=== PATIENT | female | born 1950 | race Caucasian/White ===

== ENCOUNTER 2018-05-06 08:18 | Outpatient (RCR) | payer MEDICARE, OTHER, SELFPAY ==
--- NOTE | 2018-05-06 10:11 | HP.SP.AD ---
History - History Date of Eval: 05/06/18 Previous speech therapy: Yes Results: Patient has history of CVA. Other Relevant Medical History/Diagnoses/Surgery: Patient diagnosed with Parkinsons in December 2017 Hx Smoking: No - Pain Is pain an issue with your current prescribed condition?: No - Personal Right Hearing Abillity: Normal Left Hearing Abillity: Normal Visual Assistive Devices: Glasses Patients Living Arrangements: With Significant Other Subjective Oral Motor - Subjective Patient Reports: Drooling - Comments Comments: Patient stateds she drools mainly at night. She stated she does not have any difficulty with chewing or swallowing food. She stated sometimes she has difficulty with swallowing pills especially the small pills. She stated she does have a dry mouth. Subjective Dysphagia - Symptoms Reported Symptoms/Problems with: Difficulty Swallowing Pills, Xerostomia - Current Diet Solids Current Diet: Regular - Current Diet Liquids Current Liquids: Thin - Comments evaluation -: Patient discussed that her main concern is that she is having difficulty with swallowing pills. She stated at this point it does not happen everyday. Therapist discussed with her strategies to try to help with the taking of medication. Therapist gave patient a handout on the product Biotene dry mouth oral rinse to try in morning previous to taking pills. Discussed with patient about putting medication in a smooth consistency such as applesauce, or some type of puree and then taking the pills. Patient agreed to try these suggestions at home. Patient demonstrated mild impairment of rom of motion of the tongue musculature. Patient was also given handouts on tongue, lip, laryngeal and adduction exercises to practice daily 1-2 times a day to help maintain ROM and strength or oral/pharyngeal musculature. Dysphagia Assessment - Recommendations Swallowing Treatment: No - Diet Texture Recommendations Solids Other: Regular Liquids: Thin - Safety Saftey Precautions/Swallowing Recommendations (Check all that Apply): Multiple Swallows, Alternate Liquids & Solids Other: Put medication in spoonful of puree consistency to take orally. Try using Biotene dry mouth oral rinse before taking medication Plan - Plan Plan: Patient's main concern was with having difficulties with taking medications. She also wanted excercises to help maintain ROM and strength of oral musculature. Therapist will keep in phone contact with patient to monitor patient's swallowing. - Recommendations Treatment Warranted: No - Prognosis Prognosis: Good Education - Patient Instruction Patient Education: Treatment Plan, Safety Precautions, Home Exercise Program Person Taught: Patient Teaching Method: Discussion, Demonstration, Handout Response to teaching: Return demonstration, Verbalize understanding
== END 2018-05-06 19:00 | disposition home or self-care (01) ==
LOC: SP 08:18
PROVIDERS: Family Provider Family Medicine; PCP Family Medicine; Referring Provider Otolaryngology; Visit Provider Otolaryngology
DX: R13.12 Dysphagia, oropharyngeal phase (principal)
CPT/HCPCS: 92610; G8996; G8997

== ENCOUNTER → 2018-11-12 | Outpatient (CLI) | payer MEDICARE, OTHER, SELFPAY ==
--- NOTE | 2018-11-12 09:30 | RAD_ITS ---
PROCEDURE: Fluoroscopic guided Hip Injection DATE: November 12, 2018. INDICATION: Female, 68 years old. Chronic left hip pain. PHYSICIAN: Alex Su M.D. MEDICATIONS: 6 mg of betamethasone and 3 cc of 1% lidocaine. 2% lidocaine administered subcutaneously for local anesthesia. ACCESS SITE: Left hip. NEEDLE: 22-gauge spinal needle. FLUOROSCOPY TIME (if supplied): (0:30) minutes/seconds FINDINGS: The risks, benefits, and alternatives to the procedure were explained to the patient. The specific risks of bleeding, infection, and neurovascular injury were detailed and accepted. Witnessed informed consent was obtained. A 22-gauge spinal needle was positioned under radiographic fluoroscopic localization. Approximately 2 cc of Isovue-300 instilled for localization purposes. Medication was then injected. The patient tolerated the procedure well without any immediate complications. RAD/Inj/Asp Edilson Jt Should/Hip/Knee IMPRESSION: 1. Successful fluoroscopic guided hip injection. Electronically Signed: Alex Su, at 10:42 EDT , Service support ,
== END | disposition home or self-care (01) ==
LOC: RAD 09:22
PROVIDERS: Family Provider Family Medicine; PCP Family Medicine; Referring Provider Specialist; Visit Provider Specialist
DX: M16.12 Unilateral primary osteoarthritis, left hip (principal)
CPT/HCPCS: 20610; 77002; Q9965; J0702

== ENCOUNTER → 2019-04-08 13:41 | Outpatient (CLI) | payer MEDICARE, OTHER, SELFPAY ==
--- NOTE | 2019-04-08 14:25 | VDLE_ITS ---
Reason For Study: PAIN RIGHT LEFT GSV is normal. GSV is normal. CFV is compressible, spontaneous, phasic, CFV is compressible, spontaneous, phasic, competent and demonstrates normal competent, and demonstrates normal augmentation. augmentation. FV is compressible, spontaneous, phasic, FV is compressible, spontaneous, phasic, competent and demonstrates normal competent and demonstrates normal augmentation. augmentation. POP V is compressible, spontaneous, phasic, POP V is compressible, spontaneous, phasic, competent and demonstrates normal competent and demonstrates normal augmentation. augmentation. T/P Trunk is compressible. T/P Trunk is compressible. PTV is compressible. PTV is compressible. RT PerV is compressible. LT PerV is compressible. Procedure Exam performed in department. A preliminary report was called and/or faxed to [facility]/Luz Maria MADSEN. Interpretation Summary Deep veins of the lower extremities are bilaterally patent and compressible segmentally. There is no evidence of deep vein thrombosis on either side. Valvular competence appears intact within the proximal deep venous systems bilaterally. The great saphenous veins appear bilaterally patent and compressible segmentally. Ordering Physician: Katey Madsen Referring Physician: Katey Madsen Performed By: Ema Baez, RUFINO, RVT
== END ==
PROVIDERS: Family Provider Family Medicine; PCP Family Medicine; Referring Provider Nurse Practitioner; Visit Provider Nurse Practitioner
DX: M79.605 Pain in left leg (principal); M79.604 Pain in right leg
CPT/HCPCS: 93970

== ENCOUNTER 2019-04-17 20:32 | Observation (INO) | payer MEDICARE, OTHER, SELFPAY ==
[2019-04-17 20:43] VITALS: BP 99/49; PULSE 83; RESP 18; TEMP 36.9; O2SAT 94; BMI 29.2
[2019-04-17 21:00] VITALS: BP 91/53; PULSE 84; RESP 15; O2SAT 95
[2019-04-17 21:10] VITALS: BP 109/60; PULSE 86; RESP 15; O2SAT 98
[2019-04-17] MEDS: oxyCODONE 5 MG Tablet PO (22:37)
[2019-04-17] MEDS: diazePAM 5 MG Tablet PO (22:38)
[2019-04-17] MEDS: Pramipexole Di-HCl 1 MG Tablet 2 MG PO (22:43)
[2019-04-17 22:51] VITALS: BP 154/76; PULSE 96; RESP 20; O2SAT 94
--- NOTE | 2019-04-17 22:52 | NURSING ---
PAGED DR. PACHECO AT [phone]
--- NOTE | 2019-04-18 00:13 | PCM.HP.STD ---
Problem List (1) Debility Status: Acute History of Present Illness Date of Admission: 04/18/19 Chief Complaint: soleal vein thrombus The patient is a 69 year old F with a significant history of Parkinson's disease; hypertension; and hemochromatosis who presented to the emergency department because of soleal vein thrombus of the right leg. On April 01 2019, patient had a back surgery because of Spinal stenosis. The surgery was with Dr. Lopez at [facility]. Patient continued to have bilateral leg pain and generalized weakness after the surgery. Subsequently she had a CT scan that showed fluid collection at her back. A follow up MRI showed epidural hematoma of her back and for which reason patient had another surgery to evacuate hematoma. Patient developed swelling of her left lower extremity and per family insistence an imaging study was done. Patient was discharged from [facility] to our Rehab Unit ([facility]). The results of the doppler study was unknown to our Rehab unit when patient was accepted. However, because the doppler of her leg showed R soleal vein patient could not be admitted at our Rehab unit. Reportedly vascular surgery at [facility] was contacted and he/she felt that the patient will not need an IVC filter. Her bowels moves about 2 days per week.. Her bowels are yet to move after her last surgery which was 3 days prior to arrival. Past Medical History Medical History: Medical History (Last Updated 04/18/19 @ 04:57 by Castillo Velasquez MD) HTN (hypertension) I10 Allergies Penicillins Allergy (Verified 04/17/19 21:03) Unknown Sulfa (Sulfonamide Antibiotics) Allergy (Verified 04/17/19 21:03) Unknown Home Medications: Ambulatory Orders Medication Instructions Recorded Aspirin [Aspirin EC] 81 mg PO DAILY 04/17/19 Diazepam [Valium] 5 mg PO Q6H PRN PRN 04/17/19 Docusate Sodium [Colace] 100 mg PO BID 04/17/19 Folic Acid 1 mg PO DAILY@0800 04/17/19 Gabapentin [Neurontin] 300 mg PO BIDCM 04/17/19 Lisinopril [Zestril] 10 mg PO DAILY 04/17/19 Oxycodone HCl 5 mg PO Q6H PRN PRN 04/17/19 Pramipexole Di-HCl [Mirapex] 1 mg PO BID 04/17/19 Pramipexole Di-HCl [Mirapex] 2 mg PO QHS 04/17/19 Surgical History: tonsillectomy, - - Decompressive back surgery; and hematoma evacuation of the back. Lives: Spouse/ Significant Other Smoking Status: Never smoker Alcohol: None - *Family History Paternal History Items: Dementia - Vascular dementia Maternal History Items: Cancer - Non-Hodgkin's lymphoma Review of Systems Constitutional: Reports: Weakness. Denies: Chills, Fever, Weight Change HEENT: Denies: Head Aches, Sinus Congestion, Sinus Drainage Cardiovascular: Denies: Chest Pain, Palpitations Respiratory: Denies: Cough, Shortness of breath at rest, Sputum production Gastrointestinal: Denies: Abdominal Pain, Nausea, Vomiting Genitourinary: Denies: Dysuria Musculoskeletal: Reports: Leg Pain. Denies: Joint Pain, Joint Tenderness Skin: Denies: Rash, Wounds Neurological: Denies: Numbness, Tingling, Focal weakness Psychiatric: Denies: Anxiety, Depression, Homicidal Ideations, Suicidal Ideations Hematologic/ Lymphatic: Denies: Easy Bruising, Easy Bleeding VTE Information - Inpt Only VTE Present on Admission: Yes - Soleal vein thrombosis VTE Mechan Device Prophylaxis: None VTE Pharm Prophylaxis ordered?: Yes Patient Problems: Active and Suspected Problems Debility (Acute) - Physical Exam General: Alert, Oriented x3, Cooperative HEENT: Atraumatic, PERRLA, EOMI, Normocephalic Neck: Supple, No JVD, Negative Carotid Bruits Lungs: Clear to auscultation, Normal air movement Cardiovascular: Regular rate, No murmurs Abdomen: Bowel Sounds Present, Soft, Non Tender Extremities: Capillary Refill Less than 3 Seconds, Edema - left leg Skin: No rashes, No breakdown, - - Dry and intact dressing at mid to lower back. Musculoskeletal: No Tenderness to Palpation of Joints or Extremities, - - Reduced range of motion of bilateral lower extremities with strength 5 out of 5 in bilateral lower extremities. Neurological: Cranial nerves II-XII grossly intact, - - Anal tone is intact Psych/Mental Status: Normal Affect, Appropriate Vital Signs Temp Pulse Resp BP Pulse Ox 98.4 F 96 20 H 154/76 H 94 04/17/19 20:43 04/17/19 22:51 04/17/19 22:51 04/17/19 22:51 04/17/19 22:51 Oxygen Delivery Method Room Air Weight: 77.111 kg Body Mass Index (BMI) 29.2 Assessment/Plan All Active Problems Debility (Acute) The patient is a 69 year old F with a significant history of Parkinson's disease; hypertension; and hemochromatosis who presented to the emergency department because of soleal vein thrombus of the right leg after a recent back surgery and a second back surgery for back epidural hematoma evacuation. Soleal vein thrombosis of the right leg Imaging at [facility] and with recommendation that if anticoagulation cannot be done longitudinal Duplex of the leg was recommended. Consider discussing case with automotive service director. Debility Consider discharging patient to our rehab unit for PT/OT as originally planned. Back Pain s/p surgery Continue oxycodone every 6 hours. Change stool softener from Docusate to Senokot-S. Zofran as needed for nausea Parkinson's disease Mirapex continued. Hypertension On presentation her blood pressure was generally within goal Lisinopril continued Trend blood pressure and adjust blood pressure medications DVT prophylaxis subcutaneous lovenox. Of note patient has distal DVT in the soleal vein as above. Code Visit OBSV E&M: 45138 Initial observation care L1
--- NOTE | 2019-04-18 01:27 | ED.DCSUM_ITS ---
History of Present Illness Chief Complaint: Other, Pain/Inj Narrative: Patient presenting for evaluation secondary to right groin pain concern for a possible DVT. Patient has a history of having a lumbar discectomy and fusion performed earlier this month at an outside facility. This was complicated by the fact that she was discharged, and then she developed a epidural hematoma that required emergent surgery. Patient has been admitted at that facility until today. She had arranged to come to [place] for rehabilitation. Prior to the patient being discharged, it was noted that she had some left leg edema and a duplex ultrasound was ordered. Patient had evidence of a soleal vein DVT below the knee. She was already in route to this facility when report was called to the physician who covers the rehab unit, and he stated that he felt that he was uncomfortable taking the patient given her status of having a below the knee DVT. Patient therefore was brought to the emergency department as she was declined admission to the rehabilitation unit. Patient currently is denying that she is having any sort of chest pain. She does have an underlying history of hemochromatosis. Past Medical History - Allergies and Home Meds Allergies/Adverse Reactions: Allergies Penicillins Allergy (Verified 04/17/19 21:03) Unknown Sulfa (Sulfonamide Antibiotics) Allergy (Verified 04/17/19 21:03) Unknown Past Medical History: - - Hemochromatosis Smoking Status: Never smoker Review of Systems All systems negative except as indicated General: Denies: Fever Musculoskeletal: Reports: Back pain, Swelling Physical Exam Vital Signs/Narrative: Vital Signs Pulse Resp BP Pulse Ox 04/17/19 22:51 96 20 H 154/76 H 94 General: Well nourished, Well developed Head: Normocephalic, Atraumatic Eyes: EOMI ENT: Moist mucous membranes Neck: Supple Cardiovascular: Regular rate, Regular rhythm Respiratory: No distress Abdomen: Soft, Nontender Back: - - Incisions are clean and intact Extremities: Edema - Left foot +1 pitting edema Skin: Normal color, No rash Neurological: Alert, Oriented x3, Cranial nerves II-XII grossly intact, Normal Strength, Normal Sensation Diagnostic/Tx/Re-eval - Medical Decision Making Patient presented due to concern for the possibility of a deep venous clot. I was able to obtain the records from the outside facility for this, and it demonstrates evidence of a soleal vein clot that is below the knee. Patient at this point does not require any sort of intervention other than repeat ultrasound, so I attempted to page the covering physician for the rehabilitation unit, Dr. Goncalves. After multiple pages, we were unable to reach this physician. I do not feel that it is appropriate to readmit the patient to the facility and [facility], as she was already cleared for discharge to rehab and she has made the 1 Hour here to be closer to family. She obviously is not appropriate for discharge home as she requires rehab, but I am unable to get a hold of the rehab physician this evening, so I believe that hospital observation until social work/admission to rehabilitation can be obtained as appropriate. I discussed this with hospitalist. ED Disposition - Plan for ED Patient: Diagnosis: Debility, Left soleal vein DVT
[2019-04-18] MEDS: oxyCODONE 5 MG Tablet PO (01:54)
[2019-04-18 03:04] VITALS: BMI 29.6; BMI 29.7
[2019-04-18 03:09] VITALS: BP 115/52; PULSE 82; RESP 18; TEMP 37.1; O2SAT 100
[2019-04-18 07:16] VITALS: O2SAT 91
[2019-04-18 07:37] LABS: Anion Gap 11 (5-15); BUN 13 mg/dL (7-18); BUN/Creat Ratio 20.3 RATIO (10-20); Calcium,Total 9.1 mg/dL (8.5-10.1); Chloride 107 mmol/L (98-107); Creatinine, Serum 0.64 mg/dL (0.55-1.02); EST Glomerular Filtration Rate 98 mL/min (>60); Est Glom Filt Rate - Afr Amer 118 mL/min (>60); Glucose 84 mg/dL (74-106); Potassium 3.9 mmol/L (3.5-5.1); Sodium Level 143 mmol/L (136-145)
[2019-04-18 08:38] VITALS: PULSE 87
[2019-04-18 09:00] LABS: Thyroid Stim Hormone (TSH) 6.31 uIU/mL (0.358-3.74)
[2019-04-18 09:08] VITALS: BP 139/75; PULSE 65; RESP 20; TEMP 36.7; O2SAT 96
--- NOTE | 2019-04-18 09:19 | CM.UR ---
Addendum entered by Rin Sellers 04/18/19 09:31: Spoke with and patient to confirm still agreeable to go to our rehab. Verbalized that they were. states, If they'll take us. Apologized for their inconvenience. Explained that yes rehab is accepting them. Explained there were some concerns they wanted to get clarified first. Verb understanding. Dr. Donald aware of rehab acceptance. Malachi Sellers RN, CCM. Original Note: Was notified by Shawn, human resources department supervisor, that Dr. Goncalves accepted patient to rehab. He asked that I touch base with [facility]. Called [facility] at this time. States yes that they accepted the patient and she can come today. Malachi Sellers RN, CCM.
--- NOTE | 2019-04-18 09:26 | PCM.PN.HOSP ---
Patient Problems: Active and Suspected Problems (Last Updated 04/18/19 @ 04:57 by Castillo Velasquez MD) Debility (Acute) DVT (deep venous thrombosis) (Acute) Subjective: Upset that she couldn't get into rehab. Vitals/I&O's: Vital Signs Temp Pulse Resp BP Pulse Ox 36.7 C 87 16 131/72 H 96 04/18/19 08:51 04/18/19 08:51 04/18/19 08:51 04/18/19 08:51 04/18/19 08:51 Oxygen Delivery Method Room Air Weight: 78.4 kg Body Mass Index (BMI) 29.6 Intake and Output for Last 24 Hours 04/16/19 04/17/19 04/18/19 23:59 23:59 23:59 Output Total 75 / 75 Balance -75 / -75 General: Alert, No apparent distress HEENT: Atraumatic, Normocephalic Oral: Moist Mucosa, No Gingival or Mucosal Lesions/ Ulcerations Neck: No Nodes, Thyroid Normal Size and Texture Lungs: Clear to auscultation, Normal air movement, No rhonchi, No wheeze, No rales Cardiovascular: Regular rate, Regular Rhythm, Normal S1, Normal S2, No murmurs Abdomen: Bowel Sounds Present, Soft, Non Tender, Non-Distended, No Hepato-splenomegaly Extremities: - - right leg edema Skin: - - back incision with tejinder, no active drainage, well-approximated. Psych/Mental Status: Normal Affect, Appropriate Laboratory Results 04/18/19 07:00: Sodium 143, Potassium 3.9, Chloride 107, Carbon Dioxide 25.0, Anion Gap 11, BUN 13, Creatinine 0.64, Estim Creat Clear Calc 46.50, Est GFR (MDRD) Af Amer 118, Est GFR (MDRD) Non-Af 98, BUN/Creatinine Ratio 20.3 H, Glucose 84, Calcium 9.1 04/18/19 07:00: TSH 6.[address] [facility] showed acute DVT in the left soleal vein. No evidence of acute deep or superficial venous thrombosis in the right lower extremity. There is no evidence of acute superficial venous thrombosis noted in the left lower extremity. MRI of the lumbar spine performed on the showed spinal block at L4-L5 due to combination of spondylolisthesis, disc bulge and postoperative fluid collection. Multilevel degenerative disc disease with disc bulges of varying degrees. Grade 3 spondylolisthesis at L4. Postoperative interspinous fluid collection at L4-L5. This communicates with an irregular concentric subcutaneous fluid collection more superficially. Current Medications Acetaminophen (Tylenol) 650 mg PO Q6H PRN PRN PRN Reason: Mild Pain (1-3)/Temp > 100.7 F Aspirin (Ecotrin) 81 mg PO DAILY@0800 [facility] Dextrose (D50w Syringe) 0 gm IV X1 PRN; Protocol PRN Reason: Hypoglycemia Diazepam (Valium) 5 mg PO Q6H PRN PRN PRN Reason: ANXIETY / MUSCLE SPASMS Enoxaparin Sodium (Lovenox) 40 mg SC DAILY@1000 [facility] Folic Acid (Folic Acid) 1 mg PO DAILY@0800 [facility] Glucagon () 1 mg IM .X1 PRN PRN Reason: Hypoglycemia Lisinopril (Zestril) 10 mg PO DAILY [facility] Ondansetron HCl (Zofran) 4 mg IV Q8H PRN PRN PRN Reason: NAUSEA/VOMITING Oxycodone HCl (Oxyir) 5 mg PO Q6H PRN PRN PRN Reason: PAIN Pramipexole Dihydrochloride (Mirapex) 2 mg PO X1 ONE Stop: 04/18/19 22:26 Last Admin: 04/17/19 22:43 Dose: 2 mg Documented by: Pramipexole [facility]hydrochloride ([facility]) [facility] Pramipexole Dihydrochloride (Mirapex) 2 mg PO QHS [facility] Senna/Docusate Sodium (Senokot-S, Reba-Colace) 1 tablet PO BID [facility] Medical Necessity - Tobacco Use Smoking Status: Never smoker Tobacco Use: Non-smoker Assessment/Plan All Active Problems (Last Updated 04/18/19 @ 04:57 by Castillo Velasquez MD) Debility (Acute) DVT (deep venous thrombosis) (Acute) 1. Left soleal DVT likely provoked given recent hospitalizations and surgery repeat US on , and May 17 If not propagation, then no further work up If propagates beyond the knee, then anticoagulation for 3 months Of note, was seen by vascular surgery at [facility] prior to discharge for the DVT (consult note time stamp 1254) who did not recommend anticoagulation, no vascular intervention (i.e., IVC filter). 2. Lumbar post-op hematoma patient underwent I+D w posterior lumbar decompression L3-L5 by Dr. Lopez on 04/[address] Lopez as outpt. 3. Parkinson's disease Mirapex minimize medications that may oversedate 4. VTE prophy: LMWH No medical necessity for this hospital stay. Patient can engage in rehab level of care with her DVT. Code Visit OBSV E&M: 29948 Subsequent observation care L2
--- NOTE | 2019-04-18 09:53 | DCINST_ITS ---
- Discharge Diagnoses Current Active Problems: Current Active and Chronic Problems (Last Updated 04/18/19 @ 04:57 by Castillo Velasquez MD) Debility (Acute) DVT (deep venous thrombosis) (Acute) You will use the following diet at home:: Regular Discharge Activity: Return to Normal Activity Call your doctor if you observe: Fever of 101 or Higher, Shortness of breath, Chest pain Allergies/Adverse Reactions: Allergies Penicillins Allergy (Verified 04/17/19 21:03) Unknown Sulfa (Sulfonamide Antibiotics) Allergy (Verified 04/17/19 21:03) Unknown Medications to take at Discharge Aspirin [Aspirin EC] 81 mg PO DAILY 04/17/19 Diazepam [Valium] 5 mg PO Q6H PRN PRN 04/17/19 Docusate Sodium [Colace] 100 mg PO BID 04/17/19 Folic Acid 1 mg PO DAILY@0800 04/17/19 Gabapentin [Neurontin] 300 mg PO BIDCM 04/17/19 Lisinopril [Zestril] 10 mg PO DAILY 04/17/19 Oxycodone HCl 5 mg PO Q6H PRN PRN 04/17/19 Pramipexole Di-HCl [Mirapex] 1 mg PO BID 04/17/19 Pramipexole Di-HCl [Mirapex] 2 mg PO QHS 04/17/19 Enoxaparin [Lovenox] 40 mg SUBCUT DAILY@1000 syringe 04/18/19 Primary Care Physician: Román Rosado MD [Primary Care Provider] - Within 2 Weeks Test Results: Test results from this visit will be discussed in further detail at your follow- up appointment, if applicable. Proposed Discharge Date: 04/18/19
--- NOTE | 2019-04-18 09:54 | PCM.DC.SUM ---
Discharge Date and Diagnosis - Problem List Patient Problems: Active and Suspected Problems (Last Updated 04/18/19 @ 04:57 by Castillo Velasquez MD) DVT (deep venous thrombosis) (Acute) Debility (Acute) Date of Admission: 04/18/19 Date of Discharge: 04/18/19 - Primary Discharge Diagnosis Active and Suspected Problems (Last Updated 04/18/19 @ 04:57 by Castillo Velasquez MD) DVT (deep venous thrombosis) (Acute) Debility (Acute) Hospital Course and Treatment Operations: None Procedures: None Summary of Care Provided: The patient is a 69 year old F underwent evacuation of a lumbar hematoma at [facility]. Patient was found to have a left soleal DVT. The rehab was made aware of this supposedly during transit and the rehab physician declined it and deferred the patient to the emergency room. Emergency room physician reviewed the records and saw the patient had a soleal DVT and patient was seen by vascular surgery over at [facility] who advised just repeat serial ultrasounds and no anticoagulation nor IVC filter. The emergency physician attempted to get a hold of the rehab physician and was unable to do so. Given the fact that the rehab physician was not able to be contacted and patient was unsafe to go home, patient was brought into [facility] for observation overnight. Patient's night was unremarkable. Case management heard from rehab that they would now be able to take the patient. There is no medical necessity for this hospitalization to have occurred. It appears to have occurred as patient was already denied for rehab by the rehab physician and they were unable to get a hold of the rehab physician when they contacted through the emergency room. Patient was evaluated at the outside hospital with an ultrasound as well as vascular surgery who delineated the appropriate work-up with serial ultrasounds at day 3, day 10 and day 30. [] Patient Problems: Active and Suspected Problems (Last Updated 04/18/19 @ 04:57 by Castillo Velasquez MD) DVT (deep venous thrombosis) (Acute) Debility (Acute) - Physical Exam Vital Signs Temp Pulse Resp BP Pulse Ox 36.7 C 87 16 131/72 H 96 04/18/19 08:51 04/18/19 08:51 04/18/19 08:51 04/18/19 08:51 04/18/19 08:51 Oxygen Delivery Method Room Air Weight: 78.4 kg Body Mass Index (BMI) 29.6 Intake and Output for Last 24 Hours 04/16/19 04/17/19 04/18/19 23:59 23:59 23:59 Output Total 75 / 75 Balance -75 / -75 Laboratory Tests Past 24 Hrs 04/18/19 04/18/19 07:00 07:00 Sodium 143 Potassium 3.9 Chloride 107 Carbon Dioxide 25.0 Anion Gap 11 BUN 13 Creatinine 0.64 Estim Creat Clear Calc 46.50 Est GFR (MDRD) Af Amer 118 Est GFR (MDRD) Non-Af 98 BUN/Creatinine Ratio 20.3 H Glucose 84 Calcium 9.1 TSH 6.31 H Discharge Diet: No Restrictions Discharge Activity: Return to Normal Activity Call your doctor if you observe: Fever of 101 or Higher, Shortness of breath, Chest pain Home Medications: Medications to take at Discharge Aspirin [Aspirin EC] 81 mg PO DAILY 04/17/19 Diazepam [Valium] 5 mg PO Q6H PRN PRN 04/17/19 Docusate Sodium [Colace] 100 mg PO BID 04/17/19 Folic Acid 1 mg PO DAILY@0800 04/17/19 Gabapentin [Neurontin] 300 mg PO BIDCM 04/17/19 Lisinopril [Zestril] 10 mg PO DAILY 04/17/19 Oxycodone HCl 5 mg PO Q6H PRN PRN 04/17/19 Pramipexole Di-HCl [Mirapex] 1 mg PO BID 04/17/19 Pramipexole Di-HCl [Mirapex] 2 mg PO QHS 04/17/19 Enoxaparin [Lovenox] 40 mg SUBCUT DAILY@1000 syringe 04/18/19 Primary Care Physician: Román Rosado MD [Primary Care Provider] - Within 2 Weeks Disposition: Inpt Rehab Unit/Facility Minutes spent on discharge:: 32 Patient Condition:: Stable Medical Necessity - Tobacco Use Smoking Status: Never smoker Tobacco Use: Non-smoker Meaningful Use Info Meaningful Use Diagnoses (Choose all that apply): None applicable Code Visit OBSV E&M: 63565 Observation care discharge
[2019-04-18] MEDS: Aspirin E.C. 81 MG Tablet PO (10:25)
[2019-04-18] MEDS: Folic Acid 1 MG Tablet PO (10:25)
[2019-04-18] MEDS: Pramipexole Di-HCl 1 MG Tablet PO (10:25)
[2019-04-18] MEDS: Enoxaparin 40 MG/0.4 ML Syringe SC (10:26)
[2019-04-18] MEDS: Lisinopril 10 MG Tablet PO (10:27)
[2019-04-18] MEDS: Senna/Docusate Sodium 1 Tablet PO (10:27)
[2019-04-18] MEDS: Acetaminophen 325 MG Tablet 650 MG PO (10:34)
== END 2019-04-18 13:43 ==
LOC: ED 21:55 → MS3 04-18 01:35
PROVIDERS: Admitting Provider Hospitalist; Emergency Provider Emergency Medicine; Family Provider Family Medicine; PCP Family Medicine
DX: I82.492 Acute embolism and thrombosis of other specified deep vein of left lower extremity (principal); G20 Parkinson's disease; I10 Essential (primary) hypertension; E83.119 Hemochromatosis, unspecified; Z79.899 Other long term (current) drug therapy; M96.840 Postprocedural hematoma of a musculoskeletal structure following a musculoskeletal system procedure; Y83.8 Other surgical procedures as the cause of abnormal reaction of the patient, or of later complication, without mention of misadventure at the time of the procedure; Z79.82 Long term (current) use of aspirin
CPT/HCPCS: 36415; 80048; 84443; 96372; 97162; 97165; 99218; 99283; G0378

== ENCOUNTER 2019-04-18 14:00 | Inpatient (IN) | payer MEDICARE, OTHER, SELFPAY ==
[2019-04-18 03:04] VITALS: BMI 29.6
[2019-04-18 14:32] VITALS: BP 140/71; PULSE 94; RESP 18; TEMP 36.9; O2SAT 98
[2019-04-18] MEDS: oxyCODONE 5 MG Tablet PO ×2 (15:52→22:10)
[2019-04-18 16:04] VITALS: BMI 30.1
[2019-04-18 19:34] VITALS: BP 103/50; PULSE 86; RESP 18; TEMP 37; O2SAT 96
[2019-04-18] MEDS: Pramipexole Di-HCl 1 MG Tablet 2 MG PO (19:40)
[2019-04-18] MEDS: Senna/Docusate Sodium 1 Tablet 2 TABLET PO (19:40)
[2019-04-18] MEDS: Gabapentin 300 MG Capsule PO (19:43)
[2019-04-19] MEDS: oxyCODONE 5 MG Tablet PO ×2 (04:17→11:22)
[2019-04-19 06:33] LABS: Absolute Neutrophil Count 6.2 X10^3/uL (2.0-7.7); Basophil# 0.07 X10^3/uL; Basophil% 0.9 % (0-1); Eosinophils% 2.4 % (0-5); Hematocrit 25.3 % (37-47); Hemoglobin 7.5 g/dL (12.0-15.0); Mean Corp Hgb Conc 29.6 g/dL (32-36); Mean Corpuscular Hgb 23.2 pg (27.0-32.0); Mean Corpuscular Volume 78.3 fL (81-99); Mean Platelet Vol. 10.2 fl (6.2-12.0); Monocyte# 0.79 X10^3/uL; Monocyte% 9.6 % (0-10); NRBC Flagged by Analyzer 0 % (0-5); Neutrophil # 6.21 X10^3/uL (2.7-7.7); Neutrophil % 75.6 % (47-70); Platelet Count 366 K/mm3 (150-450); RBC Distribution Width CV 18.4 % (11.6-14.6); RBC Distribution Width SD 52.4 fl (35.1-43.9); Red Blood Count 3.23 M/mm3 (4.2-5.4); White Blood Count 8.2 K/mm3 (4.4-11.0)
[2019-04-19 06:52] LABS: Anion Gap 7 (5-15); BUN 17 mg/dL (7-18); BUN/Creat Ratio 27.6 RATIO (10-20); Calcium,Total 8.9 mg/dL (8.5-10.1); Chloride 107 mmol/L (98-107); Creatinine, Serum 0.62 mg/dL (0.55-1.02); EST Glomerular Filtration Rate 103 mL/min (>60); Est Glom Filt Rate - Afr Amer 124 mL/min (>60); Glucose 92 mg/dL (74-106); Potassium 3.9 mmol/L (3.5-5.1); Sodium Level 140 mmol/L (136-145)
[2019-04-19 07:28] VITALS: BP 155/71; PULSE 79; RESP 18; TEMP 36.7; O2SAT 93
[2019-04-19] MEDS: Pramipexole Di-HCl 1 MG Tablet PO ×2 (07:39→13:33)
[2019-04-19] MEDS: Senna/Docusate Sodium 1 Tablet 2 TABLET PO ×2 (07:39→20:07)
[2019-04-19] MEDS: Gabapentin 300 MG Capsule PO ×2 (07:39→16:38)
[2019-04-19] MEDS: Folic Acid 1 MG Tablet PO (07:39)
[2019-04-19] MEDS: Aspirin E.C. 81 MG Tablet PO (07:39)
[2019-04-19] MEDS: Lisinopril 10 MG Tablet PO (07:40)
--- NOTE | 2019-04-19 10:10 | PCM.PN.HOSP ---
Patient Problems: Active and Suspected Problems (Last Updated 04/18/19 @ 16:14 by Melissa Slater) DVT (deep venous thrombosis) (Acute) Subjective: It is of some numbness in her. This is been ongoing since her surgery. It is not gotten worse nor better at this time. Vitals/I&O's: Vital Signs Temp Pulse Resp BP Pulse Ox 36.7 C 79 18 155/71 H 93 04/19/19 07:28 04/19/19 07:28 04/19/19 07:28 04/19/19 07:28 04/19/19 07:28 Oxygen Delivery Method Room Air Weight: 79.5 kg Body Mass Index (BMI) 30.0 Intake and Output for Last 24 Hours 04/17/19 04/18/19 04/19/19 23:59 23:59 23:59 Intake Total 160 / 160 Output Total 450 / 450 Balance -290 / -290 General: Alert, No apparent distress HEENT: Atraumatic, Normocephalic Oral: Moist Mucosa, No Gingival or Mucosal Lesions/ Ulcerations Neck: No Nodes, Thyroid Normal Size and Texture Lungs: Clear to auscultation, Normal air movement, No rhonchi, No wheeze Cardiovascular: Regular rate, Regular Rhythm, Normal S1, Normal S2 Abdomen: Bowel Sounds Present, Soft, Non Tender, Non-Distended, No Hepato-splenomegaly Extremities: No edema, No Calf Tenderness Skin: No rashes, No breakdown Psych/Mental Status: Normal Affect, Appropriate Laboratory Results 04/19/19 05:16: WBC 8.2, RBC 3.23 L, Hgb 7.5 L, Hct 25.3 L, MCV 78.3 L, MCH 23.2 L, MCHC 29.6 L, RDW Std Deviation 52.4 H, RDW Coeff of Pedro 18.4 H, Plt Count 366, MPV 10.2, Immature Gran % (Auto) 0.500, Neut % (Auto) 75.6 H, Lymph % (Auto) 11.0 L, Addison % (Auto) 9.6, Eos % (Auto) 2.4, Baso % (Auto) 0.9, Absolute Neuts (auto) 6.2, Absolute Lymphs (auto) 0.90, Nucleated RBC % 0 04/19/19 05:16: Sodium 140, Potassium 3.9, Chloride 107, Carbon Dioxide 26.0, Anion Gap 7, BUN 17, Creatinine 0.62, Estim Creat Clear Calc 46.50, Est GFR (MDRD) Af Amer 124, Est GFR (MDRD) Non-Af 103, BUN/Creatinine Ratio 27.6 H, Glucose 92, Calcium 8.9 Current Medications [facility] Last Admin: 04/19/19 07:39 Dose: 81 mg Documented by: Bisacodyl (Dulcolax) 10 mg RECTAL .PRN X 1 PRN PRN Reason: Constipation Diazepam (Valium) 5 mg PO Q6H PRN PRN PRN Reason: ANXIETY / MUSCLE SPASMS Folic Acid (Folic Acid) 1 mg PO [facility] Last Admin: 04/19/19 07:39 Dose: 1 mg Documented by: Gabapentin (Neurontin) 300 mg [facility]UN[facility] Last Admin: 04/19/19 07:39 Dose: 300 mg Documented by: Lisinopril (Zestril) 10 mg PO DAILY [facility] Last Admin: 04/19/19 07:40 Dose: 10 mg Documented by: Magnesium Hydroxide (Milk Of Magnesia) 30 ml PO .PRN X 1 PRN PRN Reason: Constipation Oxycodone HCl (Oxyir) 5 mg PO Q6H PRN PRN PRN Reason: PAIN Last Admin: 04/19/19 04:17 Dose: 5 mg Documented by: Pramipexole Dihydrochloride (Mirapex) 1 mg PO 0700,1400 [facility] Last Admin: 04/19/19 07:39 Dose: 1 mg Documented by: Pramipexole Dihydrochloride (Mirapex) 2 mg PO QHS [facility] Last Admin: 04/18/19 19:40 Dose: 2 mg Documented by: Senna/Docusate Sodium (Senokot-S, Reba-Colace) 2 tablet PO BID [facility] Last Admin: 04/19/19 07:39 Dose: 2 tablet Documented by: Medical Necessity - Tobacco Use Smoking Status: Never smoker Tobacco Use: Non-smoker Assessment/Plan All Active Problems (Last Updated 04/18/19 @ 16:14 by Melissa Slater) Debility (Acute) DVT (deep venous thrombosis) (Acute) 1. Left soleal DVT likely provoked given recent hospitalizations and surgery repeat US on 23 and May 17 If not propagation, then no further work up If propagates beyond the knee, then anticoagulation for 3 months, or temporary IVC filter if cannot be anticoagulated. Of note, was seen by vascular surgery at [facility] prior to discharge for the DVT (consult note time stamp [id number]) who did not recommend anticoagulation, no vascular intervention (i.e., IVC filter). 2. Lumbar post-op hematoma patient underwent I+D w posterior lumbar decompression L3-L5 by Dr. Lopez on 04/[address] Lopez as outpt. 3. Parkinson's disease Mirapex minimize medications that may oversedate 4. Anemia monitor lower than previous no transfusions at this time. Code Visit Inpatient E&M: 36926 Subs Hosp L2
--- NOTE | 2019-04-19 14:13 | NURSING ---
Pt is refusing to wear SCD to RLE while in bed, education provided with ill effect. Resting in bed at this time with no s/s distress noted, daughter at bedside.
[2019-04-19] MEDS: diazePAM 5 MG Tablet PO (14:36)
[2019-04-19 17:48] VITALS: O2SAT 93
[2019-04-19] MEDS: Magnesium Hydroxide 30 ML UDC PO (20:07)
[2019-04-19] MEDS: Pramipexole Di-HCl 1 MG Tablet 2 MG PO (20:07)
--- NOTE | 2019-04-19 20:12 | NURSING ---
No BM at least last three days per pt. Unable to find in records received from [facility]. Abdomen soft. Passing flatus. Active BS. MOM given
[2019-04-19 20:29] VITALS: BP 90/62; PULSE 90; RESP 16; TEMP 36.7; O2SAT 96
[2019-04-19 20:32] VITALS: O2SAT 97
[2019-04-19 23:04] VITALS: BP 134/64; PULSE 84; RESP 16
--- NOTE | 2019-04-19 23:05 | NURSING ---
Very drowsy. Previous BP 90/ systolic, now 134/64. Resp reg and easy, skin warm and dry. Responds appropriately after name is called once or twice. Denies pain at this time.
[2019-04-20] MEDS: Pramipexole Di-HCl 1 MG Tablet PO ×2 (06:12→15:17)
[2019-04-20 06:20] LABS: Absolute Lymphocyte Count 1.22 X10^3/uL (0.83-4.51); Absolute Neutrophil Count 3.8 X10^3/uL (2.0-7.7); Basophil# 0.04 X10^3/uL; Basophil% 0.7 % (0-1); Eosinophil# 0.15 X10^3/uL; Eosinophils% 2.6 % (0-5); Hemoglobin 6.6 g/dL (12.0-15.0); Lymphocyte # 1.22 X10^3/ul (4.0); Lymphocyte % 20.8 % (19-41); Mean Corpuscular Hgb 23.4 pg (27.0-32.0); Mean Platelet Vol. 9.8 fl (6.2-12.0); Monocyte# 0.66 X10^3/uL; Monocyte% 11.3 % (0-10); NRBC Flagged by Analyzer 0 % (0-5); Neutrophil # 3.77 X10^3/uL (2.7-7.7); Neutrophil % 64.3 % (47-70); Platelet Count 327 K/mm3 (150-450); RBC Distribution Width CV 18.4 % (11.6-14.6); RBC Distribution Width SD 51.6 fl (35.1-43.9); Red Blood Count 2.82 M/mm3 (4.2-5.4); White Blood Count 5.9 K/mm3 (4.4-11.0)
[2019-04-20 06:36] LABS: T4 Free Direct 1.14 ng/dL (0.76-1.46)
[2019-04-20 06:40] VITALS: O2SAT 96
[2019-04-20 07:30] VITALS: BP 104/64; PULSE 80; RESP 16; TEMP 36.9; O2SAT 95
--- NOTE | 2019-04-20 08:00 | VDLE_ITS ---
Reason For Study: Swelling, F/U DVT RIGHT LEFT CFV is compressible, spontaneous, phasic, GSV is normal. competent and demonstrates normal CFV is compressible, spontaneous, phasic, augmentation. competent, and demonstrates normal Procedure augmentation. Exam performed portable in patient room. FV is compressible, spontaneous, phasic, A preliminary report was called and/or faxed competent and demonstrates normal to Patients RN. augmentation. POP V is compressible, spontaneous, phasic, competent and demonstrates normal augmentation. T/P Trunk is compressible. PTV is compressible. LT PerV is compressible. Lt SoleusV is dilated and non compressible consistent with acute DVT. Interpretation Summary Acute deep vein thrombosis is noted in the left soleus vein. The remainder of the left lower extremity deep venous system is patent and compressible. Valvular competence appears intact within the proximal deep venous system on the left . The left great saphenous vein appears patent and compressible segmentally. Ordering Physician: Mayur Goncalves Referring Physician: Romná Rosado Performed By: Saskia Hendrix, RUFINO, RVT
[2019-04-20] MEDS: Aspirin E.C. 81 MG Tablet PO (08:12)
[2019-04-20] MEDS: Gabapentin 300 MG Capsule PO ×2 (08:12→16:39)
[2019-04-20] MEDS: Senna/Docusate Sodium 1 Tablet 2 TABLET PO (08:12)
[2019-04-20] MEDS: Folic Acid 1 MG Tablet PO (08:12)
[2019-04-20] MEDS: Lisinopril 10 MG Tablet PO (08:12)
--- NOTE | 2019-04-20 08:40 | NURSING ---
message left with Dr Lopez's office at [facility] regarding dressing change orders, shower privileges, and staple removal date. awaiting return phone call.
--- NOTE | 2019-04-20 09:04 | PCM.HP.COS ---
History of Present Illness Date of Admission: 04/18/19 Chief Complaint: Debility secondary to L4-5 decompression adn fusion The patient is a 69 year old F with PMH of Parkinson disease, HTN, Hypothyroidism, Hemochromatosis, DVT left soleal vein on 04/17/19, Hx of stroke in 2009, admitted to [facility] on 04/18/2019 for debility secondary to L4-5 decompression and fusion greater of 3 hours of therapy per day with a goal of returning home at or near her prior level of independence. On April 01, 2019 Dr. Dominik Lopez at [facility] performed an L4-L5 decompression fusion due to spinal stenosis. Patient developed bilateral lower extremity weakness and pain in the left greater than right. On April 14, 2019, MRI of lumbar area showed an interspinous fluid collection measuring 4.7 x 3.5 cm at the L4-L5 with mass-effect of the thecal sac and communicating with the crescentic contains fluid collection. An evacuation of hematoma was performed. On 04/17/2019, DVT of left soleal vein was noted on duplex, vascular surgeon Dr. Maya was consulted and recommended no DVT prophylaxis and given the location of the DVT (below knee) in setting of recent spine hematoma to monitor on the 3rd, 10th, and 30th day. Also, H/H 22.6/7.0 which decreased 26.6/8.5 from March. Patient has diagnosis of hemochromatosis, which Supervisor Metal Placing Dr. 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 Patient was discharged to [facility] on 04/17/2019, without new acute findings communicated to [facility] before discharge. Vascular surgeon was contacted at [facility], which felt no intervention was necessary. Patient was admitted to [facility] medical surgical floor and discharged to [facility] on 04/18/2019. Patient lives with spouse in a one level home with one step to enter. Prior to surgery, patient was independent with ADLs, mobility and driving. Past Medical History Medical History: Medical History (Last Updated 04/20/19 @ 09:07 by Vandana Noyola NP-C) Hemochromatosis E83.119 Intraparenchymal hematoma of brain S06.360A Parkinson disease G20 Rectocele N81.6 Restless leg syndrome G25.81 Spinal stenosis M48.00 Stroke I63.9 HTN (hypertension) I10 Allergies Penicillins Allergy (Verified 04/17/19 21:03) Unknown Sulfa (Sulfonamide Antibiotics) Allergy (Verified 04/17/19 21:03) Unknown levothyroxine Adverse Reaction (Verified 04/18/19 11:36) Diarrhea Home Medications: Ambulatory Orders Medication Instructions Recorded Aspirin [Aspirin EC] 81 mg PO DAILY 04/17/19 Diazepam [Valium] 5 mg PO Q6H PRN PRN 04/17/19 Folic Acid 1 mg PO DAILY 04/17/19 Gabapentin [Neurontin] 300 mg PO BIDCM 04/17/19 Lisinopril [Zestril] 10 mg PO DAILY 04/17/19 Oxycodone HCl 5 mg PO Q6H PRN PRN 04/17/19 Pramipexole Di-HCl [Mirapex] 1 mg PO BID 04/17/19 Pramipexole Di-HCl [Mirapex] 2 mg PO QHS 04/17/19 Surgical History: Surgical History (Last Updated 04/20/19 @ 09:17 by Vandana Noyola, CHRONIC CONDITION NURSE-C) H/O blepharoplasty Z98.890 H/O tubal ligation Z98.51 Hx of tonsillectomy Z90.89 S/P lumbar spinal fusion Z98.1 and decompression of L4-5 Surgical History: tonsillectomy, - - Decompressive back surgery; and hematoma evacuation of the back. Psychiatric History: No pertinent psych hx Lives: With Family Smoking Status: Never smoker Tobacco Use: Non-smoker Alcohol: None Drugs: None - *Family History Paternal History Items: Diabetes, Dementia - Vascular dementia Maternal History Items: Cancer - Non-Hodgkin's lymphoma Review of Systems Constitutional: Denies: Chills, Fever, Weight Change Eyes: Reports: - - decreased vision to left lower visual field, chronic after stroke. Denies: Blurred vision, Double vision HEENT: Denies: Difficulty Hearing, Difficulty Swallowing, Head Aches, Sinus Congestion, Sinus Drainage Cardiovascular: Denies: Chest Pain, Edema, Palpitations Respiratory: Denies: Cough, Shortness of breath at rest, Sputum production Gastrointestinal: Denies: Abdominal Pain, Nausea, Vomiting Genitourinary: Denies: Dysuria, Frequency, Incontinence Musculoskeletal: Reports: Joint Pain - lumbar area, Joint Tenderness. Denies: Joint stiffness, Joint swelling Skin: Reports: - - incision to lumbar area Neurological: Denies: Balance problems, Double vision, Change in Speech, Slurred speech, Focal weakness, Numbness, Tingling Psychiatric: Denies: Anxiety, Depression, Homicidal Ideations, Suicidal Ideations VTE Information - Inpt Only VTE Present on Admission: Yes VTE Mechan Device Prophylaxis: SCD's - RLE, Knee High EDWIN Hose VTE Pharm Prophylaxis ordered?: No Reason prophylaxis not ordered:: Treatment Not Indicated - DVT left soleus no tx at this time Patient Problems: Active and Suspected Problems (Last Updated 04/20/19 @ 09:07 by Vandana Noyola, CHRONIC CONDITION NURSE-C) DVT (deep venous thrombosis) (Acute) Objective: per nursing, no issues overnight. Dr. gilliland was consulted for hemochromatosis and Hospitalist aware of hgb 6.6. No acute distress noted. Patient up in chair working with therapy. - Physical Exam General: Alert, Oriented x3, Cooperative HEENT: Atraumatic, PERRLA, - - left visual field hemianopia Oral: Moist Mucosa Neck: Supple, No JVD Lungs: Clear to auscultation, Normal air movement Cardiovascular: Regular rate, Regular Rhythm Abdomen: Bowel Sounds Present, Soft, Non Tender Extremities: No clubbing, No cyanosis, No edema Skin: Incision - tejinder intact to lumbar area, without redness or drng., - - open blister area proximal to incision, no drng noted, area pink Neurological: Cranial nerves II-XII grossly intact, Deep Tendon Reflexes 2+/4 and Symmetrical, Motor Exam 5/5 strength throughout Psych/Mental Status: Normal Affect, Appropriate, Alert and oriented to time, place, person, mood and affect Vital Signs Temp Pulse Resp BP Pulse Ox 98.5 F 80 16 104/64 95 04/20/19 07:30 04/20/19 07:30 04/20/19 07:30 04/20/19 07:30 04/20/19 07:30 Oxygen Delivery Method Room Air Weight: 79.5 kg Body Mass Index (BMI) 30.0 Intake and Output for Last 24 Hours 04/18/19 04/19/19 04/20/19 23:59 23:59 23:59 Intake Total 160 / 160 Output Total 450 / 450 150 / 150 Balance -290 / -290 -150 / -150 Laboratory Tests Past 24 Hrs 04/20/19 04/20/19 05:54 05:54 WBC 5.9 RBC 2.82 L Hgb 6.6 L Hct 22.0 L MCV 78.0 L MCH 23.4 L MCHC 30.0 L RDW Std Deviation 51.6 H RDW Coeff of Pedro 18.4 H Plt Count 327 MPV 9.8 Immature Gran % (Auto) 0.300 Neut % (Auto) 64.3 Lymph % (Auto) 20.8 Pitkin % (Auto) 11.3 H Eos % (Auto) 2.6 Baso % (Auto) 0.7 Absolute Neuts (auto) 3.8 Absolute Lymphs (auto) 1.22 Nucleated RBC % 0 Free T4 1.14 Free T3 pg/dL 2.0 L Assessment/Plan All Active Problems (Last Updated 04/20/19 @ 09:07 by Vandana Noyola, CHRONIC CONDITION NURSE-C) Debility (Acute) DVT (deep venous thrombosis) (Acute) The patient is a 69 year old F with PMH of Parkinson disease, HTN, Hypothyroidism, Hemochromatosis, DVT left soleal vein on 04/17/19, Hx of stroke in 2009, admitted to [facility] on 04/18/2019 for debility secondary to L4-5 decompression and fusion greater of 3 hours of therapy per day with a goal of returning home at or near her prior level of independence. On April 01, 2019 Dr. Dominik Lopez at [facility] performed an L4-L5 decompression fusion due to spinal stenosis. Patient developed bilateral lower extremity weakness and pain in the left greater than right. On April 14, 2019, MRI of lumbar area showed an interspinous fluid collection measuring 4.7 x 3.5 cm at the L4-L5 with mass-effect of the thecal sac and communicating with the crescentic contains fluid collection. An evacuation of hematoma was performed. On 04/17/2019, DVT of left soleal vein was noted on duplex, vascular surgeon Dr. Maya was consulted and recommended no DVT prophylaxis given the location of the DVT (below knee) in setting of recent spine hematoma and to monitor on the 3rd, 10th, and 30th day. Also, H/H 22.6/7.0 which decreased 26.6/8.5 from March. Patient has diagnosis of hemochromatosis, which Dr. 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 Patient was discharged to [facility] on 04/17/2019, without new acute findings communicated to [facility] before discharge. Vascular surgeon was contacted at [facility], which felt no intervention was necessary. Patient was admitted to [facility] medical surgical floor and discharged to [facility] on 04/18/2019. Patient lives with spouse in a one level home with one step to enter. Prior to surgery, patient was independent with ADLs, mobility and driving. - PT for mobility - OT for ADLs - ST for cognition - L4-5 decompression and fusion. Ice prn, binder when OOB, message left for Dr. Dominik Lopez for staple d/c date - PD on mirapex - HTN on zestril - Hypothyroidism TSH 6.31 Free T4 1.14,(N) Free T3 2.0 (L)- start Synthroid 25 mcg daily - Hemochromatosis - Dr. Trejo manages, consult hematology - Anemia H/H 22.0/6.6 Further management per hospitalist/hematology recommendations - Left Soleal DVT- no intervention recommended by vascular surgeon (anticoagulation or IVC filter) repeat Duplex on 04/20, 04/27, and 05/18 - Hx of Stroke in 2009- on asa and bijal - GI/DVT prophylaxis on pepcid, knee high edwin hose, LLE SCD- awaiting returning call from Dr. Dominik Lopez for further management - Medical management per hospitalist- consult - Analgesics as needed - Bowel protocol - Fall precautions - F/U with Dr. Dominik Lopez, Vascular surgeon, Neurology and PCP
--- NOTE | 2019-04-20 09:20 | NURSING ---
called Dr Leal's office at [facility] Vascular Surgery in regards to DVT prophylaxis. treatment not recommended at this time due to location of clot to left leg. no intervention is needed. relayed information to ROBERT Ross.
[2019-04-20] MEDS: oxyCODONE 5 MG Tablet PO (09:34)
--- NOTE | 2019-04-20 10:42 | NURSING ---
Dr Lopez's office called again regarding when pt could start DVT prophylaxis (lovenox). message left on voice recording for self contained behavior unit teacher in office.
--- NOTE | 2019-04-20 10:53 | NURSING ---
Addendum entered by Shama Melendez 04/20/19 11:20: Mariano from Dr Lopez's office called again after clarifying with Dr Lopez. Per Dr Lopez, who says he spoke to doctor over the weekend, ok to place on DVT prophylaxis treatment according to hospitalist recommendations. Dr Lopez says because the hematoma removal has been >4 days ago, ok for DVT prophylaxis. will update Teodoro Noyola NP Addendum entered by Shama Melendez 04/20/19 11:08: Mariano from Dr Lopez's office called again to clarify lovenox recommendation. After speaking to Dr Lopez's nurse practitioner, recommending to hold off on starting lovenox at this time until can speak to Dr Lopez directly d/t hematoma hx post-operatively. Teodoro Noyola NP updated at this time. awaiting return call from Dr Lopez's office. Original Note: Vandana from [facility] Dr Lopez's office returned phone call. pt has a follow-up appt 04/30 @ 1300 and will have tejinder removed at that time. DVT prophylaxis can be determined by medical MD recommendations. information relayed to Teodoro Noyola NP
[2019-04-20] MEDS: Levothyroxine 25 MCG TABLET PO (13:48)
[2019-04-20] MEDS: Bisacodyl 10 MG Suppository RECTAL (15:17)
--- NOTE | 2019-04-20 15:32 | PCM.PROGNOTE ---
Patient Problems: Active and Suspected Problems (Last Updated 04/20/19 @ 09:07 by Vandana Noyola, ROBERT-C) DVT (deep venous thrombosis) (Acute) Subjective: The patient is a 69-year-old female with a past medical history of Parkinson's disease, hypertension, hypothyroidism, hemochromatosis, DVT of the left soleal vein on 04/17/2019 and history of stroke in 2010 who was admitted to the rehab unit to regain her strength and independence following surgery. On 04/01/2019 she had an L4-L5 decompression fusion due to spinal canal stenosis. Postoperatively she developed bilateral lower extremity weakness and pain in the left greater than right lower extremity. On 04/14/2019 an MRI of the lumbar spine showed an interspinous fluid collection consistent with a hematoma measuring 4.7 x 3.5 cm at L4-L5 which caused a masslike effect on the thecal sac. Evacuation of the hematoma was performed. On 04/17/2019 she was diagnosed with a DVT of the left soleus vein seen by a vascular surgeon who recommended no treatment of the DVT since it was below the knee. She was discharged on 04/18/19 and admitted to [facility] at [facility] later in the day. Hemoglobin at discharge from [facility] was 7.0. All events the past 24 hours of been reviewed. She is afebrile with stable vital signs. Pulse ox is 95% on room air. Review of the lab today shows a white blood cell count of 5.9 and hemoglobin of 6.6, down from 7.5 on 04/19/2019. MCV is 78 and the RDW standard deviation is increased at 51.6. Platelets are within normal limits. T4 is within normal limits and the free T3 is decreased to 2.0. No iron studies in the computer. she has TEDS and SCD's for DVT prophylaxis. She denies chest pain, lightheadedness, shortness of breath, palpitations, nausea, vomiting, abdominal pain. She slept most of the day and she states that she feels very fatigued. She does c/o Left ankle pain and does have some swelling from the DVT. - Physical Exam General: Alert, No apparent distress, Well developed, Well nourished, - - masked facies, little expression in the face HEENT: Atraumatic, PERRLA, EOMI, Normocephalic, - - Palpebral conjunctiva is pale Oral: Moist Mucosa, No Gingival or Mucosal Lesions/ Ulcerations Neck: Supple, Negative Carotid Bruits Lungs: No rales, Wheezes - inspiratory, scattered mild...did not resolve after a cough Cardiovascular: Regular rate, Regular Rhythm, Normal S1, Normal S2, No murmurs, No rub noted, No Gallop Abdomen: Bowel Sounds Present, Soft, Non Tender, Non-Distended Extremities: No clubbing, Edema - of the ankles BL...EDWIN hose are in place, - - poor cap refill and the nailbeds are pale Skin: No rashes, No breakdown Neurological: Cranial nerves II-XII grossly intact, - - moves all extremities, has masked facies and a resting tremor, L> R hand Psych/Mental Status: Flat Affect Vital Signs Temp Pulse Resp BP Pulse Ox 98.5 F 80 16 104/64 95 04/20/19 07:30 04/20/19 07:30 04/20/19 07:30 04/20/19 07:30 04/20/19 07:30 Oxygen Delivery Method Room Air Weight: 175 lb 4.28 oz Body Mass Index (BMI) 30.0 Intake and Output for Last 24 Hours 04/18/19 04/19/19 04/20/19 23:59 23:59 23:59 Intake Total 160 / 160 240 / 240 Output Total 450 / 450 150 / 150 Balance -290 / -290 -150 / -150 240 / 240 Laboratory Tests Past 24 Hrs 04/20/19 04/20/19 05:54 05:54 WBC 5.9 RBC 2.82 L Hgb 6.6 L Hct 22.0 L MCV 78.0 L MCH 23.4 L MCHC 30.0 L RDW Std Deviation 51.6 H RDW Coeff of Pedro 18.4 H Plt Count 327 MPV 9.8 Immature Gran % (Auto) 0.300 Neut % (Auto) 64.3 Lymph % (Auto) 20.8 Bergen % (Auto) 11.3 H Eos % (Auto) 2.6 Baso % (Auto) 0.7 Absolute Neuts (auto) 3.8 Absolute Lymphs (auto) 1.22 Nucleated RBC % 0 Free T4 1.14 Free T3 pg/dL 2.0 L Medical Necessity - Tobacco Use Smoking Status: Never smoker Tobacco Use: Non-smoker Assessment/Plan All Active Problems (Last Updated 04/20/19 @ 09:07 by Vandana Noyola, ROBERT-C) Debility (Acute) DVT (deep venous thrombosis) (Acute) Impressions 1. Soleal DVT LLE - venous US today shows no proximal propagation 2. Parkinson's DZ -management per neurology 3. recent L4-L5 decompression and fusion secondary to spinal canal stenosis. Postoperatively she developed a hematoma at L4-L5 and had evacuation. 4. Hemochromatosis -has not had phlebotomy since September 2018. 5. Hypothyroidism 6. Hypertension 7. Microcytic anemia - has not had a phlebotomy in the past 6 months, no ferritin has been checked since 2017 and I suspect she is significantly iron deficient D/W Dr. Springer. Since she is asymptomatic will defer transfusion at this time but continue to monitor the HH. Will check a ferritin and an HH in the AM. check a hemoccult stool. No pharmacologic DVT prophylaxis at this time since the DVT remains distal to the knee and she had recent LS surgery and subsequently an evacuation of hematoma. Continue TEDS and SCD's. Code Visit Inpatient E&M: 43691 Subs Hosp L2
[2019-04-20] MEDS: HYDROcodone Bitartrate/Apap 5/325 Tablet PO (16:49)
[2019-04-20 19:15] VITALS: BP 103/60; PULSE 90; RESP 16; TEMP 36.7; O2SAT 97
[2019-04-20] MEDS: Pramipexole Di-HCl 1 MG Tablet 2 MG PO (20:47)
[2019-04-20] MEDS: Famotidine 20 MG Tablet PO (20:48)
[2019-04-20 21:04] VITALS: PULSE 90; RESP 16; O2SAT 97
[2019-04-21] MEDS: Levothyroxine 25 MCG TABLET PO (05:06)
[2019-04-21] MEDS: HYDROcodone Bitartrate/Apap 5/325 Tablet PO ×2 (06:14→19:35)
[2019-04-21 06:26] LABS: Hematocrit 23.5 % (37-47)
[2019-04-21] MEDS: Pramipexole Di-HCl 1 MG Tablet PO ×2 (06:26→14:10)
[2019-04-21 06:56] LABS: Ferritin 26 ng/mL (8-252)
[2019-04-21 07:01] VITALS: BP 125/77; PULSE 92; RESP 16; TEMP 36.7; O2SAT 99
[2019-04-21] MEDS: Folic Acid 1 MG Tablet PO (07:34)
[2019-04-21] MEDS: Gabapentin 300 MG Capsule PO ×2 (07:34→16:25)
[2019-04-21] MEDS: Aspirin E.C. 81 MG Tablet PO (07:34)
[2019-04-21] MEDS: Famotidine 20 MG Tablet PO ×2 (07:35→21:01)
[2019-04-21] MEDS: Lisinopril 10 MG Tablet PO (07:35)
--- NOTE | 2019-04-21 09:24 | PN.NEURO_ITS ---
Subjective: Per nursing, no issues overnight. Patient stated she slept well last night. C/o intermittent shooting pain starting at hip and radiating down left > right leg with movement. Has hx of prior and after surgery. Currently on GBN and receiving therapies. Patient denies muscle spasms. Describes pain to back as a mild dull constant ache. H/H increased this am 23.5/7.0. Stool was obtained, negative for occult blood. Hospitalist spoke with Dr. Springer and will continue to monitor H&H, due to patient asymptomatic. Ferritin level was obtained 26. Nursing reported will have fine intermittent hand tremors. No tremors noted while sitting up in chair or with transfers at this time. Will continue Mack hose and SCD for DVT prophylaxis. NO acute distress noted. Patient has a f/u appt with Dr. Dominik Lopez on 04/30/19 @ 1300. - Physical Exam General: Alert, Oriented x3, Cooperative HEENT: Atraumatic, PERRLA, - - left hemianopia Oral: Moist Mucosa Neck: Supple, No JVD Lungs: Clear to auscultation, Normal air movement Cardiovascular: Regular rate, Regular Rhythm Abdomen: Bowel Sounds Present, Soft, Non Tender Extremities: No clubbing, No cyanosis, No edema Skin: Incision - tejinder intact to lumbar area, without redness or drng., - - open blister proximal to post incision site to lumbar area, without redness or drng Neurological: Cranial nerves II-XII grossly intact, Deep Tendon Reflexes 2+/4 and Symmetrical, Motor Exam 5/5 strength throughout Psych/Mental Status: Normal Affect, Appropriate, Alert and oriented to time, place, person, mood and affect Vital Signs Temp Pulse Resp BP Pulse Ox 98.1 F 92 16 125/77 H 99 04/21/19 07:01 04/21/19 07:01 04/21/19 07:01 04/21/19 07:01 04/21/19 07:01 Oxygen Delivery Method Room Air Weight: 79.5 kg Body Mass Index (BMI) 30.0 Intake and Output for Last 24 Hours 04/19/19 04/20/19 04/21/19 23:59 23:59 23:59 Intake Total 560 / 560 220 / 220 Output Total 150 / 150 Balance -150 / -150 560 / 560 220 / 220 Microbiology Past 72 Hours 04/20/19 16:20 Stool Occult Blood (NIDHI) - Final Stool Laboratory Tests Past 24 Hrs 04/21/19 04/21/19 06:14 06:14 Hgb 7.0 L Hct 23.5 L Ferritin 26 Medical Necessity - Tobacco Use Smoking Status: Never smoker Tobacco Use: Non-smoker Assessment/Plan All Active Problems (Last Updated 04/20/19 @ 09:07 by Vandana Noyola, SUPPLY CHAIN TECH-C) Debility (Acute) DVT (deep venous thrombosis) (Acute) The patient is a 69 year old F with PMH of Parkinson disease, HTN, Hypothyroidism, Hemochromatosis, DVT left soleal vein on 04/17/19, Hx of stroke in 2009, admitted to [facility] on 04/18/2019 for debility secondary to L4-5 decompre ssion and fusion greater of 3 hours of therapy per day with a goal of returning home at or near her prior level of independence. On April 01, 2019 Dr. Dominik Lopez at [facility] performed an L4-L5 decompression fusion due to spinal stenosis. Patient developed bilateral lower extremity weakness and pain in the left greater than right. On April 14, 2019, MRI of lumbar area showed an interspinous fluid collection measuring 4.7 x 3.5 cm at the L4-L5 with mass- effect of the thecal sac and communicating with the crescentic contains fluid collection. An evacuation of hematoma was performed. On 04/17/2019, DVT of left soleal vein was noted on duplex, vascular surgeon Dr. Maya was consulted and recommended no DVT prophylaxis given the location of the DVT (below knee) in setting of recent spine hematoma and to monitor on the 3rd, 10th, and 30th day. Also, H/H 22.6/7.0 which decreased 26.6/8.5 from March. Patient has diagnosis of hemochromatosis, which Dr. 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 Patient was discharged to [facility] on 04/17/2019, without new acute findings communicated to [facility] before discharge. Vascular surgeon was contacted at [facility], which felt no intervention was necessary. Patient was admitted to [facility] medical surgical floor and discharged to [facility] on 04/18/2019. Patient lives with spouse in a one level home with one step to enter. Prior to surgery, patient was independent with ADLs, mobility and driving. - PT for mobility - OT for ADLs - ST for cognition - L4-5 decompression and fusion. Ice prn, binder when OOB, F/U appt with Dr. Dominik Lopez on 04/30 @ 1300 and tejinder to be d/c at appt. - PD on mirapex - HTN on zestril - Hypothyroidism TSH 6.31 Free T4 1.14,(N) Free T3 2.0 (L)- Synthroid 25 mcg daily - Hemochromatosis - Dr. Trejo manages, consult hematology - Microcytic Anemia 04/20/ H/H 22.0/6.6, increased to 23.5/7.0 Further management per hospitalist/hematology recommendations - Left Soleal DVT- no intervention recommended by vascular surgeon (anticoagul ation or IVC filter) repeat Duplex on 04/20, 04/27, and 05/18 - Hx of Stroke in 2009- on asa and bijal - GI/DVT prophylaxis on pepcid, knee high mack hose, RLE SCD - Medical management per hospitalist- consult - Analgesics as needed - Bowel protocol - Fall precautions - F/U with Dr. Dominik Lopez, Vascular surgeon, Neurology (Dr. Walls), Dr. Trejo, and PCP
--- NOTE | 2019-04-21 09:40 | NURSING ---
Spoke with Dr. Lopez's office at [facility]. Verified that no diagnostic testing needs performed prior to appt on Apr 30 at 1pm
[2019-04-21 18:19] VITALS: BP 124/73; PULSE 90; RESP 16; TEMP 36.7; O2SAT 100
[2019-04-21 20:17] VITALS: PULSE 90; RESP 16; O2SAT 100
[2019-04-21] MEDS: Senna/Docusate Sodium 1 Tablet 2 TABLET PO (21:01)
[2019-04-21] MEDS: Pramipexole Di-HCl 1 MG Tablet 2 MG PO (21:01)
[2019-04-22] MEDS: Levothyroxine 25 MCG TABLET PO (05:58)
[2019-04-22] MEDS: HYDROcodone Bitartrate/Apap 5/325 Tablet PO (05:58)
[2019-04-22] MEDS: Pramipexole Di-HCl 1 MG Tablet PO ×2 (06:05→16:00)
[2019-04-22 06:53] VITALS: BP 123/72; PULSE 93; RESP 16; TEMP 36.9; O2SAT 99
[2019-04-22] MEDS: Folic Acid 1 MG Tablet PO (07:45)
[2019-04-22] MEDS: Senna/Docusate Sodium 1 Tablet 2 TABLET PO ×2 (07:45→21:01)
[2019-04-22] MEDS: Gabapentin 300 MG Capsule PO ×2 (07:45→17:06)
[2019-04-22] MEDS: Lisinopril 10 MG Tablet PO (07:45)
[2019-04-22] MEDS: Famotidine 20 MG Tablet PO ×2 (07:45→21:01)
[2019-04-22] MEDS: Aspirin E.C. 81 MG Tablet PO (07:46)
--- NOTE | 2019-04-22 09:37 | PN.NEURO_ITS ---
Subjective: Per nursing, slept well last night. Increase tiredness this am. Patient sitting up in chair resting with eyes closed. Responds appropriately and will open eyes with responses and during conversation, oriented x3. Denies AMBROSIO, chest pain or tightness, SOB, dizziness or lightheadedness. Patient pain is well controlled. Patient denies further questions or concerns. - Physical Exam General: Oriented x3, Cooperative, No apparent distress, Lethargic HEENT: Atraumatic, PERRLA, - - left hemianopia Oral: Moist Mucosa Neck: Supple, No JVD Lungs: Clear to auscultation, Normal air movement Cardiovascular: Regular rate, Regular Rhythm Abdomen: Bowel Sounds Present, Soft, Non Tender Extremities: No clubbing, No cyanosis, No edema Skin: Incision - tejinder intact to lumbar area, without redness or drng., - - open blister area, proximal to lumbar incision, without redness or drng-healing Neurological: Cranial nerves II-XII grossly intact - left hemianopia, Deep Tendon Reflexes 2+/4 and Symmetrical, Motor Exam 5/5 strength throughout Psych/Mental Status: Flat Affect, - - oriented x3, lethargy, responds appropriately, awakens easily Vital Signs Temp Pulse Resp BP Pulse Ox 98.4 F 93 16 123/72 H 99 04/22/19 06:53 04/22/19 06:53 04/22/19 06:53 04/22/19 06:53 04/22/19 06:53 Oxygen Delivery Method Room Air Weight: 79.5 kg Body Mass Index (BMI) 30.0 Intake and Output for Last 24 Hours 04/20/19 04/21/19 04/22/19 23:59 23:59 23:59 Intake Total 560 / 560 660 / 660 220 / 220 Balance 560 / 560 660 / 660 220 / 220 Microbiology Past 72 Hours 04/20/19 16:20 Stool Occult Blood (NIDHI) - Final Stool Medical Necessity - Tobacco Use Smoking Status: Never smoker Tobacco Use: Non-smoker Assessment/Plan All Active Problems (Last Updated 04/20/19 @ 09:07 by Vandana Noyola NP-C) Debility (Acute) DVT (deep venous thrombosis) (Acute) The patient is a 69 year old F with PMH of Parkinson disease, HTN, Hypothyroidism, Hemochromatosis, DVT left soleal vein on 04/17/19, Hx of stroke in 2009, admitted to [facility] on 04/18/2019 for debility secondary to L4-5 decompression and fusion greater of 3 hours of therapy per day with a goal of returning home at or near her prior level of independence. On April 01, 2019 Dr. Dominik Lopez at [facility] performed an L4-L5 decompression fusion due to spinal stenosis. Patient developed bilateral lower extremity weakness and pain in the left greater than right. On April 14, 2019, MRI of lumbar area showed an interspinous fluid collection measuring 4.7 x 3.5 cm at the L4-L5 with mass- effect of the thecal sac and communicating with the crescentic contains fluid collection. An evacuation of hematoma was performed. On 04/17/2019, DVT of left soleal vein was noted on duplex, vascular surgeon Dr. Maya was consulted and recommended no DVT prophylaxis given the location of the DVT (below knee) in setting of recent spine hematoma and to monitor on the 3rd, 10th, and 30th day. Also, H/H 22.6/7.0 which decreased 26.6/8.5 from March. Patient has diagnosis of hemochromatosis, which Dr. 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 Patient was discharged to [facility] on 04/17/2019, without new acute findings communicated to [facility] before discharge. Vascular surgeon was contacted at [facility], which felt no intervention was necessary. Patient was admitted to [facility] medical surgical floor and discharged to [facility] on 04/18/2019. Patient lives with spouse in a one level home with one step to enter. Prior to surgery, patient was independent with ADLs, mobility and driving. - PT for mobility - OT for ADLs - ST for cognition - L4-5 decompression and fusion. Ice prn, binder when OOB, F/U appt with Dr. Dominik Lopez on 04/30 @ 1300 and tejinder to be d/c at appt. - PD on mirapex - HTN on zestril - Hypothyroidism TSH 6.31 Free T4 1.14,(N) Free T3 2.0 (L)- Synthroid 25 mcg daily - Hemochromatosis - Dr. Trejo manages, consult hematology - Microcytic Anemia 04/20/19 H/H 22.0/6.6, increased to 23.5/7.0 Recheck H/H on 04/24/19. Further management per hospitalist/hematology recommendations - Left Soleal DVT- no intervention recommended by vascular surgeon (anticoagulation or IVC filter) repeat Duplex on 04/20, 04/27, and 05/18. 04/20/19 duplex showed acute DVT in the left soleus vein without any progression. - Hx of Stroke in 2009- on asa and bijal - GI/DVT prophylaxis on pepcid, knee high mack ward, JÚNIOR SCD - Medical management per hospitalist- consult - Analgesics as needed - Bowel protocol - Fall precautions - F/U with Dr. Dominik Lopez, Vascular surgeon, Neurology (Dr. Walls), Dr. Trejo, and PCP
[2019-04-22 18:50] VITALS: BP 99/55; PULSE 84; RESP 14; TEMP 36.3; O2SAT 95
[2019-04-22] MEDS: Pramipexole Di-HCl 1 MG Tablet 2 MG PO (21:01)
[2019-04-22 22:00] VITALS: PULSE 84; RESP 16; O2SAT 95
[2019-04-23] MEDS: Pramipexole Di-HCl 1 MG Tablet PO ×2 (06:39→13:39)
[2019-04-23] MEDS: Levothyroxine 25 MCG TABLET PO (06:39)
[2019-04-23 07:01] VITALS: BP 105/55; PULSE 80; RESP 16; TEMP 36.5; O2SAT 99
[2019-04-23] MEDS: Famotidine 20 MG Tablet PO ×2 (07:30→22:12)
[2019-04-23] MEDS: Lisinopril 10 MG Tablet PO (07:30)
[2019-04-23] MEDS: Senna/Docusate Sodium 1 Tablet 2 TABLET PO (07:30)
[2019-04-23] MEDS: Gabapentin 300 MG Capsule PO ×2 (07:30→15:37)
[2019-04-23] MEDS: Aspirin E.C. 81 MG Tablet PO (07:30)
[2019-04-23] MEDS: Folic Acid 1 MG Tablet PO (07:31)
--- NOTE | 2019-04-23 09:16 | PCM.PN.NEU ---
Subjective: Team meeting today. Further details from PT/OT/ST per their notes. All questions answered. Pain is controlled. Lethargy continues, awakens easily and responds and converses during conversation and follows commands with therapy. Will obtain UA C&S. - Physical Exam General: Oriented x3, Cooperative, No apparent distress, Lethargic HEENT: Atraumatic, PERRLA, - - left hemianopia Oral: Moist Mucosa Neck: Supple, No JVD Lungs: Clear to auscultation, Normal air movement Cardiovascular: Regular rate, Regular Rhythm Abdomen: Bowel Sounds Present, Soft, Non Tender Extremities: No clubbing, No cyanosis, No edema Skin: Incision - tejinder intact to lumbar area, without redness or drng., - - open blister proximal to lumbar incision; without redness or drng-healing Neurological: Cranial nerves II-XII grossly intact - except chronic left hemianopia, Deep Tendon Reflexes 2+/4 and Symmetrical, Motor Exam 5/5 strength throughout Psych/Mental Status: Flat Affect - oreinted x 3, lethargy, awakens easily with appropriate conversation Vital Signs Temp Pulse Resp BP Pulse Ox 97.7 F L 80 16 105/55 L 99 04/23/19 07:01 04/23/19 07:01 04/23/19 07:01 04/23/19 07:01 04/23/19 07:01 Oxygen Delivery Method Room Air Weight: 79.3 kg Body Mass Index (BMI) 30.0 Intake and Output for Last 24 Hours 04/21/19 04/22/19 04/23/19 23:59 23:59 23:59 Intake Total 660 / 660 680 / 680 240 / 240 Balance 660 / 660 680 / 680 240 / 240 Microbiology Past 72 Hours 04/20/19 16:20 Stool Occult Blood (NIDHI) - Final Stool Medical Necessity - Tobacco Use Smoking Status: Never smoker Tobacco Use: Non-smoker Assessment/Plan All Active Problems (Last Updated 04/20/19 @ 09:07 by NORA ThomasC) Debility (Acute) DVT (deep venous thrombosis) (Acute) The patient is a 69 year old F with PMH of Parkinson disease, HTN, Hypothyroidism, Hemochromatosis, DVT left soleal vein on 04/17/19, Hx of stroke in 2009, admitted to [facility] on 04/18/2019 for debility secondary to L4-5 decompression and fusion greater of 3 hours of therapy per day with a goal of returning home at or near her prior level of independence. On April 01, 2019 Dr. Dominik Lopez at [facility] performed an L4-L5 decompression fusion due to spinal stenosis. Patient developed bilateral lower extremity weakness and pain in the left greater than right. On April 14, 2019, MRI of lumbar area showed an interspinous fluid collection measuring 4.7 x 3.5 cm at the L4-L5 with mass-effect of the thecal sac and communicating with the crescentic contains fluid collection. An evacuation of hematoma was performed. On 04/17/2019, DVT of left soleal vein was noted on duplex, vascular surgeon Dr. Maya was consulted and recommended no DVT prophylaxis given the location of the DVT (below knee) in setting of recent spine hematoma and to monitor on the 3rd, 10th, and 30th day. Also, H/H 22.6/7.0 which decreased 26.6/8.5 from March. Patient has diagnosis of hemochromatosis, which Dr. 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 Patient was discharged to [facility] on 04/17/2019, without new acute findings communicated to [facility] before discharge. Vascular surgeon was contacted at [facility], which felt no intervention was necessary. Patient was admitted to [facility] medical surgical floor and discharged to [facility] on 04/18/2019. Patient lives with spouse in a one level home with one step to enter. Prior to surgery, patient was independent with ADLs, mobility and driving. - PT for mobility - OT for ADLs - ST for cognition - L4-5 decompression and fusion. Ice prn, binder when OOB, F/U appt with Dr. Dominik Lopez on 04/30 @ 1300 and tejinder to be d/c at appt. - PD on mirapex - HTN on zestril - Hypothyroidism TSH 6.31 Free T4 1.14,(N) Free T3 2.0 (L)- Synthroid 25 mcg daily - Hemochromatosis - Dr. Trejo manages, consult hematology - Microcytic Anemia 04/20/19 H/H 22.0/6.6, increased to 23.5/7.0 Recheck H/H on 04/24/19. Further management per hospitalist/hematology recommendations - Left Soleal DVT- no intervention recommended by vascular surgeon (anticoagulation or IVC filter) repeat Duplex on 04/20, 04/27, and 05/18. 04/20/19 duplex showed acute DVT in the left soleus vein without any progression. - Hx of Stroke in 2009- on asa and bijal - GI/DVT prophylaxis on pepcid, knee high mack hose, RLE SCD - Obtain UA C&S for increase lethargy - Medical management per hospitalist- consult - Analgesics as needed - Bowel protocol - Fall precautions - F/U with Dr. Dominik Lopez, Vascular surgeon, Neurology (Dr. Walls), Dr. Trejo, and PCP
--- NOTE | 2019-04-23 10:08 | CASEMGMT ---
Social Work IDT met with patient, and daughter for Team Meeting. Discussed patient's progress in therapy. Pt is max x1 and min x1 =x2 people for transfers - using the SerraLift for transfers as well. Pt is mod x2 for walking 15 ft with FWW, and total assist for all ADLs. Pt is having fatigue, pain, and issues staying alert. Nursing addressing. Pt has f/u appt with physician Apr 30 for staple removal. Pt/family goal is for pt to return home with ; however, family understands pt must improve to at least a 1 person assist to return home. Explained Medicare insurance coverage in [place] - approved 20 days - DC date 05/08. Explained insurance coverage in SNF - provided list of SNFs, skilled and nonskilled HHC agencies. Will Reteam next week. Will continue to follow. NATY Neumann
[2019-04-23 10:16] LABS: Squamous Epithelial Cells - UA 0 SEEN /hpf (5-10)
[2019-04-23 10:18] LABS: Color, Urine Yellow (Yellow); Glucose, Dipstick Normal (Normal); Ketone-Dipstick 5 mg/dl (Negative); Leukocyte Esterase-Dipstick 500 /ul (Negative); Nitrite-Dipstick Positive (Negative); Occult Blood-Urine 25 /ul (Negative); Protein-Dipstick 30 mg/dl (Negative); Urine Bilirubin Dipstick Negative (Negative); Urine Clarity Sl. Cloudy (Clear); Urine Urobilinogen Normal (Normal)
[2019-04-23 10:25] LABS: Bacteria 2+ /hpf (None Seen); Mucous, Urine 1+ /hpf (<or=2+); Red Blood Cells-Urine 0-5 SEEN /hpf (0-5); White Blood Cells 25-50 SEEN /hpf (0-5)
[2019-04-23] MEDS: Cefadroxil 500 MG CAPSULE 1000 MG PO ×2 (12:34→22:12)
[2019-04-23] MEDS: HYDROcodone Bitartrate/Apap 5/325 Tablet PO (15:37)
--- NOTE | 2019-04-23 16:53 | NURSING ---
reviewed and agree with [employer]'s FIMS and charting
[2019-04-23 19:32] VITALS: BP 105/63; PULSE 78; RESP 16; TEMP 36.5; O2SAT 96
[2019-04-23] MEDS: Pramipexole Di-HCl 1 MG Tablet 2 MG PO (22:12)
[2019-04-24] MEDS: HYDROcodone Bitartrate/Apap 5/325 Tablet PO (05:02)
[2019-04-24 05:55] LABS: Hematocrit 25.2 % (37-47); Hemoglobin 7.3 g/dL (12.0-15.0)
[2019-04-24] MEDS: Pramipexole Di-HCl 1 MG Tablet PO ×2 (06:51→13:23)
[2019-04-24] MEDS: Levothyroxine 25 MCG TABLET PO (06:51)
[2019-04-24] MEDS: Gabapentin 300 MG Capsule PO ×2 (07:50→16:59)
[2019-04-24] MEDS: Cefadroxil 500 MG CAPSULE 1000 MG PO ×2 (07:50→21:39)
[2019-04-24] MEDS: Famotidine 20 MG Tablet PO ×2 (07:50→21:38)
[2019-04-24] MEDS: Folic Acid 1 MG Tablet PO (07:50)
[2019-04-24] MEDS: Aspirin E.C. 81 MG Tablet PO (07:50)
[2019-04-24] MEDS: Lisinopril 10 MG Tablet PO (07:53)
[2019-04-24 08:34] VITALS: BP 143/78; PULSE 96; RESP 16; TEMP 36.6; O2SAT 97
--- NOTE | 2019-04-24 10:14 | PCM.PN.NEU ---
Subjective: Per nursing, no issues overnight, slept well. UA showed Ketone 5, Occult Blood 25, Nitrate positive, leukocyte Estrace 500, Bacteria 2+, pending CX. Durcef was started. Patient voiced increase tiredness after therapy today. No acute distress noted. H/H 25.2/7.3. Denies AMBROSIO, dizziness/lightheadedness, SOB, chest pain or tightness. No acute distress noted. - Physical Exam General: Oriented x3, Cooperative, No apparent distress, Lethargic HEENT: Atraumatic, PERRLA Oral: Moist Mucosa Neck: Supple, No JVD Lungs: Clear to auscultation, Normal air movement Cardiovascular: Regular rate, Regular Rhythm Abdomen: Bowel Sounds Present, Soft, Non Tender Extremities: No clubbing, No cyanosis, No edema Skin: Incision - tejinder intact to lumbar area, without redness or drng. open blister area proximal to lumbar incision-healing without redness or drng Neurological: Cranial nerves II-XII grossly intact, Deep Tendon Reflexes 2+/4 and Symmetrical, Motor Exam 5/5 strength throughout Psych/Mental Status: Flat Affect, - - oreinted x3, lethargic, easily responds and answers questions appropriatly Vital Signs Temp Pulse Resp BP Pulse Ox 97.9 F 96 16 143/78 H 97 04/24/19 08:34 04/24/19 08:34 04/24/19 08:34 04/24/19 08:34 04/24/19 08:34 Oxygen Delivery Method Room Air Weight: 79.3 kg Body Mass Index (BMI) 30.0 Intake and Output for Last 24 Hours 04/22/19 04/23/19 04/24/19 23:59 23:59 23:59 Intake Total 680 / 680 480 / 480 440 / 440 Balance 680 / 680 480 / 480 440 / 440 Microbiology Past 72 Hours 04/23/19 10:00 Urine Culture - Preliminary Urine Catheter - Catheter GNR lactose 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 Cloudy Urine pH 6.0 Ur Specific [place] 1.020 Urine Protein 30 H Urine Glucose (UA) Normal Urine Ketones 5 H Urine Occult Blood 25 H Urine Nitrite Positive H Urine Bilirubin Negative Urine Urobilinogen Normal Ur Leukocyte Esterase 500 H Urine RBC 0-5 SEEN Urine WBC 25-50 SEEN Ur Squamous Epith Cells 0 SEEN Urine Bacteria 2+ Urine Mucus 1+ Medical Necessity - Tobacco Use Smoking Status: Never smoker Tobacco Use: Non-smoker Assessment/Plan All Active Problems (Last Updated 04/20/19 @ 09:07 by Vandana Noyola, RFID ENGINEER-C) Debility (Acute) DVT (deep venous thrombosis) (Acute) The patient is a 69 year old F with PMH of Parkinson disease, HTN, Hypothyroidism, Hemochromatosis, DVT left soleal vein on 04/17/19, Hx of stroke in 2009, admitted to [facility] on 04/18/2019 for debility secondary to L4-5 decompression and fusion greater of 3 hours of therapy per day with a goal of returning home at or near her prior level of independence. On April 01, 2019 Dr. Dominik Lopez at [facility] performed an L4-L5 decompression fusion due to spinal stenosis. Patient developed bilateral lower extremity weakness and pain in the left greater than right. On April 14, 2019, MRI of lumbar area showed an interspinous fluid collection measuring 4.7 x 3.5 cm at the L4-L5 with mass-effect of the thecal sac and communicating with the crescentic contains fluid collection. An evacuation of hematoma was performed. On 04/17/2019, DVT of left soleal vein was noted on duplex, vascular surgeon Dr. Maya was consulted and recommended no DVT prophylaxis given the location of the DVT (below knee) in setting of recent spine hematoma and to monitor on the 3rd, 10th, and 30th day. Also, H/H 22.6/7.0 which decreased 26.6/8.5 from March. Patient has diagnosis of hemochromatosis, which Dr. 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 Patient was discharged to [facility] on 04/17/2019, without new acute findings communicated to [facility] before discharge. Vascular surgeon was contacted at [facility], which felt no intervention was necessary. Patient was admitted to [facility] medical surgical floor and discharged to [facility] on 04/18/2019. Patient lives with spouse in a one level home with one step to enter. Prior to surgery, patient was independent with ADLs, mobility and driving. - PT for mobility - OT for ADLs - ST for cognition - L4-5 decompression and fusion. Ice prn, binder when OOB, F/U appt with Dr. Dominik Lopez on 04/30 @ 1300 and tejinder to be d/c at appt. - PD on mirapex - HTN on zestril - Hypothyroidism TSH 6.31 Free T4 1.14,(N) Free T3 2.0 (L)- Synthroid 25 mcg daily - Hemochromatosis - Dr. Trejo manages, consult hematology - Microcytic Anemia 04/24/19 H/H 25.2/7.3 Further management per hospitalist/hematology recommendations - Left Soleal DVT- no intervention recommended by vascular surgeon (anticoagulation or IVC filter) repeat Duplex on 04/20, 04/27, and 05/18. 04/20/19 duplex showed acute DVT in the left soleus vein without any progression. - Hx of Stroke in 2009- on asa and bijal - GI/DVT prophylaxis on pepcid, knee high mack hose, RLE SCD - Positive UA , CX pending on duracef - Medical management per hospitalist- consult - Analgesics as needed - Bowel protocol - Fall precautions - F/U with Dr. Dominik Lopez, Vascular surgeon, Neurology (Dr. Walls), Dr. Trejo, and PCP
[2019-04-24 18:38] VITALS: BP 101/60; PULSE 83; RESP 16; TEMP 36.8; O2SAT 100
[2019-04-24] MEDS: Senna/Docusate Sodium 1 Tablet 2 TABLET PO (21:38)
[2019-04-24] MEDS: Pramipexole Di-HCl 1 MG Tablet 2 MG PO (21:38)
[2019-04-25] MEDS: Pramipexole Di-HCl 1 MG Tablet PO ×2 (06:52→12:35)
[2019-04-25] MEDS: Levothyroxine 25 MCG TABLET PO (06:52)
[2019-04-25] MEDS: Folic Acid 1 MG Tablet PO (07:35)
[2019-04-25] MEDS: Gabapentin 300 MG Capsule PO ×2 (07:35→17:11)
[2019-04-25] MEDS: Senna/Docusate Sodium 1 Tablet 2 TABLET PO (07:36)
[2019-04-25] MEDS: Famotidine 20 MG Tablet PO ×2 (07:36→21:56)
[2019-04-25] MEDS: Aspirin E.C. 81 MG Tablet PO (07:41)
[2019-04-25 08:00] VITALS: PULSE 76; RESP 18; TEMP 36.6; O2SAT 97
[2019-04-25] MEDS: Cefadroxil 500 MG CAPSULE 1000 MG PO ×2 (09:18→21:56)
[2019-04-25] MEDS: Lisinopril 10 MG Tablet PO (10:45)
[2019-04-25] MEDS: Ensure Clear 120 ML Liquid PO ×4 (10:45→21:56)
[2019-04-25 10:49] VITALS: BP 126/80
[2019-04-25 20:01] VITALS: BP 119/62; PULSE 91; RESP 17; TEMP 36.6; O2SAT 98
[2019-04-25] MEDS: Ciprofloxacin 250 MG Tablet PO (21:56)
[2019-04-25] MEDS: Pramipexole Di-HCl 1 MG Tablet 2 MG PO (21:56)
[2019-04-26] MEDS: Pramipexole Di-HCl 1 MG Tablet PO ×2 (06:19→13:10)
[2019-04-26] MEDS: Levothyroxine 25 MCG TABLET PO (06:19)
[2019-04-26 07:30] VITALS: BP 109/60; PULSE 78; RESP 18; TEMP 36.7; O2SAT 97
[2019-04-26] MEDS: Lisinopril 10 MG Tablet PO (07:35)
[2019-04-26] MEDS: Famotidine 20 MG Tablet PO ×2 (07:35→21:22)
[2019-04-26] MEDS: Gabapentin 300 MG Capsule PO ×2 (07:35→17:02)
[2019-04-26] MEDS: Folic Acid 1 MG Tablet PO (07:35)
[2019-04-26] MEDS: Aspirin E.C. 81 MG Tablet PO (07:35)
[2019-04-26] MEDS: Ensure Clear 120 ML Liquid PO ×4 (09:09→21:22)
[2019-04-26] MEDS: Ciprofloxacin 250 MG Tablet PO ×2 (09:09→21:22)
[2019-04-26 19:59] VITALS: BP 105/63; PULSE 85; RESP 16; TEMP 36.6; O2SAT 97
[2019-04-26] MEDS: Pramipexole Di-HCl 1 MG Tablet 2 MG PO (21:22)
[2019-04-26] MEDS: Senna/Docusate Sodium 1 Tablet 2 TABLET PO (21:22)
[2019-04-27] MEDS: Pramipexole Di-HCl 1 MG Tablet PO ×2 (05:38→14:03)
[2019-04-27] MEDS: Levothyroxine 25 MCG TABLET PO (05:38)
[2019-04-27 07:30] VITALS: BP 126/73; PULSE 86; RESP 16; TEMP 36.9; O2SAT 95
[2019-04-27] MEDS: Ensure Clear 120 ML Liquid PO ×4 (07:46→22:09)
[2019-04-27] MEDS: Famotidine 20 MG Tablet PO ×2 (07:47→22:10)
[2019-04-27] MEDS: Lisinopril 10 MG Tablet PO (07:47)
[2019-04-27] MEDS: Gabapentin 300 MG Capsule PO ×2 (07:47→16:54)
[2019-04-27] MEDS: Ciprofloxacin 250 MG Tablet PO ×2 (07:47→22:11)
[2019-04-27] MEDS: Senna/Docusate Sodium 1 Tablet 2 TABLET PO ×2 (07:47→22:10)
[2019-04-27] MEDS: Aspirin E.C. 81 MG Tablet PO (07:48)
[2019-04-27] MEDS: Folic Acid 1 MG Tablet PO (07:48)
--- NOTE | 2019-04-27 08:00 | VDLE_ITS ---
Reason For Study: Swelling RIGHT LEFT CFV is compressible, spontaneous, phasic, GSV is normal. competent and demonstrates normal CFV is compressible, spontaneous, phasic, augmentation. competent, and demonstrates normal Procedure augmentation. Exam performed portable in patient room. FV is compressible, spontaneous, phasic, A preliminary report was called and/or faxed competent and demonstrates normal to RU. augmentation. POP V is compressible, spontaneous, phasic, competent and demonstrates normal augmentation. T/P Trunk is compressible. PTV is compressible. LT PerV is compressible. Acute deep vein thrombosis is noted in the left soleus vein. Interpretation Summary Acute deep vein thrombosis is noted in the left soleus vein. The remainder of the left lower extremity deep venous system is patent and compressible. Valvular competence appears intact within the proximal deep venous system on the left . The left great saphenous vein appears patent and compressible segmentally. There has been no significant change since a prior study on 04/20/2019. Ordering Physician: Mayur Goncalves Referring Physician: Román Rosado Performed By: Marycruz Garcia RVT
--- NOTE | 2019-04-27 11:20 | PCM.PN.NEU ---
Subjective: Per nursing, no issues overnight. DTR voiced to nursing patient has visual hallucinations, when addressed with patient rarely happens that she would see people, objects in hands in evening, not bothersome and knows it is not real. No medication adjustment at this time. Per patient, started at least couple months prior to surgery. Patient will address with her neurologist Dr. Walls with f/u appintment upon discharge. Lethargy continues, but continues to participate with therapies without difficult. No acute distress noted. Denies dizziness/lightheadedness, chest pain or tightness, or SOB. - Physical Exam General: Oriented x3, Cooperative, No apparent distress, Lethargic HEENT: Atraumatic, PERRLA, - - left hemianopia Oral: Moist Mucosa Neck: Supple, No JVD Lungs: Clear to auscultation, Normal air movement Cardiovascular: Regular rate, Regular Rhythm Abdomen: Bowel Sounds Present, Soft, Non Tender Extremities: No clubbing, No cyanosis, No edema Neurological: Cranial nerves II-XII grossly intact, Deep Tendon Reflexes 2+/4 and Symmetrical, Motor Exam 5/5 strength throughout Psych/Mental Status: Flat Affect - oriented x3, lethargy, responds and asnwers questions appropriately. Vital Signs Temp Pulse Resp BP Pulse Ox 98.5 F 86 16 126/73 H 95 04/27/19 07:30 04/27/19 07:30 04/27/19 07:30 04/27/19 07:30 04/27/19 07:30 Oxygen Delivery Method Room Air Weight: 79.3 kg Body Mass Index (BMI) 30.0 Intake and Output for Last 24 Hours 04/25/19 04/26/19 04/27/19 23:59 23:59 23:59 Intake Total 220 / 220 Balance 220 / 220 Microbiology Past 72 Hours 04/23/19 10:00 Urine Culture - Final Urine Catheter - Catheter Escherichia coli Klebsiella oxytoca Medical Necessity - Tobacco Use Smoking Status: Never smoker Tobacco Use: Non-smoker Assessment/Plan All Active Problems (Last Updated 04/20/19 @ 09:07 by Vandana Noyola NP-C) Debility (Acute) DVT (deep venous thrombosis) (Acute) The patient is a 69 year old F with PMH of Parkinson disease, HTN, Hypothyroidism, Hemochromatosis, DVT left soleal vein on 04/17/19, Hx of stroke in 2009, admitted to [facility] on 04/18/2019 for debility secondary to L4-5 decompression and fusion greater of 3 hours of therapy per day with a goal of returning home at or near her prior level of independence. On April 01, 2019 Dr. Dominik Lopez at [facility] performed an L4-L5 decompression fusion due to spinal stenosis. Patient developed bilateral lower extremity weakness and pain in the left greater than right. On April 14, 2019, MRI of lumbar area showed an interspinous fluid collection measuring 4.7 x 3.5 cm at the L4-L5 with mass-effect of the thecal sac and communicating with the crescentic contains fluid collection. An evacuation of hematoma was performed. On 04/17/2019, DVT of left soleal vein was noted on duplex, vascular surgeon Dr. Maya was consulted and recommended no DVT prophylaxis given the location of the DVT (below knee) in setting of recent spine hematoma and to monitor on the 3rd, 10th, and 30th day. Also, H/H 22.6/7.0 which decreased 26.6/8.5 from March. Patient has diagnosis of hemochromatosis, which Dr. 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 Patient was discharged to [facility] on 04/17/2019, without new acute findings communicated to [facility] before discharge. Vascular surgeon was contacted at [facility], which felt no intervention was necessary. Patient was admitted to [facility] medical surgical floor and discharged to [facility] on 04/18/2019. Patient lives with spouse in a one level home with one step to enter. Prior to surgery, patient was independent with ADLs, mobility and driving. - PT for mobility - OT for ADLs - ST for cognition - L4-5 decompression and fusion. Ice prn, binder when OOB, F/U appt with Dr. Dominik Lopez on 04/30 @ 1300 and tejinder to be d/c at appt. - PD on mirapex - HTN on zestril - Hypothyroidism TSH 6.31 Free T4 1.14,(N) Free T3 2.0 (L)- Synthroid 25 mcg daily - Hemochromatosis - Dr. Trejo manages, consult hematology - Microcytic Anemia 04/24/19 H/H 25.2/7.3 Further management per hospitalist/hematology recommendations - Left Soleal DVT- no intervention recommended by vascular surgeon (anticoagulation or IVC filter) repeat Duplex on 04/20, 04/27, and 05/18. 04/20/19 duplex showed acute DVT in the left soleus vein without any progression. - Hx of Stroke in 2009- on asa and bijal - GI/DVT prophylaxis on pepcid, knee high mack hose, RLE SCD - Positive UA , CX showed escherichia coli 50,000-80,000 and klebsiella oxytoca 50,000-80,000, duracef d/c and was started on cipro 250 mg bid with last dose on in am. - Medical management per hospitalist- consult - Analgesics as needed - Bowel protocol - Fall precautions - F/U with Dr. Dominik Lopez, Vascular surgeon, Neurology (Dr. Walls), Dr. Trejo, and PCP
[2019-04-27 19:22] VITALS: PULSE 80; RESP 18; TEMP 36.8; O2SAT 97
[2019-04-27 20:40] VITALS: BP 108/62
[2019-04-27 22:00] VITALS: RESP 17
[2019-04-27] MEDS: Pramipexole Di-HCl 1 MG Tablet 2 MG PO (22:10)
[2019-04-28] MEDS: Levothyroxine 25 MCG TABLET PO (06:44)
[2019-04-28] MEDS: Pramipexole Di-HCl 1 MG Tablet PO ×2 (06:44→14:13)
[2019-04-28 07:06] VITALS: BP 104/59; PULSE 81; RESP 16; TEMP 36.5; O2SAT 98
[2019-04-28] MEDS: Famotidine 20 MG Tablet PO ×2 (07:42→19:53)
[2019-04-28] MEDS: Senna/Docusate Sodium 1 Tablet 2 TABLET PO (07:42)
[2019-04-28] MEDS: Gabapentin 300 MG Capsule PO ×2 (07:42→16:37)
[2019-04-28] MEDS: Aspirin E.C. 81 MG Tablet PO (07:42)
[2019-04-28] MEDS: Folic Acid 1 MG Tablet PO (07:42)
[2019-04-28] MEDS: Ensure Clear 120 ML Liquid PO ×4 (07:43→19:54)
--- NOTE | 2019-04-28 07:43 | PN_ITS ---
Vitals/I&O's: Vital Signs Temp Pulse Resp BP Pulse Ox 97.7 F L 81 16 104/59 L 98 04/28/19 07:06 04/28/19 07:06 04/28/19 07:06 04/28/19 07:06 04/28/19 07:06 Oxygen Delivery Method Room Air Weight: 174 lb 13.225 oz Body Mass Index (BMI) 30.0 Intake and Output for Last 24 Hours 04/26/19 04/27/19 04/28/19 23:59 23:59 23:59 Intake Total 540 / 540 240 / 240 Balance 540 / 540 240 / 240 General: Alert, Oriented x3, Cooperative, No apparent distress HEENT: Atraumatic, PERRLA, EOMI, Normocephalic Oral: Moist Mucosa Neck: Supple, No JVD Lungs: Clear to auscultation, Normal air movement, No rhonchi, No wheeze, No rales Cardiovascular: Regular rate, Regular Rhythm, Normal S1, Normal S2, No murmurs Abdomen: Soft, Non Tender, Non-Distended, No Hepato-splenomegaly Extremities: Capillary Refill Less than 3 Seconds, Edema - ankle b/l 1+ Skin: No rashes, No breakdown Neurological: Neuro grossly intact, Sensory exam intact to light touch and pain Psych/Mental Status: Appropriate, Flat Affect Microbiology Past 72 Hours 04/23/19 10:00 Urine Catheter - Catheter Urine Culture - Final Escherichia coli Klebsiella oxytoca Current Medications Hydrocodone Bitart/Acetaminophen ([place] 5mg-325mg) 1 - 2 tablet PO Q4H PRN PRN PRN Reason: SEVERE PAIN (6-10/10) Last Admin: 04/24/19 05:02 Dose: 2 tablet Documented by: [facility] Last Admin: 04/27/19 07:48 Dose: 81 mg Documented by: Bisacodyl (Dulcolax) 10 mg RECTAL .PRN X 1 PRN PRN Reason: Constipation Last Admin: 04/20/19 15:17 Dose: 10 mg Documented by: Ciprofloxacin HCl (Cipro) 250 mg PO BID [facility] Stop: 04/30/19 10:01 Last Admin: 04/27/19 22:11 Dose: 250 mg Documented by: Famotidine (Pepcid) 20 mg PO BID [facility] Last Admin: 04/27/19 22:10 Dose: 20 mg Documented by: Folic Acid (Folic Acid) 1 mg PO DAILYCM [facility] Last Admin: 04/27/19 07:48 Dose: 1 mg Documented by: Gabapentin (Neurontin) 300 mg PO BIDCM [facility] Last Admin: 04/27/19 16:54 Dose: 300 mg Documented by: Levothyroxine Sodium (Synthroid) 25 mcg PO DAILY@0600 [facility] Last Admin: 04/28/19 06:44 Dose: 25 mcg Documented by: Lisinopril (Zestril) 10 mg PO DAILY [facility] Last Admin: 04/27/19 07:47 Dose: 10 mg Documented by: Magnesium Hydroxide (Milk Of Magnesia) 30 ml PO .PRN X 1 PRN PRN Reason: Constipation Last Admin: 04/19/19 20:07 Dose: 30 ml Documented by: Nutritional Formula (Lactose Free) (Ensure Clear) 120 ml PO 4X/DAY [facility] Last Admin: 04/27/19 22:09 Dose: 120 ml Documented by: Pramipexole Dihydrochloride (Mirapex) 1 mg PO 0700,1400 [facility] Last Admin: 04/28/19 06:44 Dose: 1 mg Documented by: Pramipexole Dihydrochloride (Mirapex) 2 mg PO QHS [facility] Last Admin: 04/27/19 22:10 Dose: 2 mg Documented by: Senna/Docusate Sodium (Senokot-S, Reba-Colace) 2 tablet PO BID [facility] Last Admin: 04/27/19 22:10 Dose: 2 tablet Documented by: Medical Necessity - Tobacco Use Smoking Status: Never smoker Tobacco Use: Non-smoker Assessment/Plan All Active Problems (Last Updated 04/20/19 @ 09:07 by Vandana Noyola, SHACKLER-C) Debility (Acute) DVT (deep venous thrombosis) (Acute) 1. Laminectomy I&D with posterior lumbar decompression of L3-L5 -04/14/2019 -Follow up as an outpatient with Dr. Lopez 2. Provoked left soleal DVT -On her most recent ultrasound there is been no propagation of the clot -Was seen by vascular surgery at [facility] for this DVT prior to discharge and did not feel that she warranted anticoagulation or vascular intervention 3. Parkinson's disease -Continue with Mirapex and start Sinemet -Stable 4. Anemia with hemochromatosis -No transfusions for now, will continue to monitor -Transfuse if she becomes symptomatic -Fecal occult stool was negative -Her last phlebotomy for hemochromatosis was September 2018 5. UTI -Currently on Cipro for a Klebsiella and E. coli UTI -Currently on day 3 of 5 6. Hypothyroidism -Her TSH was 6 and a T4 and T3 were obtained, the T4 was 1.14 however the T3 was 2.0 -Continue with Synthroid DVT: SCDs CODE STATUS: DNR CCA Code Visit Inpatient E&M: 27405 Subs Hosp L2
[2019-04-28] MEDS: Lisinopril 10 MG Tablet PO (07:46)
[2019-04-28] MEDS: Ciprofloxacin 250 MG Tablet PO ×2 (10:23→19:54)
[2019-04-28] MEDS: Carbidopa/Levodopa 25/100 Tablet PO ×2 (11:36→16:37)
[2019-04-28] MEDS: Saliva Substitute 237 ML BOTTLE 15 ML MM ×2 (11:57→19:44)
--- NOTE | 2019-04-28 12:01 | PN.NEURO_ITS ---
Subjective: Per nursing, noting increase shuffling gait and stiffness and increase in RLS. Sinement 25/100 mg tid added. Lethargy continues, no acute distress. Patient tolerating therapies well and pain is controlled. Nursing to call Dr. Lopez to change appointment to post d/c from rehab per family request. - Physical Exam General: Oriented x3, Cooperative, No apparent distress, Lethargic HEENT: Atraumatic, PERRLA Oral: Moist Mucosa Neck: Supple, No JVD Lungs: Clear to auscultation, Normal air movement Cardiovascular: Regular rate, Regular Rhythm Abdomen: Bowel Sounds Present, Soft, Non Tender Extremities: No clubbing, No cyanosis, No edema Neurological: Cranial nerves II-XII grossly intact, Deep Tendon Reflexes 2+/4 and Symmetrical, Motor Exam 5/5 strength throughout Psych/Mental Status: Flat Affect, - - orented x3, responds and asnwers questions appropriately. Vital Signs Temp Pulse Resp BP Pulse Ox 97.7 F L 81 16 104/59 L 98 04/28/19 07:06 04/28/19 07:06 04/28/19 07:06 04/28/19 07:06 04/28/19 07:06 Oxygen Delivery Method Room Air Weight: 79.3 kg Body Mass Index (BMI) 30.0 Intake and Output for Last 24 Hours 04/26/19 04/27/19 04/28/19 23:59 23:59 23:59 Intake Total 540 / 540 240 / 240 Balance 540 / 540 240 / 240 Microbiology Past 72 Hours 04/23/19 10:00 Urine Culture - Final Urine Catheter - Catheter Escherichia coli Klebsiella oxytoca Medical Necessity - Tobacco Use Smoking Status: Never smoker Tobacco Use: Non-smoker Assessment/Plan All Active Problems (Last Updated 04/20/19 @ 09:07 by Vandana Noyola, BOX ATTACHER-C) Debility (Acute) DVT (deep venous thrombosis) (Acute) The patient is a 69 year old F with PMH of Parkinson disease, HTN, Hy pothyroidism, Hemochromatosis, DVT left soleal vein on 04/17/19, Hx of stroke in 2009, admitted to [facility] on 04/18/2019 for debility secondary to L4-5 decompression and fusion greater of 3 hours of therapy per day with a goal of returning home at or near her prior level of independence. On April 01, 2019 Dr. Dominik Lopez at [facility] performed an L4-L5 decompression fusion due to spinal stenosis. Patient developed bilateral lower extremity weakness and pain in the left greater than right. On April 14, 2019, MRI of lumbar area showed an interspinous fluid collection measuring 4.7 x 3.5 cm at the L4-L5 with mass- effect of the thecal sac and communicating with the crescentic contains fluid collection. An evacuation of hematoma was performed. On 04/17/2019, DVT of left soleal vein was noted on duplex, vascular surgeon Dr. Maya was consulted and recommended no DVT prophylaxis given the location of the DVT (below knee) in setting of recent spine hematoma and to monitor on the 3rd, 10th, and 30th day. Also, H/H 22.6/7.0 which decreased 26.6/8.5 from March. Patient has diagnosis of hemochromatosis, which Dr. 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 Patient was discharged to [facility] on 04/17/2019, without new acute findings communicated to [facility] before discharge. Vascular surgeon was contacted at [facility], which felt no intervention was necessary. Patient was admitted to [facility] medical surgical floor and discharged to [facility] on 04/18/2019. Patient lives with spouse in a one level home with one step to enter. Prior to surgery, patient was independent with ADLs, mobility and driving. - PT for mobility - OT for ADLs - ST for cognition - L4-5 decompression and fusion. Ice prn, binder when OOB, F/U appt with Dr. Doimnik Lopez on 04/30 @ 1300 and tejinder to be d/c at appt. - awaiting return call for possible change post d/c rehab - PD on mirapex, start Sinemet 25/100 mg tid - HTN on zestril - Hypothyroidism TSH 6.31 Free T4 1.14,(N) Free T3 2.0 (L)- Synthroid 25 mcg daily - Hemochromatosis - Dr. Trejo manages, consult hematology - Microcytic Anemia 04/24/19 H/H 25.2/7.3 Further management per hospitalist/hematology recommendations - Left Soleal DVT- no intervention recommended by vascular surgeon (anticoagulation or IVC filter) repeat Duplex on 04/20, 04/27, and 05/18. 04/20/19 duplex showed acute DVT in the left soleus vein without any progression. - Hx of Stroke in 2009- on asa and bijal - GI/DVT prophylaxis on pepcid, knee high mack hose, RLE SCD - Positive UA , CX showed escherichia coli 50,000-80,000 and klebsiella oxytoca 50,000-80,000, duracef d/c and was started on cipro 250 mg bid with last dose on in am. - Medical management per hospitalist- consult - Analgesics as needed - Bowel protocol - Fall precautions - F/U with Dr. Dominik Lopez, Vascular surgeon, Neurology (Dr. Walls), Dr. Trejo, and PCP
--- NOTE | 2019-04-28 16:05 | CHAPLAIN ---
Type of Pastoral Visit _x__ Initial Visit ___ Follow-up Visit ___ On-call Visit ___ General Patient Visit ___ Spiritual Assessment ___ Family Conference ___ Bereavement ___ Rapid Response ___ Code Blue ___ Other (describe below) Pastoral Care Referral From _x__ Patient ___ Family _x__ Nurse ___ Physician ___ Senior Office Support Assistant Sosa ___ 911 Operator ___ Other (describe below) Sacrament/Intervention _x__ Active listening ___ Anointing ___ Shinto ___ Bereavement ___ Communion ___ Gabriela exploration ___ _x__ Life review _x__ Prayer ___ Reconciliation ___ Sacrament of Sick _x__ Supportive presence ___ Wedding ___ Other (describe below) Pastoral Comments patient welcomes this truck driver instructor for return visits and support
[2019-04-28] MEDS: HYDROcodone Bitartrate/Apap 5/325 Tablet PO (19:52)
[2019-04-28] MEDS: Pramipexole Di-HCl 1 MG Tablet 2 MG PO (19:52)
[2019-04-28 20:01] VITALS: BP 106/61; PULSE 87; RESP 16; TEMP 36.6; O2SAT 100
[2019-04-28 22:00] VITALS: PULSE 81; RESP 16; O2SAT 100
[2019-04-29] MEDS: Pramipexole Di-HCl 1 MG Tablet PO ×2 (06:23→13:27)
[2019-04-29] MEDS: Levothyroxine 25 MCG TABLET PO (06:23)
[2019-04-29] MEDS: Carbidopa/Levodopa 25/100 Tablet PO ×3 (06:24→16:58)
[2019-04-29] MEDS: Folic Acid 1 MG Tablet PO (07:24)
[2019-04-29] MEDS: Aspirin E.C. 81 MG Tablet PO (07:24)
[2019-04-29] MEDS: Gabapentin 300 MG Capsule PO ×2 (07:24→16:58)
[2019-04-29] MEDS: Famotidine 20 MG Tablet PO ×2 (07:25→21:49)
[2019-04-29 08:00] VITALS: PULSE 78; RESP 16; TEMP 36.9; O2SAT 96
[2019-04-29 10:15] VITALS: BP 104/60
[2019-04-29] MEDS: Ensure Clear 120 ML Liquid PO ×4 (10:25→21:50)
[2019-04-29] MEDS: Ciprofloxacin 250 MG Tablet PO ×2 (10:26→21:50)
[2019-04-29] MEDS: Senna/Docusate Sodium 1 Tablet 2 TABLET PO ×2 (10:29→21:49)
--- NOTE | 2019-04-29 10:32 | PN.NEURO_ITS ---
Subjective: Per nursing, no issues overnight. Per Dr. Lopez to continue to keep f/u appt with him on 04/30/19, family aware. Per therapy, less stiffness noted while working with patient during therapy today since starting Sinemet. No acute distress noted, no lethargy noted at this time. Patient sitting up in chair and continues to tolerate therapy. - Physical Exam General: Alert, Oriented x3, Cooperative HEENT: Atraumatic, PERRLA Oral: Moist Mucosa Neck: Supple, No JVD Lungs: Clear to auscultation, Normal air movement Cardiovascular: Regular rate, Regular Rhythm Abdomen: Bowel Sounds Present, Soft, Non Tender Extremities: No clubbing, No cyanosis, No edema Neurological: Cranial nerves II-XII grossly intact, Deep Tendon Reflexes 2+/4 and Symmetrical, Motor Exam 5/5 strength throughout Psych/Mental Status: Appropriate, Flat Affect, - - A/O x3, cooperative and pleasant Vital Signs Temp Pulse Resp BP Pulse Ox 98.4 F 78 16 106/61 96 04/29/19 08:00 04/29/19 08:00 04/29/19 08:00 04/28/19 20:01 04/29/19 08:00 Oxygen Delivery Method Room Air Weight: 78 kg Body Mass Index (BMI) 30.0 Intake and Output for Last 24 Hours 04/27/19 04/28/19 04/29/19 23:59 23:59 23:59 Intake Total 540 / 540 240 / 240 Balance 540 / 540 240 / 240 Medical Necessity - Tobacco Use Smoking Status: Never smoker Tobacco Use: Non-smoker Assessment/Plan All Active Problems (Last Updated 04/20/19 @ 09:07 by Vandana Noyola, ROBERT-C) Debility (Acute) DVT (deep venous thrombosis) (Acute) The patient is a 69 year old F with PMH of Parkinson disease, HTN, Hypothyroidism, Hemochromatosis, DVT left soleal vein on 04/17/19, Hx of stroke in 2009, admitted to [facility] on 04/18/2019 for debility secondary to L4-5 decompression and fusion greater of 3 hours of therapy per day with a goal of returning home at or near her prior level of independence. On April 01, 2019 Dr. Doimnik Lopez at [facility] performed an L4-L5 decompression fusion due to spinal stenosis. Patient developed bilateral lower extremity weakness and pain in the left greater than right. On April 14, 2019, MRI of lumbar area showed an interspinous fluid collection measuring 4.7 x 3.5 cm at the L4-L5 with mass- effect of the thecal sac and communicating with the crescentic contains fluid collection. An evacuation of hematoma was performed. On 04/17/2019, DVT of left soleal vein was noted on duplex, vascular surgeon Dr. Maya was consulted and recommended no DVT prophylaxis given the location of the DVT (below knee) in setting of recent spine hematoma and to monitor on the 3rd, 10th, and 30th day. Also, H/H 22.6/7.0 which decreased 26.6/8.5 from March. Patient has diagnosis of hemochromatosis, which Dr. 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 Patient was discharged to [facility] on 04/17/2019, without new acute findings communicated to [facility] before discharge. Vascular surgeon was contacted at [facility], which felt no intervention was necessary. Patient was admitted to [facility] medical surgical floor and discharged to [facility] on 04/18/2019. Patient lives with spouse in a one level home with one step to enter. Prior to surgery, patient was independent with ADLs, mobility and driving. - PT for mobility - OT for ADLs - ST for cognition - L4-5 decompression and fusion. Ice prn, binder when OOB, F/U appt with Dr. Dominik Lopez on 04/30 @ 1300 and tejinder to be d/c at appt. - PD on mirapex, start Sinemet 25/100 mg tid - HTN on zestril - Hypothyroidism TSH 6.31 Free T4 1.14,(N) Free T3 2.0 (L)- Synthroid 25 mcg daily - Hemochromatosis - Dr. Trejo manages, consult hematology - Microcytic Anemia 04/24/19 H/H 25.2/7.3 Further management per hospitalist/hematology recommendations - Left Soleal DVT- no intervention recommended by vascular surgeon (anticoagulation or IVC filter) repeat Duplex on 04/20, 04/27, and 05/18. 04/20/19 duplex showed acute DVT in the left soleus vein without any progression. repeat on 04/27/19, showed not change from last study on 04/20/19. - Hx of Stroke in 2009- on asa and bijal - GI/DVT prophylaxis on pepcid, knee high mack hose, RLE SCD - UTI: Positive UA , CX showed escherichia coli 50,000-80,000 and klebsiella oxytoca 50,000-80,000, duracef d/c and was started on cipro 250 mg bid with last dose on in am. - Medical management per hospitalist- consult - Analgesics as needed - Bowel protocol - Fall precautions - F/U with Dr. Dominik Lopez, Vascular surgeon, Neurology (Dr. Walls), Dr. Trejo, and PCP
[2019-04-29] MEDS: Lisinopril 10 MG Tablet PO (10:33)
[2019-04-29] MEDS: HYDROcodone Bitartrate/Apap 5/325 Tablet PO (19:44)
[2019-04-29 19:48] VITALS: BP 83/44; PULSE 80; RESP 16; TEMP 36.7; O2SAT 93
--- NOTE | 2019-04-29 19:49 | NURSING ---
PT GIVEN CUP OF WATER TO DRINK. WILL RECHECK BP SHORTLY. PT IS A/O X 3. SKINK WARM AND DRY.
[2019-04-29 20:20] VITALS: BP 82/48; PULSE 71
[2019-04-29 21:02] VITALS: BP 84/48; PULSE 76
[2019-04-29 21:42] VITALS: BP 105/68; PULSE 87
[2019-04-29] MEDS: Pramipexole Di-HCl 1 MG Tablet 2 MG PO (21:49)
[2019-04-30 05:49] LABS: Hematocrit 24.2 % (37-47)
[2019-04-30] MEDS: Pramipexole Di-HCl 1 MG Tablet PO ×2 (07:05→17:05)
[2019-04-30] MEDS: Levothyroxine 25 MCG TABLET PO (07:05)
[2019-04-30] MEDS: Carbidopa/Levodopa 25/100 Tablet PO ×3 (07:05→17:05)
[2019-04-30 07:23] VITALS: BP 104/50; PULSE 77; RESP 17; TEMP 36.9; O2SAT 94
[2019-04-30] MEDS: Lisinopril 10 MG Tablet PO (08:01)
[2019-04-30] MEDS: Folic Acid 1 MG Tablet PO (08:02)
[2019-04-30] MEDS: Ciprofloxacin 250 MG Tablet PO (08:02)
[2019-04-30] MEDS: Gabapentin 300 MG Capsule PO ×2 (08:02→17:53)
[2019-04-30] MEDS: Aspirin E.C. 81 MG Tablet PO (08:02)
[2019-04-30] MEDS: Senna/Docusate Sodium 1 Tablet 2 TABLET PO ×2 (08:02→21:00)
[2019-04-30] MEDS: Ensure Clear 120 ML Liquid PO ×3 (08:02→21:04)
[2019-04-30] MEDS: Famotidine 20 MG Tablet PO ×2 (08:02→21:01)
--- NOTE | 2019-04-30 09:13 | PN.NEURO_ITS ---
Subjective: Per nursing, no issues overnight. Patient tolerating therapies and has a f/u appt with Dr. lopez today @ 1300, tejinder will be discontinued at appt. Pain is controlled. H/H 24.1/7.0, nursing notified hospitalist. no acute distress noted. Denies chest pain or tightness, dizziness, lightheadedness, or SOB. Zestril d/c d/t blood pressures on lower end. Team meeting today. Further details of OT/ST/PT per their notes. All questions answered. - Physical Exam General: Oriented x3, Cooperative, No apparent distress HEENT: Atraumatic, PERRLA Oral: Moist Mucosa Neck: Supple, No JVD Lungs: Clear to auscultation, Normal air movement Cardiovascular: Regular rate, Regular Rhythm Abdomen: Bowel Sounds Present, Soft, Non Tender Extremities: No clubbing, No cyanosis, No edema Skin: Incision - tejinder intact to lumbar area, without redness or drng., - - open blister proximal to post incision site to lumbar area, without redness or drng - healed Neurological: Cranial nerves II-XII grossly intact, Deep Tendon Reflexes 2+/4 and Symmetrical, Motor Exam 5/5 strength throughout Psych/Mental Status: Flat Affect, - - oriented x3, pleasant and cooperative Vital Signs Temp Pulse Resp BP Pulse Ox 98.4 F 77 17 104/50 L 94 04/30/19 07:23 04/30/19 07:23 04/30/19 07:23 04/30/19 07:23 04/30/19 07:23 Oxygen Delivery Method Room Air Weight: 78 kg Body Mass Index (BMI) 30.0 Intake and Output for Last 24 Hours 04/28/19 04/29/19 04/30/19 23:59 23:59 23:59 Intake Total 240 / 240 280 / 280 Balance 240 / 240 280 / 280 Laboratory Tests Past 24 Hrs 04/30/19 05:35 Hgb 7.0 L Hct 24.2 L Medical Necessity - Tobacco Use Smoking Status: Never smoker Tobacco Use: Non-smoker Assessment/Plan All Active Problems (Last Updated 04/20/19 @ 09:07 by Vandana Noyola, HAND CLERICAL VERIFIER-C) Debility (Acute) DVT (deep venous thrombosis) (Acute) The patient is a 69 year old F with PMH of Parkinson disease, HTN, Hypothyroidism, Hemochromatosis, DVT left soleal vein on 04/17/19, Hx of stroke in 2010, admitted to [facility] on 04/18/2019 for debility secondary to L4-5 deco mpression and fusion greater of 3 hours of therapy per day with a goal of returning home at or near her prior level of independence. On April 01, 2019 Dr. Dominik Lopez at [facility] performed an L4-L5 decompression fusion due to spinal stenosis. Patient developed bilateral lower extremity weakness and pain in the left greater than right. On April 14, 2019, MRI of lumbar area showed an interspinous fluid collection measuring 4.7 x 3.5 cm at the L4-L5 with mass- effect of the thecal sac and communicating with the crescentic contains fluid collection. An evacuation of hematoma was performed. On 04/17/2019, DVT of left soleal vein was noted on duplex, vascular surgeon Dr. Maya was consulted and recommended no DVT prophylaxis given the location of the DVT (below knee) in setting of recent spine hematoma and to monitor on the 3rd, 10th, and 30th day. Also, H/H 22.6/7.0 which decreased 26.6/8.5 from March. Patient has diagnosis of hemochromatosis, which Dr. 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 Patient was discharged to [facility] on 04/17/2019, without new acute findings communicated to [facility] before discharge. Vascular surgeon was contacted at [facility], which felt no intervention was necessary. Patient was admitted to [facility] medical surgical floor and discharged to [facility] on 04/18/2019. Patient lives with spouse in a one level home with one step to enter. Prior to surgery, patient was independent with ADLs, mobility and driving. - PT for mobility - OT for ADLs - ST for cognition - L4-5 decompression and fusion. Ice prn, binder when OOB, F/U appt with Dr. Dominik Lopez on 04/30 @ 1300 and tejinder to be d/c at appt. - PD on mirapex, start Sinemet 25/100 mg tid - HTN on zestril - Hypothyroidism TSH 6.31 Free T4 1.14,(N) Free T3 2.0 (L)- Synthroid 25 mcg daily - Hemochromatosis - Dr. Trejo manages, consult hematology - Microcytic Anemia 04/24/19 H/H 25.2/7.3 04/30/19 H/H 24.2/7.0 Further management per hospitalist/hematology recommendations - Left Soleal DVT- no intervention recommended by vascular surgeon (anticoagulation or IVC filter) repeat Duplex on 04/20, 04/27, and 05/18. 04/20/19 duplex showed acute DVT in the left soleus vein without any progression. repeat on 04/27/19, showed not change from last study on 04/20/19. - Hx of Stroke in 2009- on asa and bijal - GI/DVT prophylaxis on pepcid, knee high mack hose, RLE SCD - UTI: Positive UA , CX showed escherichia coli 50,000-80,000 and klebsiella oxytoca 50,000-80,000, duracef d/c and was started on cipro 250 mg bid with last dose on 04/30/19 in am. - Medical management per hospitalist- consult - Analgesics as needed - Bowel protocol - Fall precautions - F/U with Dr. Dominik Lopez, Vascular surgeon, Neurology (Dr. Walls), Dr. Trejo, and PCP
--- NOTE | 2019-04-30 10:46 | CASEMGMT ---
Social Work IDT met with patient, and daughter for Team Meeting. Discussed patient progressing well in therapy. Pt is more alert and able to participate well in therapy. Family in to watch therapy today and will be walking pt in the evenings. Pt is CGA to min assist for transfers, walking 60 ft with FWW and completed 5 steps at min assist. Pt is mod assist for toilet transfer for balance and getting up from lower surfaces. Min assist for bathing and assistance with bending d/t precautions. Pt gets tejinder removed today. ST continuing to work on voice strategies, memory - but still needing supervision with fiancees and medications. Physician started pt on new Parkinson's med and is helping pt. Medicare ELOS 20 days with anticipated DC date of 05/08. Family and pt requesting transfer to TCU at this time. Will determine final DC plans at Team meeting next week. Will continue to follow. NATY NeumannW
--- NOTE | 2019-04-30 11:00 | NURSING ---
pt left the unit to go to follow up appt at [facility]
--- NOTE | 2019-04-30 11:29 | NURSING ---
Dr Morgan made aware for pt's HGB results. will continue to monitor.
--- NOTE | 2019-04-30 16:52 | NURSING ---
returned to unit form appt
[2019-04-30 20:43] VITALS: BP 100/48; PULSE 83; RESP 16; TEMP 36.9; O2SAT 95
[2019-04-30] MEDS: Pramipexole Di-HCl 1 MG Tablet 2 MG PO (21:01)
[2019-04-30] MEDS: Saliva Substitute 237 ML BOTTLE 15 ML MM (21:04)
[2019-04-30 21:28] VITALS: PULSE 83; RESP 16; O2SAT 95
[2019-05-01] MEDS: Pramipexole Di-HCl 1 MG Tablet PO ×2 (05:49→14:20)
[2019-05-01] MEDS: Carbidopa/Levodopa 25/100 Tablet PO ×3 (05:49→17:01)
[2019-05-01] MEDS: Levothyroxine 25 MCG TABLET PO (05:49)
[2019-05-01] MEDS: Aspirin E.C. 81 MG Tablet PO (07:49)
[2019-05-01] MEDS: Famotidine 20 MG Tablet PO ×2 (07:49→20:12)
[2019-05-01] MEDS: Ensure Clear 120 ML Liquid PO ×4 (07:49→20:12)
[2019-05-01] MEDS: Gabapentin 300 MG Capsule PO ×2 (07:49→17:37)
[2019-05-01] MEDS: Folic Acid 1 MG Tablet PO (07:49)
[2019-05-01 09:19] VITALS: BP 116/56; PULSE 80; RESP 18; TEMP 36.6; O2SAT 98
--- NOTE | 2019-05-01 12:51 | PN.NEURO_ITS ---
Subjective: Spoke with Ana FERRIS from [facility] during patient's f/u spine appointment and informed that patient needed a stat MRI at [facility] when she returns back to facility d/t lumbar x-ray showing the cage in the canal and would require surgery on 05/06/19. Also, informed pt had worsening left foot drop. Requested pt be admitted and evaluated if required STAT work-up, however DIRECTOR MUSIC stated that patient did not require admission. Notified JEWELRY CASTING MODEL MAKER APPRENTICE that pt case must be discussed with Dr. Goncalves prior to pt being sent back the [facility] unit. Dr. Goncalves requested that the spine surgeon further evaluate the pt before transfer back to rehab. DIRECTOR MUSIC notified however, pt already en route back; DIRECTOR MUSIC stated the surgeon looked at the x-ray and that the MRI could be done before surgery on 05/06/19. DIRECTOR MUSIC also amended her previous assessment of pt's foot drop to no change or worsening. DIRECTOR MUSIC stated patient can continue 3 hours of therapy daily. Documentation of clearance requested. Dr. Goncalves updated. Reviewed DIRECTOR MUSIC office note, which states subluxation of TLIF cage with L4-5 nerve root compression and surgery on 05/06/19 for revision fusion-extension of L3-S1. Patient alert and oriented x 3 this am, no lethargy noted. Denies AMBROSIO, vision changes, new onset of focal weakness, chest pain or tightness, dizziness or lightheadedness or SOB. Patient tolerating therapies well. Denies further questions or concerns. - Physical Exam General: Alert, Oriented x3, Cooperative HEENT: Atraumatic, PERRLA Oral: Moist Mucosa Neck: Supple, No JVD Lungs: Clear to auscultation, Normal air movement Cardiovascular: Regular rate, Regular Rhythm Abdomen: Bowel Sounds Present, Soft, Non Tender Extremities: No clubbing, No cyanosis, No edema Skin: Incision - lumbar incision without redness or drng. open blister area healed to proximal area of lumbar incision. Neurological: Cranial nerves II-XII grossly intact, Deep Tendon Reflexes 2+/4 and Symmetrical, Motor Exam 5/5 strength throughout Psych/Mental Status: Flat Affect, - - A/O x3, cooperative, pleasant. Vital Signs Temp Pulse Resp BP Pulse Ox 97.8 F 80 18 116/56 L 98 05/01/19 09:19 05/01/19 09:19 05/01/19 09:19 05/01/19 09:19 05/01/19 09:19 Oxygen Delivery Method Room Air Weight: 78 kg Body Mass Index (BMI) 30.0 Intake and Output for Last 24 Hours 04/29/19 04/30/19 05/01/19 23:59 23:59 23:59 Intake Total 400 / 400 440 / 440 Balance 400 / 400 440 / 440 Medical Necessity - Tobacco Use Smoking Status: Never smoker Tobacco Use: Non-smoker Assessment/Plan All Active Problems (Last Updated 04/20/19 @ 09:07 by Vandana Noyola, JEWELRY CASTING MODEL MAKER APPRENTICE-C) Debility (Acute) DVT (deep venous thrombosis) (Acute) The patient is a 69 year old F with PMH of Parkinson disease, HTN, Hypothyroidism, Hemochromatosis, DVT left soleal vein on 04/17/19, Hx of stroke in 2009, admitted to [facility] on 04/18/2019 for debility secondary to L4-5 decompression and fusion greater of 3 hours of therapy per day with a goal of returning home at or near her prior level of independence. On April 01, 2019 Dr. Dominik Lopez at [facility] performed an L4-L5 decompression fusion due to spinal stenosis. Patient developed bilateral lower extremity weakness and pain in the left greater than right. On April 14, 2019, MRI of lumbar area showed an interspinous fluid collection measuring 4.7 x 3.5 cm at the L4-L5 with mass- effect of the thecal sac and communicating with the crescentic contains fluid collection. An evacuation of hematoma was performed. On 04/17/2019, DVT of left soleal vein was noted on duplex, vascular surgeon Dr. Maya was consulted and recommended no DVT prophylaxis given the location of the DVT (below knee) in setting of recent spine hematoma and to monitor on the 3rd, 10th, and 30th day. Also, H/H 22.6/7.0 which decreased 26.6/8.5 from March. Patient has diagnosis of hemochromatosis, which Dr. 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 Patient was discharged to [facility] on 04/17/2019, without new acute findings communicated to [facility] before discharge. Vascular surgeon was contacted at [facility], which felt no intervention was necessary. Patient was admitted to [facility] medical surgical floor and discharged to [facility] on 04/18/2019. Patient lives with spouse in a one level home with one step to enter. Prior to surgery, patient was independent with ADLs, mobility and driving. - PT for mobility - OT for ADLs - ST for cognition - L4-5 decompression and fusion. Ice prn, binder when OOB, 04/30/19 x-ray at F/u appt, scheduled for revision fusion-extension L3-S1 and MRI prior to surgery at [facility] with Dr. Lopez d/t subluxation of TLIF cage with L4-5 nerve root compression. - PD on mirapex, start Sinemet 25/100 mg tid - HTN on zestril - Hypothyroidism TSH 6.31 Free T4 1.14,(N) Free T3 2.0 (L)- Synthroid 25 mcg daily - Hemochromatosis - Dr. Trejo manages, consult hematology - Microcytic Anemia 04/24/19 H/H 25.2/7.3 04/30/19 H/H 24.2/7.0 Further management per hospitalist/hematology recommendations - Left Soleal DVT- no intervention recommended by vascular surgeon (anticoagulation or IVC filter) repeat Duplex on 04/20, 04/27, and 05/18. 04/20/19 duplex showed acute DVT in the left soleus vein without any progression. repeat on 04/27/19, showed not change from last study on 04/20/19. - Hx of Stroke in 2009- on asa and bijal - GI/DVT prophylaxis on pepcid, knee high mack hose, RLE SCD - UTI: Positive UA , CX showed Escherichia coli 50,000-80,000 and klebsiella oxytoca 50,000-80,000, duracef d/c and was started on cipro 250 mg bid with last dose on 04/30/19 in am. - Medical management per hospitalist- consult - Analgesics as needed - Bowel protocol - Fall precautions - F/U with Dr. Dominik Lopez, Vascular surgeon, Neurology (Dr. Walls), Dr. Trejo, and PCP
[2019-05-01 19:35] VITALS: BP 98/55; PULSE 84; RESP 18; TEMP 36.6; O2SAT 96
[2019-05-01] MEDS: Pramipexole Di-HCl 1 MG Tablet 2 MG PO (20:12)
[2019-05-01 20:19] VITALS: BP 124/64; PULSE 85
[2019-05-02] MEDS: Pramipexole Di-HCl 1 MG Tablet PO ×2 (05:05→13:41)
[2019-05-02] MEDS: Levothyroxine 25 MCG TABLET PO (05:05)
[2019-05-02] MEDS: Carbidopa/Levodopa 25/100 Tablet PO ×3 (05:05→17:06)
[2019-05-02] MEDS: Folic Acid 1 MG Tablet PO (09:10)
[2019-05-02] MEDS: Famotidine 20 MG Tablet PO ×2 (09:10→21:05)
[2019-05-02] MEDS: Gabapentin 300 MG Capsule PO ×2 (09:10→17:06)
[2019-05-02] MEDS: Ensure Clear 120 ML Liquid PO ×4 (09:10→21:05)
[2019-05-02 10:00] VITALS: BP 133/73; PULSE 84; RESP 16; TEMP 36.8; O2SAT 99
--- NOTE | 2019-05-02 13:00 | NURSING ---
called [facility] and spoke with Dr Powers who is bus info consultant for the weekend in regards to upcoming surgery. asked about holding aspirin and he recommended holding aspirin for 5-7 days prior to surgery. this was passed along to Dr Morgan who verbalized order to DC aspirin order. pt and family updated
[2019-05-02 19:35] VITALS: BP 109/61; PULSE 90; RESP 18; TEMP 36.7; O2SAT 95
[2019-05-02] MEDS: Pramipexole Di-HCl 1 MG Tablet 2 MG PO (21:05)
[2019-05-02] MEDS: Saliva Substitute 237 ML BOTTLE 15 ML MM (21:06)
[2019-05-02] MEDS: Senna/Docusate Sodium 1 Tablet 2 TABLET PO (21:06)
[2019-05-02 22:00] VITALS: PULSE 90; RESP 18; O2SAT 96
[2019-05-03] MEDS: Carbidopa/Levodopa 25/100 Tablet PO ×3 (06:08→16:50)
[2019-05-03] MEDS: Pramipexole Di-HCl 1 MG Tablet PO ×2 (06:08→14:07)
[2019-05-03] MEDS: Levothyroxine 25 MCG TABLET PO (06:08)
[2019-05-03] MEDS: Folic Acid 1 MG Tablet PO (07:38)
[2019-05-03] MEDS: Famotidine 20 MG Tablet PO ×2 (07:39→21:03)
[2019-05-03] MEDS: Ensure Clear 120 ML Liquid PO ×3 (07:39→21:03)
[2019-05-03] MEDS: Gabapentin 300 MG Capsule PO ×2 (07:39→16:50)
[2019-05-03] MEDS: Senna/Docusate Sodium 1 Tablet 2 TABLET PO ×2 (07:40→21:03)
--- NOTE | 2019-05-03 09:35 | PN_ITS ---
Subjective: No issues overnight, she is been doing okay. She does have to go back to [facility] on Saturday for surgery on Saturday for shifted hardware. Her aspirin has been held since yesterday in anticipation of this procedure. Vitals/I&O's: Vital Signs Temp Pulse Resp BP Pulse Ox 98.1 F 90 18 109/61 95 05/02/19 19:35 05/02/19 22:00 05/02/19 22:00 05/02/19 19:35 05/02/19 19:35 Oxygen Delivery Method Room Air Weight: 171 lb 15.369 oz Body Mass Index (BMI) 30.0 Intake and Output for Last 24 Hours 05/01/19 05/02/19 05/03/19 23:59 23:59 23:59 Intake Total 680 / 680 900 / 900 400 / 400 Balance 680 / 680 900 / 900 400 / 400 General: Alert, Oriented x3, Cooperative, No apparent distress HEENT: Atraumatic, PERRLA, EOMI, Normocephalic Oral: Moist Mucosa Neck: Supple, No JVD Lungs: Clear to auscultation, Normal air movement, No rhonchi, No wheeze, No rales Cardiovascular: Regular rate, Regular Rhythm, Normal S1, Normal S2, No murmurs Abdomen: Soft, Non Tender, Non-Distended, No Hepato-splenomegaly Extremities: Capillary Refill Less than 3 Seconds, Edema - ankle b/l 1+ Skin: No rashes, No breakdown Neurological: Bilateral upper extremity strength 5 out of 5, no dorsiflexion of the left foot she is consistent with the L4-5 nerve root compression due to subluxation of the TLIF cage and sensory exam intact to light touch and pain Psych/Mental Status: Appropriate, Flat Affect Current Medications Hydrocodone Bitart/Acetaminophen ([place] 5mg-325mg) 1 - 2 tablet PO Q4H PRN PRN PRN Reason: Pain Score 6-10/10 Last Admin: 04/29/19 19:44 Dose: 1 tablet Documented by: Bisacodyl (Dulcolax) 10 mg RECTAL .PRN X 1 PRN PRN Reason: Constipation Last Admin: 04/20/19 15:17 Dose: 10 mg Documented by: Carbidopa/Levodopa (Sinemet) 1 tablet PO TIDAC BROCK Last Admin: 05/03/19 06:08 Dose: 1 tablet Documented by: Famotidine (Pepcid) 20 mg PO BID [facility] Last Admin: 05/03/19 07:39 Dose: 20 mg Documented by: Folic Acid (Folic Acid) [facility] Last Admin: 05/03/19 07:38 Dose: 1 mg Documented by: Gabapentin (Neurontin) 300 mg PO BIDCM [facility] Last Admin: 05/03/19 07:39 Dose: 300 mg Documented by: Levothyroxine Sodium (Synthroid) 25 mcg PO DAILY@0600 [facility] Last Admin: 05/03/19 06:08 Dose: 25 mcg Documented by: Magnesium Hydroxide (Milk Of Magnesia) 30 ml PO .PRN X 1 PRN PRN Reason: Constipation Last Admin: 04/19/19 20:07 Dose: 30 ml Documented by: Nutritional Formula (Lactose Free) (Ensure Clear) 120 ml PO 4X/DAY [facility] Last Admin: 05/03/19 07:39 Dose: 120 ml Documented by: Pramipexole Dihydrochloride (Mirapex) 1 mg PO 0700,1400 [facility] Last Admin: 05/03/19 06:08 Dose: 1 mg Documented by: Pramipexole Dihydrochloride (Mirapex) 2 mg PO QHS [facility] Last Admin: 05/02/19 21:05 Dose: 2 mg Documented by: Saliva Substitute (Biotene) 15 ml MM 5X/DAY PRN PRN Reason: DRY MOUTH Last Admin: 05/02/19 21:06 Dose: 15 ml Documented by: Senna/Docusate Sodium (Senokot-S, Reba-Colace) 2 tablet PO BID [facility] Last Admin: 05/03/19 07:40 Dose: 2 tablet Documented by: Medical Necessity - Tobacco Use Smoking Status: Never smoker Tobacco Use: Non-smoker Assessment/Plan All Active Problems (Last Updated 04/20/19 @ 09:07 by Vandana Noyola NP-C) Debility (Acute) DVT (deep venous thrombosis) (Acute) 1. Laminectomy I&D with posterior lumbar decompression of L3- S1/L4-5 nerve root compression secondary to subluxation of TLIF cage -04/14/2019 -She now has limited dorsiflexion of her left foot, she is scheduled for revision at the [facility] -Discharged on Saturday with surgery on Saturday and then will likely be readmitted to the hospital for further therapy -Aspirin has been held for surgery 2. Provoked left soleal DVT -On her most recent ultrasound there is been no propagation of the clot -Was seen by vascular surgery at [facility] for this DVT prior to discharge and did not feel that she warranted anticoagulation or vascular intervention 3. Parkinson's disease -Continue with Mirapex and continue Sinemet -Stable 4. Anemia with hemochromatosis -No transfusions for now, will continue to monitor -Transfuse if she becomes symptomatic -Fecal occult stool was negative -Her last phlebotomy for hemochromatosis was September 2018 -Held aspirin for surgery on Saturday 5. Hypothyroidism -Her TSH was 6 and a T4 and T3 were obtained, the T4 was 1.14 however the T3 was 2.0 -Continue with Synthroid DVT: SCDs CODE STATUS: DNR CCA Code Visit Inpatient E&M: 82267 Subs Hosp L2
[2019-05-03 09:51] VITALS: BP 150/73; PULSE 93; RESP 16; TEMP 36.8; O2SAT 94
[2019-05-03 19:57] VITALS: BP 128/70; PULSE 86; RESP 16; TEMP 36.6; O2SAT 97
[2019-05-03] MEDS: Pramipexole Di-HCl 1 MG Tablet 2 MG PO (21:03)
[2019-05-03 22:00] VITALS: PULSE 86; RESP 16; O2SAT 97
[2019-05-04] MEDS: Carbidopa/Levodopa 25/100 Tablet PO ×3 (06:03→16:57)
[2019-05-04] MEDS: Pramipexole Di-HCl 1 MG Tablet PO ×2 (06:03→13:44)
[2019-05-04] MEDS: Levothyroxine 25 MCG TABLET PO (06:03)
[2019-05-04 07:14] VITALS: BP 140/74; PULSE 83; RESP 16; TEMP 36.7; O2SAT 94
[2019-05-04] MEDS: Gabapentin 300 MG Capsule PO ×2 (08:13→16:57)
[2019-05-04] MEDS: Senna/Docusate Sodium 1 Tablet 2 TABLET PO ×2 (08:13→21:33)
[2019-05-04] MEDS: Folic Acid 1 MG Tablet PO (08:13)
[2019-05-04] MEDS: Famotidine 20 MG Tablet PO ×2 (08:13→21:33)
[2019-05-04] MEDS: Ensure Clear 120 ML Liquid PO ×4 (08:14→21:33)
--- NOTE | 2019-05-04 12:24 | PN.NEURO_ITS ---
Subjective: Issues overnight. Care discussed with the nursing staff. She is scheduled to be discharged to [facility] tomorrow and is scheduled for revision surgery at [facility] on 05/06/2019 for L4-L5 nerve root compression revision fusion-extension of L3-S1. Continues to have left foot drop - Physical Exam General: Alert HEENT: Normocephalic Neck: Supple Lungs: Normal air movement Cardiovascular: Normal S1, Normal S2 Abdomen: Bowel Sounds Present Extremities: No cyanosis Neurological: - - Consious, awake, AOA x3, CN II through XII grossly intact, power 5 out of 5 both upper extremities, left foot drop, no sensory loss, no cerebellar signs, gait deferred, reflexes + B/L B/S/T/K/A Psych/Mental Status: Normal Affect Vital Signs Temp Pulse Resp BP Pulse Ox 98.0 F 83 16 140/74 H 94 05/04/19 07:14 05/04/19 07:14 05/04/19 07:14 05/04/19 07:14 05/04/19 07:14 Oxygen Delivery Method Room Air Weight: 78 kg Body Mass Index (BMI) 30.0 Intake and Output for Last 24 Hours 05/02/19 05/03/19 05/04/19 23:59 23:59 23:59 Intake Total 900 / 900 900 / 900 160 / 160 Balance 900 / 900 900 / 900 160 / 160 Medical Necessity - Tobacco Use Smoking Status: Never smoker Tobacco Use: Non-smoker Assessment/Plan All Active Problems (Last Updated 04/20/19 @ 09:07 by Vandana Noyola, HANDS AND DIAL INSPECTOR-C) Debility (Acute) DVT (deep venous thrombosis) (Acute) The patient is a 69 year old F with PMH HTN, history of stroke in 2009, PD, hypothyroidism admitted to [facility] on 04/18/2019 with debility secondary to L4- 5 decompression and fusion, for greater than 3 hours of therapy daily with a goal of returning home at or near her prior level of functional independence.On April 01, 2019 Dr. Dominik Lopez at [facility] performed an L4-L5 decompression fusion due to spinal stenosis, the hospital course was later complicated by spinal hematoma, evacucation done on 04/14/19, On 04/17/2019, DVT of left soleal vein was noted on duplex, vascular surgeon Dr. Maya was consulted and recommended no anticoagulation treatment for left soleal vein DVT given the location of the DVT (below knee) in setting of recent spine hematoma and he recommended to monitor with his Doppler on April 20, and May 18. Will defer further management of left soleal vein DVT to vascular surgery/hematology and hospitalist. Patient's hemoglobin on admission was 7.5 and further decreased to 6.6 this morning, patient has a history of hemochromatosis for which she follows up with Dr. Trejo. Hematology and hospitalist consulted for further recommendations and management for low hemoglobin. Patient is on Mirapex for Parkinson's. PT/OT/ST. GI/DVT prophylaxis. Fall precautions. Hospitalist consult. Further medical management per hospitalist recommendations. Follow with PCP, hematology, vascular surgery, Orthopedics Dr. Gordon Lopez and PCP. Plan - PT for gait stability - OT for ADLs - ST - L4-5 decompression and fusion. Ice prn, binder when OOB, 04/30/19 x-ray at F/u appt, scheduled on 05/06/19 for revision fusion-extension L3-S1 and MRI prior to surgery at [facility] with Dr. Lopez d/t subluxation of TLIF cage with L4-5 nerve root compression. - PD on mirapex, start Sinemet 25/100 mg tid - HTN goal BP < 130/80 mmHg, BP controlled at present - Hypothyroidism TSH 6.31 Free T4 1.14,(N) Free T3 2.0 (L)- Synthroid 25 mcg daily - Hemochromatosis - Dr. Trejo manages, consult hematology - Microcytic Anemia 04/24/19 H/H 25.2/7.3 04/30/19 H/H 24.2/7.0 Further management per hospitalist/hematology recommendations - Left Soleal DVT- no intervention recommended by vascular surgeon (anticoagulation or IVC filter) repeat Duplex on 04/20, 04/27, and 05/18. 04/20/19 duplex showed acute DVT in the left soleus vein without any progression. repeat on 04/27/19, showed not change from last study on 04/20/19. - Hx of Stroke in 2009- ASA on hold for surgery per orthopedics recommendations - GI/DVT prophylaxis on pepcid, knee high mack hose, RLE SCD - UTI: Positive UA , CX showed Escherichia coli 50,000-80,000 and klebsiella oxytoca 50,000-80,000, duracef d/c and was started on cipro 250 mg bid with last dose on 04/30/19 in am. - Further medical management per hospitalist- consult - Analgesics as needed - Bowel protocol - Fall precautions - F/U with Dr. Dominik Lopez, Vascular surgeon, Neurology (Dr. Walls), Dr. Trejo, and PCP
--- NOTE | 2019-05-04 14:10 | PN_ITS ---
Subjective: Patient is a 69-year-old lady admitted to the inpatient rehab unit laminectomy and lumbar decompression involving L3-S1/L4-L5 Objective: GENERAL: cooperative HEENT: Atraumatic; EYES; Anicteric, NECK; supple, normal thyroid, RESPIRATORY: Diminished to auscultation CARDIOVASCULAR: Regular S1 S2, GI: soft, normoactive bowel sounds, : No Renal angle tenderness; MUSCULOSKELETAL: no muscle waisting NEURO: Awake; no lateralizing signs. SKIN: No Rash PSYCH; Flat affect Vitals/I&O's: Vital Signs Temp Pulse Resp BP Pulse Ox 98.0 F 83 16 140/74 H 94 05/04/19 07:14 05/04/19 07:14 05/04/19 07:14 05/04/19 07:14 05/04/19 07:14 Oxygen Delivery Method Room Air Weight: 78 kg Body Mass Index (BMI) 30.0 Intake and Output for Last 24 Hours 05/02/19 05/03/19 05/04/19 23:59 23:59 23:59 Intake Total 900 / 900 900 / 900 320 / 320 Balance 900 / 900 900 / 900 320 / 320 Current Medications Hydrocodone Bitart/Acetaminophen ([place] 5mg-325mg) 1 - 2 tablet PO Q4H PRN PRN PRN Reason: Pain Score 6-10/10 Last Admin: 04/29/19 19:44 Dose: 1 tablet Documented by: Bisacodyl (Dulcolax) 10 mg RECTAL .PRN X 1 PRN PRN Reason: Constipation Last Admin: 04/20/19 15:17 Dose: 10 mg Documented by: Carbidopa/Levodopa (Sinemet) 1 tablet PO TIDAC [facility] Last Admin: 05/04/19 11:12 Dose: 1 tablet Documented by: Famotidine (Pepcid) 20 mg PO BID [facility] Last Admin: 05/04/19 08:13 Dose: 20 mg Documented by: Folic Acid (Folic Acid) [facility] Last Admin: 05/04/19 08:13 Dose: 1 mg Documented by: Gabapentin (Neurontin) 300 [facility] Last Admin: 05/04/19 08:13 Dose: 300 mg Documented by: Levothyroxine Sodium (Synthroid) 25 mcg PO DAILY@0600 [facility] Last Admin: 05/04/19 06:03 Dose: 25 mcg Documented by: Magnesium Hydroxide (Milk Of Magnesia) 30 ml PO .PRN X 1 PRN PRN Reason: Constipation Last Admin: 04/19/19 20:07 Dose: 30 ml Documented by: Nutritional Formula (Lactose Free) (Ensure Clear) 120 ml PO 4X/DAY [facility] Last Admin: 05/04/19 13:43 Dose: 120 ml Documented by: Pramipexole Dihydrochloride (Mirapex) 1 mg PO 0700,1400 [facility] Last Admin: 05/04/19 13:44 Dose: 1 mg Documented by: Pramipexole Dihydrochloride (Mirapex) 2 mg PO QHS [facility] Last Admin: 05/03/19 21:03 Dose: 2 mg Documented by: Saliva Substitute (Biotene) 15 ml MM 5X/DAY PRN PRN Reason: DRY MOUTH Last Admin: 05/02/19 21:06 Dose: 15 ml Documented by: Senna/Docusate Sodium (Senokot-S, Reba-Colace) 2 tablet PO BID [facility] Last Admin: 05/04/19 08:13 Dose: 2 tablet Documented by: Medical Necessity - Tobacco Use Smoking Status: Never smoker Tobacco Use: Non-smoker Assessment/Plan All Active Problems (Last Updated 04/20/19 @ 09:07 by Vandana Noyola, [employer] HISTORY TEACHER-C) Debility (Acute) DVT (deep venous thrombosis) (Acute) Patient is a 69-year-old lady admitted to the inpatient rehab unit laminectomy and lumbar decompression involving L3-S1/L4-L5 1. Status post laminectomy and posterior lumbar decompression; ~ admitted to the inpatient rehab unit where patient is currently undergoing therapy 2. Parkinson's disease; ~ patient is on Sinemet did continue 3. Provoked left soleal DVT; ~ no treatment warranted 4. Hypothyroidism ~patient is on levothyroxine home dose continued 5. Hemochromatosis ~Undergoes periodic phlebotomy as outpatient Active Medications Hydrocodone Bitart/Acetaminophen ([place] 5mg-325mg) 1 - 2 tablet PO Q4H PRN PRN PRN Reason: Pain Score 6-10/10 Last Admin: 04/29/19 19:44 Dose: 1 tablet Documented by: Bisacodyl (Dulcolax) 10 mg RECTAL .PRN X 1 PRN PRN Reason: Constipation Last Admin: 04/20/19 15:17 Dose: 10 mg Documented by: Carbidopa/Levodopa (Sinemet) 1 tablet PO TIDAC [facility] Last Admin: 05/04/19 11:12 Dose: 1 tablet Documented by: Famotidine (Pepcid) 20 mg PO BID [facility] Last Admin: 05/04/19 08:13 Dose: 20 mg Documented by: Folic Acid (Folic Acid) 1 mg PO [facility]ILY[facility] Last Admin: 05/04/19 08:13 Dose: 1 mg Documented by: Gabapentin (Neurontin) 300 mg PO [facility]IDUN[facility] Last Admin: 05/04/19 08:13 Dose: 300 mg Documented by: Levothyroxine Sodium (Synthroid) 25 mcg PO DAILY@0600 [facility] Last Admin: 05/04/19 06:03 Dose: 25 mcg Documented by: Magnesium Hydroxide (Milk Of Magnesia) 30 ml PO .PRN X 1 PRN PRN Reason: Constipation Last Admin: 04/19/19 20:07 Dose: 30 ml Documented by: Nutritional Formula (Lactose Free) (Ensure Clear) 120 ml PO 4X/DAY [facility] Last Admin: 05/04/19 13:43 Dose: 120 ml Documented by: Pramipexole Dihydrochloride (Mirapex) 1 mg PO 0700,1400 [facility] Last Admin: 05/04/19 13:44 Dose: 1 mg Documented by: Pramipexole Dihydrochloride (Mirapex) 2 mg PO QHS [facility] Last Admin: 05/03/19 21:03 Dose: 2 mg Documented by: Saliva Substitute (Biotene) 15 ml MM 5X/DAY PRN PRN Reason: DRY MOUTH Last Admin: 05/02/19 21:06 Dose: 15 ml Documented by: Senna/Docusate Sodium (Senokot-S, Reba-Colace) 2 tablet PO BID [facility] Last Admin: 05/04/19 08:13 Dose: 2 tablet Documented by: Code Visit Inpatient E&M: [id number] Subs Hosp L2
--- NOTE | 2019-05-04 14:12 | CASEMGMT ---
Social Work Patient has surgery scheduled at [facility] 05/06 - pt will be discharging tomorrow 05/05. A new referral will be placed to after surgery for possible readmission. No needs for DC. Plan: DC 05/05 for surgery.
[2019-05-04 21:30] VITALS: BP 121/69; PULSE 86; RESP 16; TEMP 37.1; O2SAT 96
[2019-05-04] MEDS: Pramipexole Di-HCl 1 MG Tablet 2 MG PO (21:33)
[2019-05-04] MEDS: Saliva Substitute 237 ML BOTTLE 15 ML MM (21:35)
[2019-05-05] MEDS: Levothyroxine 25 MCG TABLET PO (06:31)
[2019-05-05] MEDS: Pramipexole Di-HCl 1 MG Tablet PO (06:31)
[2019-05-05] MEDS: Carbidopa/Levodopa 25/100 Tablet PO ×2 (06:31→10:40)
[2019-05-05 07:07] VITALS: BP 132/67; PULSE 86; RESP 18; TEMP 36.8; O2SAT 97
[2019-05-05] MEDS: Ensure Clear 120 ML Liquid PO (07:59)
[2019-05-05] MEDS: Folic Acid 1 MG Tablet PO (07:59)
[2019-05-05] MEDS: Gabapentin 300 MG Capsule PO (07:59)
[2019-05-05] MEDS: Senna/Docusate Sodium 1 Tablet 2 TABLET PO (07:59)
[2019-05-05] MEDS: Famotidine 20 MG Tablet PO (07:59)
--- NOTE | 2019-05-05 09:15 | PCM.DC ---
- Discharge Diagnoses Reason(s) for Visit for Discharge Instructions: Debility post surgery You will use the following diet at home:: Regular Your food should be the consistency of: Regular Discharge Activity: - - patient being discharged to be admitted to [facility] for revision surgery Call your doctor if your incision/area has: Continuous Slow Oozing, Sudden Increased Bleeding, Increased Pain/ Swelling, Increased Redness, Foul Smelling Discharge, Swelling at the incision site Call your doctor if you observe: Fever of 101 or Higher, Coldness, Increased Pain, Numbness or Tingling, Change in Color, Inability to urinate, Inability to have a bowel movement, Using more than one pad per hour, Shortness of breath, Dizziness, Fainting spells, Swelling in the ankles, Chest pain, Prolonged hiccoughing, Increased palpitations (irregular heartbeat), Calf discomfort, Uncontrolled pain Allergies/Adverse Reactions: Allergies Penicillins Allergy (Verified 04/17/19 21:03) Unknown Sulfa (Sulfonamide Antibiotics) Allergy (Verified 04/17/19 21:03) Unknown levothyroxine Adverse Reaction (Verified 04/18/19 11:36) Diarrhea Medications to take at Discharge Aspirin [Aspirin EC] 81 mg PO DAILY 04/17/19 Folic Acid 1 mg PO DAILY 04/17/19 Gabapentin [Neurontin] 300 mg PO BIDCM 04/17/19 Lisinopril [Zestril] 10 mg PO DAILY 04/17/19 Pramipexole Di-HCl [Mirapex] 1 mg PO BID 04/17/19 Pramipexole Di-HCl [Mirapex] 2 mg PO QHS 04/17/19 Carbidopa/Levodopa 25/100 [Sinemet 25/100] 1 tab PO TIDAC tab 05/05/19 Ensure Clear 120 ml PO 4X/DAY liquid 05/05/19 Famotidine [Pepcid] 20 mg PO BID tab 05/05/19 Levothyroxine [Synthroid] 25 mcg PO DAILY@0600 tab 05/05/19 Primary Care Physician: Román Rosado MD [Primary Care Provider] - Please follow up with your Primary Care Physician in: Follow up with PCP in 1-2 weeks Test Results: Test results from this visit will be discussed in further detail at your follow-up appointment, if applicable. When: Follow up with Vascular surgery 1-2 weeks When: follow up with Neurology Dr. Walls in 2 weeks When: Follow up with hematology Dr. Trejo in 2 weeks When: Follow up with Dr. Gordon Lopez Orthopedics after discharge from surgery
--- NOTE | 2019-05-05 09:19 | PCM.RU.DC ---
Rehab Discharge Summary DATE OF ADMISSION: 04/18/19 DATE OF DISCHARGE: 05/05/19 - Rehab Diagnosis debility secondary to L4-5 decompression and fusion Subjective: No issues overnight. Care discussed with the nursing staff. - Physical Exam General: Alert HEENT: Normocephalic Neck: Supple Lungs: Normal air movement Cardiovascular: Normal S1, Normal S2 Abdomen: Bowel Sounds Present Extremities: No cyanosis Neurological: - - Consious, awake, AOA x3, CN II through XII grossly intact, power 5 out of 5 both upper extremities, left foot drop, no sensory loss, no cerebellar signs, gait deferred, reflexes + B/L B/S/T/K/A Psych/Mental Status: Normal Affect Vital Signs Temp Pulse Resp BP Pulse Ox 98.2 F 86 18 132/67 H 97 05/05/19 07:07 05/05/19 07:07 05/05/19 07:07 05/05/19 07:07 05/05/19 07:07 Oxygen Delivery Method Room Air Weight: 78 kg Body Mass Index (BMI) 30.0 Intake and Output for Last 24 Hours 05/03/19 05/04/19 05/05/19 23:59 23:59 23:59 Intake Total 900 / 900 480 / 480 Balance 900 / 900 480 / 480 Discharge Diet: - - Regular Discharge Activity: May Not Drive, - - patient being discharged to be admitted to [facility] for revision surgery Call your doctor if your incision/area has: Continuous Slow Oozing, Sudden Increased Bleeding, Increased Pain/ Swelling, Increased Redness, Foul Smelling Discharge, Swelling at the incision site Call your doctor if you observe: Fever of 101 or Higher, Coldness, Increased Pain, Numbness or Tingling, Change in Color, Inability to urinate, Inability to have a bowel movement, Using more than one pad per hour, Shortness of breath, Dizziness, Fainting spells, Swelling in the ankles, Chest pain, Prolonged hiccoughing, Increased palpitations (irregular heartbeat), Calf discomfort, Uncontrolled pain Home Medications: Medications to take at Discharge Aspirin [Aspirin EC] 81 mg PO DAILY 04/17/19 Folic Acid 1 mg PO DAILY 04/17/19 Gabapentin [Neurontin] 300 mg PO BIDCM 04/17/19 Lisinopril [Zestril] 10 mg PO DAILY 04/17/19 Pramipexole Di-HCl [Mirapex] 1 mg PO BID 04/17/19 Pramipexole Di-HCl [Mirapex] 2 mg PO QHS 04/17/19 Carbidopa/Levodopa 25/100 [Sinemet 25/100] 1 tab PO TIDAC tab 05/05/19 Ensure Clear 120 ml PO 4X/DAY liquid 05/05/19 Famotidine [Pepcid] 20 mg PO BID tab 05/05/19 Levothyroxine [Synthroid] 25 mcg PO DAILY@0600 tab 05/05/19 Primary Care Physician: Román Rosado MD [Primary Care Provider] - Please follow up with your Primary Care Physician in: Follow up with PCP in 1-2 weeks When: Follow up with Vascular surgery 1-2 weeks When: follow up with Neurology Dr. Walls in 2 weeks When: Follow up with hematology Dr. Trejo in 2 weeks When: Follow up with Dr. Gordon Lopez Orthopedics after discharge from surgery Rehab Course 69 year old F with PMH HTN, history of stroke in 2009, PD, hypothyroidism admitted to [facility] on 04/18/2019 with debility secondary to L4-5 decompression and fusion, for greater than 3 hours of therapy daily with a goal of returning home at or near her prior level of functional independence.On April 01, 2019 Dr. Dominik Lopez at [facility] performed an L4-L5 decompression fusion due to spinal stenosis, the hospital course was later complicated by spinal hematoma, evacuation done on 04/14/19, On 04/17/2019, DVT of left soleal vein was noted on duplex, vascular surgeon Dr. Maya was consulted and recommended no anticoagulation treatment for left soleal vein DVT given the location of the DVT (below knee) in setting of recent spine hematoma and he recommended to monitor with LE Doppler on April 20 which was done and did not show any progression of DVT and another Doppler to be done on May 18. Deferred further management of left soleal vein DVT to vascular surgery/hematology and hospitalist. Patient's hemoglobin on admission was 7.5, patient has a history of hemochromatosis for which she follows up with Dr. Trejo. Hematology and hospitalist consulted for further recommendations and management for low hemoglobin and recommendations followed. Per hospitalist recommendation no DVT prophylaxis was given due to low HB and recent history of spine hematoma, patient managed with SCDs. Patient is on Mirapex for Parkinson's. Following her follow up with spine surgery while in rehab, patient seen by JOSY and Dr. Gordon Lopez who advised revision surgery and is scheduled on 05/06/19 for revision fusion-extension L3-S1 and MRI prior to surgery at [facility] with Dr. Lopez d/t subluxation of TLIF cage with L4-5 nerve root compression and left foot drop. Patient had an uncomplicated rehab course except for left foot drop d/t subluxation of TLIF cage with L4-5 nerve root compression for which she is scheduled for revision surgery, tolerated therapies well and is being discharged to [facility] for her revision surgery in stable condition. ASA was held on spine surgery recommendations in anticipation of revision lumbar surgery on 05/06/19. Meaningful Use Info Meaningful Use Diagnoses (Choose all that apply): None applicable
--- NOTE | 2019-05-05 10:45 | NURSING ---
discharged home with family. discharge instructions and medication reviewed with pt and spouse. denies questions or concerns
[2019-05-05 11:12] VITALS: BP 132/67; PULSE 86; RESP 18; TEMP 36.8; O2SAT 97
== END 2019-05-05 10:45 | disposition short-term general hospital (02) | DRG 560 ==
PROVIDERS: Family Medicine; Internal Medicine; Nurse Practitioner Family; Admitting Provider Psychiatry & Neurology Neurology; Family Provider Family Medicine; PCP Family Medicine; Referring Provider Psychiatry & Neurology Neurology; Visit Provider Internal Medicine
DX: Z47.89 Encounter for other orthopedic aftercare (principal); N39.0 Urinary tract infection, site not specified; Z98.1 Arthrodesis status; G20 Parkinson's disease; E03.9 Hypothyroidism, unspecified; G25.81 Restless legs syndrome; I82.462 Acute embolism and thrombosis of left calf muscular vein; D50.9 Iron deficiency anemia, unspecified; B96.1 Klebsiella pneumoniae [K. pneumoniae] as the cause of diseases classified elsewhere; B96.20 Unspecified Escherichia coli [E. coli] as the cause of diseases classified elsewhere; M21.372 Foot drop, left foot; I10 Essential (primary) hypertension; Z86.73 Personal history of transient ischemic attack (TIA), and cerebral infarction without residual deficits
CPT/HCPCS: 36415; 80048; 81001; 82274; 82728; 84439; 84481; 85014; 85018; 85025; 87077; 87086; 87088; 87186; 92507; 92523; 92610; 93971; 97110; 97116; 97162; 97166; 97530; 97535; 97542; 97802; 97803

== ENCOUNTER 2019-05-11 14:57 | Inpatient (IN) | payer MEDICARE, OTHER, SELFPAY ==
[2019-05-11 15:20] VITALS: BP 111/60; PULSE 78; RESP 18; TEMP 36.8; O2SAT 92
[2019-05-11 16:55] VITALS: BMI 28.5
--- NOTE | 2019-05-11 17:19 | VDLE_ITS ---
Reason For Study: DVT RIGHT LEFT GSV is normal. GSV is normal. CFV is compressible, spontaneous, phasic, CFV is compressible, spontaneous, phasic, competent and demonstrates normal competent, and demonstrates normal augmentation. augmentation. FV is compressible, spontaneous, phasic, FV is compressible, spontaneous, phasic, competent and demonstrates normal competent and demonstrates normal augmentation. augmentation. POP V is compressible, spontaneous, phasic, POP V is compressible, spontaneous, phasic, competent and demonstrates normal competent and demonstrates normal augmentation. augmentation. T/P Trunk is compressible. T/P Trunk is compressible. PTV is compressible. PTV is compressible. RT PerV is compressible. LT PerV is compressible. Soleus Vein is dilated and noncompressible. Soleus Vein and Gastroc Vein are dilated and Procedure noncompressible. Exam performed portable in patient room. The exam was diagnostic. A preliminary report was called and/or faxed to the pt's nurse. Interpretation Summary Acute deep vein thrombosis is noted in the right soleus vein. The remainder of the right lower extremity deep venous system is patent and compressible. Acute deep vein thrombosis is noted in the left soleus vein. Acute deep vein thrombosis is noted in the left gastrocnemius vein. The remainder of the left lower extremity deep venous system is patent and compressible. Valvular competence appears intact within the proximal deep venous systems bilaterally. The great saphenous veins appear bilaterally patent and compressible segmentally. Ordering Physician: Vandana Noyola Referring Physician: Mayur Goncalves Performed By: Robert Ward RVT
--- NOTE | 2019-05-11 17:50 | HP.PCM.COS_ITS ---
History of Present Illness Date of Admission: 05/11/19 Chief Complaint: Debility secondary to revision, decompression, and fusion of L3-S1 The patient is a 69 year old Female with PMH HTN, history of stroke in 2010, PD, hypothyroidism admitted to [facility] on 05/11/2019 with debility secondary for revision, decompression and fusion of L3-S1, for greater than 3 hours of therapy daily with a goal of returning home at or near her prior level of functional independence. On 04/01/19 Dr. Dominik Lopez at [facility] performed an L4-L5 decompression fusion due to spinal stenosis, the hospital course was later complicated by spinal hematoma, evacuation done on 04/14/19, On 04/17/2019, DVT of left soleal vein was noted on duplex, vascular surgeon Dr. Maya was consulted and recommended no anticoagulation treatment for left soleal vein DVT given the location of the DVT (below knee) in setting of recent spine hematoma and he recommended to monitor with LE Doppler. Patient was previously admitted to [facility] on 04/18/19 and was d/c on 05/05/19 to [facility] orthopedics for surgery d/t spondylosis grade II, interbody cage L4-5, recurrent stenosis, subluxation of TLIF cage with L4-5 nerve root compression. On 05/06/19, Dr Lopez performed exploratory L4-5, removal on instrument/cage excision, revision, decompression, fusion of L3-S1 and instrument. On 05/06/19 H/H 25.1/7.6, received 2 units of PRBC, recheck on 05/11/19 Hgb 8.8. Patient has hemochromatosis and monotype mechanic/oncologist Dr. 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 2 drains removed from lumbar incision on 05/11/19. BLE duplex on 05/06/19 showed left soleal DVT, repeat on 05/08/19 showed DVT to right and left soleal vein and left gastroc vein, repeat on 05/11/19 showed no changed from previous study with no propagation. Spoke with Dr. Lopez's office, Dr. Lopez is aware of DVT's and no DVT prophylaxis due to risk of bleeding, continue asa. Repeat duplex to BLE on 05/15 and 06/05/19. Patient was fitted for afo for left foot drop and to wear LSO brace when OOB. Patient lives with spouse in a one level home with one step to enter. Prior to surgery, patient was independent with ADLs, mobility and driving. Past Medical History Medical History: Medical History (Last Updated 04/20/19 @ 09:07 by Vandana Noyola NP-C) Hemochromatosis E83.119 Intraparenchymal hematoma of brain S06.360A Parkinson disease G20 Rectocele N81.6 Restless leg syndrome G25.81 Spinal stenosis M48.00 Stroke I63.9 HTN (hypertension) I10 Allergies Penicillins Allergy (Verified 04/17/19 21:03) Unknown Sulfa (Sulfonamide Antibiotics) Allergy (Verified 04/17/19 21:03) Unknown levothyroxine Adverse Reaction (Verified 04/18/19 11:36) Diarrhea Home Medications: Ambulatory Orders Medication Instructions Recorded Aspirin [Aspirin EC] 81 mg PO DAILY 04/17/19 Folic Acid 1 mg PO DAILY 04/17/19 Gabapentin [Neurontin] 300 mg PO BIDCM 04/17/19 Lisinopril [Zestril] 10 mg PO DAILY 04/17/19 Pramipexole Di-HCl [Mirapex] 1 mg PO BID 04/17/19 Pramipexole Di-HCl [Mirapex] 2 mg PO QHS 04/17/19 Ensure Clear 120 ml PO 4X/DAY liquid 05/05/19 Carbidopa/Levodopa 25/100 [Sinemet 1 tab PO BID 05/11/19 25/100] Famotidine [Pepcid] 20 mg PO BID 05/11/19 Levothyroxine [Synthroid] 25 mcg PO DAILY@0600 05/11/19 traMADol 50 mg PO Q4H PRN PRN 05/11/19 Surgical History: Surgical History (Last Updated 04/20/19 @ 09:17 by DAVID Thomas) H/O blepharoplasty Z98.890 H/O tubal ligation Z98.51 Hx of tonsillectomy Z90.89 S/P lumbar spinal fusion Z98.1 and decompression of L4-5 Surgical History: tonsillectomy, - - Decompressive back surgery; and hematoma evacuation of the back. fusion, decompression and revisoin of L3-S1 Psychiatric History: No pertinent psych hx Lives: Spouse/ Significant Other Smoking Status: Never smoker Alcohol: None Drugs: None - *Family History Paternal History Items: Diabetes, Dementia - Vascular dementia Maternal History Items: Cancer - Non-Hodgkin's lymphoma Review of Systems Constitutional: Denies: Chills, Fever, Weight Change Eyes: Denies: Blurred vision, Double vision, Vision Change HEENT: Denies: Difficulty Swallowing, Head Aches, Sinus Congestion, Sinus Drainage Cardiovascular: Denies: Chest Pain, Chest Pressure, Chest Tightness, Palpitations Respiratory: Denies: Cough, Shortness of Breath, Shortness of breath at rest, Sputum production Gastrointestinal: Denies: Abdominal Pain, Nausea, Vomiting Genitourinary: Denies: Dysuria Musculoskeletal: Denies: Joint Pain, Joint Tenderness Skin: Reports: - - incision to back Neurological: Denies: Change in Speech, Slurred speech, Focal weakness, Numbness, Tingling Psychiatric: Denies: Anxiety, Depression, Homicidal Ideations, Suicidal Ideations Hematologic/ Lymphatic: Denies: Easy Bruising, Easy Bleeding VTE Information - Inpt Only VTE Present on Admission: Yes VTE Mechan Device Prophylaxis: Knee High EDWIN Hose VTE Pharm Prophylaxis ordered?: No Reason prophylaxis not ordered:: Medical Contraindication - back surgery contraindicated per surgeon and hx of hematoma evacuation - Physical Exam General: Alert, Oriented x3, Cooperative HEENT: Atraumatic, PERRLA Oral: Moist Mucosa Neck: Supple, No JVD Lungs: Clear to auscultation, Normal air movement Cardiovascular: Regular rate, Regular Rhythm Abdomen: Bowel Sounds Present, Soft, Non Tender Extremities: No clubbing, No cyanosis, No edema Skin: Incision - lumbar area, drsg intact without surrounding redness or drng Neurological: Cranial nerves II-XII grossly intact, Deep Tendon Reflexes 2+/4 and Symmetrical, Motor Exam 5/5 strength throughout - minimal left foot drop Psych/Mental Status: Normal Affect, Appropriate, Alert and oriented to time, place, person, mood and affect Vital Signs Temp Pulse Resp BP Pulse Ox 98.2 F 78 18 111/60 92 05/11/19 15:20 05/11/19 15:20 05/11/19 15:20 05/11/19 15:20 05/11/19 15:20 Oxygen Delivery Method Room Air Weight: 75.6 kg Body Mass Index (BMI) 28.5 Assessment/Plan All Active Problems (Last Updated 04/20/19 @ 09:07 by Vandana Noyola, PEST LOCATOR-C) Debility (Acute) DVT (deep venous thrombosis) (Acute) The patient is a 69 year old Female with PMH HTN, history of stroke in 2010, PD, hypothyroidism admitted to [facility] on 05/11/2019 with debility secondary for revision, decompression and fusion of L3-S1, for greater than 3 hours of therapy daily with a goal of returning home at or near her prior level of functional independence. On 04/01/19 Dr. Dominik Lopez at [facility] performed an L4-L5 decompression fusion due to spinal stenosis, the hospital course was later complicated by spinal hematoma, evacuation done on 04/14/19, On 04/17/2019, DVT of left soleal vein was noted on duplex, vascular surgeon Dr. Maya was consulted and recommended no anticoagulation treatment for left soleal vein DVT given the location of the DVT (below knee) in setting of recent spine hematoma and he recommended to monitor with LE Doppler. Patient was previously admitted to [facility] on 04/18/19 and was d/c on 05/05/19 to [facility] orthopedics for surgery d/t spondylosis grade II, interbody cage L4-5, recurrent stenosis, subluxation of TLIF cage with L4-5 nerve root compression. On 05/06/19, Dr Lopez performed exploratory L4-5, removal on instrument/cage excision, revision, decompression, fusion of L3-S1 and instrument. On 05/06/19 H/H 25.1/7.6, received 2 units of PRBC, recheck on 05/11/19 Hgb 8.8. Patient has hemochromatosis and monotype mechanic/oncologist Dr. 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 2 drains removed from lumbar incision on 05/11/19. BLE duplex on 05/06/19 showed left soleal DVT, repeat on 05/08/19 showed DVT to right and left soleal vein and left gastroc vein, repeat on 05/11/19 showed no changed from previous study with no propagation. Spoke with Dr. Lopez's office, Dr. Lopez is aware of DVT's and no DVT prophylaxis due to risk of bleeding, continue asa. Repeat duplex to BLE on 05/15 and 06/05/19. Patient was fitted for afo for left foot drop and to wear LSO brace when OOB. Patient lives with spouse in a one level home with one step to enter. Prior to surgery, patient was independent with ADLs, mobility and driving. Plan -PT for mobility - OT for ADLs - ST for evaluation - Revision, decompression and fusion of L3-S1 with instrument- wear LSO brace OOB, [facility] prn, may shower, has f/u appt on 05/21/19 - PD on mirapex, sinemet - Left foot drop- afo - HTN on zestril - Hypothyroidism on synthroid - Hemochromatosis - Dr. Trejo manages - Microcytic Anemia Further management per hospitalist/hematology recommendatio ns - Left and right Soleal, and left gastroc DVT- no anticoagulation- continue asa, knee high edwin hose, repeat duplex to BLE 05/15/19 and 06/05/19. - Hx of Stroke in 2009- on asa - GI/DVT prophylaxis on pepcid/asa, knee high edwin hose - Further medical management per hospitalist- consult - Analgesics as needed - Bowel protocol - Fall precautions - F/U with Dr. Dominik Lopez, Vascular surgeon, Neurology (Dr. Walls), Dr. Trejo, and PCP
[2019-05-11 17:55] VITALS: BMI 28.6
--- NOTE | 2019-05-11 18:00 | NURSING ---
Dr Goncalves and Vandana aware pt has DVT RT Soleal Vain, Lt Soleal Vein and Lt Gastroc vain. No treatment at this time p/ Dr schuster surgeon. Venous ultrasound ordered for today, 05/15 and 06/05.
[2019-05-11 19:03] VITALS: O2SAT 98
[2019-05-11 19:24] VITALS: BP 145/76; PULSE 84; RESP 16; TEMP 36.9; O2SAT 96
--- NOTE | 2019-05-11 20:57 | PN_ITS ---
Subjective: 69-year-old female past medical history of hypertension, Parkinson's disease, hypothyroidism who presents to the acute inpatient rehab after surgery for L2- S1. She was admitted to [facility] and underwent L4-L5 decompression fusion for spinal stenosis. Her hospital stay was complicated by spinal hematoma with evacuation done on 04/14/19 as well as DVT of the left soleal vein for which anticoagulation was not recommended. Patient complains of pain to right groin. She denied any chest pain or dizziness or palpitations. Vitals/I&O's: Vital Signs Temp Pulse Resp BP Pulse Ox 98.4 F 84 16 145/76 H 96 05/11/19 19:24 05/11/19 19:24 05/11/19 19:24 05/11/19 19:24 05/11/19 19:24 Oxygen Delivery Method Room Air Weight: 75.6 kg Body Mass Index (BMI) 28.5 Intake and Output for Last 24 Hours 05/09/19 05/10/19 05/11/19 23:59 23:59 23:59 Intake Total 240 / 240 Balance 240 / 240 General: Alert, Oriented x3, Cooperative, No apparent distress HEENT: Atraumatic, PERRLA, EOMI, Normocephalic Oral: Moist Mucosa Neck: Supple Lungs: Clear to auscultation, Normal air movement Cardiovascular: Regular rate, Regular Rhythm, Normal S1, Normal S2, No murmurs Abdomen: Bowel Sounds Present, Soft, Non Tender, Non-Distended, No Hepato- splenomegaly, - - Tenderness over the right groin Extremities: No edema, Capillary Refill Less than 3 Seconds Skin: No rashes Musculoskeletal: No Tenderness to Palpation of Joints or Extremities Lymphatic: No Cervical, Supraclavicular, or Inguinal Adenopathy Neurological: Cranial nerves II-XII grossly intact, Neuro grossly intact Psych/Mental Status: Normal Affect, Appropriate Current Medications Acetaminophen (Tylenol) 1,000 mg PO Q8 [facility] Aspirin (Ecotrin) 81 mg PO DAILY@0800 [facility] Bisacodyl (Dulcolax) 10 mg RECTAL .PRN X 1 PRN PRN Reason: Constipation Carbidopa/Levodopa (Sinemet) 1 tablet PO BIDAC [facility]OCK Famotidine (Pepcid) 20 mg PO BID [facility] Folic Acid (Folic Acid) 1 mg PO DAILY [facility] Gabapentin (Neurontin) 300 mg PO BIDCM [facility] Levothyroxine Sodium (Synthroid) 25 mcg PO DAILY@0600 [facility] Lisinopril (Zestril) 10 mg PO DAILY [facility] Magnesium Hydroxide (Milk Of Magnesia) 30 ml PO .PRN X 1 PRN PRN Reason: Constipation Nutritional Formula (Lactose Free) (Ensure Clear) 120 ml PO 4X/DAY BROCK Last Admin: 05/11/19 18:11 Dose: Not Given Documented by: Pramipexole Dihydrochloride (Mirapex) 1 mg PO BID@0600,1400 [facility] Pramipexole Dihydrochloride (Mirapex) 2 mg PO QHS [facility] Senna/Docusate Sodium (Senokot-S, Reba-Colace) 2 tablet PO BID [facility] STROKE Vital Signs/Narrative: Vital Signs Temp Pulse Resp BP Pulse Ox 05/11/19 19:24 98.4 F 84 16 145/76 H 96 05/11/19 19:03 98 Medical Necessity - Tobacco Use Smoking Status: Never smoker Assessment/Plan All Active Problems (Last Updated 04/20/19 @ 09:07 by Vandana Noyola, ROADSIDE MECHANIC-C) Debility (Acute) DVT (deep venous thrombosis) (Acute) 1. Debility following revision, decompression fusion of L3 to S1, Patient's back pain is controlled, PT and OT to evaluate and treat 2. Hypertension, on lisinopril 3. Hypothyroidism, on Synthroid 4. Parkinson's disease, on Sinemet, Mirapex 5. Anemia, noted during hospital stay, repeat blood work pending for am 6. Recent left and right Solia and left gastrocnemius DVT, no anticoagulation recommended, on EDWIN hoses, aspirin 7. History of CVA, on aspirin 8. DVT PPx- on SCDs, aspirin per neurosurgery Code Visit Inpatient E&M: 83644 Subs Hosp L2
[2019-05-11 22:00] VITALS: PULSE 84; RESP 16; BMI 28.5
[2019-05-11] MEDS: Famotidine 20 MG Tablet PO (23:05)
[2019-05-11] MEDS: Acetaminophen 500 MG Tablet 1000 MG PO (23:06)
[2019-05-11] MEDS: Senna/Docusate Sodium 1 Tablet 2 TABLET PO (23:06)
[2019-05-11] MEDS: Pramipexole Di-HCl 1 MG Tablet 2 MG PO (23:06)
[2019-05-11] MEDS: Ensure Clear 120 ML Liquid PO (23:14)
[2019-05-12] MEDS: Pramipexole Di-HCl 1 MG Tablet PO ×2 (06:28→13:20)
[2019-05-12] MEDS: Acetaminophen 500 MG Tablet 1000 MG PO ×3 (06:28→22:23)
[2019-05-12] MEDS: Levothyroxine 25 MCG TABLET PO (06:28)
[2019-05-12 06:57] LABS: Absolute Lymphocyte Count 1.28 X10^3/uL (0.83-4.51); Absolute Neutrophil Count 4.7 X10^3/uL (2.0-7.7); Basophil# 0.09 X10^3/uL; Basophil% 1.3 % (0-1); Eosinophil# 0.26 X10^3/uL; Eosinophils% 3.7 % (0-5); Hematocrit 31.2 % (37-47); Lymphocyte # 1.28 X10^3/ul (4.0); Lymphocyte % 18.3 % (19-41); Mean Corp Hgb Conc 28.8 g/dL (32-36); Mean Corpuscular Hgb 23.3 pg (27.0-32.0); Mean Corpuscular Volume 80.6 fL (81-99); Mean Platelet Vol. 10.1 fl (6.2-12.0); Monocyte# 0.64 X10^3/uL; Monocyte% 9.2 % (0-10); NRBC Flagged by Analyzer 0 % (0-5); Neutrophil # 4.69 X10^3/uL (2.7-7.7); Neutrophil % 67.2 % (47-70); Platelet Count 364 K/mm3 (150-450); RBC Distribution Width SD 55.4 fl (35.1-43.9); Red Blood Count 3.87 M/mm3 (4.2-5.4)
[2019-05-12 07:14] LABS: Anion Gap 5 (5-15); BUN 10 mg/dL (7-18); Calcium,Total 9.6 mg/dL (8.5-10.1); Chloride 106 mmol/L (98-107); Creatinine, Serum 0.72 mg/dL (0.55-1.02); EST Glomerular Filtration Rate 86 mL/min (>60); Est Glom Filt Rate - Afr Amer 104 mL/min (>60); Glucose 95 mg/dL (74-106); Potassium 3.8 mmol/L (3.5-5.1); Sodium Level 139 mmol/L (136-145)
[2019-05-12 07:31] VITALS: BP 117/51; PULSE 90; RESP 18; TEMP 36.9; O2SAT 98
[2019-05-12] MEDS: Famotidine 20 MG Tablet PO ×2 (07:57→22:23)
[2019-05-12] MEDS: Gabapentin 300 MG Capsule PO ×2 (07:57→16:41)
[2019-05-12] MEDS: Carbidopa/Levodopa 25/100 Tablet PO ×2 (07:57→16:41)
[2019-05-12] MEDS: Folic Acid 1 MG Tablet PO (07:57)
[2019-05-12] MEDS: Senna/Docusate Sodium 1 Tablet 2 TABLET PO (07:58)
[2019-05-12] MEDS: Lisinopril 10 MG Tablet PO (07:58)
[2019-05-12] MEDS: Aspirin E.C. 81 MG Tablet PO (07:58)
[2019-05-12] MEDS: Ensure Clear 120 ML Liquid PO ×4 (09:18→22:23)
--- NOTE | 2019-05-12 12:56 | PCM.PN.NEU ---
Subjective: Per nursing, no issues overnight. Per patient pain is controlled and is tolerating therapies well. mild excoriation under bilateral breasts and nystatin powdered ordered. Repeat duplex done today. - Physical Exam General: Alert, Oriented x3, Cooperative HEENT: Atraumatic, PERRLA Oral: Moist Mucosa Neck: Supple, No JVD Lungs: Clear to auscultation, Normal air movement Cardiovascular: Regular rate, Regular Rhythm Abdomen: Bowel Sounds Present, Soft, Non Tender Extremities: No clubbing, No cyanosis, Edema - mild to lumbar area Skin: Incision - tejinder intact to lumbar area, without surrounding redness or drng Neurological: Cranial nerves II-XII grossly intact, Deep Tendon Reflexes 2+/4 and Symmetrical, Motor Exam 5/5 strength throughout - minimal left foot drop Psych/Mental Status: Normal Affect, Appropriate, Alert and oriented to time, place, person, mood and affect Vital Signs Temp Pulse Resp BP Pulse Ox 98.5 F 90 18 117/51 L 98 05/12/19 07:31 05/12/19 07:31 05/12/19 07:31 05/12/19 07:31 05/12/19 07:31 Oxygen Delivery Method Room Air Weight: 75.6 kg Body Mass Index (BMI) 28.5 Intake and Output for Last 24 Hours 05/10/19 05/11/19 05/12/19 23:59 23:59 23:59 Intake Total 240 / 240 280 / 280 Balance 240 / 240 280 / 280 Laboratory Tests Past 24 Hrs 05/12/19 05/12/19 06:36 06:36 WBC 7.0 RBC 3.87 L Hgb 9.0 L Hct 31.2 L MCV 80.6 L MCH 23.3 L MCHC 28.8 L RDW Std Deviation 55.4 H RDW Coeff of Pedro 19.0 H Plt Count 364 MPV 10.1 Immature Gran % (Auto) 0.300 Neut % (Auto) 67.2 Lymph % (Auto) 18.3 L Maury % (Auto) 9.2 Eos % (Auto) 3.7 Baso % (Auto) 1.3 H Absolute Neuts (auto) 4.7 Absolute Lymphs (auto) 1.28 Nucleated RBC % 0 Sodium 139 Potassium 3.8 Chloride 106 Carbon Dioxide 28.0 Anion Gap 5 BUN 10 Creatinine 0.72 Estim Creat Clear Calc 46.50 Est GFR (MDRD) Af Amer 104 Est GFR (MDRD) Non-Af 86 BUN/Creatinine Ratio 14.0 Glucose 95 Calcium 9.6 Medical Necessity - Tobacco Use Smoking Status: Never smoker Tobacco Use: Non-smoker Assessment/Plan All Active Problems (Last Updated 04/20/19 @ 09:07 by Vandana Noyola, SLAB WORKER-C) Debility (Acute) DVT (deep venous thrombosis) (Acute) The patient is a 69 year old Female with PMH HTN, history of stroke in 2009, PD, hypothyroidism admitted to [facility] on 05/11/2019 with debility secondary for revision, decompression and fusion of L3-S1, for greater than 3 hours of therapy daily with a goal of returning home at or near her prior level of functional independence. On 04/01/19 Dr. Dominik Lopez at [facility] performed an L4-L5 decompression fusion due to spinal stenosis, the hospital course was later complicated by spinal hematoma, evacuation done on 04/14/19, On 04/17/2019, DVT of left soleal vein was noted on duplex, vascular surgeon Dr. Maya was consulted and recommended no anticoagulation treatment for left soleal vein DVT given the location of the DVT (below knee) in setting of recent spine hematoma and he recommended to monitor with LE Doppler. Patient was previously admitted to [facility] on 04/18/19 and was d/c on 05/05/19 to [facility] orthopedics for surgery d/t spondylosis grade II, interbody cage L4-5, recurrent stenosis, subluxation of TLIF cage with L4-5 nerve root compression. On 05/06/19, Dr Lopez performed exploratory L4-5, removal on instrument/cage excision, revision, decompression, fusion of L3-S1 and instrument. On 05/06/19 H/H 25.1/7.6, received 2 units of PRBC, recheck on 05/11/19 Hgb 8.8. 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 2 drains removed from lumbar incision on 05/11/19. BLE duplex on 05/06/19 showed left soleal DVT, repeat on 05/08/19 showed DVT to right and left soleal vein and left gastroc vein, repeat on 05/11/19 showed no changed from previous study with no propagation. Spoke with Dr. Lopez's office, Dr. Lopez is aware of DVT's and no DVT prophylaxis due to risk of bleeding, continue asa. Repeat duplex to BLE on 05/15 and 06/05/19. Patient was fitted for afo for left foot drop and to wear LSO brace when OOB. Patient lives with spouse in a one level home with one step to enter. Prior to surgery, patient was independent with ADLs, mobility and driving. Plan -PT for mobility - OT for ADLs - ST for evaluation - Revision, decompression and fusion of L3-S1 with instrument- wear LSO brace OOB, [facility] prn, may shower, has f/u appt on 05/21/19 - PD on mirapex, sinemet - Left foot drop- afo - HTN on zestril - Hypothyroidism on synthroid - Hemochromatosis - Dr. Trejo manages - Microcytic Anemia Further management per hospitalist/hematology recommendations - Left and right Soleal, and left gastroc DVT- no anticoagulation- continue asa, knee high mack hose, repeat today-pending results. repeat duplex to BLE 05/15/19 and 06/05/19. - Hx of Stroke in 2009- on asa - Excoriation under bilateral breasts- nystatin powder - GI/DVT prophylaxis on pepcid/asa, knee high mack hose - Further medical management per hospitalist- consult - Analgesics as needed - Bowel protocol - Fall precautions - F/U with Dr. Dominik Lopez, Vascular surgeon, Neurology (Dr. Walls), Dr. Trejo, and PCP
[2019-05-12 16:04] VITALS: BMI 28.5
[2019-05-12 19:27] VITALS: BP 95/54; PULSE 83; RESP 16; TEMP 36.6; O2SAT 98
[2019-05-12 21:06] VITALS: BP 112/62; PULSE 74
[2019-05-12 22:00] VITALS: PULSE 83; RESP 16; O2SAT 98
[2019-05-12] MEDS: Nystatin Powder 15gm Bottle 1 APPLIC TOPICAL (22:23)
[2019-05-12] MEDS: Pramipexole Di-HCl 1 MG Tablet 2 MG PO (22:23)
--- NOTE | 2019-05-13 00:30 | NURSING ---
Pt found in bed with Attends shredded & incontinent. Pt cleaned up, Attends changed, and repositioned in bed. Within 15 minutes pt called out for help instead of using call light. Pt found naked in bed. Pt states she peed the bed. Once again staff cleaned up pt, changed Attends, and repositioned pt. Pt shouted Help a 3rd time. Staff found pt with legs strewn over side of bed attempting to get up. Staff took pt to [facility] for ONE TO ONE observation. Pt was chatty and making remarks such as, This place is a good target for a robbery cause it has good drugs. Pt finally dosed off at [facility] till a CODE BLUE was announced. Pt now in MULTI PURPOSE ROOM because she was talking loudly and refused to lower her voice in consideration of people trying to sleep. SENIOR CARE PROVIDER is presently providing ONE TO ONE assistance.
[2019-05-13 00:43] VITALS: BMI 28.5
[2019-05-13] MEDS: Pramipexole Di-HCl 1 MG Tablet PO ×2 (05:08→13:16)
[2019-05-13] MEDS: Nystatin Powder 15gm Bottle 1 APPLIC TOPICAL ×2 (05:08→19:50)
[2019-05-13] MEDS: Levothyroxine 25 MCG TABLET PO (05:09)
[2019-05-13] MEDS: Acetaminophen 500 MG Tablet 1000 MG PO ×3 (05:09→19:48)
[2019-05-13] MEDS: Carbidopa/Levodopa 25/100 Tablet PO ×3 (06:41→16:05)
--- NOTE | 2019-05-13 06:47 | NURSING ---
PT SPIT SINEMET OUT AND REFUSED TO SWALLOW PILL. PT WAS ENCOURAGED BY STAFF AND REMINDED OF IT'S IMPORTANCE. pT STATED, nOT TODAY.
[2019-05-13 07:10] VITALS: O2SAT 98
[2019-05-13 07:36] VITALS: BP 125/69; PULSE 92; RESP 18; TEMP 36.9; O2SAT 92
[2019-05-13] MEDS: Aspirin E.C. 81 MG Tablet PO (07:37)
[2019-05-13] MEDS: Ensure Clear 120 ML Liquid PO ×4 (07:37→19:51)
[2019-05-13] MEDS: Famotidine 20 MG Tablet PO ×2 (07:37→19:49)
[2019-05-13] MEDS: Gabapentin 300 MG Capsule PO ×2 (07:37→16:04)
[2019-05-13] MEDS: Lisinopril 10 MG Tablet PO (07:37)
[2019-05-13] MEDS: Folic Acid 1 MG Tablet PO (07:37)
--- NOTE | 2019-05-13 09:10 | NURSING ---
Urine analysis collected via catheter specimen and Culture. Patient has urgency, frequency, dribbling, and incontinence not per her normal. EMBEDDED SYSTEMS SOFTWARE ENGINEER Vandana aware of confusion from this past night with agitation. has also been notified of events. Afebrile.
[2019-05-13 09:46] LABS: Bacteria 0 SEEN /hpf (None Seen); Mucous, Urine 0 SEEN /hpf (<or=2+); Red Blood Cells-Urine 0 SEEN /hpf (0-5); Squamous Epithelial Cells - UA 0 SEEN /hpf (5-10)
[2019-05-13 09:48] LABS: Color, Urine Yellow (Yellow); Glucose, Dipstick Normal (Normal); Ketone-Dipstick 5 mg/dl (Negative); Leukocyte Esterase-Dipstick 500 /ul (Negative); Nitrite-Dipstick Negative (Negative); Occult Blood-Urine 25 /ul (Negative); Protein-Dipstick 30 mg/dl (Negative); Specific Gravity, Urine 1.025 (1.002-1.030); Urine Bilirubin Dipstick Negative (Negative); Urine Clarity Cloudy (Clear); Urine Urobilinogen Normal (Normal)
[2019-05-13 09:55] LABS: White Blood Cells >100 SEEN /hpf (0-5)
--- NOTE | 2019-05-13 09:56 | PN.NEURO_ITS ---
Subjective: per nursing, patient was restless last night, yelling out, confused with urinary frequency and incontinence. Patient denies urinary burning, hematuria, without CVA tenderness. Will obtain UA C&S. Patient continues to tolerate therapies well and pain is controlled. Duplex to BLE completed which no change from previous Duplex on 05/11/19 from [facility] Left and right Soleal, and left gastroc DVT present. - Physical Exam General: Alert, Oriented x3, Cooperative HEENT: Atraumatic, PERRLA, EOMI Oral: Moist Mucosa Neck: Supple, No JVD Lungs: Clear to auscultation, Normal air movement Cardiovascular: Regular rate, Regular Rhythm Abdomen: Bowel Sounds Present, Soft, Non Tender Extremities: No clubbing, No cyanosis, Edema - mild to lumbar area Skin: Incision - tejinder intact to lumbar area, without surrounding redness or drng Neurological: Cranial nerves II-XII grossly intact, Deep Tendon Reflexes 2+/4 and Symmetrical, Motor Exam 5/5 strength throughout - minimal left foot drop Psych/Mental Status: Normal Affect, Appropriate, Alert and oriented to time, place, person, mood and affect Vital Signs Temp Pulse Resp BP Pulse Ox 98.4 F 92 18 125/69 H 92 05/13/19 07:36 05/13/19 07:36 05/13/19 07:36 05/13/19 07:36 05/13/19 07:36 Oxygen Delivery Method Room Air Weight: 75.6 kg Body Mass Index (BMI) 28.5 Intake and Output for Last 24 Hours 05/11/19 05/12/19 05/13/19 23:59 23:59 23:59 Intake Total 240 / 240 720 / 720 Balance 240 / 240 720 / 720 Laboratory Tests Past 24 Hrs 05/13/19 09:21 Urine Color Yellow Urine Clarity Cloudy Urine pH 5.0 Ur Specific [place] 1.025 Urine Protein 30 H Urine Glucose (UA) Normal Urine Ketones 5 H Urine Occult Blood 25 H Urine Nitrite Negative Urine Bilirubin Negative Urine Urobilinogen Normal Ur Leukocyte Esterase 500 H Urine RBC 0 SEEN Urine WBC >100 SEEN Ur Squamous Epith Cells 0 SEEN Urine Bacteria 0 SEEN Urine Mucus 0 SEEN STROKE Vital Signs/Narrative: Vital Signs Temp Pulse Resp BP Pulse Ox 05/13/19 07:36 98.4 F 92 18 125/69 H 92 05/13/19 07:10 98 Medical Necessity - Tobacco Use Smoking Status: Never smoker Tobacco Use: Non-smoker Assessment/Plan All Active Problems (Last Updated 04/20/19 @ 09:07 by Vandana Noyola, BRICK SETTER-C) Debility (Acute) DVT (deep venous thrombosis) (Acute) The patient is a 69 year old Female with PMH HTN, history of stroke in 2010, PD, hypothyroidism admitted to [facility] on 05/11/2019 with debility secondary for revision, decompression and fusion of L3-S1, for greater than 3 hours of therapy daily with a goal of returning home at or near her prior level of functional independence. On 04/01/19 Dr. Dominik Lopez at [facility] performed an L4-L5 decompression fusion due to spinal stenosis, the hospital course was later comp licated by spinal hematoma, evacuation done on 04/14/19, On 04/17/2019, DVT of left soleal vein was noted on duplex, vascular surgeon Dr. Maya was consulted and recommended no anticoagulation treatment for left soleal vein DVT given the location of the DVT (below knee) in setting of recent spine hematoma and he recommended to monitor with LE Doppler. 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 On 05/06/19, Dr Lopez performed exploratory L4-5, removal on instrument/cage excision, revision, decompression, fusion of L3-S1 and instrument. On 05/06/19 H/H 25.1/7.6, received 2 units of PRBC, recheck on 05/11/19 Hgb 8.8. 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 2 drains removed from lumbar incision on 05/11/19. BLE duplex on 05/06/19 showed left soleal DVT, repeat on 05/08/19 showed DVT to right and left soleal vein and left gastroc vein, repeat on 05/11/19 showed no changed from previous study with no propagation. Spoke with Dr. Lopez's office, Dr. Lopez is aware of DVT's and no DVT prophylaxis due to risk of bleeding, continue asa. Repeat duplex to BLE on 05/15 and 06/05/19. Patient was fitted for afo for left foot drop and to wear LSO brace when OOB. Patient lives with spouse in a one level home with one step to enter. Prior to surgery, patient was independent with ADLs, mobility and driving. Plan -PT for mobility - OT for ADLs - ST for evaluation - Revision, decompression and fusion of L3-S1 with instrument- wear LSO brace OOB, [facility] care prn, november shower, has f/u appt on 05/21/19 - PD on mirapex, sinemet - Left foot drop- afo - HTN on zestril - Hypothyroidism on synthroid - Hemochromatosis - Dr. Trejo manages - Microcytic Anemia Further management per hospitalist/hematology recommendations - Left and right Soleal, and left gastroc DVT- no anticoagulation- continue asa, knee high mack hose, repeat today-pending results. repeat duplex to BLE 05/15/19 and 06/05/19. - Hx of Stroke in 2009- on asa - Excoriation under bilateral breasts- nystatin powder - Confusion, urinary incontinence and frequency- obtain UA C&S - GI/DVT prophylaxis on pepcid/asa, knee high mack hose - Further medical management per hospitalist- consult - Analgesics as needed - Bowel protocol - Fall precautions - F/U with Dr. Dominik Lopez, Vascular surgeon, Neurology (Dr. Walls), Dr. Trejo, and PCP
--- NOTE | 2019-05-13 10:30 | NURSING ---
Vandana JONES aware of UA results.
[2019-05-13 13:50] VITALS: BMI 28.5
[2019-05-13 19:19] VITALS: BP 107/64; PULSE 87; RESP 16; TEMP 36.5; O2SAT 98
[2019-05-13] MEDS: Pramipexole Di-HCl 1 MG Tablet 2 MG PO (19:50)
[2019-05-13] MEDS: QUEtiapine 25 MG Tablet 12.5 MG PO (19:52)
[2019-05-13 20:00] VITALS: BMI 28.5
[2019-05-13 22:00] VITALS: PULSE 87; RESP 16; O2SAT 98
[2019-05-14] MEDS: Carbidopa/Levodopa 25/100 Tablet PO ×3 (06:25→16:33)
[2019-05-14] MEDS: Acetaminophen 500 MG Tablet 1000 MG PO ×3 (06:25→20:47)
[2019-05-14] MEDS: Levothyroxine 25 MCG TABLET PO (06:26)
[2019-05-14] MEDS: Pramipexole Di-HCl 1 MG Tablet PO ×2 (06:26→14:30)
[2019-05-14] MEDS: Nystatin Powder 15gm Bottle 1 APPLIC TOPICAL ×2 (06:26→20:53)
[2019-05-14 06:47] VITALS: O2SAT 98
[2019-05-14] MEDS: Lisinopril 10 MG Tablet PO (08:13)
[2019-05-14] MEDS: Gabapentin 300 MG Capsule PO ×2 (08:13→16:33)
[2019-05-14] MEDS: Aspirin E.C. 81 MG Tablet PO (08:13)
[2019-05-14] MEDS: Folic Acid 1 MG Tablet PO (08:14)
[2019-05-14] MEDS: Famotidine 20 MG Tablet PO ×2 (08:14→20:47)
[2019-05-14] MEDS: Ensure Clear 120 ML Liquid PO ×4 (08:14→20:51)
[2019-05-14 08:49] VITALS: BP 114/72; PULSE 95; RESP 18; TEMP 36.6; O2SAT 96
--- NOTE | 2019-05-14 09:01 | PN.NEURO_ITS ---
Subjective: Per patient and nursing, patient slept well last night without restlessness or confusion. UA showed protein 30, Ketone 5, Occult Blood 250, Leukocyte esterase 500 - Urine CX pending. Denies frequency, burning, hematuria, without CVA tenderness and no further incontinence. Team meeting today. Further details per OT/PT notes. All questions answered. - Physical Exam General: Alert, Oriented x3, Cooperative HEENT: Atraumatic, PERRLA, EOMI Oral: Moist Mucosa Neck: Supple, No JVD Lungs: Clear to auscultation, Normal air movement Cardiovascular: Regular rate, Regular Rhythm Abdomen: Bowel Sounds Present, Soft, Non Tender Extremities: No clubbing, No cyanosis, Edema - mild lumbar area Skin: Incision - tejinder intact to lumbar area without redness or drng Neurological: Cranial nerves II-XII grossly intact, Deep Tendon Reflexes 2+/4 and Symmetrical, Motor Exam 5/5 strength throughout - minimal left foot drop Psych/Mental Status: Normal Affect, Appropriate, Alert and oriented to time, place, person, mood and affect Vital Signs Temp Pulse Resp BP Pulse Ox 97.8 F 95 18 114/72 96 05/14/19 08:49 05/14/19 08:49 05/14/19 08:49 05/14/19 08:49 05/14/19 08:49 Oxygen Delivery Method Room Air Weight: 77.9 kg Body Mass Index (BMI) 28.5 Intake and Output for Last 24 Hours 05/12/19 05/13/19 05/14/19 23:59 23:59 23:59 Intake Total 720 / 720 320 / 320 240 / 240 Balance 720 / 720 320 / 320 240 / 240 Laboratory Tests Past 24 Hrs 05/13/19 09:21 Urine Color Yellow Urine Clarity Cloudy Urine pH 5.0 Ur Specific [place] 1.025 Urine Protein 30 H Urine Glucose (UA) Normal Urine Ketones 5 H Urine Occult Blood 25 H Urine Nitrite Negative Urine Bilirubin Negative Urine Urobilinogen Normal Ur Leukocyte Esterase 500 H Urine RBC 0 SEEN Urine WBC >100 SEEN Ur Squamous Epith Cells 0 SEEN Urine Bacteria 0 SEEN Urine Mucus 0 SEEN STROKE Vital Signs/Narrative: Vital Signs Temp Pulse Resp BP Pulse Ox 05/14/19 08:49 97.8 F 95 18 114/72 96 05/14/19 06:47 98 Medical Necessity - Tobacco Use Smoking Status: Never smoker Tobacco Use: Non-smoker Assessment/Plan All Active Problems (Last Updated 04/20/19 @ 09:07 by Vandana Noyola, ROBERT-C) Debility (Acute) DVT (deep venous thrombosis) (Acute) The patient is a 69 year old Female with PMH HTN, history of stroke in 2010, PD, hypothyroidism admitted to [facility] on 05/11/2019 with debility secondary for revision, decompression and fusion of L3-S1, for greater than 3 hours of therapy daily with a goal of returning home at or near her prior level of functional independence. On 04/01/19 Dr. Dominik Lopez at [facility] performed an L4-L5 decompression fusion due to spinal stenosis, the hospital course was later complicated by spinal hematoma, evacuation done on 04/14/19, On 04/17/2019, DVT of left soleal vein was noted on duplex, vascular surgeon Dr. Maya was consulted and recommended no anticoagulation treatment for left soleal vein DVT given the location of the DVT (below knee) in setting of recent spine hematoma and he recommended to monitor with LE Doppler. 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 On 05/06/19, Dr Lopez performed exploratory L4-5, removal on instrument/cage excision, revision, decompression, fusion of L3-S1 and instrument. On 05/06/19 H/H 25.1/7.6, received 2 units of PRBC, recheck on 05/11/19 Hgb 8.8. 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 2 drains removed from lumbar incision on 05/11/19. BLE duplex on 05/06/19 showed left soleal DVT, repeat on 05/08/19 showed DVT to right and left soleal vein and left gastroc vein, repeat on 05/11/19 showed no changed from previous study with no propagation. Spoke with Dr. Lopez's office, Dr. Lopez is aware of DVT's and no DVT prophylaxis due to risk of bleeding, continue asa. Repeat duplex to BLE on 05/15 and 06/05/19. Patient was fitted for afo for left foot drop and to wear LSO brace when OOB. Patient lives with spouse in a one level home with one step to enter. Prior to surgery, patient was independent with ADLs, mobility and driving. Plan -PT for mobility - OT for ADLs - ST for evaluation - Revision, decompression and fusion of L3-S1 with instrument- wear LSO brace OOB, [facility] prn, may shower, has f/u appt on 05/21/19 - PD on mirapex, sinemet - Left foot drop- afo - HTN on zestril - Hypothyroidism on synthroid - Hemochromatosis - Dr. Trejo manages - Microcytic Anemia Further management per hospitalist/hematology recommendations - Left and right Soleal, and left gastroc DVT- no anticoagulation- continue asa, knee high mack hose, repeat today-pending results. repeat duplex to BLE 05/15/19 and 06/05/19. - Hx of Stroke in 2009- on asa - Excoriation under bilateral breasts- nystatin powder - Confusion, urinary incontinence and frequency- improving UA completed - CX pending - GI/DVT prophylaxis on pepcid/asa, knee high mack hose - Further medical management per hospitalist- consult - Analgesics as needed - Bowel protocol - Fall precautions - F/U with Dr. Dominik Lopez, Vascular surgeon, Neurology (Dr. Walls), Dr. Trejo, and PCP
--- NOTE | 2019-05-14 09:47 | PCM.RU.PYE ---
Admission Information Status Changes from Prescreening?: No changes Identified Actual Problem List:: DVT, Pain, ALteration in Cmfrt, Cognitve Impr/Memory Loss, Alteration in Sleep, Mobility Impaired, Self Care Deficit, Ineffect.D/C Plan r/t Psy Potential Problem List:: DVT, Bleeding, Infection, UTI, Aspiration, Falls, Skin Integrity, Depression Risk of Complications DVT: LMWH, EDWIN Hose, Sequential Compression Device Bleeding: Monitor Lab Values, Nursing to Teach Precautions for anti-coagulation therapy., Wound, if applicable, to be assessed every shift., Stroke patients assessed for lethargy or change in status. Infection: Clinical Staff to Monitor for S/S of infection:, S/S of infection include fever, redness, warmth, etc. Urinary Tract Infection: Monitor for frequency, burning, discomfort, or incontinence., Nursing will obtain urine sample for urinalysis and C&S when ordered. Aspiration: Clinical staff will monitor for coughing, drooling, congestion., Speech will evaluate swallowing and dsyphasia., Nursing will monitor patient swallowing during meals. Falls: Patient will be evaluated for Fall Precautions, Patient will be placed on Fall Precautions as indicated per protocol. Skin Breakdown: Nursing will assess skin daily using assessment tool., Nursing will place on Skin Breakdown Precautions as indicated. Pain: Clinical staff will assess patient's pain level per protocol., Medications will be given, if needed, and the pain level reassessed., Other methods: Massage, distraction, decrease stimulus, etc. used PRN. Plan of Care Patient requires physician specializing in physical medicine and rehab oversight to provide close medical supervision of rehab issues including: Pain Management, Sleep Problems, Bowel and Bladder, Medical and co-morbidity Management, DVT prophylaxis, Rehabilitation Leadership, Coordination of treatment team Patient needs Physical Therapy: For a minimum of 1 hour, At least 5 out of 7 days Patient needs Physical Therapy to improve:: Mobility, Mobility, Mobility, Strengthening, Transfers, Stretching, ROM, Endurance, Stairs, Gait, Balance Patient needs Occupational Therapy: For a minimum of 1 hour, At least 5 out of 7 days Patient needs Occupational Therapy to improve ADL's incl.: Eating, Grooming, Bathing, Dressing, Toileting, Toilet transfers, Community Reintegration, Higher functioning activities, Household tasks, Adaptive Equipment, Splinting, Other activities as determined Patient requires 24/ Rehabilitation Nursing for: Pain Issues, Identifying and preventing risk factors, Monitoring and reporting current medical conditions, Assisting with ambulation, transfer, and all ADL's, Teaching patients about disease process and medications, Family teaching, Providing safe environment, Bowel and Bladder Issues, Skin integrity, Medication Management Patient needs Air Conditioning Specialist/ Case Management for: Discharge Planning, Arranging Home Equipment or Services, Family Interventions Patient needs Dietary and Nutrition Services for: Adequate Nutrition, Nutritional Supplements, Nutritional Education Goals Patient will remain: free from falls, or injury at time of discharge. Patient will perform bed mobility at: MOD I level of assist. Patient will complete transfers from bed to chair at: MOD I level of assist. Patient will ambulate: 100 feet, with MOD I assist, with LRD Patient will complete upper body dressing at: MOD I level of assist. Patient will complete lower body dressing at: MOD I level of assist. Patient will complete toileting at: MOD I level of assist. Patient will perform bathing at: MOD I level of assist. Patient will complete grooming at: MOD I level of assist. Patient will complete home management skills at: MOD I level of assist. Patient will achieve: 12 stairs, at MOD I assist Patient will have pain level of: of 3 or less Patient's skin will: remain intact, free from infection. Patient will receive: adequate nutrition. Discharge Planning Pt Prognosis for Sig. Practical Improv. w/in Reasonable Time: Good Anticipated D/C Destination: Home with Outpt Therapy Was Preadmission Assessment Accurate?: Yes
--- NOTE | 2019-05-14 11:51 | NURSING ---
Dr Sharma text to reviews pt's urine culture results
[2019-05-14 12:17] VITALS: BMI 28.5
--- NOTE | 2019-05-14 13:26 | PN_ITS ---
Subjective: Chief complaint: Follow-up after consultation for medical management following admission to inpatient rehabitation unit. Patient seen and examined. No acute events overnight. She complains of occasional frequency, no dysuria or hematuria. Denies fever or chills. Her back pain is almost 0 at rest but goes up to 6-7 out of 10 with therapy, man ageable. Her vital signs are stable. - Physical Exam General: Alert, Oriented x3, Cooperative, No apparent distress HEENT: Atraumatic, PERRLA, EOMI, Normocephalic Oral: Moist Mucosa, No Gingival or Mucosal Lesions/ Ulcerations Neck: Supple, No JVD, Negative Carotid Bruits, Trachea Midline, Thyroid Normal Size and Texture Lungs: Clear to auscultation, Normal air movement, No rhonchi, No wheeze, No rales, Diminished Cardiovascular: Regular rate, Regular Rhythm, Normal S1, Normal S2, PMI Normal Abdomen: Bowel Sounds Present, Soft, Non Tender, Non-Distended, No Hepato- splenomegaly Extremities: No clubbing, No cyanosis, No edema Skin: No rashes, No breakdown Lymphatic: No Cervical, Supraclavicular, or Inguinal Adenopathy Neurological: Cranial nerves II-XII grossly intact, Motor Exam 5/5 strength throughout Psych/Mental Status: Appropriate, Flat Affect Vital Signs Temp Pulse Resp BP Pulse Ox 97.8 F 95 18 114/72 96 05/14/19 08:49 05/14/19 08:49 05/14/19 08:49 05/14/19 08:49 05/14/19 08:49 Oxygen Delivery Method Room Air Weight: 171 lb 11.841 oz Body Mass Index (BMI) 28.5 Intake and Output for Last 24 Hours 05/12/19 05/13/19 05/14/19 23:59 23:59 23:59 Intake Total 720 / 720 320 / 320 480 / 480 Balance 720 / 720 320 / 320 480 / 480 Microbiology Past 72 Hours 05/13/19 09:21 Urine Culture - Preliminary Urine Catheter - Catheter Presumptive E. coli Medical Necessity - Tobacco Use Smoking Status: Never smoker Tobacco Use: Non-smoker Assessment/Plan All Active Problems (Last Updated 04/20/19 @ 09:07 by Vandana Noyola, ROBERT-C) Debility (Acute) DVT (deep venous thrombosis) (Acute) This is a 69 years old female patient admitted to the inpatient rehabilitation unit for debility and functional decline following back surgery with decompression and fusion of L3-S1 for spinal canal stenosis. #1 status post revision/decompression fusion of L3-S1 for spinal canal stenosis: She is on Tylenol, Neurontin for pain. His pain is controlled. She has been doing okay with physical therapy. Her vital signs are stable. Recent blood work revealed anemia, otherwise unremarkable. #2 E. coli acute cystitis: Patient complained of frequency, no fever chills. No leukocytosis. Urine culture revealed presumptive E. coli, final is pending. Plan to start oral ciprofloxacin twice daily for 5 days. #3 hypertension: Blood pressure stable, continue lisinopril. #4 hypothyroidism: Continue levothyroxine. #4 Parkinson's disease: Stable, continue Sinemet and Mirapex. #6 anemia: Probably postoperative anemia. Most recent hemoglobin is 9 g/dL. Unknown baseline hemoglobin. No indication for transfusion and no active bleeding. #7 recent left and right soleus/left gassiness DVT: No anticoagulation recommended as per neurosurgery., and EDWIN hose and aspirin. #8 history of CVA: Stable, continue aspirin and statins. #9 restless leg syndrome: Continue Mirapex. #9 DVT prophylaxis: EDWIN hose. This note was generated with [employer] dictation software. It may contain incorrect words, spelling, and punctuation that were not noted in checking the note before signing. Code Visit Inpatient E&M: 43578 Subs Hosp L2
--- NOTE | 2019-05-14 14:15 | CASEMGMT ---
Social Work IDT met with patient and for Team meeting. Discussed patient's progress in therapy. Patient is min to mod assist for transfers, walking 105 ft with FWW min to mod assist and left leg dragging but wearing an AFO. Pt is total assist for toileting tasks and LE dressing, mod assist for bathing. Cognition and memory improving. The goal is for patient to discharge home with with HHC, but will determine DC plans closer to end of Medicare ELOS. Will ReTeam next week. Will continue to follow. NATY Neumann HOG BUYER
[2019-05-14] MEDS: Ciprofloxacin 500 MG Tablet PO ×2 (14:30→20:50)
--- NOTE | 2019-05-14 16:52 | CHAPLAIN ---
Type of Pastoral Visit _x__ Initial Visit ___ Follow-up Visit ___ On-call Visit ___ General Patient Visit ___ Spiritual Assessment ___ Family Conference ___ Bereavement ___ Rapid Response ___ Code Blue ___ Other (describe below) Pastoral Care Referral From _x__ Patient ___ Family ___ Nurse ___ Physician ___ Superintendent Division ___ Safety Leader ___ Other (describe below) Sacrament/Intervention ___ Active listening ___ Anointing ___ Oriental Orthodox ___ Bereavement ___ Communion ___ Gabriela exploration ___ ___ Life review ___ Prayer ___ Reconciliation ___ Sacrament of Sick _x__ Supportive presence ___ Wedding ___ Other (describe below) Pastoral Comments visit was short as patient was in need for bathroom assistance from RUG SETTER AXMINSTER
[2019-05-14 20:20] VITALS: BP 92/60; PULSE 76; RESP 16; TEMP 36.8; O2SAT 97
[2019-05-14] MEDS: QUEtiapine 25 MG Tablet 12.5 MG PO (20:49)
[2019-05-14] MEDS: Pramipexole Di-HCl 1 MG Tablet 2 MG PO (20:51)
[2019-05-14 23:07] VITALS: BMI 28.5
[2019-05-15] MEDS: Acetaminophen 500 MG Tablet 1000 MG PO ×3 (06:15→21:17)
[2019-05-15] MEDS: Levothyroxine 25 MCG TABLET PO (06:15)
[2019-05-15] MEDS: Carbidopa/Levodopa 25/100 Tablet PO ×3 (06:15→15:51)
[2019-05-15] MEDS: Pramipexole Di-HCl 1 MG Tablet PO ×2 (06:15→13:42)
[2019-05-15] MEDS: Nystatin Powder 15gm Bottle 1 APPLIC TOPICAL ×2 (06:20→22:28)
[2019-05-15 07:00] VITALS: BP 130/66; PULSE 84; RESP 18; TEMP 36.7; O2SAT 98
[2019-05-15] MEDS: Folic Acid 1 MG Tablet PO (07:54)
[2019-05-15] MEDS: Gabapentin 300 MG Capsule PO ×2 (07:54→16:13)
[2019-05-15] MEDS: Aspirin E.C. 81 MG Tablet PO (07:54)
[2019-05-15] MEDS: Famotidine 20 MG Tablet PO ×2 (07:54→21:18)
[2019-05-15] MEDS: Lisinopril 10 MG Tablet PO (07:54)
[2019-05-15] MEDS: Ciprofloxacin 500 MG Tablet PO ×2 (07:55→21:18)
[2019-05-15] MEDS: Ensure Clear 120 ML Liquid PO ×4 (07:55→21:18)
[2019-05-15 08:01] VITALS: BP 130/66; PULSE 89; RESP 18; TEMP 36.7; O2SAT 98
--- NOTE | 2019-05-15 10:00 | VDLE_ITS ---
Reason For Study: F/U DVT RIGHT LEFT GSV is normal. GSV is normal. CFV is compressible, spontaneous, phasic, CFV is compressible, spontaneous, phasic, competent and demonstrates normal competent, and demonstrates normal augmentation. augmentation. FV is compressible, spontaneous, phasic, FV is compressible, spontaneous, phasic, competent and demonstrates normal competent and demonstrates normal augmentation. augmentation. POP V is compressible, spontaneous, phasic, POP V is compressible, spontaneous, phasic, competent and demonstrates normal competent and demonstrates normal augmentation. augmentation. T/P Trunk is compressible. T/P Trunk is compressible. PTV is compressible. PTV is compressible. RT PerV is compressible. LT PerV is compressible. Acute deep vein thrombosis is noted in the Acute deep vein thrombosis is noted in the right soleus vein. left soleus vein. Procedure Acute deep vein thrombosis is noted in the Exam performed portable in patient room. right gastroc vein. Compared to study done on 05/12/19. A preliminary report was called and/or faxed to [facility]. Interpretation Summary Acute deep vein thrombosis is noted in the right soleus vein. The remainder of the right lower extremity deep venous system is patent and compressible. Acute deep vein thrombosis is noted in the left soleus vein. Acute deep vein thrombosis is noted in the left gastrocnemius vein. The remainder of the left lower extremity deep venous system is patent and compressible. Valvular competence appears intact within the proximal deep venous systems bilaterally. The great saphenous veins appear bilaterally patent and compressible segmentally. There has been no significant change since a prior study on 05/12/2019. Ordering Physician: Mayur Goncalves Referring Physician: Román Rosado Performed By: Marycruz Garcia RVT
[2019-05-15 11:09] VITALS: BMI 28.5
--- NOTE | 2019-05-15 12:53 | PNCOSIGN_ITS ---
Subjective: Per nursing, no issues overnight. Urine CX presumptive e-coli >100,000, started on cipro 500 mg bid x 5 days. Denies hematuria, dysuria, frequency, CVA tenderness. Patient slept well last night. Patient continues to tolerate therapies well. - Physical Exam General: Alert, Oriented x3, Cooperative HEENT: Atraumatic, PERRLA, EOMI Oral: Moist Mucosa Neck: Supple, No JVD Lungs: Clear to auscultation, Normal air movement Cardiovascular: Regular rate, Regular Rhythm Abdomen: Bowel Sounds Present, Soft, Non Tender Extremities: No clubbing, No cyanosis, Edema - mild Skin: Incision - tejinder intact, without redness or drng Neurological: Cranial nerves II-XII grossly intact, Deep Tendon Reflexes 2+/4 and Symmetrical, Motor Exam 5/5 strength throughout - mild left foot drop Psych/Mental Status: Normal Affect, Appropriate, Alert and oriented to time, brett ce, person, mood and affect Vital Signs Temp Pulse Resp BP Pulse Ox 98.0 F 89 18 130/66 H 98 05/15/19 08:01 05/15/19 08:01 05/15/19 08:01 05/15/19 08:01 05/15/19 08:01 Oxygen Delivery Method Room Air Weight: 77.9 kg Body Mass Index (BMI) 28.5 Intake and Output for Last 24 Hours 05/13/19 05/14/19 05/15/19 23:59 23:59 23:59 Intake Total 320 / 320 480 / 480 460 / 460 Balance 320 / 320 480 / 480 460 / 460 Microbiology Past 72 Hours 05/13/19 09:21 Urine Culture - Final Urine Catheter - Catheter Presumptive E. coli Assessment/Plan All Active Problems (Last Updated 04/20/19 @ 09:07 by Vandana Noyola, ROBERT-C) Debility (Acute) DVT (deep venous thrombosis) (Acute) The patient is a 69 year old Female with PMH HTN, history of stroke in 2009, PD, hypothyroidism admitted to [facility] on 05/11/2019 with debility secondary for revision, decompression and fusion of L3-S1, for greater than 3 hours of therapy daily with a goal of returning home at or near her prior level of functional independence. On 04/01/19 Dr. Dominik Lopez at [facility] performed an L4-L5 decompression fusion due to spinal stenosis, the hospital course was later complicated by spinal hematoma, evacuation done on 04/14/19, On 04/17/2019, DVT of left soleal vein was noted on duplex, vascular surgeon Dr. Maya was consulted and recommended no anticoagulation treatment for left soleal vein DVT given the location of the DVT (below knee) in setting of recent spine hematoma and he recommended to monitor with LE Doppler. 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 On 05/06/19, Dr Lopez performed exploratory L4-5, removal on instrument/cage excision, revision, decompression, fusion of L3-S1 and instrument. On 05/06/19 H/H 25.1/7.6, received 2 units of PRBC, recheck on 05/11/19 Hgb 8.8. Patient has hemochromatosis and residential living assistant/oncologist Dr. 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 2 drains removed from lumbar incision on 05/11/19. BLE duplex on 05/06/19 showed left soleal DVT, repeat on 05/08/19 showed DVT to right and left soleal vein and left gastroc vein, repeat on 05/11/19 showed no changed from previous study with no propagation. Spoke with Dr. Lopez's office, Dr. Lopez is aware of DVT's and no DVT prophylaxis due to risk of bleeding, continue asa. Repeat duplex to BLE on 05/15 and 06/05/19. Patient was fitted for afo for left foot drop and to wear LSO brace when OOB. Patient lives with spouse in a one level home with one step to enter. Prior to surgery, patient was independent with ADLs, mobility and driving. Plan -PT for mobility - OT for ADLs - ST for evaluation - Revision, decompression and fusion of L3-S1 with instrument- wear LSO brace OOB, [facility] care prn, may shower, has f/u appt on 05/21/19 - PD on mirapex, sinemet - Left foot drop- afo - HTN on zestril - Hypothyroidism on synthroid - Hemochromatosis - Dr. Trejo manages - Microcytic Anemia Further management per hospitalist/hematology recommendations - Left and right Soleal, and left gastroc DVT- no anticoagulation- continue asa, knee high mack hose, repeat today-pending results. repeat duplex to BLE 05/15/19 and 06/05/19. - Hx of Stroke in 2009- on asa - Excoriation under bilateral breasts- nystatin powder - Insomnia, restlessness, agitation- resolved on seroquel - Confusion, urinary incontinence and frequency- resolved UA completed - urine CX presumptive ecoli >100,000 cipro 500 mg bid x 5 days. - GI/DVT prophylaxis on pepcid/asa, knee high mack hose - Further medical management per hospitalist- consult - Analgesics as needed - Bowel protocol - Fall precautions - F/U with Dr. Dominik Lopez, Vascular surgeon, Neurology (Dr. Walls), Dr. Trejo, and PCP
[2019-05-15 19:30] VITALS: BP 80/41; PULSE 74; RESP 16; TEMP 36.6; O2SAT 95
[2019-05-15] MEDS: QUEtiapine 25 MG Tablet 12.5 MG PO (19:34)
--- NOTE | 2019-05-15 20:00 | NURSING ---
PT DRINKING WATER AFTER BEING ENCOURAGED. BP RECHECKED. VISITOR AT BEDSIDE.
[2019-05-15 20:01] VITALS: BP 86/56; PULSE 74
[2019-05-15 21:14] VITALS: BP 90/47; PULSE 78
[2019-05-15] MEDS: Senna/Docusate Sodium 1 Tablet 2 TABLET PO (21:17)
[2019-05-15] MEDS: Pramipexole Di-HCl 1 MG Tablet 2 MG PO (21:18)
[2019-05-16] MEDS: Pramipexole Di-HCl 1 MG Tablet PO ×2 (06:48→13:43)
[2019-05-16] MEDS: Levothyroxine 25 MCG TABLET PO (06:48)
[2019-05-16] MEDS: Nystatin Powder 15gm Bottle 1 APPLIC TOPICAL ×2 (06:48→22:02)
[2019-05-16] MEDS: Acetaminophen 500 MG Tablet 1000 MG PO ×3 (06:48→22:01)
[2019-05-16] MEDS: Carbidopa/Levodopa 25/100 Tablet PO ×3 (06:48→16:42)
[2019-05-16 07:15] VITALS: BP 107/60; PULSE 81; RESP 12; TEMP 36.7; O2SAT 98
[2019-05-16] MEDS: Ciprofloxacin 500 MG Tablet PO ×2 (08:13→22:03)
[2019-05-16] MEDS: Folic Acid 1 MG Tablet PO (08:13)
[2019-05-16] MEDS: Famotidine 20 MG Tablet PO ×2 (08:14→22:02)
[2019-05-16] MEDS: Gabapentin 300 MG Capsule PO ×2 (08:14→16:42)
[2019-05-16] MEDS: Aspirin E.C. 81 MG Tablet PO (08:14)
[2019-05-16] MEDS: Lisinopril 10 MG Tablet PO (08:14)
[2019-05-16] MEDS: Ensure Clear 120 ML Liquid PO ×3 (08:16→22:02)
--- NOTE | 2019-05-16 11:23 | PN_ITS ---
Subjective: Chief complaint: Follow-up after consultation for medical management following admission to inpatient rehabitation unit. Patient seen and examined. No acute events overnight. She is asymptomatic, no complaints. No dysuria, frequency or hematuria. She has been afebrile, other vital signs are stable. - Physical Exam General: Alert, Oriented x3, Cooperative, No apparent distress HEENT: Atraumatic, PERRLA, EOMI, Normocephalic Oral: Moist Mucosa, No Gingival or Mucosal Lesions/ Ulcerations Neck: Supple, No JVD, Negative Carotid Bruits, Trachea Midline, Thyroid Normal Size and Texture Lungs: Clear to auscultation, Normal air movement, No rhonchi, No wheeze, No rales, Diminished Cardiovascular: Regular rate, Regular Rhythm, Normal S1, Normal S2, PMI Normal Abdomen: Bowel Sounds Present, Soft, Non Tender, Non-Distended, No Hepato- splenomegaly, Obese Extremities: No clubbing, No cyanosis, No edema Skin: No rashes, No breakdown Lymphatic: No Cervical, Supraclavicular, or Inguinal Adenopathy Neurological: Cranial nerves II-XII grossly intact, Neuro grossly intact Psych/Mental Status: Normal Affect, Appropriate Vital Signs Temp Pulse Resp BP Pulse Ox 98.1 F 81 12 107/60 98 05/16/19 07:15 05/16/19 07:15 05/16/19 07:15 05/16/19 07:15 05/16/19 07:15 Oxygen Delivery Method Room Air Weight: 171 lb 11.841 oz Body Mass Index (BMI) 28.5 Intake and Output for Last 24 Hours 05/14/19 05/15/19 05/16/19 23:59 23:59 23:59 Intake Total 480 / 480 620 / 620 240 / 240 Output Total 150 / 150 Balance 480 / 480 470 / 470 240 / 240 Microbiology Past 72 Hours 05/13/19 09:21 Urine Culture - Final Urine Catheter - Catheter Presumptive E. coli Medical Necessity - Tobacco Use Smoking Status: Never smoker Tobacco Use: Non-smoker Assessment/Plan All Active Problems (Last Updated 04/20/19 @ 09:07 by Vandana Noyola, PERFORMANCE IMPROVEMENT SPECIALIST-C) Debility (Acute) DVT (deep venous thrombosis) (Acute) This is a 69 years old female patient admitted to the inpatient rehabilitation unit for debility and functional decline following back surgery with decompression and fusion of L3-S1 for spinal canal stenosis. #1 status post revision/decompression fusion of L3-S1 for spinal canal stenosis: She is on Tylenol, Neurontin for pain. His pain is controlled. She has been doing okay with physical therapy. Her vital signs are stable. Recent blood work revealed anemia, otherwise unremarkable. Plan to continue PT OT according to rehab team. #2 E. coli acute cystitis: On day 3 of oral ciprofloxacin. She has normal symptoms. She has been afebrile. Urine culture revealed E. coli that was pansensitive. #3 hypertension: Blood pressure stable, continue lisinopril. #4 hypothyroidism: Continue levothyroxine. #4 Parkinson's disease: Stable, continue Sinemet and Mirapex. #6 anemia: Probably postoperative anemia. Most recent hemoglobin is 9 g/dL. Unknown baseline hemoglobin. No indication for transfusion and no active bleeding. #7 recent left and right soleus/left gassiness DVT: No anticoagulation recommended as per neurosurgery., and EDWIN hose and aspirin. #8 history of CVA: Stable, continue aspirin and statins. #9 restless leg syndrome: Continue Mirapex. #9 DVT prophylaxis: EDWIN hose. This note was generated with [employer] dictation software. It may contain incorrect words, spelling, and punctuation that were not noted in checking the note before signing. Code Visit Inpatient E&M: 04993 Subs Hosp L2
[2019-05-16 15:35] VITALS: BMI 28.5
[2019-05-16 19:19] VITALS: BP 89/58; PULSE 81; RESP 20; TEMP 36.6; O2SAT 95
[2019-05-16] MEDS: QUEtiapine 25 MG Tablet 12.5 MG PO (19:24)
[2019-05-16] MEDS: Pramipexole Di-HCl 1 MG Tablet 2 MG PO (22:02)
[2019-05-17] MEDS: Carbidopa/Levodopa 25/100 Tablet PO ×3 (05:43→16:34)
[2019-05-17] MEDS: Acetaminophen 500 MG Tablet 1000 MG PO ×3 (05:43→22:03)
[2019-05-17] MEDS: Levothyroxine 25 MCG TABLET PO (05:44)
[2019-05-17] MEDS: Nystatin Powder 15gm Bottle 1 APPLIC TOPICAL ×2 (05:44→22:04)
[2019-05-17] MEDS: Pramipexole Di-HCl 1 MG Tablet PO ×2 (05:44→12:53)
[2019-05-17] MEDS: Gabapentin 300 MG Capsule PO ×2 (08:33→16:34)
[2019-05-17] MEDS: Aspirin E.C. 81 MG Tablet PO (08:33)
[2019-05-17] MEDS: Famotidine 20 MG Tablet PO ×2 (08:34→22:04)
[2019-05-17] MEDS: Folic Acid 1 MG Tablet PO (08:34)
[2019-05-17] MEDS: Ciprofloxacin 500 MG Tablet PO ×2 (08:34→22:05)
[2019-05-17] MEDS: Ensure Clear 120 ML Liquid PO ×4 (08:37→22:04)
[2019-05-17] MEDS: Lisinopril 10 MG Tablet PO (08:37)
[2019-05-17 09:18] VITALS: BP 118/60; PULSE 78; RESP 16; TEMP 36.6; O2SAT 96
[2019-05-17 11:14] VITALS: BMI 28.5
[2019-05-17 19:19] VITALS: BP 94/56; PULSE 67; RESP 16; TEMP 36.7; O2SAT 100
[2019-05-17] MEDS: QUEtiapine 25 MG Tablet 12.5 MG PO (20:02)
[2019-05-17] MEDS: Pramipexole Di-HCl 1 MG Tablet 2 MG PO (22:04)
[2019-05-18] MEDS: Carbidopa/Levodopa 25/100 Tablet PO ×3 (06:54→16:11)
[2019-05-18] MEDS: Acetaminophen 500 MG Tablet 1000 MG PO ×3 (06:54→20:29)
[2019-05-18] MEDS: Nystatin Powder 15gm Bottle 1 APPLIC TOPICAL ×2 (06:55→20:25)
[2019-05-18] MEDS: Levothyroxine 25 MCG TABLET PO (06:55)
[2019-05-18] MEDS: Pramipexole Di-HCl 1 MG Tablet PO ×2 (06:55→13:32)
[2019-05-18 07:50] VITALS: BP 130/68; PULSE 84; RESP 16; TEMP 36.6; O2SAT 97
[2019-05-18] MEDS: Lisinopril 10 MG Tablet PO (07:53)
[2019-05-18] MEDS: Folic Acid 1 MG Tablet PO (07:53)
[2019-05-18] MEDS: Gabapentin 300 MG Capsule PO ×2 (07:53→17:02)
[2019-05-18] MEDS: Famotidine 20 MG Tablet PO ×2 (07:53→20:24)
[2019-05-18] MEDS: Ciprofloxacin 500 MG Tablet PO ×2 (07:53→20:27)
[2019-05-18] MEDS: Aspirin E.C. 81 MG Tablet PO (07:53)
[2019-05-18] MEDS: Ensure Clear 120 ML Liquid PO ×4 (07:55→20:27)
--- NOTE | 2019-05-18 10:32 | CASEMGMT ---
Social Work Notified patient and of approved Medicare days - ELOS 21 days with anticipated DC date 06/01, if pt does not choose to DC sooner. Will Team 05/21. NATY NeumannW
--- NOTE | 2019-05-18 12:45 | PNCOSIGN_ITS ---
Subjective: Per breezyng, blood pressures systolically on lower end. reviewed and to decrease zestril to 5 mg and to hold if SBP <110. Increase fluid intake. P atient continues to tolerate therapies well. Nursing called Dr. Lopez' office and per Dr. John aguila to start DVT prophylaxis. - Physical Exam Vitals/I&O's: Vital Signs Temp Pulse Resp BP Pulse Ox 97.8 F 84 16 130/68 H 97 05/18/19 07:50 05/18/19 07:50 05/18/19 07:50 05/18/19 07:50 05/18/19 07:50 Oxygen Delivery Method Room Air Weight: 77.9 kg Body Mass Index (BMI) 28.5 Intake and Output for Last 24 Hours 05/16/19 05/17/19 05/18/19 23:59 23:59 23:59 Intake Total 480 / 480 220 / 220 280 / 280 Balance 480 / 480 220 / 220 280 / 280 General: Alert, Oriented x3, Cooperative HEENT: Atraumatic, PERRLA, EOMI Oral: Moist Mucosa Neck: Supple, No JVD Lungs: Clear to auscultation, Normal air movement Cardiovascular: Regular rate, Regular Rhythm Abdomen: Bowel Sounds Present, Soft, Non Tender Extremities: No clubbing, No cyanosis, No edema Skin: Incision - tejinder intact, without redness or drng to lumbar area Neurological: Cranial nerves II-XII grossly intact, Deep Tendon Reflexes 2+/4 and Symmetrical, Motor Exam 5/5 strength throughout - minimal left foot drop Psych/Mental Status: Normal Affect, Appropriate, Alert and oriented to time, place, person, mood and affect Microbiology Past 72 Hours 05/13/19 09:21 Urine Catheter - Catheter Urine Culture - Final Presumptive E. coli Current Medications Acetaminophen (Tylenol) 1,000 mg PO Q8 [facility] Last Admin: 05/18/19 06:54 Dose: 1,000 mg Documented by: Aspirin (Ecotrin) 81 mg PO DAILY@0800 [facility] Last Admin: 05/18/19 07:53 Dose: 81 mg Documented by: Bisacodyl (Dulcolax) 10 mg RECTAL .PRN X 1 PRN PRN Reason: Constipation Carbidopa/Levodopa (Sinemet) 1 tablet PO TIDAC [facility] Last Admin: 05/18/19 11:01 Dose: 1 tablet Documented by: Ciprofloxacin HCl (Cipro) 500 mg PO BID [facility] Stop: 05/18/19 22:01 Last Admin: 05/18/19 07:53 Dose: 500 mg Documented by: Enoxaparin Sodium (Lovenox) 40 mg SC DAILY@0600 [facility] Famotidine (Pepcid) 20 mg PO BID [facility] Last Admin: 05/18/19 07:53 Dose: 20 mg Documented by: Folic Acid (Folic Acid) 1 mg PO DAILY [facility] Last Admin: 05/18/19 07:53 Dose: 1 mg Documented by: [facility] Last Admin: 05/18/19 07:53 Dose: 300 mg Documented by: Levothyroxine Sodium (Synthroid) 25 mcg PO DAILY@0600 [facility] Last Admin: 05/18/19 06:55 Dose: 25 mcg Documented by: Lisinopril (Zestril) 5 mg PO DAILY [facility] Magnesium Hydroxide (Milk Of Magnesia) 30 ml PO .PRN X 1 PRN PRN Reason: Constipation Nutritional Formula (Lactose Free) (Ensure Clear) 120 ml PO 4X/DAY [facility] Last Admin: 05/18/19 07:55 Dose: 120 ml Documented by: Nystatin (Mycostatin Powder) 1 applic TOPICAL BID@0600,2200 [facility]; Protocol Last Admin: 05/18/19 06:55 Dose: 1 applicatio Documented by: Pramipexole Dihydrochloride (Mirapex) 1 mg PO BID@0600,1400 [facility] Last Admin: 05/18/19 06:55 Dose: 1 mg Documented by: Pramipexole Dihydrochloride (Mirapex) 2 mg PO QHS [facility] Last Admin: 05/17/19 22:04 Dose: 2 mg Documented by: Quetiapine Fumarate (Seroquel) 12.5 mg PO DAILY@2000 [facility] Last Admin: 05/17/19 20:02 Dose: 12.5 mg Documented by: Saliva Substitute (Biotene) 15 ml MM 5X/DAY PRN PRN Reason: DRY MOUTH Senna/Docusate Sodium (Senokot-S, Reba-Colace) 2 tablet PO BID [facility] Last Admin: 05/18/19 07:57 Dose: Not Given Documented by: Assessment/Plan All Active Problems (Last Updated 04/20/19 @ 09:07 by Vandana S Weygandt, ORCHARD PRUNER-C) Debility (Acute) DVT (deep venous thrombosis) (Acute) The patient is a 69 year old Female with PMH HTN, history of stroke in 2010, PD, hypothyroidism admitted to [facility] on 05/11/2019 with debility secondary for revision, decompression and fusion of L3-S1, for greater than 3 hours of therapy daily with a goal of returning home at or near her prior level of functional independence. On 04/01/19 Dr. Dominik Lopez at [facility] performed an L4-L5 decompression fusion due to spinal stenosis, the hospital course was later complicated by spinal hematoma, evacuation done on 04/14/19, On 04/17/2019, DVT of left soleal vein was noted on duplex, vascular surgeon Dr. Maya was consulted and recommended no anticoagulation treatment for left soleal vein DVT given the location of the DVT (below knee) in setting of recent spine hematoma and he recommended to monitor with LE Doppler. Patient was previously admitted to [facility] on 04/18/19 and was d/c on 05/05/19 to [facility] orthopedics for surgery d/t spondylosis grade II, interbody cage L4-5, recurrent stenosis, subluxation of TLIF cage with L4-5 nerve root compression. On 05/06/19, Dr Lopez performed exploratory L4-5, removal on instrument/cage excision, revision, decompression, fusion of L3-S1 and instrument. On 05/06/19 H/H 25.1/7.6, received 2 units of PRBC, recheck on 05/11/19 Hgb 8.8. Patient has hemochromatosis and fitness management director/oncologist Dr. 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 2 drains removed from lumbar incision on 05/11/19. BLE duplex on 05/06/19 showed left soleal DVT, repeat on 05/08/19 showed DVT to right and left soleal vein and left gastroc vein, repeat on 05/11/19 showed no changed from previous study with no propagation. Spoke with Dr. Lopez's office, Dr. Lopez is aware of DVT's and no DVT prophylaxis due to risk of bleeding, continue asa. Repeat duplex to BLE on 05/15 and 06/05/19. Patient was fitted for afo for left foot drop and to wear LSO brace when OOB. Patient lives with spouse in a one level home with one step to enter. Prior to surgery, patient was independent with ADLs, mobility and driving. Plan -PT for mobility - OT for ADLs - ST for evaluation - Revision, decompression and fusion of L3-S1 with instrument- wear LSO brace OOB, [facility] prn, may shower, has f/u appt on 05/21/19 - PD on mirapex, sinemet - Left foot drop- afo - HTN on zestril decrease dose hold if SBP <110 - Hypothyroidism on synthroid - Hemochromatosis - Dr. Trejo manages - Microcytic Anemia Further management per hospitalist/hematology recommendations - Left and right Soleal, and left gastroc DVT- no anticoagulation- continue asa, knee high mack hose, repeat duplex on 05/12 and 05/15 showed no change. and to repeat on 06/05/19. - Hx of Stroke in 2009- on asa - Excoriation under bilateral breasts- nystatin powder - Insomnia, restlessness, agitation- resolved on seroquel - Confusion, urinary incontinence and frequency- resolved UA completed - urine CX presumptive ecoli >100,000 cipro 500 mg bid x 5 days (last dose 05/18/19). - GI/DVT prophylaxis on pepcid/ loevnox, asa, knee high mack hose - Further medical management per hospitalist- consult - Analgesics as needed - Bowel protocol - Fall precautions - F/U with Dr. Dominik Lopez, Vascular surgeon, Neurology (Dr. Walls), Dr. Trejo, and PCP
[2019-05-18 13:15] VITALS: BMI 28.5
[2019-05-18] MEDS: Enoxaparin 40 MG/0.4 ML Syringe SC (13:33)
[2019-05-18 19:15] VITALS: BP 102/88; PULSE 73; RESP 16; TEMP 36.4; O2SAT 95
[2019-05-18] MEDS: Senna/Docusate Sodium 1 Tablet 2 TABLET PO (20:24)
[2019-05-18] MEDS: Pramipexole Di-HCl 1 MG Tablet 2 MG PO (20:25)
[2019-05-18] MEDS: QUEtiapine 25 MG Tablet 12.5 MG PO (20:25)
[2019-05-18 21:00] VITALS: BMI 28.5
[2019-05-18 22:00] VITALS: PULSE 73; RESP 16
[2019-05-19] MEDS: Enoxaparin 40 MG/0.4 ML Syringe SC (06:11)
[2019-05-19] MEDS: Nystatin Powder 15gm Bottle 1 APPLIC TOPICAL ×2 (06:11→20:24)
[2019-05-19] MEDS: Pramipexole Di-HCl 1 MG Tablet PO ×2 (06:11→13:44)
[2019-05-19] MEDS: Acetaminophen 500 MG Tablet 1000 MG PO ×3 (06:12→20:22)
[2019-05-19] MEDS: Levothyroxine 25 MCG TABLET PO (06:12)
[2019-05-19] MEDS: Carbidopa/Levodopa 25/100 Tablet PO ×3 (06:13→17:23)
[2019-05-19 07:04] VITALS: BP 93/61; PULSE 78; RESP 16; TEMP 36.8; O2SAT 97
[2019-05-19] MEDS: Famotidine 20 MG Tablet PO ×2 (08:10→20:23)
[2019-05-19] MEDS: Senna/Docusate Sodium 1 Tablet 2 TABLET PO ×2 (08:11→20:22)
[2019-05-19] MEDS: Folic Acid 1 MG Tablet PO (08:11)
[2019-05-19] MEDS: Ensure Clear 120 ML Liquid PO ×4 (08:12→20:25)
[2019-05-19] MEDS: Aspirin E.C. 81 MG Tablet PO (08:12)
[2019-05-19] MEDS: Gabapentin 300 MG Capsule PO ×2 (08:12→17:23)
--- NOTE | 2019-05-19 08:17 | PCM.PN.COSIG ---
Subjective: Per nursing, no issues overnight. Patient continues to tolerate therapies well and pain is controlled. - Physical Exam Vitals/I&O's: Vital Signs Temp Pulse Resp BP Pulse Ox 98.2 F 78 16 93/61 97 05/19/19 07:04 05/19/19 07:04 05/19/19 07:04 05/19/19 07:04 05/19/19 07:04 Oxygen Delivery Method Room Air Weight: 77.9 kg Body Mass Index (BMI) 28.5 Intake and Output for Last 24 Hours 05/17/19 05/18/19 05/19/19 23:59 23:59 23:59 Intake Total 220 / 220 280 / 280 Balance 220 / 220 280 / 280 General: Alert, Oriented x3, Cooperative HEENT: Atraumatic, PERRLA, EOMI Oral: Moist Mucosa Neck: Supple, No JVD Lungs: Clear to auscultation, Normal air movement Cardiovascular: Regular rate, Regular Rhythm Abdomen: Bowel Sounds Present, Soft, Non Tender Extremities: No clubbing, No cyanosis, No edema Skin: Incision - tejinder intact to lumbar area, without redness or drng Neurological: Cranial nerves II-XII grossly intact, Deep Tendon Reflexes 2+/4 and Symmetrical, Motor Exam 5/5 strength throughout - minimal left foot drop Psych/Mental Status: Normal Affect, Appropriate, Alert and oriented to time, place, person, mood and affect Current Medications Acetaminophen (Tylenol) 1,000 mg PO Q8 ON [facility] Last Admin: 05/19/19 06:12 Dose: 1,000 mg Documented by: Aspirin (Ecotrin) 81 mg PO DAILY@0800 [facility] Last Admin: 05/19/19 08:12 Dose: 81 mg Documented by: Bisacodyl (Dulcolax) 10 mg RECTAL .PRN X 1 PRN PRN Reason: Constipation Carbidopa/Levodopa (Sinemet) 1 tablet PO TIDAC ON [facility] Last Admin: 05/19/19 06:13 Dose: 1 tablet Documented by: Enoxaparin Sodium (Lovenox) 40 mg SC DAILY@0600 [facility] Last Admin: 05/19/19 06:11 Dose: 40 mg Documented by: Famotidine (Pepcid) 20 mg PO BID [facility] Last Admin: 05/19/19 08:10 Dose: 20 mg Documented by: Folic Acid (Folic Acid) 1 mg PO DAILY [facility] Last Admin: 05/19/19 08:11 Dose: 1 mg Documented by: Gabapentin (Neurontin) 300 mg PO BIDCM [facility] Last Admin: 05/19/19 08:12 Dose: 300 mg Documented by: Levothyroxine Sodium (Synthroid) 25 mcg PO DAILY@0600 [facility] Last Admin: 05/19/19 06:12 Dose: 25 mcg Documented by: Lisinopril (Zestril) 5 mg PO DAILY [facility] Last Admin: 05/19/19 08:14 Dose: Not Given Documented by: Magnesium Hydroxide (Milk Of Magnesia) 30 ml PO .PRN X 1 PRN PRN Reason: Constipation Nutritional Formula (Lactose Free) (Ensure Clear) 120 ml PO 4X/DAY [facility] Last Admin: 05/19/19 08:12 Dose: 120 ml Documented by: Nystatin (Mycostatin Powder) 1 applic TOPICAL BID@0600,2200 [facility]; Protocol Last Admin: 05/19/19 06:11 Dose: 1 applicatio Documented by: Pramipexole Dihydrochloride (Mirapex) 1 mg PO BID@0600,1400 [facility] Last Admin: 05/19/19 06:11 Dose: 1 mg Documented by: Pramipexole Dihydrochloride (Mirapex) 2 mg PO QHS [facility] Last Admin: 05/18/19 20:25 Dose: 2 mg Documented by: Quetiapine Fumarate (Seroquel) 12.5 mg PO DAILY@2000 [facility] Last Admin: 05/18/19 20:25 Dose: 12.5 mg Documented by: Saliva Substitute (Biotene) 15 ml MM 5X/DAY PRN PRN Reason: DRY MOUTH Senna/Docusate Sodium (Senokot-S, Reba-Colace) 2 tablet PO BID ON [facility] Last Admin: 05/19/19 08:11 Dose: 2 tablet Documented by: Assessment/Plan All Active Problems (Last Updated 04/20/19 @ 09:07 by Vandana Noyola NP-C) Debility (Acute) DVT (deep venous thrombosis) (Acute) The patient is a 69 year old Female with PMH HTN, history of stroke in 2009, PD, hypothyroidism admitted to [facility] on 05/11/2019 with debility secondary for revision, decompression and fusion of L3-S1, for greater than 3 hours of therapy daily with a goal of returning home at or near her prior level of functional independence. On 04/01/19 Dr. Dominik Lopez at [facility] performed an L4-L5 decompression fusion due to spinal stenosis, the hospital course was later complicated by spinal hematoma, evacuation done on 04/14/19, On 04/17/2019, DVT of left soleal vein was noted on duplex, vascular surgeon Dr. Maya was consulted and recommended no anticoagulation treatment for left soleal vein DVT given the location of the DVT (below knee) in setting of recent spine hematoma and he recommended to monitor with LE Doppler. Patient was previously admitted to [facility] on 04/18/19 and was d/c on 05/05/19 to [facility] orthopedics for surgery d/t spondylosis grade II, interbody cage L4-5, recurrent stenosis, subluxation of TLIF cage with L4-5 nerve root compression. On 05/06/19, Dr Lopez performed exploratory L4-5, removal on instrument/cage excision, revision, decompression, fusion of L3-S1 and instrument. On 05/06/19 H/H 25.1/7.6, received 2 units of PRBC, recheck on 05/11/19 Hgb 8.8. Patient has hemochromatosis and brass cleaner/oncologist Dr. 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 2 drains removed from lumbar incision on 05/11/19. BLE duplex on 05/06/19 showed left soleal DVT, repeat on 05/08/19 showed DVT to right and left soleal vein and left gastroc vein, repeat on 05/11/19 showed no changed from previous study with no propagation. Spoke with Dr. Lopez's office, Dr. Lopez is aware of DVT's and no DVT prophylaxis due to risk of bleeding, continue asa. Repeat duplex to BLE on 05/15 and 06/05/19. Patient was fitted for afo for left foot drop and to wear LSO brace when OOB. Patient lives with spouse in a one level home with one step to enter. Prior to surgery, patient was independent with ADLs, mobility and driving. Plan -PT for mobility - OT for ADLs - ST for evaluation - Revision, decompression and fusion of L3-S1 with instrument- wear LSO brace OOB, [facility] care prn, may shower, has f/u appt on 05/21/19 - PD on mirapex, sinemet - Left foot drop- afo - HTN on zestril decrease dose hold if SBP <110 - Hypothyroidism on synthroid - Hemochromatosis - Dr. Trejo manages - Microcytic Anemia Further management per hospitalist/hematology recommendations - Left and right Soleal, and left gastroc DVT- no anticoagulation- continue asa, knee high mack hose, repeat duplex on 05/12 and 05/15 showed no change. and to repeat on 06/05/19. - Hx of Stroke in 2009- on asa - Excoriation under bilateral breasts- nystatin powder - Insomnia, restlessness, agitation- resolved on seroquel - Confusion, urinary incontinence and frequency- resolved UA completed - urine CX presumptive ecoli >100,000: Acute cystitis cipro 500 mg bid x 5 days (last dose 05/18/19). - GI/DVT prophylaxis on pepcid/ loevnox, asa, knee high mack hose - Further medical management per hospitalist- consult - Analgesics as needed - Bowel protocol - Fall precautions - F/U with Dr. Dominik Lopez, Vascular surgeon, Neurology (Dr. Walls), Dr. Trejo, and PCP
[2019-05-19 12:19] VITALS: BMI 28.5
[2019-05-19 19:15] VITALS: BP 132/77; PULSE 83; RESP 18; TEMP 36.8; O2SAT 99
[2019-05-19] MEDS: Saliva Substitute 237 ML BOTTLE 15 ML MM (20:19)
[2019-05-19] MEDS: Pramipexole Di-HCl 1 MG Tablet 2 MG PO (20:23)
[2019-05-19] MEDS: QUEtiapine 25 MG Tablet 12.5 MG PO (20:26)
[2019-05-19 20:38] VITALS: PULSE 83; RESP 18; BMI 28.5
[2019-05-20] MEDS: Acetaminophen 500 MG Tablet 1000 MG PO ×3 (05:44→20:43)
[2019-05-20] MEDS: Nystatin Powder 15gm Bottle 1 APPLIC TOPICAL ×2 (05:45→20:44)
[2019-05-20] MEDS: Levothyroxine 25 MCG TABLET PO (05:45)
[2019-05-20] MEDS: Enoxaparin 40 MG/0.4 ML Syringe SC (05:45)
[2019-05-20] MEDS: Pramipexole Di-HCl 1 MG Tablet PO ×2 (05:46→13:06)
[2019-05-20] MEDS: Carbidopa/Levodopa 25/100 Tablet PO ×3 (05:51→16:48)
[2019-05-20 06:59] VITALS: BP 115/60; PULSE 81; RESP 16; TEMP 36.6; O2SAT 95
[2019-05-20] MEDS: Lisinopril 5 MG Tablet PO (07:50)
[2019-05-20] MEDS: Gabapentin 300 MG Capsule PO ×2 (07:51→16:48)
[2019-05-20] MEDS: Ensure Clear 120 ML Liquid PO ×4 (07:51→20:43)
[2019-05-20] MEDS: Folic Acid 1 MG Tablet PO (07:51)
[2019-05-20] MEDS: Aspirin E.C. 81 MG Tablet PO (07:51)
[2019-05-20] MEDS: Senna/Docusate Sodium 1 Tablet 2 TABLET PO ×2 (07:51→20:43)
[2019-05-20] MEDS: Famotidine 20 MG Tablet PO (07:51)
--- NOTE | 2019-05-20 12:42 | PN.NEURO_ITS ---
Subjective: Patient c/o lower back muscle tightness/spasms at night intermittently. Zanaflex prn ordered. Patient continues to tolerate therapies well. - Physical Exam Vitals/I&O's: Vital Signs Temp Pulse Resp BP Pulse Ox 97.8 F 81 16 115/60 95 05/20/19 06:59 05/20/19 06:59 05/20/19 06:59 05/20/19 06:59 05/20/19 06:59 Oxygen Delivery Method Room Air Weight: 77.5 kg Body Mass Index (BMI) 28.5 Intake and Output for Last 24 Hours 05/18/19 05/19/19 05/20/19 23:59 23:59 23:59 Intake Total 280 / 280 760 / 760 160 / 160 Balance 280 / 280 760 / 760 160 / 160 General: Alert, Oriented x3 HEENT: Atraumatic, PERRLA, EOMI Oral: Moist Mucosa Lungs: Clear to auscultation, Normal air movement Cardiovascular: Regular rate, Regular Rhythm Abdomen: Bowel Sounds Present, Soft, Non Tender Extremities: No clubbing, No cyanosis, No edema Skin: Incision - sutures intact to lumbar area, without redness or drng Neurological: Cranial nerves II-XII grossly intact, Deep Tendon Reflexes 2+/4 and Symmetrical, Motor Exam 5/5 strength throughout - mild left foot drop Psych/Mental Status: Normal Affect, Appropriate, Alert and oriented to time, place, person, mood and affect Current Medications Acetaminophen (Tylenol) 1,000 mg PO Q8 [facility] Last Admin: 05/20/19 05:44 Dose: 1,000 mg Documented by: Aspirin (Ecotrin) 81 mg PO DAILY@0800 [facility] Last Admin: 05/20/19 07:51 Dose: 81 mg Documented by: Bisacodyl (Dulcolax) 10 mg RECTAL .PRN X 1 PRN PRN Reason: Constipation Carbidopa/Levodopa (Sinemet) 1 tablet PO TIDAC [facility] Last Admin: 05/20/19 11:52 Dose: 1 tablet Documented by: Enoxaparin Sodium (Lovenox) 40 mg SC DAILY@0600 [facility] Last Admin: 05/20/19 05:45 Dose: 40 mg Documented by: Famotidine (Pepcid) 20 mg PO DAILY [facility] Folic Acid (Folic Acid) 1 mg PO DAILY [facility] Last Admin: 05/20/19 07:51 Dose: 1 mg Documented by: Gabapentin (Neurontin) 300 mg PO BIDCM [facility] Last Admin: 05/20/19 07:51 Dose: 300 mg Documented by: Levothyroxine Sodium (Synthroid) 25 mcg PO DAILY@0600 [facility] Last Admin: 05/20/19 05:45 Dose: 25 mcg Documented by: Lisinopril (Zestril) 5 mg PO DAILY [facility] Last Admin: 05/20/19 07:50 Dose: 5 mg Documented by: Magnesium Hydroxide (Milk Of Magnesia) 30 ml PO .PRN X 1 PRN PRN Reason: Constipation Nutritional Formula (Lactose Free) (Ensure Clear) 120 ml PO 4X/DAY [facility] Last Admin: 05/20/19 07:51 Dose: 120 ml Documented by: Nystatin (Mycostatin Powder) 1 applic TOPICAL BID@0600,2200 [facility]; Protocol Last Admin: 05/20/19 05:45 Dose: 1 applicatio Documented by: Pramipexole Dihydrochloride (Mirapex) 1 mg PO BID@0600,1400 [facility] Last Admin: 05/20/19 05:46 Dose: 1 mg Documented by: Pramipexole Dihydrochloride (Mirapex) 2 mg PO QHS [facility] Last Admin: 05/19/19 20:23 Dose: 2 mg Documented by: Quetiapine Fumarate (Seroquel) 12.5 mg PO DAILY@2000 [facility] Last Admin: 05/19/19 20:26 Dose: 12.5 mg Documented by: Saliva Substitute (Biotene) 15 ml MM 5X/DAY PRN PRN Reason: DRY MOUTH Last Admin: 05/19/19 20:19 Dose: 15 ml Documented by: Senna/Docusate Sodium (Senokot-S, Reba-Colace) 2 tablet PO BID [facility] Last Admin: 05/20/19 07:51 Dose: 2 tablet Documented by: Tizanidine HCl (Zanaflex) 2 mg PO Q8H PRN PRN PRN Reason: SPASMS Medical Necessity - Tobacco Use Smoking Status: Never smoker Tobacco Use: Non-smoker Assessment/Plan All Active Problems (Last Updated 04/20/19 @ 09:07 by NORA ThomasC) Debility (Acute) DVT (deep venous thrombosis) (Acute) The patient is a 69 year old Female with PMH HTN, history of stroke in 2010, PD, hypothyroidism admitted to [facility] on 05/11/2019 with debility secondary for revision, decompression and fusion of L3-S1, for greater than 3 hours of therapy daily with a goal of returning home at or near her prior level of functional independence. On 04/01/19 Dr. Dominik Lopez at [facility] performed an L4-L5 decompression fusion due to spinal stenosis, the hospital course was later complicated by spinal hematoma, evacuation done on 04/14/19, On 04/17/2019, DVT of left soleal vein was noted on duplex, vascular surgeon Dr. Maya was consulted and recommended no anticoagulation treatment for left soleal vein DVT given the location of the DVT (below knee) in setting of recent spine hematoma and he recommended to monitor with LE Doppler. 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 On 05/06/19, Dr Lopez performed exploratory L4-5, removal on instrument/cage excision, revision, decompression, fusion of L3-S1 and instrument. On 05/06/19 H/H 25.1/7.6, received 2 units of PRBC, recheck on 05/11/19 Hgb 8.8. 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 2 drains removed from lumbar incision on 05/11/19. BLE duplex on 05/06/19 showed left soleal DVT, repeat on 05/08/19 showed DVT to right and left soleal vein and left gastroc vein, repeat on 05/11/19 showed no changed from previous study with no propagation. Spoke with Dr. Lopez's office, Dr. Lopez is aware of DVT's and no DVT prophylaxis due to risk of bleeding, continue asa. Repeat duplex to BLE on 05/15 and 06/05/19. Patient was fitted for afo for left foot drop and to wear LSO brace when OOB. Patient lives with spouse in a one level home with one step to enter. Prior to surgery, patient was independent with ADLs, mobility and driving. Plan -PT for mobility - OT for ADLs - ST for evaluation - Revision, decompression and fusion of L3-S1 with instrument- wear LSO brace OOB, polar care prn, may shower, has f/u appt on 05/21/19 - PD on mirapex, sinemet - Left foot drop- afo - HTN on zestril decrease dose hold if SBP <110 - Hypothyroidism on synthroid - Hemochromatosis - Dr. Trejo manages - Microcytic Anemia Further management per hospitalist/hematology recommendations - Left and right Soleal, and left gastroc DVT- no anticoagulation- continue asa, knee high mack hose, repeat duplex on 05/12 and 05/15 showed no change. and to repeat on 06/05/19. - Hx of Stroke in 2009- on asa - Excoriation under bilateral breasts- nystatin powder - Insomnia, restlessness, agitation- resolved on seroquel - Confusion, urinary incontinence and frequency- resolved UA completed - urine CX presumptive ecoli >100,000: Acute cystitis cipro 500 mg bid x 5 days (last dose 05/18/19). - GI/DVT prophylaxis on pepcid/ loevnox, asa, knee high mack hose - Further medical management per hospitalist- consult - Analgesics as needed - Bowel protocol - Fall precautions - F/U with Dr. Dominik Lopez, Vascular surgeon, Neurology (Dr. Walls), Dr. Trejo, and PCP
[2019-05-20] MEDS: tiZANidine HCl 2 MG Tablet PO (13:06)
[2019-05-20 14:21] VITALS: BMI 28.5
[2019-05-20] MEDS: QUEtiapine 25 MG Tablet 12.5 MG PO (20:43)
[2019-05-20] MEDS: Pramipexole Di-HCl 1 MG Tablet 2 MG PO (20:43)
[2019-05-20 21:23] VITALS: BP 90/41; PULSE 80; RESP 16; TEMP 36.9; O2SAT 99
[2019-05-21 01:14] VITALS: BMI 28.5
[2019-05-21] MEDS: Pramipexole Di-HCl 1 MG Tablet PO ×2 (05:57→13:50)
[2019-05-21] MEDS: Enoxaparin 40 MG/0.4 ML Syringe SC (05:57)
[2019-05-21] MEDS: Acetaminophen 500 MG Tablet 1000 MG PO ×3 (05:57→21:00)
[2019-05-21] MEDS: Carbidopa/Levodopa 25/100 Tablet PO ×2 (05:57→16:28)
[2019-05-21] MEDS: Levothyroxine 25 MCG TABLET PO (05:57)
[2019-05-21] MEDS: Nystatin Powder 15gm Bottle 1 APPLIC TOPICAL (05:58)
[2019-05-21 07:08] VITALS: BP 125/60; PULSE 91; RESP 16; TEMP 36.5; O2SAT 94
[2019-05-21] MEDS: Lisinopril 5 MG Tablet PO (07:35)
[2019-05-21] MEDS: Famotidine 20 MG Tablet PO (07:35)
[2019-05-21] MEDS: Aspirin E.C. 81 MG Tablet PO (07:35)
[2019-05-21] MEDS: Folic Acid 1 MG Tablet PO (07:35)
[2019-05-21] MEDS: Gabapentin 300 MG Capsule PO ×2 (07:35→16:29)
[2019-05-21] MEDS: Ensure Clear 120 ML Liquid PO ×4 (07:36→21:03)
[2019-05-21] MEDS: tiZANidine HCl 2 MG Tablet PO ×2 (07:36→21:01)
--- NOTE | 2019-05-21 09:08 | PN.NEURO_ITS ---
Subjective: Team meeting today. Further details per OT/PT/ST notes. All questions answered. Prn zanaflex effective for muscle spasms. Patient has f/u appt this am with Dr. Lopez. - Physical Exam Vitals/I&O's: Vital Signs Temp Pulse Resp BP Pulse Ox 97.7 F L 91 16 125/60 H 94 05/21/19 07:08 05/21/19 07:08 05/21/19 07:08 05/21/19 07:08 05/21/19 07:08 Oxygen Delivery Method Room Air Weight: 77.5 kg Body Mass Index (BMI) 28.5 Intake and Output for Last 24 Hours 05/19/19 05/20/19 05/21/19 23:59 23:59 23:59 Intake Total 760 / 760 560 / 560 240 / 240 Balance 760 / 760 560 / 560 240 / 240 General: Alert, Oriented x3, Cooperative HEENT: Atraumatic, PERRLA, EOMI Oral: Moist Mucosa Neck: Supple, No JVD Lungs: Clear to auscultation, Normal air movement Cardiovascular: Regular rate, Regular Rhythm Abdomen: Bowel Sounds Present, Soft, Non Tender Extremities: No clubbing, No cyanosis, No edema Skin: Incision - tejinder intact, without redness or drng Neurological: Cranial nerves II-XII grossly intact, Deep Tendon Reflexes 2+/4 and Symmetrical, Motor Exam 5/5 strength throughout - mild left foot drop Psych/Mental Status: Normal Affect, Appropriate, Alert and oriented to time, place, person, mood and affect Current Medications Acetaminophen (Tylenol) 1,000 mg PO Q8 [facility] Last Admin: 05/21/19 05:57 Dose: 1,000 mg Documented by: Aspirin (Ecotrin) 81 mg PO DAILY@0800 [facility] Last Admin: 05/21/19 07:35 Dose: 81 mg Documented by: Bisacodyl (Dulcolax) 10 mg RECTAL .PRN X 1 PRN PRN Reason: Constipation Carbidopa/Levodopa (Sinemet) 1 tablet PO TIDAC [facility] Last Admin: 05/21/19 05:57 Dose: 1 tablet Documented by: Enoxaparin Sodium (Lovenox) 40 mg SC DAILY@0600 [facility] Last Admin: 05/21/19 05:57 Dose: 40 mg Documented by: Famotidine (Pepcid) 20 mg PO DAILY [facility] Last Admin: 05/21/19 07:35 Dose: 20 mg Documented by: Folic Acid (Folic Acid) 1 mg PO DAILY [facility] Last Admin: 05/21/19 07:35 Dose: 1 mg Documented by: [facility]in) [facility] Last Admin: 05/21/19 07:35 Dose: 300 mg Documented by: Levothyroxine Sodium (Synthroid) 25 mcg PO DAILY@0600 [facility] Last Admin: 05/21/19 05:57 Dose: 25 mcg Documented by: Lisinopril (Zestril) 5 mg PO DAILY [facility] Last Admin: 05/21/19 07:35 Dose: 5 mg Documented by: Magnesium Hydroxide (Milk Of Magnesia) 30 ml PO .PRN X 1 PRN PRN Reason: Constipation Nutritional Formula (Lactose Free) (Ensure Clear) 120 ml PO 4X/DAY [facility] Last Admin: 05/21/19 07:36 Dose: 120 ml Documented by: Nystatin (Mycostatin Powder) 1 applic TOPICAL BID@0600,2200 [facility]; Protocol Last Admin: 05/21/19 05:58 Dose: 1 applicatio Documented by: Pramipexole Dihydrochloride (Mirapex) 1 mg PO BID@0600,1400 [facility] Last Admin: 05/21/19 05:57 Dose: 1 mg Documented by: Pramipexole Dihydrochloride (Mirapex) 2 mg PO QHS [facility] Last Admin: 05/20/19 20:43 Dose: 2 mg Documented by: Quetiapine Fumarate (Seroquel) 12.5 mg PO DAILY@2000 [facility] Last Admin: 05/20/19 20:43 Dose: 12.5 mg Documented by: Saliva Substitute (Biotene) 15 ml MM 5X/DAY PRN PRN Reason: DRY MOUTH Last Admin: 05/19/19 20:19 Dose: 15 ml Documented by: Senna/Docusate Sodium (Senokot-S, Reba-Colace) 2 tablet PO BID [facility] Last Admin: 05/21/19 07:38 Dose: Not Given Documented by: Tizanidine HCl (Zanaflex) 2 mg PO Q8H PRN PRN PRN Reason: SPASMS Last Admin: 05/21/19 07:36 Dose: 2 mg Documented by: STROKE Vital Signs/Narrative: Vital Signs Temp Pulse Resp BP Pulse Ox 05/21/19 07:08 97.7 F L 91 16 125/60 H 94 Medical Necessity - Tobacco Use Smoking Status: Never smoker Tobacco Use: Non-smoker Assessment/Plan All Active Problems (Last Updated 04/20/19 @ 09:07 by Vandana Noyola, [employer]) Debility (Acute) DVT (deep venous thrombosis) (Acute) The patient is a 69 year old Female with PMH HTN, history of stroke in 2009, PD, hypothyroidism admitted to [facility] on 05/11/2019 with debility secondary for revision, decompression and fusion of L3-S1, for greater than 3 hours of therapy daily with a goal of returning home at or near her prior level of functional independence. On 04/01/19 Dr. Dominik Lopez at [facility] performed an L4-L5 decompression fusion due to spinal stenosis, the hospital course was later complicated by spinal hematoma, evacuation done on 04/14/19, On 04/17/2019, DVT of left soleal vein was noted on duplex, vascular surgeon Dr. Maya was consulted and recommended no anticoagulation treatment for left soleal vein DVT given the location of the DVT (below knee) in setting of recent spine hematoma and he recommended to monitor with LE Doppler. 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 On 05/06/19, Dr Lopez performed exploratory L4-5, removal on instrument/cage excision, revision, decompression, fusion of L3-S1 and instrument. On 05/06/19 H/H 25.1/7.6, received 2 units of PRBC, recheck on 05/11/19 Hgb 8.8. 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 2 drains removed from lumbar incision on 05/11/19. BLE duplex on 05/06/19 showed left soleal DVT, repeat on 05/08/19 showed DVT to right and left soleal vein and left gastroc vein, repeat on 05/11/19 showed no changed from previous study with no propagation. Spoke with Dr. Lopez's office, Dr. Lopez is aware of DVT's and no DVT prophylaxis due to risk of bleeding, continue asa. Repeat duplex to BLE on 05/15 and 06/05/19. Patient was fitted for afo for left foot drop and to wear LSO brace when OOB. Patient lives with spouse in a one level home with one step to enter. Prior to surgery, patient was independent with ADLs, mobility and driving. Plan -PT for mobility - OT for ADLs - ST for evaluation - Revision, decompression and fusion of L3-S1 with instrument- wear LSO brace OOB, polar care prn, may shower, has f/u appt on 05/21/19 - PD on mirapex, sinemet - Left foot drop- afo - HTN on zestril 5 mg hold if SBP <110 - Hypothyroidism on synthroid - Hemochromatosis - Dr. Trejo manages - Microcytic Anemia Further management per hospitalist/hematology recommendations - Left and right Soleal, and left gastroc DVT- no anticoagulation- continue asa, knee high makc hose, repeat duplex on 05/12 and 05/15 showed no change. and to repeat on 06/05/19. - Hx of Stroke in 2009- on asa - Excoriation under bilateral breasts- resolved nystatin powder prn - Insomnia, restlessness, agitation- resolved on seroquel - Confusion, urinary incontinence and frequency- resolved UA completed - urine CX presumptive ecoli >100,000: Acute cystitis cipro 500 mg bid x 5 days (last dose 05/18/19). - Muscle spasms on zanaflex prn - GI/DVT prophylaxis on pepcid/ loevnox, asa, knee high mack hose - Further medical management per hospitalist- consult - Analgesics as needed - Bowel protocol - Fall precautions - F/U with Dr. Dominik Lopez, Vascular surgeon (Dr. Benson), Neurology (Dr. Walls), Dr. Trejo, and PCP
--- NOTE | 2019-05-21 10:16 | CASEMGMT ---
Social Work IDT met with patient and for Team Meeting. completed therapy family training. comfortable with pt discharging home when ready. Pt is walking 165 ft CGA with FWW and w/c follow. Pt walking 200 ft on carpet. On softer, lower surfaces pt is min assist sitting to standing, but CGA with higher, hard surfaces. Pt completed steps but needed 2 handrails - stated those are being put in the home entryway stairs today. Pt is min assist with UE and LE ADLS and toileting tasks. ST continuing ti work with improving slower thought processing. Pt gets tejinder removed today. Will ReTeam next week. Will continue to follow. Sandra Hunt, DIRECTOR OF PHYSIOTHERAPY SERVICES STOCK HANGER
[2019-05-21 15:25] VITALS: BMI 28.5
--- NOTE | 2019-05-21 16:38 | CHAPLAIN ---
Type of Pastoral Visit ___ Initial Visit _x__ Follow-up Visit ___ On-call Visit ___ General Patient Visit ___ Spiritual Assessment ___ Family Conference ___ Bereavement ___ Rapid Response ___ Code Blue ___ Other (describe below) Pastoral Care Referral From _x__ Patient ___ Family ___ Nurse ___ Physician ___ Secretary Office Clerk ___ Boiler Tender ___ Other (describe below) Sacrament/Intervention _x__ Active listening ___ Anointing ___ Restorationism ___ Bereavement ___ Communion ___ Gabriela exploration ___ _x__ Life review _x__ Prayer ___ Reconciliation ___ Sacrament of Sick _x__ Supportive presence ___ Wedding ___ Other (describe below) Pastoral Comments
[2019-05-21 19:38] VITALS: BP 101/62; PULSE 84; RESP 16; TEMP 36.6; O2SAT 100
[2019-05-21] MEDS: QUEtiapine 25 MG Tablet 12.5 MG PO (20:57)
[2019-05-21] MEDS: Pramipexole Di-HCl 1 MG Tablet 2 MG PO (20:59)
[2019-05-21 22:25] VITALS: BMI 28.5
[2019-05-22 06:23] VITALS: BP 130/77; PULSE 85; RESP 18; TEMP 36.6; O2SAT 99
[2019-05-22] MEDS: Pramipexole Di-HCl 1 MG Tablet PO ×2 (06:25→14:42)
[2019-05-22] MEDS: Enoxaparin 40 MG/0.4 ML Syringe SC (06:25)
[2019-05-22] MEDS: Acetaminophen 500 MG Tablet 1000 MG PO ×3 (06:25→19:59)
[2019-05-22] MEDS: Levothyroxine 25 MCG TABLET PO (06:25)
[2019-05-22] MEDS: Carbidopa/Levodopa 25/100 Tablet PO ×3 (06:27→17:00)
[2019-05-22] MEDS: tiZANidine HCl 2 MG Tablet PO ×2 (06:31→19:59)
[2019-05-22] MEDS: Lisinopril 5 MG Tablet PO (07:38)
[2019-05-22] MEDS: Folic Acid 1 MG Tablet PO (07:38)
[2019-05-22] MEDS: Ensure Clear 120 ML Liquid PO ×3 (07:38→20:02)
[2019-05-22] MEDS: Famotidine 20 MG Tablet PO (07:39)
[2019-05-22] MEDS: Gabapentin 300 MG Capsule PO ×2 (07:39→17:00)
[2019-05-22] MEDS: Senna/Docusate Sodium 1 Tablet 2 TABLET PO ×2 (07:39→20:01)
[2019-05-22] MEDS: Aspirin E.C. 81 MG Tablet PO (07:39)
--- NOTE | 2019-05-22 10:27 | PCM.PN.NEU ---
Subjective: Per nursing, no issues overnight. Marcial d/c at Dr. Lopez's office yesterday, no further orders from Dr. Lopez. Patient continues to tolerate therapies and pain is controlled. - Physical Exam Vitals/I&O's: Vital Signs Temp Pulse Resp BP Pulse Ox 97.9 F 85 18 130/77 H 99 05/22/19 06:23 05/22/19 06:23 05/22/19 06:23 05/22/19 06:23 05/22/19 06:23 Oxygen Delivery Method Room Air Weight: 77.5 kg Body Mass Index (BMI) 28.5 Intake and Output for Last 24 Hours 05/20/19 05/21/19 05/22/19 23:59 23:59 23:59 Intake Total 560 / 560 240 / 240 360 / 360 Balance 560 / 560 240 / 240 360 / 360 General: Alert, Oriented x3, Cooperative HEENT: Atraumatic, PERRLA, EOMI Oral: Moist Mucosa Neck: Supple, No JVD Lungs: Clear to auscultation, Normal air movement Cardiovascular: Regular rate, Regular Rhythm Abdomen: Bowel Sounds Present, Soft, Non Tender Extremities: No clubbing, No cyanosis, No edema Skin: Incision - lumbar area without drng or redness Neurological: Cranial nerves II-XII grossly intact, Deep Tendon Reflexes 2+/4 and Symmetrical, Motor Exam 5/5 strength throughout - mild left foot drop Psych/Mental Status: Normal Affect, Appropriate, Alert and oriented to time, place, person, mood and affect Current Medications Acetaminophen (Tylenol) 1,000 mg PO Q8 [facility] Last Admin: 05/22/19 06:25 Dose: 1,000 mg Documented by: Aspirin (Ecotrin) 81 mg PO DAILY@0800 [facility] Last Admin: 05/22/19 07:39 Dose: 81 mg Documented by: Bisacodyl (Dulcolax) 10 mg RECTAL .PRN X 1 PRN PRN Reason: Constipation Carbidopa/Levodopa (Sinemet) 1 tablet PO TIDAC [facility] Last Admin: 05/22/19 06:27 Dose: 1 tablet Documented by: Enoxaparin Sodium (Lovenox) 40 mg SC DAILY@0600 [facility] Last Admin: 05/22/19 06:25 Dose: 40 mg Documented by: Famotidine (Pepcid) 20 mg PO DAILY [facility] Last Admin: 05/22/19 07:39 Dose: 20 mg Documented by: Folic Acid (Folic Acid) 1 mg PO DAILY [facility] Last Admin: 05/22/19 07:38 Dose: 1 mg Documented by: [facility]) [facility] Last Admin: 05/22/19 07:39 Dose: 300 mg Documented by: Levothyroxine Sodium (Synthroid) 25 mcg PO DAILY@0600 [facility] Last Admin: 05/22/19 06:25 Dose: 25 mcg Documented by: Lisinopril (Zestril) 5 mg PO DAILY [facility] Last Admin: 05/22/19 07:38 Dose: 5 mg Documented by: Magnesium Hydroxide (Milk Of Magnesia) 30 ml PO .PRN X 1 PRN PRN Reason: Constipation Nutritional Formula (Lactose Free) (Ensure Clear) 120 ml PO 4X/DAY [facility] Last Admin: 05/22/19 07:38 Dose: 120 ml Documented by: Nystatin (Mycostatin Powder) 1 applic TOPICAL BID PRN; Protocol PRN Reason: excoriation Pramipexole Dihydrochloride (Mirapex) 1 mg PO BID@0600,1400 [facility] Last Admin: 05/22/19 06:25 Dose: 1 mg Documented by: Pramipexole Dihydrochloride (Mirapex) 2 mg PO QHS [facility] Last Admin: 05/21/19 20:59 Dose: 2 mg Documented by: Quetiapine Fumarate (Seroquel) 12.5 mg PO DAILY@2000 [facility] Last Admin: 05/21/19 20:57 Dose: 12.5 mg Documented by: Saliva Substitute (Biotene) 15 ml MM 5X/DAY PRN PRN Reason: DRY MOUTH Last Admin: 05/19/19 20:19 Dose: 15 ml Documented by: Senna/Docusate Sodium (Senokot-S, Reba-Colace) 2 tablet PO BID [facility] Last Admin: 05/22/19 07:39 Dose: 1 tablet Documented by: Tizanidine HCl (Zanaflex) 2 mg PO Q8H PRN PRN PRN Reason: SPASMS Last Admin: 05/22/19 06:31 Dose: 2 mg Documented by: Medical Necessity - Tobacco Use Smoking Status: Never smoker Tobacco Use: Non-smoker Assessment/Plan All Active Problems (Last Updated 04/20/19 @ 09:07 by Vandana Noyola, DAVID) Debility (Acute) DVT (deep venous thrombosis) (Acute) The patient is a 69 year old Female with PMH HTN, history of stroke in 2010, PD, hypothyroidism admitted to [facility] on 05/11/2019 with debility secondary for revision, decompression and fusion of L3-S1, for greater than 3 hours of therapy daily with a goal of returning home at or near her prior level of functional independence. On 04/01/19 Dr. Dominik Lopez at [facility] performed an L4-L5 decompression fusion due to spinal stenosis, the hospital course was later complicated by spinal hematoma, evacuation done on 04/14/19, On 04/17/2019, DVT of left soleal vein was noted on duplex, vascular surgeon Dr. Maya was consulted and recommended no anticoagulation treatment for left soleal vein DVT given the location of the DVT (below knee) in setting of recent spine hematoma and he recommended to monitor with LE Doppler. 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 On 05/06/19, Dr Lopez performed exploratory L4-5, removal on instrument/cage excision, revision, decompression, fusion of L3-S1 and instrument. On 05/06/19 H/H 25.1/7.6, received 2 units of PRBC, recheck on 05/11/19 Hgb 8.8. 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 2 drains removed from lumbar incision on 05/11/19. BLE duplex on 05/06/19 showed left soleal DVT, repeat on 05/08/19 showed DVT to right and left soleal vein and left gastroc vein, repeat on 05/11/19 showed no changed from previous study with no propagation. Spoke with Dr. Lopez's office, Dr. Lopez is aware of DVT's and no DVT prophylaxis due to risk of bleeding, continue asa. Repeat duplex to BLE on 05/15 and 06/05/19. Patient was fitted for afo for left foot drop and to wear LSO brace when OOB. Patient lives with spouse in a one level home with one step to enter. Prior to surgery, patient was independent with ADLs, mobility and driving. Plan -PT for mobility - OT for ADLs - ST for evaluation - Revision, decompression and fusion of L3-S1 with instrument- wear LSO brace OOB, polar care prn, may shower, marcial d/c 05/[address] Lopez office - PD on mirapex, sinemet - Left foot drop- afo - HTN on zestril 5 mg hold if SBP <110 - Hypothyroidism on synthroid - Hemochromatosis - Dr. Trejo manages - Microcytic Anemia Further management per hospitalist/hematology recommendations - Left and right Soleal, and left gastroc DVT- no anticoagulation- continue asa, knee high mack hose, repeat duplex on 05/12 and 05/15 showed no change. and to repeat on 06/05/19. - Hx of Stroke in 2009- on asa - Excoriation under bilateral breasts- resolved nystatin powder prn - Insomnia, restlessness, agitation- resolved on seroquel - Confusion, urinary incontinence and frequency- resolved UA completed - urine CX presumptive ecoli >100,000: Acute cystitis cipro 500 mg bid x 5 days (last dose 05/18/19). - Muscle spasms on zanaflex prn - GI/DVT prophylaxis on pepcid/ loevnox, asa, knee high mack hose - Further medical management per hospitalist- consult - Analgesics as needed - Bowel protocol - Fall precautions - F/U with Dr. Dominik Lopez, Vascular surgeon (Dr. Benson), Neurology (Dr. Walls), Dr. Trejo, and PCP
[2019-05-22 13:25] VITALS: BMI 28.5
[2019-05-22 18:55] VITALS: PULSE 73; RESP 18; TEMP 36.8; O2SAT 96
[2019-05-22] MEDS: Pramipexole Di-HCl 1 MG Tablet 2 MG PO (20:01)
[2019-05-22] MEDS: QUEtiapine 25 MG Tablet 12.5 MG PO (20:02)
[2019-05-22 20:11] VITALS: BP 118/71
[2019-05-22 22:17] VITALS: BMI 28.5
[2019-05-23] MEDS: Enoxaparin 40 MG/0.4 ML Syringe SC (06:13)
[2019-05-23] MEDS: Acetaminophen 500 MG Tablet 1000 MG PO ×3 (06:33→20:25)
[2019-05-23] MEDS: Pramipexole Di-HCl 1 MG Tablet PO ×2 (06:33→13:29)
[2019-05-23] MEDS: Levothyroxine 25 MCG TABLET PO (06:33)
[2019-05-23] MEDS: Carbidopa/Levodopa 25/100 Tablet PO ×3 (06:34→16:22)
[2019-05-23 07:13] VITALS: BP 147/88; PULSE 90; RESP 18; TEMP 36.6; O2SAT 98
[2019-05-23] MEDS: Lisinopril 5 MG Tablet PO (07:55)
[2019-05-23] MEDS: Folic Acid 1 MG Tablet PO (07:55)
[2019-05-23] MEDS: Aspirin E.C. 81 MG Tablet PO (07:55)
[2019-05-23] MEDS: Gabapentin 300 MG Capsule PO ×2 (07:55→16:22)
[2019-05-23] MEDS: Ensure Clear 120 ML Liquid PO ×2 (07:56→20:24)
[2019-05-23] MEDS: Famotidine 20 MG Tablet PO (07:56)
[2019-05-23 10:18] VITALS: BMI 28.5
--- NOTE | 2019-05-23 14:49 | PN_ITS ---
Subjective: Left foot drop. Wears left leg splint Has back lumbar spine support. Vitals/I&O's: Vital Signs Temp Pulse Resp BP Pulse Ox 98 F 90 18 147/88 H 98 05/23/19 07:13 05/23/19 07:13 05/23/19 07:13 05/23/19 07:13 05/23/19 07:13 Oxygen Delivery Method Room Air Weight: 170 lb 13.732 oz Body Mass Index (BMI) 28.5 Intake and Output for Last 24 Hours 05/21/19 05/22/19 05/23/19 23:59 23:59 23:59 Intake Total 240 / 240 840 / 840 320 / 320 Balance 240 / 240 840 / 840 320 / 320 General: Alert, Oriented x3, Cooperative HEENT: Atraumatic, PERRLA, EOMI, Normocephalic Neck: Supple, No JVD, Negative Carotid Bruits Lungs: Clear to auscultation, Normal air movement, No rhonchi, No wheeze, No rales Cardiovascular: Regular rate, Regular Rhythm, Normal S1, Normal S2, No murmurs Abdomen: Bowel Sounds Present, Soft, Non Tender, Non-Distended Extremities: No edema, Capillary Refill Less than 3 Seconds Skin: No rashes, No breakdown Musculoskeletal: No Tenderness to Palpation of Joints or Extremities, Arthritic Changes Neurological: Cranial nerves II-XII grossly intact, - - Left leg and foot weakness. Psych/Mental Status: Normal Affect, Appropriate Current Medications Acetaminophen (Tylenol) 1,000 mg PO Q8 [facility] Last Admin: 05/23/19 13:46 Dose: 1,000 mg Documented by: Aspirin (Ecotrin) 81 mg PO DAILY@0800 [facility] Last Admin: 05/23/19 07:55 Dose: 81 mg Documented by: Bisacodyl (Dulcolax) 10 mg RECTAL .PRN X 1 PRN PRN Reason: Constipation Carbidopa/Levodopa (Sinemet) 1 tablet PO TIDAC [facility] Last Admin: 05/23/19 11:57 Dose: 1 tablet Documented by: Enoxaparin Sodium (Lovenox) 40 mg SC DAILY@0600 [facility] Last Admin: 05/23/19 06:13 Dose: 40 mg Documented by: Famotidine (Pepcid) 20 mg PO DAILY [facility] Last Admin: 05/23/19 07:56 Dose: 20 mg Documented by: Folic Acid (Folic Acid) 1 mg PO DAILY [facility] Last Admin: 05/23/19 07:55 Dose: 1 mg Documented by: [facility]) [facility] Last Admin: 05/23/19 07:55 Dose: 300 mg Documented by: Levothyroxine Sodium (Synthroid) 25 mcg PO DAILY@0600 [facility] Last Admin: 05/23/19 06:33 Dose: 25 mcg Documented by: Lisinopril (Zestril) 5 mg PO DAILY [facility] Last Admin: 05/23/19 07:55 Dose: 5 mg Documented by: Magnesium Hydroxide (Milk Of Magnesia) 30 ml PO .PRN X 1 PRN PRN Reason: Constipation Nutritional Formula (Lactose Free) (Ensure Clear) 120 ml PO 4X/DAY [facility] Last Admin: 05/23/19 13:29 Dose: Not Given Documented by: Nystatin (Mycostatin Powder) 1 applic TOPICAL BID PRN; Protocol PRN Reason: excoriation Pramipexole Dihydrochloride (Mirapex) 1 mg PO BID@0600,1400 [facility] Last Admin: 05/23/19 13:29 Dose: 1 mg Documented by: Pramipexole Dihydrochloride (Mirapex) 2 mg PO QHS [facility] Last Admin: 05/22/19 20:01 Dose: 2 mg Documented by: Quetiapine Fumarate (Seroquel) 12.5 mg PO DAILY@2000 [facility] Last Admin: 05/22/19 20:02 Dose: 12.5 mg Documented by: Saliva Substitute (Biotene) 15 ml MM 5X/DAY PRN PRN Reason: DRY MOUTH Last Admin: 05/19/19 20:19 Dose: 15 ml Documented by: Senna/Docusate Sodium (Senokot-S, Reba-Colace) 2 tablet PO BID [facility] Last Admin: 05/23/19 07:56 Dose: Not Given Documented by: Tizanidine HCl (Zanaflex) 2 mg PO Q8H PRN PRN PRN Reason: SPASMS Last Admin: 05/22/19 19:59 Dose: 2 mg Documented by: Medical Necessity - Tobacco Use Smoking Status: Never smoker Tobacco Use: Non-smoker Assessment/Plan All Active Problems (Last Updated 04/20/19 @ 09:07 by Vandana Noyola PATHOLOGY SPECIALIST-C) Debility (Acute) DVT (deep venous thrombosis) (Acute) This is a 69 years old female patient admitted to the inpatient rehabilitation unit for debility and functional decline following back surgery with decompression and fusion of L3-S1 for spinal canal stenosis. #1 Lumbar spinal stenosis status post revision/decompression fusion of L3-S1 : She is on Tylenol, Neurontin for pain. pain is controlled. She has been doing okay with physical therapy. Recent blood work on 05/12 revealed anemia, otherwise unremarkable. on PT AND OT #2 E. coli acute cystitis, Resolved: COMPETED Cipro. No LUTS including dysuria. #3 hypertension: Blood pressure controlled. On lisinopril 5 mg daily. #4 hypothyroidism: Continue levothyroxine. #4 Parkinson's disease: Stable, continue Sinemet and Mirapex. #6 anemia: Probably postoperative anemia. Mild anemia. #7 recent left and right soleus/left gassiness DVT: on lovenox 40 mg SC daily #8 history of CVA: Stable, continue aspirin and statins. #9 restless leg syndrome: Continue Mirapex. #9 DVT prophylaxis: As metioned above. On [facility] ward too. Code Visit Inpatient E&M: 24121 Subs Hosp L2
[2019-05-23 18:00] VITALS: BP 88/50
--- NOTE | 2019-05-23 18:00 | NURSING ---
BP checked and low at this time but patient is asymtomatic. Fluids encouraged and taken well. Family currently visiting.
[2019-05-23 19:12] VITALS: PULSE 82; RESP 18; TEMP 36.8; O2SAT 95
[2019-05-23] MEDS: QUEtiapine 25 MG Tablet 12.5 MG PO (20:22)
[2019-05-23] MEDS: Pramipexole Di-HCl 1 MG Tablet 2 MG PO (20:25)
[2019-05-23 20:33] VITALS: BMI 28.5
[2019-05-23 21:08] VITALS: BP 123/76; PULSE 76
[2019-05-23 22:00] VITALS: PULSE 82; RESP 18; O2SAT 95
[2019-05-23] MEDS: Saliva Substitute 237 ML BOTTLE 15 ML MM (22:44)
[2019-05-24] MEDS: Levothyroxine 25 MCG TABLET PO (05:09)
[2019-05-24] MEDS: Pramipexole Di-HCl 1 MG Tablet PO ×2 (05:09→14:08)
[2019-05-24] MEDS: Acetaminophen 500 MG Tablet 1000 MG PO ×3 (05:09→20:17)
[2019-05-24] MEDS: Enoxaparin 40 MG/0.4 ML Syringe SC (05:11)
[2019-05-24 07:00] VITALS: BP 148/95; PULSE 87; RESP 17; TEMP 36.8; O2SAT 96
[2019-05-24] MEDS: Gabapentin 300 MG Capsule PO ×2 (07:46→16:47)
[2019-05-24] MEDS: Carbidopa/Levodopa 25/100 Tablet PO ×3 (07:46→16:47)
[2019-05-24] MEDS: Ensure Clear 120 ML Liquid PO ×4 (07:46→20:16)
[2019-05-24] MEDS: Folic Acid 1 MG Tablet PO (07:46)
[2019-05-24] MEDS: Aspirin E.C. 81 MG Tablet PO (07:46)
[2019-05-24] MEDS: Lisinopril 5 MG Tablet PO (07:46)
[2019-05-24] MEDS: Famotidine 20 MG Tablet PO (07:46)
--- NOTE | 2019-05-24 11:07 | NURSING ---
ambulated around halls and on nustep for 15 minutes.
[2019-05-24 17:00] VITALS: BMI 28.5
[2019-05-24 18:32] VITALS: BP 87/48
--- NOTE | 2019-05-24 18:36 | NURSING ---
BP checked and low at this time but patient is asymtomatic. Fluids encouraged and taken well. Family currently visiting.
[2019-05-24 18:58] VITALS: PULSE 90; RESP 16; TEMP 36.6; O2SAT 96
[2019-05-24 19:53] VITALS: BMI 28.5
[2019-05-24 20:11] VITALS: BP 106/58
[2019-05-24] MEDS: QUEtiapine 25 MG Tablet 12.5 MG PO (20:14)
[2019-05-24] MEDS: Pramipexole Di-HCl 1 MG Tablet 2 MG PO (20:17)
[2019-05-24] MEDS: Senna/Docusate Sodium 1 Tablet 2 TABLET PO (20:18)
[2019-05-24 20:21] VITALS: PULSE 90; RESP 16; O2SAT 96
[2019-05-25] MEDS: Enoxaparin 40 MG/0.4 ML Syringe SC (06:36)
[2019-05-25] MEDS: Carbidopa/Levodopa 25/100 Tablet PO ×3 (06:37→17:33)
[2019-05-25] MEDS: Saliva Substitute 237 ML BOTTLE 15 ML MM (06:37)
[2019-05-25] MEDS: Levothyroxine 25 MCG TABLET PO (06:37)
[2019-05-25] MEDS: Pramipexole Di-HCl 1 MG Tablet PO ×2 (06:37→13:25)
[2019-05-25] MEDS: Acetaminophen 500 MG Tablet 1000 MG PO ×3 (06:37→20:04)
[2019-05-25 07:09] VITALS: BP 114/62; PULSE 76; RESP 17; TEMP 36.7; O2SAT 98
[2019-05-25] MEDS: Ensure Clear 120 ML Liquid PO ×4 (07:38→20:04)
[2019-05-25] MEDS: Famotidine 20 MG Tablet PO (07:39)
[2019-05-25] MEDS: Senna/Docusate Sodium 1 Tablet 2 TABLET PO (07:39)
[2019-05-25] MEDS: Gabapentin 300 MG Capsule PO ×2 (07:39→17:33)
[2019-05-25] MEDS: Aspirin E.C. 81 MG Tablet PO (07:39)
[2019-05-25] MEDS: Folic Acid 1 MG Tablet PO (07:39)
--- NOTE | 2019-05-25 09:28 | VDLE_ITS ---
Reason For Study: Re-evaluate DVT RIGHT LEFT GSV is normal. GSV is normal. CFV is compressible, spontaneous, phasic, CFV is compressible, spontaneous, phasic, competent and demonstrates normal competent, and demonstrates normal augmentation. augmentation. FV is compressible, spontaneous, phasic, FV is compressible, spontaneous, phasic, competent and demonstrates normal competent and demonstrates normal augmentation. augmentation. POP V is compressible, spontaneous, phasic, POP V is compressible, spontaneous, phasic, competent and demonstrates normal competent and demonstrates normal augmentation. augmentation. T/P Trunk is compressible. T/P Trunk is compressible. PTV is compressible. PTV is compressible. RT PerV is compressible. LT PerV is compressible. Acute deep vein thrombosis is noted in the Acute deep vein thrombosis is noted in the right soleus vein. left soleus vein. Right gastroc vein is partially compressible Acute deep vein thrombosis is noted in the with minimal flow noted. right gastroc vein. Procedure Exam performed portable in patient room. A preliminary report was called and/or faxed to [facility]. Interpretation Summary Acute deep vein thrombosis is noted in the right soleus vein. Acute deep vein thrombosis is noted in the right gastrocnemius vein. The remainder of the right lower extremity deep venous system is patent and compressible. Acute deep vein thrombosis is noted in the left soleus vein. Acute deep vein thrombosis is noted in the left gastrocnemius vein. The remainder of the left lower extremity deep venous system is patent and compressible. Valvular competence appears intact within the proximal deep venous systems bilaterally. The great saphenous veins appear bilaterally patent and compressible segmentally. There has been no significant improvement since a prior study on 05/15/2019. Ordering Physician: Vandana Noyola Referring Physician: Román Rosado Performed By: Marycruz Garcia RVT
--- NOTE | 2019-05-25 09:29 | PCM.PN.NEU ---
Subjective: Per nursing, no issues overnight. Will repeat Duplex to BLE for re-evaluations of DVTs. Nursing to call Dr. Lopez to see if Lovenox can be changed to therapeutic from prophylaxis. Patient continues to tolerate therapies, pain is controlled. - Physical Exam Vitals/I&O's: Vital Signs Temp Pulse Resp BP Pulse Ox 98.0 F 76 17 114/62 98 05/25/19 07:09 05/25/19 07:09 05/25/19 07:09 05/25/19 07:09 05/25/19 07:09 Oxygen Delivery Method Room Air Weight: 77.5 kg Body Mass Index (BMI) 28.5 Intake and Output for Last 24 Hours 05/23/19 05/24/19 05/25/19 23:59 23:59 23:59 Intake Total 500 / 500 440 / 440 Balance 500 / 500 440 / 440 General: Alert, Oriented x3, Cooperative HEENT: Atraumatic, PERRLA, EOMI Oral: Moist Mucosa Neck: Supple, No JVD Lungs: Clear to auscultation, Normal air movement Cardiovascular: Regular rate, Regular Rhythm Abdomen: Bowel Sounds Present, Soft, Non Tender Extremities: No clubbing, No cyanosis, No edema Skin: Incision - lumbar area without redness or drng-healing Neurological: Cranial nerves II-XII grossly intact, Deep Tendon Reflexes 2+/4 and Symmetrical, Motor Exam 5/5 strength throughout - mild left foot drop Psych/Mental Status: Normal Affect, Appropriate, Alert and oriented to time, place, person, mood and affect Current Medications Acetaminophen (Tylenol) 1,000 mg PO Q8 [facility] Last Admin: 05/25/19 06:37 Dose: 1,000 mg Documented by: Aspirin (Ecotrin) 81 mg PO DAILY@0800 [facility] Last Admin: 05/25/19 07:39 Dose: 81 mg Documented by: Bisacodyl (Dulcolax) 10 mg RECTAL .PRN X 1 PRN PRN Reason: Constipation Carbidopa/Levodopa (Sinemet) 1 tablet PO TIDAC [facility] Last Admin: 05/25/19 06:37 Dose: 1 tablet Documented by: Enoxaparin Sodium (Lovenox) 40 mg SC DAILY@0600 [facility] Last Admin: 05/25/19 06:36 Dose: 40 mg Documented by: Famotidine (Pepcid) 20 mg PO DAILY [facility] Last Admin: 05/25/19 07:39 Dose: 20 mg Documented by: Folic Acid (Folic Acid) 1 mg PO DAILY [facility] Last Admin: 05/25/19 07:39 Dose: 1 mg Documented by: [facility]) [facility] Last Admin: 05/25/19 07:39 Dose: 300 mg Documented by: Levothyroxine Sodium (Synthroid) 25 mcg PO DAILY@0600 [facility] Last Admin: 05/25/19 06:37 Dose: 25 mcg Documented by: Lisinopril (Zestril) 5 mg PO DAILY [facility] Last Admin: 05/24/19 07:46 Dose: 5 mg Documented by: Magnesium Hydroxide (Milk Of Magnesia) 30 ml PO .PRN X 1 PRN PRN Reason: Constipation Nutritional Formula (Lactose Free) (Ensure Clear) 120 ml PO 4X/DAY [facility] Last Admin: 05/25/19 07:38 Dose: 120 ml Documented by: Nystatin (Mycostatin Powder) 1 applic TOPICAL BID PRN; Protocol PRN Reason: excoriation Pramipexole Dihydrochloride (Mirapex) 1 mg PO BID@0600,1400 [facility] Last Admin: 05/25/19 06:37 Dose: 1 mg Documented by: Pramipexole Dihydrochloride (Mirapex) 2 mg PO QHS [facility] Last Admin: 05/24/19 20:17 Dose: 2 mg Documented by: Quetiapine Fumarate (Seroquel) 12.5 mg PO DAILY@2000 [facility] Last Admin: 05/24/19 20:14 Dose: 12.5 mg Documented by: Saliva Substitute (Biotene) 15 ml MM 5X/DAY PRN PRN Reason: DRY MOUTH Last Admin: 05/25/19 06:37 Dose: 15 ml Documented by: Senna/Docusate Sodium (Senokot-S, Reba-Colace) 2 tablet PO BID [facility] Last Admin: 05/25/19 07:39 Dose: 2 tablet Documented by: Tizanidine HCl (Zanaflex) 2 mg PO Q8H PRN PRN PRN Reason: SPASMS Last Admin: 05/22/19 19:59 Dose: 2 mg Documented by: STROKE Vital Signs/Narrative: Vital Signs Temp Pulse Resp BP Pulse Ox 05/25/19 07:09 98.0 F 76 17 114/62 98 Medical Necessity - Tobacco Use Smoking Status: Never smoker Tobacco Use: Non-smoker Assessment/Plan All Active Problems (Last Updated 04/20/19 @ 09:07 by Vandana Noyola, SAFETY ENGINEER [employer]URE [employer]ESSELS-C) Debility (Acute) DVT (deep venous thrombosis) (Acute) The patient is a 69 year old Female with PMH HTN, history of stroke in 2010, PD, hypothyroidism admitted to [facility] on 05/11/2019 with debility secondary for revision, decompression and fusion of L3-S1, for greater than 3 hours of therapy daily with a goal of returning home at or near her prior level of functional independence. On 04/01/19 Dr. Dominik Lopez at [facility] performed an L4-L5 decompression fusion due to spinal stenosis, the hospital course was later complicated by spinal hematoma, evacuation done on 04/14/19, On 04/17/2019, DVT of left soleal vein was noted on duplex, vascular surgeon Dr. Maya was consulted and recommended no anticoagulation treatment for left soleal vein DVT given the location of the DVT (below knee) in setting of recent spine hematoma and he recommended to monitor with LE Doppler. 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 On 05/06/19, Dr Lopez performed exploratory L4-5, removal on instrument/cage excision, revision, decompression, fusion of L3-S1 and instrument. On 05/06/19 H/H 25.1/7.6, received 2 units of PRBC, recheck on 05/11/19 Hgb 8.8. 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 2 drains removed from lumbar incision on 05/11/19. BLE duplex on 05/06/19 showed left soleal DVT, repeat on 05/08/19 showed DVT to right and left soleal vein and left gastroc vein, repeat on 05/11/19 showed no changed from previous study with no propagation. Spoke with Dr. Lopez's office, Dr. Lopez is aware of DVT's and no DVT prophylaxis due to risk of bleeding, continue asa. Repeat duplex to BLE on 05/15 and 06/05/19. Patient was fitted for afo for left foot drop and to wear LSO brace when OOB. Patient lives with spouse in a one level home with one step to enter. Prior to surgery, patient was independent with ADLs, mobility and driving. Plan -PT for mobility - OT for ADLs - ST for evaluation - Revision, decompression and fusion of L3-S1 with instrument- wear LSO brace OOB, polar care prn, tejinder burton d/c 05/[address] Lopez office - PD on mirapex, sinemet - Left foot drop- afo - HTN on zestril 5 mg hold if SBP <110 - Hypothyroidism on synthroid - Hemochromatosis - Dr. Trejo manages - Microcytic Anemia Further management per hospitalist/hematology recommendations - Left and right Soleal, and left gastroc DVT- lovenox, continue asa, knee high mack hose, repeat duplex on 05/12 and 05/15 showed no change. and to repeat on, 05/25/19, 06/05/19. Nursing to contact Dr. Lopez to assess possible change to therapeutic lovenox. - Hx of Stroke in 2009- on asa - Excoriation under bilateral breasts- resolved nystatin powder prn - Insomnia, restlessness, agitation- resolved on seroquel - Confusion, urinary incontinence and frequency- resolved UA completed - urine CX presumptive ecoli >100,000: Acute cystitis cipro 500 mg bid x 5 days (last dose 05/18/19). - Muscle spasms on zanaflex prn - GI/DVT prophylaxis on pepcid/ lovenox, asa, knee high mack hose - Further medical management per hospitalist- consult - Analgesics as needed - Bowel protocol - Fall precautions - F/U with Dr. Dominik Lopez, Vascular surgeon (Dr. Benson), Neurology (Dr. Walls), Dr. Trejo, and PCP
[2019-05-25] MEDS: Lisinopril 5 MG Tablet PO (10:16)
--- NOTE | 2019-05-25 11:56 | NURSING ---
Message left for Dr Gordon schuster's office to see if Lovenox can be changed to therapeutic dose. Also update on new clot in Rt Gastroc vein.
--- NOTE | 2019-05-25 11:58 | NURSING ---
Vandana JONES made aware of Doppler results.
[2019-05-25 12:57] VITALS: BMI 28.5
--- NOTE | 2019-05-25 16:06 | NURSING ---
Spoke with Mariano from Dr Gordon chowdhury office. OK to start pt on therapeutic dose of Lovenox. Vandana JONES aware. Lovenox changed to 80mg BID and Vascular consulted
--- NOTE | 2019-05-25 16:46 | NURSING ---
Pt had venous Doppler complected on BLE showed new DVT in Rt gastroc vein. Vandana JONES made aware new order for Lovenox 80mg BID and vascular to be consulted. Dr Gordon chowdhury office undated and OK'd to start pt on therapeutic dosing of Lovenox.
[2019-05-25] MEDS: Enoxaparin 80 MG/0.8 ML Syringe SC (17:33)
[2019-05-25 18:40] VITALS: BP 116/66; PULSE 71; RESP 16; TEMP 36.9; O2SAT 98
[2019-05-25 19:55] VITALS: PULSE 71; RESP 16; O2SAT 98; BMI 28.5
[2019-05-25] MEDS: QUEtiapine 25 MG Tablet 12.5 MG PO (20:03)
[2019-05-25] MEDS: Pramipexole Di-HCl 1 MG Tablet 2 MG PO (20:04)
[2019-05-26] MEDS: Enoxaparin 80 MG/0.8 ML Syringe SC ×2 (05:03→17:07)
[2019-05-26] MEDS: Acetaminophen 500 MG Tablet 1000 MG PO ×3 (05:03→20:25)
[2019-05-26] MEDS: Pramipexole Di-HCl 1 MG Tablet PO ×2 (05:03→13:40)
[2019-05-26] MEDS: Levothyroxine 25 MCG TABLET PO (05:03)
[2019-05-26 07:03] VITALS: BP 121/70; PULSE 84; RESP 16; TEMP 36.7; O2SAT 95
[2019-05-26] MEDS: Senna/Docusate Sodium 1 Tablet 2 TABLET PO (07:49)
[2019-05-26] MEDS: Gabapentin 300 MG Capsule PO ×2 (07:50→17:07)
[2019-05-26] MEDS: Carbidopa/Levodopa 25/100 Tablet PO ×3 (07:50→17:07)
[2019-05-26] MEDS: Famotidine 20 MG Tablet PO (07:50)
[2019-05-26] MEDS: Aspirin E.C. 81 MG Tablet PO (07:50)
[2019-05-26] MEDS: Folic Acid 1 MG Tablet PO (07:50)
[2019-05-26] MEDS: Ensure Clear 120 ML Liquid PO ×4 (07:50→20:26)
[2019-05-26] MEDS: Lisinopril 5 MG Tablet PO (07:50)
--- NOTE | 2019-05-26 09:15 | PN.NEURO_ITS ---
Subjective: Duplex to BLE completed, showed new DVT to right gastroc. Dr. Lopez's office notified yesterday and approval to start therapeutic dosage of Lovenox. Vascular consult. Patient continues to tolerate therapies well and pain is controlled. - Physical Exam Vitals/I&O's: Vital Signs Temp Pulse Resp BP Pulse Ox 98.0 F 84 16 121/70 H 95 05/26/19 07:03 05/26/19 07:03 05/26/19 07:03 05/26/19 07:03 05/26/19 07:03 Oxygen Delivery Method Room Air Weight: 77.5 kg Body Mass Index (BMI) 28.5 Intake and Output for Last 24 Hours 05/24/19 05/25/19 05/26/19 23:59 23:59 23:59 Intake Total 440 / 440 240 / 240 Balance 440 / 440 240 / 240 General: Alert, Oriented x3, Cooperative HEENT: Atraumatic, PERRLA, EOMI Oral: Moist Mucosa Neck: Supple, No JVD Lungs: Clear to auscultation, Normal air movement Cardiovascular: Regular rate, Regular Rhythm Abdomen: Bowel Sounds Present, Soft, Non Tender Extremities: No clubbing, No cyanosis, No edema Skin: Incision - lumbar area without redness or drng- healing Neurological: Cranial nerves II-XII grossly intact, Deep Tendon Reflexes 2+/4 and Symmetrical, Motor Exam 5/5 strength throughout, Sensory exam intact to light touch and pain - mild left foot drop Psych/Mental Status: Normal Affect, Appropriate, Alert and oriented to time, place, person, mood and affect Current Medications Acetaminophen (Tylenol) 1,000 mg PO Q8 [facility] Last Admin: 05/26/19 05:03 Dose: 1,000 mg Documented by: Aspirin (Ecotrin) 81 mg PO DAILY@0800 [facility] Last Admin: 05/26/19 07:50 Dose: 81 mg Documented by: Bisacodyl (Dulcolax) 10 mg RECTAL .PRN X 1 PRN PRN Reason: Constipation Carbidopa/Levodopa (Sinemet) 1 tablet PO TIDAC [facility] Last Admin: 05/26/19 07:50 Dose: 1 tablet Documented by: Enoxaparin Sodium (Lovenox) 80 mg SC Q12@0600,1800 [facility] Last Admin: 05/26/19 05:03 Dose: 80 mg Documented by: Famotidine (Pepcid) 20 mg PO DAILY [facility] Last Admin: 05/26/19 07:50 Dose: 20 mg Documented by: Folic Acid (Folic Acid) 1 mg PO DAILY [facility] Last Admin: 05/26/19 07:50 Dose: 1 mg Documented by: Gabapentin (Neurontin) 300 mg PO BIDCM [facility] Last Admin: 05/26/19 07:50 Dose: 300 mg Documented by: Levothyroxine Sodium (Synthroid) 25 mcg PO DAILY@0600 [facility] Last Admin: 05/26/19 05:03 Dose: 25 mcg Documented by: Lisinopril (Zestril) 5 mg PO DAILY [facility] Last Admin: 05/26/19 07:50 Dose: 5 mg Documented by: Magnesium Hydroxide (Milk Of Magnesia) 30 ml PO .PRN X 1 PRN PRN Reason: Constipation Nutritional Formula (Lactose Free) (Ensure Clear) 120 ml PO 4X/DAY [facility] Last Admin: 05/26/19 07:50 Dose: 120 ml Documented by: Nystatin (Mycostatin Powder) 1 applic TOPICAL BID PRN; Protocol PRN Reason: excoriation Pramipexole Dihydrochloride (Mirapex) 1 mg PO BID@0600,1400 [facility] Last Admin: 05/26/19 05:03 Dose: 1 mg Documented by: Pramipexole Dihydrochloride (Mirapex) 2 mg PO QHS [facility] Last Admin: 05/25/19 20:04 Dose: 2 mg Documented by: Quetiapine Fumarate (Seroquel) 12.5 mg PO DAILY@2000 [facility] Last Admin: 05/25/19 20:03 Dose: 12.5 mg Documented by: Saliva Substitute (Biotene) 15 ml MM 5X/DAY PRN PRN Reason: DRY MOUTH Last Admin: 05/25/19 06:37 Dose: 15 ml Documented by: Senna/Docusate Sodium (Senokot-S, Reba-Colace) 2 tablet PO BID [facility] Last Admin: 05/26/19 07:49 Dose: 2 tablet Documented by: Tizanidine HCl (Zanaflex) 2 mg PO Q8H PRN PRN PRN Reason: SPASMS Last Admin: 05/22/19 19:59 Dose: 2 mg Documented by: STROKE Vital Signs/Narrative: Vital Signs Temp Pulse Resp BP Pulse Ox 05/26/19 07:03 98.0 F 84 16 121/70 H 95 Medical Necessity - Tobacco Use Smoking Status: Never smoker Tobacco Use: Non-smoker Assessment/Plan All Active Problems (Last Updated 04/20/19 @ 09:07 by Vandana Noyola, FLAVOR MAKER-C) Debility (Acute) DVT (deep venous thrombosis) (Acute) The patient is a 69 year old Female with PMH HTN, history of stroke in 2010, PD, hypothyroidism admitted to [facility] on 05/11/2019 with debility secondary for revision, decompression and fusion of L3-S1, for greater than 3 hours of therapy daily with a goal of returning home at or near her prior level of functional independence. On 04/01/[address] Dr[address] Dominik Lopez at [facility] performed an L4-L5 decompression fusion due to spinal stenosis, the hospital course was later comp licated by spinal hematoma, evacuation done on 04/14/19, On 04/17/2019, DVT of left soleal vein was noted on duplex, vascular surgeon Dr. Maya was consulted and recommended no anticoagulation treatment for left soleal vein DVT given the location of the DVT (below knee) in setting of recent spine hematoma and he recommended to monitor with LE Doppler. 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 On 05/06/19, Dr Lopez performed exploratory L4-5, removal on instrument/cage excision, revision, decompression, fusion of L3-S1 and instrument. On 05/06/19 H/H 25.1/7.6, received 2 units of PRBC, recheck on 05/11/19 Hgb 8.8. Patient has hemochromatosis and curatorial assistant/oncologist Dr. 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 2 drains removed from lumbar incision on 05/11/19. BLE duplex on 05/06/19 showed left soleal DVT, repeat on 05/08/19 showed DVT to right and left soleal vein and left gastroc vein, repeat on 05/11/19 showed no changed from previous study with no propagation. Spoke with Dr. Lopez's office, Dr. Lopez is aware of DVT's and no DVT prophylaxis due to risk of bleeding, continue asa. Repeat duplex to BLE on 05/15 and 06/05/19. Patient was fitted for afo for left foot drop and to wear LSO brace when OOB. Patient lives with spouse in a one level home with one step to enter. Prior to surgery, patient was independent with ADLs, mobility and driving. Plan -PT for mobility - OT for ADLs - ST for evaluation - Revision, decompression and fusion of L3-S1 with instrument- wear LSO brace OOB, polar care prn, may tejinder zambrano d/c 05/[address] Lopez office - PD on mirapex, sinemet - Left foot drop- afo - HTN on zestril 5 mg hold if SBP <110 - Hypothyroidism on synthroid - Hemochromatosis - Dr. Trejo manages - Microcytic Anemia Further management per hospitalist/hematology recommendations - Left and right Soleal, and left and right gastroc DVT- Lovenox, continue asa, knee high mack hose, repeat duplex on 05/12 and 05/15 showed no change. and to repeat on, 05/25/19 showed new DVT to right gastroc- ok per Dr. Lopez to change to therapeutic dosage of Lovenox- vascular consult. 06/05/19. - Hx of Stroke in 2009- on asa - Excoriation under bilateral breasts- resolved nystatin powder prn - Insomnia, restlessness, agitation- resolved on seroquel - Confusion, urinary incontinence and frequency- resolved UA completed - urine CX presumptive ecoli >100,000: Acute cystitis cipro 500 mg bid x 5 days (last dose 05/18/19). - Muscle spasms on zanaflex prn - GI/DVT prophylaxis on pepcid/ lovenox, asa, knee high mack hose - Further medical management per hospitalist- consult - Analgesics as needed - Bowel protocol - Fall precautions - F/U with Dr. Dominik Lopez, Vascular surgeon (Dr. Benson), Neurology (Dr. Walls), Dr. Trejo, and PCP
--- NOTE | 2019-05-26 10:56 | NURSING ---
Consult in for Vandana Leonard VISUAL AND STOCK ASSOCIATE spoke with Tiana at office, pt information faxed
[2019-05-26 11:48] VITALS: BMI 28.5
--- NOTE | 2019-05-26 12:19 | CASEMGMT ---
Social Work Spoke with patient and about requesting to DC home. Both agreeable to DC 05/30. Referral made to [facility] for BSC. to purchase shower chair. Explained outpatient and HHC - both would like to start with [facility]. Provided list of HHC - pt chose [facility]. Referral made to [facility] PT/OT/SN. Notified IDT. Plan: DC home 05/30 with [facility] HHC PT/OT/SN and C NATY Neumann
--- NOTE | 2019-05-26 13:08 | PCM.PROGNOTE ---
Subjective: Chief complaint: Follow-up after consultation for medical management following admission to inpatient rehabitation unit. Patient seen and examined. No acute events overnight. Back pain is manageable and she is doing well with physical therapy. She denies urinary symptoms. She denies fever chills. Her vital signs are stable. - Physical Exam Vitals/I&O's: Vital Signs Temp Pulse Resp BP Pulse Ox 98.0 F 84 16 121/70 H 95 05/26/19 07:03 05/26/19 07:03 05/26/19 07:03 05/26/19 07:03 05/26/19 07:03 Oxygen Delivery Method Room Air Weight: 170 lb 13.732 oz Body Mass Index (BMI) 28.5 Intake and Output for Last 24 Hours 05/24/19 05/25/19 05/26/19 23:59 23:59 23:59 Intake Total 440 / 440 240 / 240 Balance 440 / 440 240 / 240 General: Alert, Oriented x3, Cooperative, No apparent distress HEENT: Atraumatic, PERRLA, EOMI, Normocephalic Oral: Moist Mucosa, No Gingival or Mucosal Lesions/ Ulcerations Neck: Supple, No JVD, Negative Carotid Bruits, Trachea Midline, Thyroid Normal Size and Texture Lungs: Clear to auscultation, Normal air movement, No rhonchi, No wheeze, No rales Cardiovascular: Regular rate, Regular Rhythm, Normal S1, Normal S2, No murmurs Abdomen: Bowel Sounds Present, Soft, Non Tender, Non-Distended, No Hepato-splenomegaly Extremities: No clubbing, No cyanosis, No edema Skin: No rashes, No breakdown Lymphatic: No Cervical, Supraclavicular, or Inguinal Adenopathy Neurological: Cranial nerves II-XII grossly intact, Neuro grossly intact Psych/Mental Status: Normal Affect, Appropriate Current Medications Acetaminophen (Tylenol) 1,000 mg PO Q8 [facility] Last Admin: 05/26/19 05:03 Dose: 1,000 mg Documented by: Aspirin (Ecotrin) 81 mg PO DAILY@0800 [facility] Last Admin: 05/26/19 07:50 Dose: 81 mg Documented by: Bisacodyl (Dulcolax) 10 mg RECTAL .PRN X 1 PRN PRN Reason: Constipation Carbidopa/Levodopa (Sinemet) 1 tablet PO TIDAC [facility] Last Admin: 05/26/19 11:27 Dose: 1 tablet Documented by: Enoxaparin Sodium (Lovenox) 80 mg SC Q12@0600,1800 [facility] Last Admin: 05/26/19 05:03 Dose: 80 mg Documented by: Famotidine (Pepcid) 20 mg PO DAILY [facility] Last Admin: 05/26/19 07:50 Dose: 20 mg Documented by: Folic Acid (Folic Acid) 1 mg PO DAILY [facility] Last Admin: 05/26/19 07:50 Dose: 1 mg Documented by: [facility]) [facility] Last Admin: 05/26/19 07:50 Dose: 300 mg Documented by: Levothyroxine Sodium (Synthroid) 25 mcg PO DAILY@0600 [facility] Last Admin: 05/26/19 05:03 Dose: 25 mcg Documented by: Lisinopril (Zestril) 5 mg PO DAILY [facility] Last Admin: 05/26/19 07:50 Dose: 5 mg Documented by: Magnesium Hydroxide (Milk Of Magnesia) 30 ml PO .PRN X 1 PRN PRN Reason: Constipation Nutritional Formula (Lactose Free) (Ensure Clear) 120 ml PO 4X/DAY [facility] Last Admin: 05/26/19 07:50 Dose: 120 ml Documented by: Nystatin (Mycostatin Powder) 1 applic TOPICAL BID PRN; Protocol PRN Reason: excoriation Pramipexole Dihydrochloride (Mirapex) 1 mg PO BID@0600,1400 [facility] Last Admin: 05/26/19 05:03 Dose: 1 mg Documented by: Pramipexole Dihydrochloride (Mirapex) 2 mg PO QHS [facility] Last Admin: 05/25/19 20:04 Dose: 2 mg Documented by: Quetiapine Fumarate (Seroquel) 12.5 mg PO DAILY@2000 [facility] Last Admin: 05/25/19 20:03 Dose: 12.5 mg Documented by: Saliva Substitute (Biotene) 15 ml MM 5X/DAY PRN PRN Reason: DRY MOUTH Last Admin: 05/25/19 06:37 Dose: 15 ml Documented by: Senna/Docusate Sodium (Senokot-S, Reba-Colace) 2 tablet PO BID [facility] Last Admin: 05/26/19 07:49 Dose: 2 tablet Documented by: Tizanidine HCl (Zanaflex) 2 mg PO Q8H PRN PRN PRN Reason: SPASMS Last Admin: 05/22/19 19:59 Dose: 2 mg Documented by: Medical Necessity - Tobacco Use Smoking Status: Never smoker Tobacco Use: Non-smoker Assessment/Plan All Active Problems (Last Updated 04/20/19 @ 09:07 by Vandana Noyola, CATALOGUE AND SPECIAL PRODUCTS MANAGER-C) Debility (Acute) DVT (deep venous thrombosis) (Acute) This is a 69 years old female patient admitted to the inpatient rehabilitation unit for debility and functional decline following back surgery with decompression and fusion of L3-S1 for spinal canal stenosis. #1 status post revision/decompression fusion of L3-S1 for spinal canal stenosis: She is on Tylenol, Neurontin for pain. Pain has been manageable, doing well with physical therapy. Plan to continue PT OT according to rehab team. #2 acute bilateral DVTs: Repeat venous Doppler that was done yesterday revealed new DVT of the right gastrocnemius. Her neurosurgeon was contacted and he agreed to start patient on therapeutic Lovenox. Patient is on Lovenox twice daily. I would recommend stopping aspirin at this time. #3 E. coli acute cystitis: Completed course of oral ciprofloxacin. Denies any urinary symptoms. #4 hypertension: Blood pressure stable, continue lisinopril. #5 hypothyroidism: Stable, continue levothyroxine. #6 Parkinson's disease: Stable, continue Sinemet and Mirapex. #7 anemia: Probably postoperative anemia. Most recent hemoglobin is 9 g/dL. Unknown baseline hemoglobin. No indication for transfusion and no active bleeding. #8 history of CVA: Stable, continue aspirin and statins. #9 restless leg syndrome: Continue Mirapex. #10 DVT prophylaxis: On therapeutic Lovenox twice daily. This note was generated with [employer] dictation software. It may contain incorrect words, spelling, and punctuation that were not noted in checking the note before signing. Code Visit Inpatient E&M: 70027 Subs Hosp L2
[2019-05-26 18:51] VITALS: BP 112/60; PULSE 86; RESP 18; TEMP 36.7; O2SAT 94
[2019-05-26] MEDS: Pramipexole Di-HCl 1 MG Tablet 2 MG PO (20:26)
[2019-05-26] MEDS: QUEtiapine 25 MG Tablet 12.5 MG PO (20:26)
--- NOTE | 2019-05-26 20:40 | NURSING ---
Pt refused soft AFO while in bed. Pt c/o left foot pain on top of foot and the brace is too aggravating. Pt states she kicks it off during the night anyway.
[2019-05-26 20:44] VITALS: BMI 28.5
[2019-05-26 20:45] VITALS: PULSE 86; RESP 16; O2SAT 96
[2019-05-27] MEDS: Levothyroxine 25 MCG TABLET PO (06:17)
[2019-05-27] MEDS: Acetaminophen 500 MG Tablet 1000 MG PO ×3 (06:17→19:50)
[2019-05-27] MEDS: Pramipexole Di-HCl 1 MG Tablet PO ×2 (06:17→12:52)
[2019-05-27] MEDS: Enoxaparin 80 MG/0.8 ML Syringe SC ×2 (06:17→16:59)
[2019-05-27] MEDS: Carbidopa/Levodopa 25/100 Tablet PO ×3 (06:25→17:00)
[2019-05-27 07:00] VITALS: BP 110/55; PULSE 78; RESP 17; TEMP 36.7; O2SAT 98
[2019-05-27] MEDS: Aspirin E.C. 81 MG Tablet PO (07:42)
[2019-05-27] MEDS: Lisinopril 5 MG Tablet PO (07:42)
[2019-05-27] MEDS: Folic Acid 1 MG Tablet PO (07:42)
[2019-05-27] MEDS: Gabapentin 300 MG Capsule PO ×2 (07:42→17:00)
[2019-05-27] MEDS: Famotidine 20 MG Tablet PO (07:42)
[2019-05-27] MEDS: Ensure Clear 120 ML Liquid PO ×3 (07:43→19:49)
--- NOTE | 2019-05-27 11:09 | PN.NEURO_ITS ---
Subjective: Per nursing, no issues overnight. Patient requesting to be discharged home on 05/30/19, SW aware. Dr. Camacho vascular was consulted for BLE DVts. Continue therapeutic lovenox then at discharge only asa 81 mg daily, repeat duplex 2 weeks then 1 month, compression stockings. O.K to f/u with PCP, but if extension of DVT then follow up with vascular. Nursing calling PCP to update. Patient continues to tolerate therapies well and pain is controlled. - Physical Exam Vitals/I&O's: Vital Signs Temp Pulse Resp BP Pulse Ox 98.0 F 78 17 110/55 L 98 05/27/19 07:00 05/27/19 07:00 05/27/19 07:00 05/27/19 07:00 05/27/19 07:00 Oxygen Delivery Method Room Air Weight: 74.8 kg Body Mass Index (BMI) 28.5 Intake and Output for Last 24 Hours 05/25/19 05/26/19 05/27/19 23:59 23:59 23:59 Intake Total 240 / 240 220 / 220 160 / 160 Balance 240 / 240 220 / 220 160 / 160 General: Alert, Oriented x3, Cooperative HEENT: Atraumatic, PERRLA, EOMI Oral: Moist Mucosa Neck: Supple, No JVD Lungs: Clear to auscultation, Normal air movement Cardiovascular: Regular rate, Regular Rhythm Abdomen: Bowel Sounds Present, Soft, Non Tender Extremities: No clubbing, No cyanosis, No edema Skin: Incision - lumbar area healing without redness or drng Neurological: Cranial nerves II-XII grossly intact, Deep Tendon Reflexes 2+/4 and Symmetrical, Motor Exam 5/5 strength throughout - mild left foot drop Psych/Mental Status: Normal Affect, Appropriate, Alert and oriented to time, place, person, mood and affect Current Medications Acetaminophen (Tylenol) 1,000 mg PO Q8 [facility] Last Admin: 05/27/19 06:17 Dose: 1,000 mg Documented by: Aspirin (Ecotrin) 81 mg PO DAILY@0800 [facility] Last Admin: 05/27/19 07:42 Dose: 81 mg Documented by: Bisacodyl (Dulcolax) 10 mg RECTAL .PRN X 1 PRN PRN Reason: Constipation Carbidopa/Levodopa (Sinemet) 1 tablet PO TIDAC [facility] Last Admin: 05/27/19 06:25 Dose: 1 tablet Documented by: Enoxaparin Sodium (Lovenox) 80 mg SC Q12@0600,1800 [facility] Last Admin: 05/27/19 06:17 Dose: 80 mg Documented by: Famotidine (Pepcid) 20 mg PO DAILY [facility] Last Admin: 05/27/19 07:42 Dose: 20 mg Documented by: Folic Acid (Folic Acid) 1 mg PO DAILY [facility] Last Admin: 05/27/19 07:42 Dose: 1 mg Documented by: [facility]) [facility] Last Admin: 05/27/19 07:42 Dose: 300 mg Documented by: Levothyroxine Sodium (Synthroid) 25 mcg PO DAILY@0600 [facility] Last Admin: 05/27/19 06:17 Dose: 25 mcg Documented by: Lisinopril (Zestril) 5 mg PO DAILY [facility] Last Admin: 05/27/19 07:42 Dose: 5 mg Documented by: Magnesium Hydroxide (Milk Of Magnesia) 30 ml PO .PRN X 1 PRN PRN Reason: Constipation Nutritional Formula (Lactose Free) (Ensure Clear) 120 ml PO 4X/DAY [facility] Last Admin: 05/27/19 07:43 Dose: 120 ml Documented by: Nystatin (Mycostatin Powder) 1 applic TOPICAL BID PRN; Protocol PRN Reason: excoriation Pramipexole Dihydrochloride (Mirapex) 1 mg PO BID@0600,1400 [facility] Last Admin: 05/27/19 06:17 Dose: 1 mg Documented by: Pramipexole Dihydrochloride (Mirapex) 2 mg PO QHS [facility] Last Admin: 05/26/19 20:26 Dose: 2 mg Documented by: Quetiapine Fumarate (Seroquel) 12.5 mg PO DAILY@2000 [facility] Last Admin: 05/26/19 20:26 Dose: 12.5 mg Documented by: Saliva Substitute (Biotene) 15 ml MM 5X/DAY PRN PRN Reason: DRY MOUTH Last Admin: 05/25/19 06:37 Dose: 15 ml Documented by: Senna/Docusate Sodium (Senokot-S, Reba-Colace) 2 tablet PO BID [facility] Last Admin: 05/27/19 07:45 Dose: Not Given Documented by: Tizanidine HCl (Zanaflex) 2 mg PO Q8H PRN PRN PRN Reason: SPASMS Last Admin: 05/22/19 19:59 Dose: 2 mg Documented by: Medical Necessity - Tobacco Use Smoking Status: Never smoker Tobacco Use: Non-smoker Assessment/Plan All Active Problems (Last Updated 04/20/19 @ 09:07 by Vandana Noyola, SCALLOP SHUCKER-C) Debility (Acute) DVT (deep venous thrombosis) (Acute) The patient is a 69 year old Female with PMH HTN, history of stroke in 2009, PD, hypothyroidism admitted to [facility] on 05/11/2019 with debility secondary for revision, decompression and fusion of L3-S1, for greater than 3 hours of therapy daily with a goal of returning home at or near her prior level of functional independence. On 04/01/19 Dr. Dominik Lopez at [facility] performed an L4-L5 decompression fusion due to spinal stenosis, the hospital course was later complicated by spinal hematoma, evacuation done on 04/14/19, On 04/17/2019, DVT of left soleal vein was noted on duplex, vascular surgeon Dr. Maya was consulted and recommended no anticoagulation treatment for left soleal vein DVT given the location of the DVT (below knee) in setting of recent spine hematoma and he recommended to monitor with LE Doppler. 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 On 05/06/19, Dr Lopez performed exploratory L4-5, removal on instrument/cage excision, revision, decompression, fusion of L3-S1 and instrument. On 05/06/19 H/H 25.1/7.6, received 2 units of PRBC, recheck on 05/11/19 Hgb 8.8. 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 2 drains removed from lumbar incision on 05/11/19. BLE duplex on 05/06/19 showed left soleal DVT, repeat on 05/08/19 showed DVT to right and left soleal vein and left gastroc vein, repeat on 05/11/19 showed no changed from previous study with no propagation. Spoke with Dr. Lopez's office, Dr. Lopez is aware of DVT's and no DVT prophylaxis due to risk of bleeding, continue asa. Repeat duplex to BLE on 05/15 and 06/05/19. Patient was fitted for afo for left foot drop and to wear LSO brace when OOB. Patient lives with spouse in a one level home with one step to enter. Prior to surgery, patient was independent with ADLs, mobility and driving. Plan -PT for mobility - OT for ADLs - ST for evaluation - Revision, decompression and fusion of L3-S1 with instrument- wear LSO brace OOB, polar care prn, may shower, tejinder d/c 05/[address] Lopez office - PD on mirapex, sinemet - Left foot drop- afo - HTN on zestril 5 mg hold if SBP <110 - Hypothyroidism on synthroid - Hemochromatosis - Dr. Trejo manages - Microcytic Anemia Further management per hospitalist/hematology recommendations - Left and right Soleal, and left and right gastroc DVT- Lovenox, continue asa, knee high mack hose, repeat duplex on 05/12 and 05/15 showed no change. and to repeat on, 05/25/19 showed new DVT to right gastroc- ok per Dr. Lopez to change to therapeutic dosage of Lovenox- vascular consult. Per Dr. Camacho (vascular) Continue therapeutic lovenox then at discharge only asa 81 mg daily, repeat duplex 2 weeks then 1 month, compression stockings. O.K to f/u with PCP, but if extension of DVT then follow up with vascular. Nursing calling PCP to update. 06/05/19. - Hx of Stroke in 2009- on asa - Excoriation under bilateral breasts- resolved nystatin powder prn - Insomnia, restlessness, agitation- resolved on seroquel - Confusion, urinary incontinence and frequency- resolved UA completed - urine CX presumptive ecoli >100,000: Acute cystitis cipro 500 mg bid x 5 days (last dose 05/18/19). - Muscle spasms on zanaflex prn - GI/DVT prophylaxis on pepcid/ lovenox, asa, knee high mack hose - Further medical management per hospitalist- consult - Analgesics as needed - Bowel protocol - Fall precautions - F/U with Dr. Dominik Lopez, Neurology (Dr. Walls), Dr. Trejo, and PCP.
--- NOTE | 2019-05-27 11:14 | PCM.CONS.GEN ---
Problem List (1) DVT (deep venous thrombosis) Status: Acute Reason for Consult Date of Consultation: 05/27/19 Reason for Consultation: DVT History of Present Illness: The patient is a 69 year old F who had spine surgery in March had postop debridement and then had to go back and recently has some of the instrumentation had shifted. She had the surgeries up at [facility]. Appears probably had some calf vein DVTs postop from that. Follow-up ultrasound here still shows bilateral calf vein DVT. She is on Lovenox and a baby aspirin. She is getting closer for discharge home and vascular surgery consult for long-term management of the calf vein DVT. She is wearing compression stockings. [] Past Medical History Medical History: Medical History (Last Reviewed 05/27/19 @ 11:16 by Dayday Camacho MD) Hemochromatosis E83.119 Intraparenchymal hematoma of brain S06.360A Parkinson disease G20 Rectocele N81.6 Restless leg syndrome G25.81 Spinal stenosis M48.00 Stroke I63.9 HTN (hypertension) I10 Allergies Penicillins Allergy (Verified 04/17/19 21:03) Unknown Sulfa (Sulfonamide Antibiotics) Allergy (Verified 04/17/19 21:03) Unknown levothyroxine Adverse Reaction (Verified 04/18/19 11:36) Diarrhea Home Medications: Ambulatory Orders Medication Instructions Recorded Aspirin [Aspirin EC] 81 mg PO DAILY 04/17/19 Folic Acid 1 mg PO DAILY 04/17/19 Gabapentin [Neurontin] 300 mg PO BIDCM 04/17/19 Lisinopril [Zestril] 10 mg PO DAILY 04/17/19 Pramipexole Di-HCl [Mirapex] 1 mg PO BID 04/17/19 Pramipexole Di-HCl [Mirapex] 2 mg PO QHS 04/17/19 Ensure Clear 120 ml PO 4X/DAY liquid 05/05/19 Carbidopa/Levodopa 25/100 [Sinemet 1 tab PO BID 05/11/19] Famotidine [Pepcid] 20 mg PO BID 05/11/19 Levothyroxine [Synthroid] 25 mcg PO DAILY@0600 05/11/19 traMADol 50 mg PO Q4H PRN PRN 05/11/19 Surgical History: Surgical History (Last Reviewed 05/27/19 @ 11:16 by Dayday Camacho MD) H/O blepharoplasty Z98.890 H/O tubal ligation Z98.51 Hx of tonsillectomy Z90.89 S/P lumbar spinal fusion Z98.1 and decompression of L4-5 Surgical History: tonsillectomy, - - Decompressive back surgery; and hematoma evacuation of the back. fusion, decompression and revisoin of L3-S1 Psychiatric History: No pertinent psych hx Lives: Spouse/ Significant Other Smoking Status: Never smoker Tobacco Use: Non-smoker Alcohol: None Drugs: None - *Family History Paternal History Items: Diabetes, Dementia - Vascular dementia Maternal History Items: Cancer - Non-Hodgkin's lymphoma Review of Systems Constitutional: Denies: Chills, Fever, Weight Change HEENT: Denies: Head Aches, Sinus Congestion, Sinus Drainage Cardiovascular: Denies: Chest Pain, Palpitations Respiratory: Denies: Cough, Shortness of breath at rest, Sputum production Gastrointestinal: Denies: Abdominal Pain, Nausea, Vomiting Genitourinary: Denies: Dysuria Skin: Denies: Rash, Wounds Neurological: Reports: - - recoveryig from spine surgery - Physical Exam Vitals/I&O's: Vital Signs Temp Pulse Resp BP Pulse Ox 98.0 F 78 17 110/55 L 98 05/27/19 07:00 05/27/19 07:00 05/27/19 07:00 05/27/19 07:00 05/27/19 07:00 Oxygen Delivery Method Room Air Weight: 164 lb 14.492 oz Body Mass Index (BMI) 28.5 Intake and Output for Last 24 Hours 05/25/19 05/26/19 05/27/19 23:59 23:59 23:59 Intake Total 240 / 240 220 / 220 160 / 160 Balance 240 / 240 220 / 220 160 / 160 General: Alert, Oriented x3 HEENT: Atraumatic, PERRLA Oral: Moist Mucosa Neck: Supple Lungs: Clear to auscultation Cardiovascular: Regular rate Abdomen: Bowel Sounds Present, Soft, Non Tender Extremities: No clubbing, Peripheral Pulses Normal Current Medications Acetaminophen (Tylenol) 1,000 mg PO Q8 [facility] Last Admin: 05/27/19 06:17 Dose: 1,000 mg Documented by: Aspirin (Ecotrin) 81 mg PO DAILY@0800 [facility] Last Admin: 05/27/19 07:42 Dose: 81 mg Documented by: Bisacodyl (Dulcolax) 10 mg RECTAL .PRN X 1 PRN PRN Reason: Constipation Carbidopa/Levodopa (Sinemet) 1 tablet PO TIDAC [facility] Last Admin: 05/27/19 06:25 Dose: 1 tablet Documented by: Enoxaparin Sodium (Lovenox) 80 mg SC Q12@0600,1800 [facility] Last Admin: 05/27/19 06:17 Dose: 80 mg Documented by: Famotidine (Pepcid) 20 mg PO DAILY [facility] Last Admin: 05/27/19 07:42 Dose: 20 mg Documented by: Folic Acid (Folic Acid) 1 mg PO DAILY [facility] Last Admin: 05/27/19 07:42 Dose: 1 mg Documented by: Gabapentin (Neurontin) 300 mg PO BIDCM [facility] Last Admin: 05/27/19 07:42 Dose: 300 mg Documented by: Levothyroxine Sodium (Synthroid) 25 mcg PO DAILY@0600 [facility] Last Admin: 05/27/19 06:17 Dose: 25 mcg Documented by: Lisinopril (Zestril) 5 mg PO DAILY [facility] Last Admin: 05/27/19 07:42 Dose: 5 mg Documented by: Magnesium Hydroxide (Milk Of Magnesia) 30 ml PO .PRN X 1 PRN PRN Reason: Constipation Nutritional Formula (Lactose Free) (Ensure Clear) 120 ml PO 4X/DAY [facility] Last Admin: 05/27/19 07:43 Dose: 120 ml Documented by: Nystatin (Mycostatin Powder) 1 applic TOPICAL BID PRN; Protocol PRN Reason: excoriation Pramipexole Dihydrochloride (Mirapex) 1 mg PO BID@0600,1400 [facility] Last Admin: 05/27/19 06:17 Dose: 1 mg Documented by: Pramipexole Dihydrochloride (Mirapex) 2 mg PO QHS [facility] Last Admin: 05/26/19 20:26 Dose: 2 mg Documented by: Quetiapine Fumarate (Seroquel) 12.5 mg PO DAILY@2000 [facility] Last Admin: 05/26/19 20:26 Dose: 12.5 mg Documented by: Saliva Substitute (Biotene) 15 ml MM 5X/DAY PRN PRN Reason: DRY MOUTH Last Admin: 05/25/19 06:37 Dose: 15 ml Documented by: Senna/Docusate Sodium (Senokot-S, Reba-Colace) 2 tablet PO BID [facility] Last Admin: 05/27/19 07:45 Dose: Not Given Documented by: Tizanidine HCl (Zanaflex) 2 mg PO Q8H PRN PRN PRN Reason: SPASMS Last Admin: 05/22/19 19:59 Dose: 2 mg Documented by: Assessment/Plan All Active Problems (Last Reviewed 05/27/19 @ 11:16 by Dayday Camacho MD) Debility (Acute) DVT (deep venous thrombosis) (Acute) Patient with bilateral calf vein DVT. She is on some anticoagulation. On discharge I would have her continue her compression therapy and stay on a baby aspirin daily. She should not need long-term anticoagulation for this. If she increases her activity this will also help her decrease her risk of clot extension. I would just check serial ultrasounds with again in 2 weeks and then a month after that to make sure no propagation of her clot. If there is any extension into the popliteal vein show need to resume anticoagulation.
[2019-05-27 12:24] LABS: Absolute Lymphocyte Count 1.26 X10^3/uL (0.83-4.51); Absolute Neutrophil Count 4.8 X10^3/uL (2.0-7.7); Basophil# 0.08 X10^3/uL; Basophil% 1.1 % (0-1); Eosinophil# 0.16 X10^3/uL; Eosinophils% 2.3 % (0-5); Hematocrit 30.3 % (37-47); Hemoglobin 8.8 g/dL (12.0-15.0); Lymphocyte # 1.26 X10^3/ul (4.0); Mean Corpuscular Hgb 23.5 pg (27.0-32.0); Mean Corpuscular Volume 80.8 fL (81-99); Mean Platelet Vol. 10.5 fl (6.2-12.0); Monocyte# 0.68 X10^3/uL; Monocyte% 9.7 % (0-10); NRBC Flagged by Analyzer 0 % (0-5); Neutrophil # 4.79 X10^3/uL (2.7-7.7); Neutrophil % 68.6 % (47-70); Platelet Count 430 K/mm3 (150-450); RBC Distribution Width CV 19.8 % (11.6-14.6); RBC Distribution Width SD 58.2 fl (35.1-43.9); Red Blood Count 3.75 M/mm3 (4.2-5.4)
[2019-05-27 13:45] VITALS: BMI 28.5
[2019-05-27 19:17] VITALS: BP 126/66; PULSE 89; RESP 18; TEMP 36.9; O2SAT 99
[2019-05-27] MEDS: QUEtiapine 25 MG Tablet 12.5 MG PO (19:49)
[2019-05-27] MEDS: Pramipexole Di-HCl 1 MG Tablet 2 MG PO (19:50)
[2019-05-27 23:10] VITALS: BMI 28.5
[2019-05-28] MEDS: Enoxaparin 80 MG/0.8 ML Syringe SC ×2 (06:39→17:19)
[2019-05-28] MEDS: Carbidopa/Levodopa 25/100 Tablet PO ×3 (06:40→17:19)
[2019-05-28] MEDS: Pramipexole Di-HCl 1 MG Tablet PO ×2 (06:40→13:15)
[2019-05-28] MEDS: Acetaminophen 500 MG Tablet 1000 MG PO ×3 (06:40→21:05)
[2019-05-28] MEDS: Levothyroxine 25 MCG TABLET PO (06:40)
[2019-05-28] MEDS: Ensure Clear 120 ML Liquid PO ×4 (07:39→21:04)
[2019-05-28] MEDS: Lisinopril 5 MG Tablet PO (07:39)
[2019-05-28] MEDS: Aspirin E.C. 81 MG Tablet PO (07:40)
[2019-05-28] MEDS: Famotidine 20 MG Tablet PO (07:40)
[2019-05-28] MEDS: Gabapentin 300 MG Capsule PO ×2 (07:40→17:19)
[2019-05-28] MEDS: Folic Acid 1 MG Tablet PO (07:40)
[2019-05-28] MEDS: Senna/Docusate Sodium 1 Tablet 2 TABLET PO (07:42)
[2019-05-28 08:28] VITALS: BP 141/82; PULSE 86; RESP 16; TEMP 36.7; O2SAT 100
--- NOTE | 2019-05-28 09:17 | PCM.PN.NEU ---
Subjective: Patient continues to tolerate therapies and pain is controlled. Patient will be discharged home on 05/30/19, with home PT/OT. - Physical Exam Vitals/I&O's: Vital Signs Temp Pulse Resp BP Pulse Ox 98.1 F 86 16 141/82 H 100 05/28/19 08:28 05/28/19 08:28 05/28/19 08:28 05/28/19 08:28 05/28/19 08:28 Oxygen Delivery Method Room Air Weight: 74.8 kg Body Mass Index (BMI) 28.5 Intake and Output for Last 24 Hours 05/26/19 05/27/19 05/28/19 23:59 23:59 23:59 Intake Total 220 / 220 440 / 440 240 / 240 Balance 220 / 220 440 / 440 240 / 240 General: Alert, Oriented x3, Cooperative HEENT: Atraumatic, PERRLA, EOMI Oral: Moist Mucosa Neck: Supple, No JVD Lungs: Clear to auscultation, Normal air movement Cardiovascular: Regular rate, Regular Rhythm Abdomen: Bowel Sounds Present, Soft, Non Tender Extremities: No clubbing, No cyanosis, No edema Skin: Incision - lumbar area healing without redness or drng Neurological: Cranial nerves II-XII grossly intact, Deep Tendon Reflexes 2+/4 and Symmetrical, Motor Exam 5/5 strength throughout - mild left foot drop Psych/Mental Status: Normal Affect, Appropriate, Alert and oriented to time, place, person, mood and affect Laboratory Results 05/27/19 12:11: WBC 7.0, RBC 3.75 L, Hgb 8.8 L, Hct 30.3 L, MCV 80.8 L, MCH 23.5 L, MCHC 29.0 L, RDW Std Deviation 58.2 H, RDW Coeff of Pedro 19.8 H, Plt Count 430, MPV 10.5, Immature Gran % (Auto) 0.300, Neut % (Auto) 68.6, Lymph % (Auto) 18.0 L, Russell % (Auto) 9.7, Eos % (Auto) 2.3, Baso % (Auto) 1.1 H, Absolute Neuts (auto) 4.8, Absolute Lymphs (auto) 1.26, Nucleated RBC % 0 Current Medications Acetaminophen (Tylenol) 1,000 mg PO Q8 [facility] Last Admin: 05/28/19 06:40 Dose: 1,000 mg Documented by: Aspirin (Ecotrin) 81 mg PO DAILY@0800 [facility] Last Admin: 05/28/19 07:40 Dose: 81 mg Documented by: Bisacodyl (Dulcolax) 10 mg RECTAL .PRN X 1 PRN PRN Reason: Constipation Carbidopa/Levodopa (Sinemet) 1 tablet PO TIDAC [facility] Last Admin: 05/28/19 06:40 Dose: 1 tablet Documented by: Enoxaparin Sodium (Lovenox) 80 mg SC Q12@0600,1800 [facility] Last Admin: 05/28/19 06:39 Dose: 80 mg Documented by: Famotidine (Pepcid) 20 mg PO DAILY [facility] Last Admin: 05/28/19 07:40 Dose: 20 mg Documented by: Folic Acid (Folic Acid) 1 mg PO DAILY [facility] Last Admin: 05/28/19 07:40 Dose: 1 mg Documented by: Gabapentin (Neurontin) 300 mg PO BIDCM [facility] Last Admin: 05/28/19 07:40 Dose: 300 mg Documented by: Levothyroxine Sodium (Synthroid) 25 mcg PO DAILY@0600 [facility] Last Admin: 05/28/19 06:40 Dose: 25 mcg Documented by: Lisinopril (Zestril) 5 mg PO DAILY [facility] Last Admin: 05/28/19 07:39 Dose: 5 mg Documented by: Magnesium Hydroxide (Milk Of Magnesia) 30 ml PO .PRN X 1 PRN PRN Reason: Constipation Nutritional Formula (Lactose Free) (Ensure Clear) 120 ml PO 4X/DAY [facility] Last Admin: 05/28/19 07:39 Dose: 120 ml Documented by: Nystatin (Mycostatin Powder) 1 applic TOPICAL BID PRN; Protocol PRN Reason: excoriation Pramipexole Dihydrochloride (Mirapex) 1 mg PO BID@0600,1400 [facility] Last Admin: 05/28/19 06:40 Dose: 1 mg Documented by: Pramipexole Dihydrochloride (Mirapex) 2 mg PO QHS [facility] Last Admin: 05/27/19 19:50 Dose: 2 mg Documented by: Quetiapine Fumarate (Seroquel) 12.5 mg PO DAILY@2000 [facility] Last Admin: 05/27/19 19:49 Dose: 12.5 mg Documented by: Saliva Substitute (Biotene) 15 ml MM 5X/DAY PRN PRN Reason: DRY MOUTH Last Admin: 05/25/19 06:37 Dose: 15 ml Documented by: Senna/Docusate Sodium (Senokot-S, Reba-Colace) 2 tablet PO BID [facility] Last Admin: 05/28/19 07:42 Dose: 1 tablet Documented by: Tizanidine HCl (Zanaflex) 2 mg PO Q8H PRN PRN PRN Reason: SPASMS Last Admin: 05/22/19 19:59 Dose: 2 mg Documented by: STROKE Vital Signs/Narrative: Vital Signs Temp Pulse Resp BP Pulse Ox 05/28/19 08:28 98.1 F 86 16 141/82 H 100 Medical Necessity - Tobacco Use Smoking Status: Never smoker Tobacco Use: Non-smoker Assessment/Plan All Active Problems (Last Reviewed 05/27/19 @ 11:16 by Dayday Camacho MD) Debility (Acute) DVT (deep venous thrombosis) (Acute) The patient is a 69 year old Female with PMH HTN, history of stroke in 2009, PD, hypothyroidism admitted to [facility] on 05/11/2019 with debility secondary for revision, decompression and fusion of L3-S1, for greater than 3 hours of therapy daily with a goal of returning home at or near her prior level of functional independence. On 04/01/19 Dr. Dominik Lopez at [facility] performed an L4-L5 decompression fusion due to spinal stenosis, the hospital course was later complicated by spinal hematoma, evacuation done on 04/14/19, On 04/17/2019, DVT of left soleal vein was noted on duplex, vascular surgeon Dr. Maya was consulted and recommended no anticoagulation treatment for left soleal vein DVT given the location of the DVT (below knee) in setting of recent spine hematoma and he recommended to monitor with LE Doppler. 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 On 05/06/19, Dr Lopez performed exploratory L4-5, removal on instrument/cage excision, revision, decompression, fusion of L3-S1 and instrument. On 10/9/19 H/H 25.1/7.6, received 2 units of PRBC, recheck on 05/11/19 Hgb 8.8. 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 2 drains removed from lumbar incision on 05/11/19. BLE duplex on 05/06/19 showed left soleal DVT, repeat on 05/08/19 showed DVT to right and left soleal vein and left gastroc vein, repeat on 05/11/19 showed no changed from previous study with no propagation. Spoke with Dr. Lopez's office, Dr. Lopez is aware of DVT's and no DVT prophylaxis due to risk of bleeding, continue asa. Repeat duplex to BLE on 05/15 and 06/05/19. Patient was fitted for afo for left foot drop and to wear LSO brace when OOB. Patient lives with spouse in a one level home with one step to enter. Prior to surgery, patient was independent with ADLs, mobility and driving. Plan -PT for mobility - OT for ADLs - ST for evaluation - Revision, decompression and fusion of L3-S1 with instrument- wear LSO brace OOB, [facility] care prn, may tejinder zambrano d/c 05/[address] Lopez office - PD on mirapex, sinemet - Left foot drop- afo - HTN on zestril 5 mg hold if SBP <110 - Hypothyroidism on synthroid - Hemochromatosis - Dr. Trejo manages - Microcytic Anemia Further management per hospitalist/hematology recommendations - Left and right Soleal, and left and right gastroc DVT- Lovenox, continue asa, knee high mack hose, repeat duplex on 05/12 and 05/15 showed no change. and to repeat on, 05/25/19 showed new DVT to right gastroc- ok per Dr. Lopez to change to therapeutic dosage of Lovenox- vascular consult. Per Dr. Camacho (vascular) Continue therapeutic lovenox then at discharge only asa 81 mg daily, repeat duplex 2 weeks then 1 month, compression stockings. O.K to f/u with PCP, but if extension of DVT then follow up with vascular. Nursing called PCP to update. 06/05/19. - Hx of Stroke in 2009- on asa - Excoriation under bilateral breasts- resolved nystatin powder prn - Insomnia, restlessness, agitation- resolved on seroquel - Confusion, urinary incontinence and frequency- resolved UA completed - urine CX presumptive ecoli >100,000: Acute cystitis cipro 500 mg bid x 5 days (last dose 05/18/19). - Muscle spasms on zanaflex prn - GI/DVT prophylaxis on pepcid/ lovenox, asa, knee high mack hose - Further medical management per hospitalist- consult - Analgesics as needed - Bowel protocol - Fall precautions - F/U with Dr. Dominik Lopez, Neurology (Dr. Walls), Dr. Trejo, and PCP.
--- NOTE | 2019-05-28 11:34 | NURSING ---
AMBULATED TO BATHROOM SBA W/WALKER. TOLERATED WELL. BACK BRACE IN PLACE
--- NOTE | 2019-05-28 12:04 | CASEMGMT ---
Social Work IDT met with patient and for Team Meeting. Pt is SBA for transfers, walking 200 ft and CGA for 5 steps. Pt needs some assistance with back brace and min assist for UE and LE ADLs. Pt's strength has improved greatly since admission. Pt is still working with ST on the slow processing and distractibility. Pt will notify SW if she would like continued ST. Plan: DC home 05/30 with and [facility] PT/OT/SN and BSC. Sandra Hunt, BEHAVIORAL HEALTH CARE MANAGER HEATING EQUIPMENT REPAIRER
--- NOTE | 2019-05-28 14:00 | PCM.PROGNOTE ---
Subjective: Chief complaint: Follow-up after consultation for medical management following admission to inpatient rehabitation unit. Patient seen and examined. No acute events overnight. Still having difficulty moving her left lower extremity but improving. Back pain is well managed. Her vital signs are stable. - Physical Exam Vitals/I&O's: Vital Signs Temp Pulse Resp BP Pulse Ox 98.1 F 86 16 141/82 H 100 05/28/19 08:28 05/28/19 08:28 05/28/19 08:28 05/28/19 08:28 05/28/19 08:28 Oxygen Delivery Method Room Air Weight: 164 lb 14.492 oz Body Mass Index (BMI) 28.5 Intake and Output for Last 24 Hours 05/26/19 05/27/19 05/28/19 23:59 23:59 23:59 Intake Total 220 / 220 440 / 440 480 / 480 Balance 220 / 220 440 / 440 480 / 480 General: Alert, Oriented x3, Cooperative, No apparent distress HEENT: Atraumatic, PERRLA, EOMI, Normocephalic Oral: Moist Mucosa, No Gingival or Mucosal Lesions/ Ulcerations Neck: Supple, No JVD, Negative Carotid Bruits, Trachea Midline, Thyroid Normal Size and Texture Lungs: Clear to auscultation, Normal air movement, No rhonchi, No wheeze, No rales Cardiovascular: Regular rate, Regular Rhythm, Normal S1, Normal S2, PMI Normal Abdomen: Bowel Sounds Present, Soft, Non Tender, Non-Distended, No Hepato-splenomegaly Extremities: No clubbing, No cyanosis, No edema Skin: No rashes, No breakdown Lymphatic: No Cervical, Supraclavicular, or Inguinal Adenopathy Neurological: Cranial nerves II-XII grossly intact, Neuro grossly intact Psych/Mental Status: Normal Affect, Appropriate, Alert and oriented to time, place, person, mood and affect Current Medications Acetaminophen (Tylenol) 1,000 mg PO Q8 [facility] Last Admin: 05/28/19 13:15 Dose: 1,000 mg Documented by: Aspirin (Ecotrin) 81 mg PO DAILY@0800 [facility] Last Admin: 05/28/19 07:40 Dose: 81 mg Documented by: Bisacodyl (Dulcolax) 10 mg RECTAL .PRN X 1 PRN PRN Reason: Constipation Carbidopa/Levodopa (Sinemet) 1 tablet PO TIDAC [facility] Last Admin: 05/28/19 11:31 Dose: 1 tablet Documented by: Enoxaparin Sodium (Lovenox) 80 mg SC Q12@0600,1800 [facility] Last Admin: 05/28/19 06:39 Dose: 80 mg Documented by: Famotidine (Pepcid) 20 mg PO DAILY [facility] Last Admin: 05/28/19 07:40 Dose: 20 mg Documented by: Folic Acid (Folic Acid) 1 mg PO DAILY [facility] Last Admin: 05/28/19 07:40 Dose: 1 mg Documented by: Gabapentin (Neurontin) 300 mg PO BIDCM [facility] Last Admin: 05/28/19 07:40 Dose: 300 mg Documented by: Levothyroxine Sodium (Synthroid) 25 mcg PO DAILY@0600 [facility] Last Admin: 05/28/19 06:40 Dose: 25 mcg Documented by: Lisinopril (Zestril) 5 mg PO DAILY [facility] Last Admin: 05/28/19 07:39 Dose: 5 mg Documented by: Magnesium Hydroxide (Milk Of Magnesia) 30 ml PO .PRN X 1 PRN PRN Reason: Constipation Nutritional Formula (Lactose Free) (Ensure Clear) 120 ml PO 4X/DAY [facility] Last Admin: 05/28/19 13:16 Dose: 120 ml Documented by: Nystatin (Mycostatin Powder) 1 applic TOPICAL BID PRN; Protocol PRN Reason: excoriation Pramipexole Dihydrochloride (Mirapex) 1 mg PO BID@0600,1400 [facility] Last Admin: 05/28/19 13:15 Dose: 1 mg Documented by: Pramipexole Dihydrochloride (Mirapex) 2 mg PO QHS [facility] Last Admin: 05/27/19 19:50 Dose: 2 mg Documented by: Quetiapine Fumarate (Seroquel) 12.5 mg PO DAILY@2000 [facility] Last Admin: 05/27/19 19:49 Dose: 12.5 mg Documented by: Saliva Substitute (Biotene) 15 ml MM 5X/DAY PRN PRN Reason: DRY MOUTH Last Admin: 05/25/19 06:37 Dose: 15 ml Documented by: Senna/Docusate Sodium (Senokot-S, Reba-Colace) 2 tablet PO BID [facility] Last Admin: 05/28/19 07:42 Dose: 1 tablet Documented by: Tizanidine HCl (Zanaflex) 2 mg PO Q8H PRN PRN PRN Reason: SPASMS Last Admin: 05/22/19 19:59 Dose: 2 mg Documented by: Medical Necessity - Tobacco Use Smoking Status: Never smoker Tobacco Use: Non-smoker Assessment/Plan All Active Problems (Last Reviewed 05/27/19 @ 11:16 by Dayday Camacho MD) Debility (Acute) DVT (deep venous thrombosis) (Acute) This is a 69 years old female patient admitted to the inpatient rehabilitation unit for debility and functional decline following back surgery with decompression and fusion of L3-S1 for spinal canal stenosis. #1 status post revision/decompression fusion of L3-S1 for spinal canal stenosis: Remained on Tylenol, Neurontin for pain. Pain has been manageable, doing well with physical therapy. Plan to continue PT OT according to rehab team. #2 acute bilateral DVTs: She is on therapeutic Lovenox twice daily. Repeat venous Doppler that was done yesterday revealed new DVT of the right gastrocnemius. Vascular surgery recommended that patient can go home on given aspirin. #3 E. coli acute cystitis: Completed course of oral ciprofloxacin. Denies any urinary symptoms. #4 hypertension: Blood pressure stable, continue lisinopril. #5 hypothyroidism: Stable, continue levothyroxine. #6 Parkinson's disease: Stable, continue Sinemet and Mirapex. #7 anemia: Probably postoperative anemia. Most recent hemoglobin is 9 g/dL. Unknown baseline hemoglobin. No indication for transfusion and no active bleeding. #8 history of CVA: Stable, continue aspirin and statins. #9 restless leg syndrome: Continue Mirapex. #10 DVT prophylaxis: On therapeutic Lovenox twice daily. This note was generated with [employer] dictation software. It may contain incorrect words, spelling, and punctuation that were not noted in checking the note before signing. Code Visit Inpatient E&M: 90610 Subs Hosp L2
[2019-05-28 15:12] VITALS: BMI 28.5
[2019-05-28 18:42] VITALS: BP 116/63; PULSE 83; RESP 16; TEMP 36.7; O2SAT 100
[2019-05-28] MEDS: QUEtiapine 25 MG Tablet 12.5 MG PO (21:04)
[2019-05-28] MEDS: Pramipexole Di-HCl 1 MG Tablet 2 MG PO (21:05)
[2019-05-29 03:05] VITALS: BMI 28.5
--- NOTE | 2019-05-29 03:21 | NURSING ---
REVIEWED AND AGREE WITH LENS MOLD SETTER'S FUNCTIONAL ASSESSMENT OF PT AND HANDOFF CHARTING.
[2019-05-29] MEDS: Enoxaparin 80 MG/0.8 ML Syringe SC ×2 (06:42→17:38)
[2019-05-29] MEDS: Pramipexole Di-HCl 1 MG Tablet PO ×2 (06:43→13:35)
[2019-05-29] MEDS: Levothyroxine 25 MCG TABLET PO (06:43)
[2019-05-29] MEDS: Acetaminophen 500 MG Tablet 1000 MG PO ×3 (06:43→20:25)
[2019-05-29] MEDS: Carbidopa/Levodopa 25/100 Tablet PO ×3 (06:44→17:38)
[2019-05-29] MEDS: Aspirin E.C. 81 MG Tablet PO (07:54)
[2019-05-29] MEDS: Gabapentin 300 MG Capsule PO ×2 (07:54→17:38)
[2019-05-29] MEDS: Lisinopril 5 MG Tablet PO (07:54)
[2019-05-29] MEDS: Folic Acid 1 MG Tablet PO ×2 (07:54)
[2019-05-29] MEDS: Ensure Clear 120 ML Liquid PO ×3 (07:55→20:24)
[2019-05-29] MEDS: Famotidine 20 MG Tablet PO (07:55)
[2019-05-29] MEDS: Senna/Docusate Sodium 1 Tablet 2 TABLET PO ×2 (07:56→20:25)
[2019-05-29 09:30] VITALS: BP 132/59; PULSE 76; RESP 16; TEMP 36.7; O2SAT 100
[2019-05-29 10:00] VITALS: BP 139/70; PULSE 84; RESP 16; TEMP 36.7; O2SAT 100
--- NOTE | 2019-05-29 11:19 | DCINST_ITS ---
- Discharge Diagnoses Reason(s) for Visit for Discharge Instructions: Debility secondary to revision, decompression and fusion of L3-S1 You will use the following diet at home:: Regular Your food should be the consistency of: Regular Your liquids should be the consistency of: Regular/Thin Discharge Activity: Return to Normal Activity, May Not Drive, May Shower, Use Walker, - - back precautions, wear LSO brace when Out of bed Weight Bearing Status: Weight bearing as tolerated Call your doctor if your incision/area has: Continuous Slow Oozing, Sudden Increased Bleeding, Increased Pain/ Swelling, Increased Redness, Foul Smelling Discharge, Swelling at the incision site Call your doctor if you observe: Fever of 101 or Higher, Coldness, Increased Pain, Numbness or Tingling, Change in Color, Inability to urinate, Inability to have a bowel movement, Shortness of breath, Dizziness, Fainting spells, Swelling in the ankles, Chest pain, Prolonged hiccoughing, Increased palpitations (irregular heartbeat), Calf discomfort, Uncontrolled pain Cleanse incision/area with: Soap & Water Additional Instructions: Aspirin 81 mg daily, repeat duplex study to bilateral lower legs in 2 weeks then 1 month, compression stockings. O.K to f/u with Primary care doctor but if extension of Deep vein thrombois then follow up with vascular. Primary care doctor aware. Allergies/Adverse Reactions: Allergies Penicillins Allergy (Verified 04/17/19 21:03) Unknown Sulfa (Sulfonamide Antibiotics) Allergy (Verified 04/17/19 21:03) Unknown levothyroxine Adverse Reaction (Verified 04/18/19 11:36) Diarrhea Medications to take at Discharge Levothyroxine [Synthroid] 25 mcg PO DAILY@0600 05/11/19 Acetaminophen [Tylenol] 1,000 mg PO Q8 tab 05/29/19 Aspirin E.C. [Ecotrin] 81 mg PO DAILY@0800 tab 05/29/19 Carbidopa/Levodopa 25/100 [Sinemet 25/100] 1 tab PO TIDAC #90 tab 05/29/19 Folic Acid 1 mg PO DAILY tab 05/29/19 Gabapentin [Neurontin] 300 mg PO BIDCM #60 cap 05/29/19 Levothyroxine [Synthroid] 25 mcg PO DAILY@0600 #30 tab 05/29/19 Lisinopril [Zestril] 5 mg PO DAILY #30 tab 05/29/19 Pramipexole Di-HCl [Mirapex] 1 mg PO BID@0600,1400 #120 tab 05/29/19 Quetiapine Fumarate [Seroquel] 12.5 mg PO DAILY@2000 #15 tab 05/29/19 Saliva Substitute [Biotene] 15 ml MM 5X/DAY PRN bottle 05/29/19 Senna/Docusate Sodium [Senokot-S] 2 tab PO BID tab 05/29/19 The following prescriptions were given: Pramipexole Di-HCl [Mirapex] 1 mg PO BID@0600,1400 #120 tab Transmission Status: Pending to [facility] Gabapentin [Neurontin] 300 mg PO BIDCM #60 cap Transmission Status: Pending to [facility] Quetiapine Fumarate [Seroquel] 12.5 mg PO DAILY@2000 #15 tab Transmission Status: Pending to [facility] Carbidopa/Levodopa 25/100 [Sinemet 25/100] 1 tab PO TIDAC #90 tab Transmission Status: Pending to [facility] Levothyroxine [Synthroid] 25 mcg PO DAILY@0600 #30 tab Transmission Status: Pending to [facility] Lisinopril [Zestril] 5 mg PO DAILY #30 tab Transmission Status: Pending to [facility] Orders to be completed after discharge: Venous Duplex US - Primitivo Extrem [VL] Time Frame: 06/12/19, Facility: [facility], Location: Cardiovascular Services Venous Duplex US - Primitivo Extrem [VL] Time Frame: 07/13/19, Facility: [facility], Location: Cardiovascular Services Primary Care Physician: Román Rosado MD [Primary Care Provider] - Please follow up with your Primary Care Physician in: call to schedule a appointment at discharge Test Results: Test results from this visit will be discussed in further detail at your follow- up appointment, if applicable. Please Follow Up With: Dr. Gordon Lopez (Orthopedics) - [phone] When: call to schedule appt at discharge Please Follow Up With: Dr. Trejo - [phone] When: call to schedule appt at discharge Please Follow Up With: Dr. Walls - [phone] When: call to schedule appt at discharge Proposed Discharge Date: 05/30/19
--- NOTE | 2019-05-29 11:45 | DS.PCM_ITS ---
Rehab Discharge Summary DATE OF ADMISSION: 05/11/19 DATE OF DISCHARGE: 05/29/19 - Rehab Diagnosis Debility secondary to revision, decompression and fusion of L3-S1 Subjective: Patient will be discharged home with home PT/OT/nursing on 05/30/19. Patient will have Duplex lower extremities US on 06/12/19 and 07/13/[address] Camacho direction, PCP to follow, is extension then will direct to Dr. Camacho. - Physical Exam Vitals/I&O's: Vital Signs Temp Pulse Resp BP Pulse Ox 98.0 F 84 16 139/70 H 100 05/29/19 10:00 05/29/19 10:00 05/29/19 10:00 05/29/19 10:00 05/29/19 10:00 Oxygen Delivery Method Room Air Weight: 74.8 kg Body Mass Index (BMI) 28.5 Intake and Output for Last 24 Hours 05/27/19 05/28/19 05/29/19 23:59 23:59 23:59 Intake Total 440 / 440 720 / 720 480 / 480 Balance 440 / 440 720 / 720 480 / 480 General: Alert, Oriented x3, Cooperative HEENT: Atraumatic, PERRLA, EOMI Oral: Moist Mucosa Neck: Supple, No JVD Lungs: Clear to auscultation, Normal air movement Cardiovascular: Regular rate, Regular Rhythm Abdomen: Bowel Sounds Present, Soft, Non Tender Extremities: No clubbing, No cyanosis, No edema Skin: Incision - lumbar area, without redness or drng- healing Neurological: Cranial nerves II-XII grossly intact, Deep Tendon Reflexes 2+/4 and Symmetrical, Motor Exam 5/5 strength throughout - mild left foot drop Psych/Mental Status: Normal Affect, Appropriate, Alert and oriented to time, place, person, mood and affect Current Medications Acetaminophen (Tylenol) 1,000 mg PO Q8 [facility] Last Admin: 05/29/19 06:43 Dose: 1,000 mg Documented by: Aspirin (Ecotrin) 81 mg PO DAILY@0800 [facility] Last Admin: 05/29/19 07:54 Dose: 81 mg Documented by: Bisacodyl (Dulcolax) 10 mg RECTAL .PRN X 1 PRN PRN Reason: Constipation Carbidopa/Levodopa (Sinemet) 1 tablet PO TIDAC [facility] Last Admin: 05/29/19 06:44 Dose: 1 tablet Documented by: Enoxaparin Sodium (Lovenox) 80 mg SC Q12@0600,1800 [facility] Last Admin: 05/29/19 06:42 Dose: 80 mg Documented by: Famotidine (Pepcid) 20 mg PO DAILY [facility] Last Admin: 05/29/19 07:55 Dose: 20 mg Documented by: Folic Acid (Folic Acid) 1 mg PO DAILY [facility] Last Admin: 05/29/19 07:54 Dose: 1 mg Documented by: [facility] Admin: 05/29/19 07:54 Dose: 300 mg Documented by: Levothyroxine Sodium (Synthroid) 25 mcg PO DAILY@0600 [facility] Last Admin: 05/29/19 06:43 Dose: 25 mcg Documented by: Lisinopril (Zestril) 5 mg PO DAILY [facility] Last Admin: 05/29/19 07:54 Dose: 5 mg Documented by: Magnesium Hydroxide (Milk Of Magnesia) 30 ml PO .PRN X 1 PRN PRN Reason: Constipation Nutritional Formula (Lactose Free) (Ensure Clear) 120 ml PO 4X/DAY [facility] Last Admin: 05/29/19 07:55 Dose: 120 ml Documented by: Nystatin (Mycostatin Powder) 1 applic TOPICAL BID PRN; Protocol PRN Reason: excoriation Pramipexole Dihydrochloride (Mirapex) 1 mg PO BID@0600,1400 [facility] Last Admin: 05/29/19 06:43 Dose: 1 mg Documented by: Pramipexole Dihydrochloride (Mirapex) 2 mg PO QHS [facility] Last Admin: 05/28/19 21:05 Dose: 2 mg Documented by: Quetiapine Fumarate (Seroquel) 12.5 mg PO DAILY@2000 [facility] Last Admin: 05/28/19 21:04 Dose: 12.5 mg Documented by: Saliva Substitute (Biotene) 15 ml MM 5X/DAY PRN PRN Reason: DRY MOUTH Last Admin: 05/25/19 06:37 Dose: 15 ml Documented by: Senna/Docusate Sodium (Senokot-S, Reba-Colace) 2 tablet PO BID [facility] Last Admin: 05/29/19 07:56 Dose: 1 tablet Documented by: Tizanidine HCl (Zanaflex) 2 mg PO Q8H PRN PRN PRN Reason: SPASMS Last Admin: 05/22/19 19:59 Dose: 2 mg Documented by: Discharge Activity: Return to Normal Activity, May Not Drive, May Shower, Use Walker, - - back precautions, wear LSO brace when Out of bed Weight Bearing Status: Weight bearing as tolerated Call your doctor if your incision/area has: Continuous Slow Oozing, Sudden Increased Bleeding, Increased Pain/ Swelling, Increased Redness, Foul Smelling Discharge, Swelling at the incision site Call your doctor if you observe: Fever of 101 or Higher, Coldness, Increased Pain, Numbness or Tingling, Change in Color, Inability to urinate, Inability to have a bowel movement, Shortness of breath, Dizziness, Fainting spells, Swelling in the ankles, Chest pain, Prolonged hiccoughing, Increased palpitations (irregular heartbeat), Calf discomfort, Uncontrolled pain Cleanse incision/area with: Soap & Water Home Medications: Medications to take at Discharge Levothyroxine [Synthroid] 25 mcg PO DAILY@0600 05/11/19 Acetaminophen [Tylenol] 1,000 mg PO Q8 tab 05/29/19 Aspirin E.C. [Ecotrin] 81 mg PO DAILY@0800 tab 05/29/19 Carbidopa/Levodopa 25/100 [Sinemet 25/100] 1 tab PO TIDAC #90 tab 05/29/19 Folic Acid 1 mg PO DAILY tab 05/29/19 Gabapentin [Neurontin] 300 mg PO BIDCM #60 cap 05/29/19 Levothyroxine [Synthroid] 25 mcg PO DAILY@0600 #30 tab 05/29/19 Lisinopril [Zestril] 5 mg PO DAILY #30 tab 05/29/19 Pramipexole Di-HCl [Mirapex] 1 mg PO BID@0600,1400 #120 tab 05/29/19 Quetiapine Fumarate [Seroquel] 12.5 mg PO DAILY@2000 #15 tab 05/29/19 Saliva Substitute [Biotene] 15 ml MM 5X/DAY PRN bottle 05/29/19 Senna/Docusate Sodium [Senokot-S] 2 tab PO BID tab 05/29/19 Following Prescrptions Were Given to Patient: Pramipexole Di-HCl [Mirapex] 1 mg PO BID@0600,1400 #120 tab Transmission Status: Received by [facility] Gabapentin [Neurontin] 300 mg PO BIDCM #60 cap Transmission Status: Received by [facility] Quetiapine Fumarate [Seroquel] 12.5 mg PO DAILY@2000 #15 tab Transmission Status: Received by [facility] Carbidopa/Levodopa 25/100 [Sinemet 25/100] 1 tab PO TIDAC #90 tab Transmission Status: Received by [facility] Levothyroxine [Synthroid] 25 mcg PO DAILY@0600 #30 tab Transmission Status: Received by [facility] Lisinopril [Zestril] 5 mg PO DAILY #30 tab Transmission Status: Received by [facility] Other Amb Orders: Venous Duplex US - Primitivo Extrem [VL] Time Frame: 06/12/19, Facility: [facility], Location: Cardiovascular Services Venous Duplex US - Primitivo Extrem [VL] Time Frame: 07/13/19, Facility: [facility], Location: Cardiovascular Services Primary Care Physician: Román Rosado MD [Primary Care Provider] - Please follow up with your Primary Care Physician in: call to schedule a appointment at discharge Please Follow Up With: Dr. Gordon Lopez (Orthopedics) - [phone] When: call to schedule appt at discharge Please Follow Up With: Dr. Trejo - [phone] When: call to schedule appt at discharge Please Follow Up With: Dr. Walls - [phone] When: call to schedule appt at discharge Rehab Course The patient is a 69 year old Female with PMH HTN, history of stroke in 2009, PD, hypothyroidism admitted to [facility] on 05/11/2019 with debility secondary for revision, decompression and fusion of L3-S1, for greater than 3 hours of therapy daily with a goal of returning home at or near her prior level of functional independence. On 04/01/19 Dr. Dominik Lopez at [facility] performed an L4-L5 decompression fusion due to spinal stenosis, the hospital course was later complicated by spinal hematoma, evacuation done on 04/14/19, On 04/17/2019, DVT of left soleal vein was noted on duplex, vascular surgeon Dr. Maya was consulted and recommended no anticoagulation treatment for left soleal vein DVT given the location of the DVT (below knee) in setting of recent spine hematoma and he recommended to monitor with LE Doppler. 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 On 05/06/19, Dr Lopez performed exploratory L4-5, removal on instrument/cage excision, revision, decompression, fusion of L3-S1 and instrument. On 05/06/19 H/H 25.1/7.6, received 2 units of PRBC, recheck on 05/11/19 Hgb 8.8. Patient has hemochromatosis and topographic computator/oncologist Dr. 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 2 drains removed from lumbar incision on 05/11/19. BLE duplex on 05/06/19 showed left soleal DVT, repeat on 05/08/19 showed DVT to right and left soleal vein and left gastroc vein, repeat on 05/11/19 showed no changed from previous study with no propagation. Spoke with Dr. Lopez's office, Dr. Lopez is aware of DVT's and no DVT prophylaxis due to risk of bleeding, continue asa. Repeat duplex to BLE on 05/15 and 06/05/19. Patient was fitted for afo for left foot drop and to wear LSO brace when OOB. Patient lives with spouse in a one level home with one step to enter. Prior to surgery, patient was independent with ADLs, mobility and driving. During IP RU course monitored DVTs to BLE as directed by [facility] and ok to start l ovenox 40 mg on 05/18/19. On 05/25/19 duplex showed new DVT to right gastroc- ok per Dr. Lopez to change to therapeutic dosage Lovenox 80 mg bid on 05/25/19. Dr. Camacho vascular surgeon consulted and therapeutic lovenox continued then at discharge only asa 81 mg daily, repeat duplex 2 weeks (06/12/19) and 1 month (07/13/19), compression stockings. PCP to follow duplex as outpatient, but if extension of DVT then follow up with vascular, PCP was updated. Patient was started on Sinemet 25/100 mg tid which has been effective in addition with mirapex for parkinsons. As well, started on seroquel 12.5 mg for insomnia and visual hallucinations, effective. Patient to be discharged home on 05/29/19 with home health PT/OT/nursing. Patient to f/u with Dr. Trejo, Dr. Lopez, Dr. Walls and PCP. Meaningful Use Info Meaningful Use Diagnoses (Choose all that apply): None applicable
[2019-05-29 13:58] VITALS: BMI 28.5
--- NOTE | 2019-05-29 16:27 | NURSING ---
spoke w/pharmacist at [facility] in [place] and reviewed prescriptions
[2019-05-29] MEDS: QUEtiapine 25 MG Tablet 12.5 MG PO (20:24)
[2019-05-29] MEDS: Pramipexole Di-HCl 1 MG Tablet 2 MG PO (20:25)
[2019-05-29 22:00] VITALS: BP 106/59; PULSE 72; RESP 16; TEMP 36.8; O2SAT 100
[2019-05-29 22:15] VITALS: BMI 28.5
--- NOTE | 2019-05-30 03:29 | NURSING ---
REviewed and agree with LPNs handoff
[2019-05-30] MEDS: Pramipexole Di-HCl 1 MG Tablet PO (06:35)
[2019-05-30] MEDS: Enoxaparin 80 MG/0.8 ML Syringe SC (06:35)
[2019-05-30] MEDS: Acetaminophen 500 MG Tablet 1000 MG PO (06:36)
[2019-05-30] MEDS: Levothyroxine 25 MCG TABLET PO (06:36)
[2019-05-30] MEDS: Carbidopa/Levodopa 25/100 Tablet PO (06:37)
[2019-05-30 07:31] VITALS: BP 132/59; PULSE 76; RESP 16; TEMP 36.7; O2SAT 100
[2019-05-30] MEDS: Lisinopril 5 MG Tablet PO (07:59)
[2019-05-30] MEDS: Aspirin E.C. 81 MG Tablet PO (07:59)
[2019-05-30] MEDS: Famotidine 20 MG Tablet PO (07:59)
[2019-05-30] MEDS: Gabapentin 300 MG Capsule PO (07:59)
[2019-05-30 10:28] VITALS: BMI 28.5
--- NOTE | 2019-05-30 10:30 | NURSING ---
discharged home with family. Reviewed discharged medication, orders, and appointments with pt and , denies questions or concerns.
== END 2019-05-30 09:45 | disposition home health service (06) | DRG 560 ==
PROVIDERS: Nurse Practitioner Family; Admitting Provider Psychiatry & Neurology Neurology; Family Provider Family Medicine; PCP Family Medicine; Referring Provider Psychiatry & Neurology Neurology; Visit Provider Hospitalist
DX: Z47.89 Encounter for other orthopedic aftercare (principal); N30.00 Acute cystitis without hematuria; Z98.1 Arthrodesis status; I10 Essential (primary) hypertension; G20 Parkinson's disease; E03.9 Hypothyroidism, unspecified; I82.462 Acute embolism and thrombosis of left calf muscular vein; I82.461 Acute embolism and thrombosis of right calf muscular vein; M21.372 Foot drop, left foot; G25.81 Restless legs syndrome; E83.119 Hemochromatosis, unspecified; Z86.73 Personal history of transient ischemic attack (TIA), and cerebral infarction without residual deficits; B96.20 Unspecified Escherichia coli [E. coli] as the cause of diseases classified elsewhere
CPT/HCPCS: 36415; 80048; 81001; 85025; 87086; 87088; 87186; 92507; 92522; 93970; 97110; 97116; 97162; 97166; 97530; 97535; 97802; 97803

== ENCOUNTER → 2019-06-12 12:38 | Outpatient (CLI) | payer MEDICARE, OTHER, SELFPAY ==
[2019-05-29 13:58] VITALS: BMI 28.5
[2019-05-30 10:28] VITALS: BMI 28.5
--- NOTE | 2019-06-12 12:41 | VDLE_ITS ---
Reason For Study: Re-evaluate DVT RIGHT LEFT GSV is normal. GSV is normal. CFV is compressible, spontaneous, phasic, CFV is compressible, spontaneous, phasic, competent and demonstrates normal competent, and demonstrates normal augmentation. augmentation. FV is compressible, spontaneous, phasic, FV is compressible, spontaneous, phasic, competent and demonstrates normal competent and demonstrates normal augmentation. augmentation. POP V is compressible, spontaneous, phasic, POP V is compressible, spontaneous, phasic, competent and demonstrates normal competent and demonstrates normal augmentation. augmentation. T/P Trunk is compressible. T/P Trunk is compressible. PTV is compressible. PTV is compressible. RT PerV is compressible. LT PerV is compressible. Acute deep vein thrombosis is noted in the Acute deep vein thrombosis is noted in the right soleus vein. left soleus vein. Right gastroc vein is now compressible. Acuter deep vein thrombosis is noted in the Procedure left gastroc vein. Exam performed in department. Compared to study done on 05/25/19. A preliminary report was called and/or faxed to [facility]. Interpretation Summary 1. Bilateral calf vein DVT with no progression to popliteal vein. Ordering Physician: Vandana Noyola Referring Physician: Román Rosado Performed By: Marycruz Garcia RVT
== END ==
PROVIDERS: Family Provider Family Medicine; PCP Family Medicine; Referring Provider Nurse Practitioner Family; Visit Provider Nurse Practitioner Family
DX: Z86.718 Personal history of other venous thrombosis and embolism (principal)
CPT/HCPCS: 93970

== ENCOUNTER → 2019-07-10 12:33 | Outpatient (CLI) | payer MEDICARE, OTHER, SELFPAY ==
--- NOTE | 2019-07-10 12:35 | VDLE_ITS ---
Reason For Study: F/U DVT RIGHT LEFT GSV is normal. GSV is normal. CFV is compressible, spontaneous, phasic, CFV is compressible, spontaneous, phasic, competent and demonstrates normal competent, and demonstrates normal augmentation. augmentation. FV is compressible, spontaneous, phasic, FV is compressible, spontaneous, phasic, competent and demonstrates normal competent and demonstrates normal augmentation. augmentation. POP V is compressible, spontaneous, phasic, POP V is compressible, spontaneous, phasic, competent and demonstrates normal competent and demonstrates normal augmentation. augmentation. T/P Trunk is compressible. T/P Trunk is compressible. PTV is compressible. PTV is compressible. RT PerV is compressible. LT PerV is compressible. Right Soleus vein is noncompressible. Left SoleusV and GastrocV are partially Procedure compressible with minimal flow noted. Exam performed in department. A preliminary report was called and/or faxed to [facility]. Interpretation Summary 1. Bilateral calf DVT as listed above. Ordering Physician: Vandana Noyola Referring Physician: Román Rosado Performed By: Marycruz Garcia RVT
== END ==
PROVIDERS: Family Provider Family Medicine; PCP Family Medicine; Referring Provider Nurse Practitioner Family; Visit Provider Nurse Practitioner Family
DX: Z86.718 Personal history of other venous thrombosis and embolism (principal)
CPT/HCPCS: 93970

== ENCOUNTER 2019-11-24 17:07 | Emergency (ER) | payer MEDICARE, OTHER, SELFPAY ==
[2019-11-24 17:08] VITALS: BP 162/83; PULSE 82; RESP 16; TEMP 36.4; O2SAT 99; BMI 29.1
--- NOTE | 2019-11-24 17:27 | CT_ITS ---
STUDY: CT BRAIN WITHOUT CONTRAST REASON FOR EXAM: Female, 69 years old. Confusion. RADIATION DOSAGE (If Supplied By Facility): CTDIvol = ( 44.99 ) mGy, DLP = ( 762.36 ) mGycm TECHNIQUE: Transaxial CT imaging of the brain was performed without administration of intravenous contrast material. Individualized dose optimization techniques were used for this CT. COMPARISON: None. FINDINGS: There is an old left parieto-occipital infarct with encephalomalacia. There is no acute bleed or infarct. There are chronic ischemic and atrophic changes. The ventricles are normal in configuration. There is no hydrocephalus. The visualized paranasal sinuses are clear. The mastoid air cells are well aerated. There is no skull fracture. CT/Brain/Head without Contrast IMPRESSION: Left parieto-occipital infarct with encephalomalacia. No acute intracranial abnormality. Chronic ischemic and atrophic changes. Electronically Signed: Román Fernandez, at 18:04 EDT Tel , Service support ,
--- NOTE | 2019-11-24 17:28 | ED.VISSUMM ---
- ER Visit Summary Date of Service: 11/24/19 Chief Complaint: Confusion History of Present Illness: The patient is a 69 F who presents with intermittent confusion that was noticed today by family. Family reports that the patient has had similar symptoms with prior urinary tract infections. Family is concerned that this may be a urinary tract infection. Currently, patient denies any complaints. Patient denies any dysuria or hematuria. Patient denies any frequency. Patient denies any back or flank pain. Patient denies any nausea or vomiting. Patient states she feels fine and does not know why she is here. Physical Examination: Vital signs are stable. Patient is afebrile. Patient is in no acute distress. Patient is awake, alert, and oriented to person, place, and time. Oral mucosa is pink and moist. Neck is supple. Trachea is midline. There is no JVD. Heart was regular rate and rhythm. Lungs are clear and equal bilaterally. Abdomen is soft. Bowel sounds are normal. There is no tenderness. There is no rebound or guarding noted. There is no CVA tenderness. Cranial nerves II through XII are intact. There are no focal motor or sensory deficits noted. Extremities are intact. There is no calf tenderness or edema. Test Results: CBC and comprehensive metabolic profile were obtained were within normal limits. Urinalysis does not show any evidence of urinary tract infection. CT scan of the brain was obtained. There is an old left parietal occipital infarct with encephalomalacia. There is no acute intracranial abnormality. This was interpreted by the radiologist and reviewed by myself. Emergency Department Course and Treatment: Patient remained asymptomatic here in the emergency department. Patient was instructed to follow-up with her primary care physician in 5 to 7 days for further evaluation. Patient understood and was agreeable with the plan. All questions were answered. Disposition: Discharge home Impression: Intermittent confusion This note was generated with [employer] software. It may contain incorrect words, spelling, and punctuation that were not noted in review of the chart prior to signing ED Disposition - Plan for ED Patient: Disposition: Home or Assisted Living Diagnosis: Intermittent confusion Instructions: ED Confusion Referrals: Román Rosado MD [Primary Care Provider] - 3-5 Days
[2019-11-24 17:46] LABS: Absolute Lymphocyte Count 1.23 X10^3/uL (0.83-4.51); Absolute Neutrophil Count 5.2 X10^3/uL (2.0-7.7); Basophil# 0.07 X10^3/uL; Basophil% 0.9 % (0-1); Eosinophil# 0.12 X10^3/uL; Eosinophils% 1.6 % (0-5); Hematocrit 34.8 % (37-47); Lymphocyte # 1.23 X10^3/ul (4.0); Lymphocyte % 16.3 % (19-41); Mean Corp Hgb Conc 28.7 g/dL (32-36); Mean Corpuscular Volume 76.5 fL (81-99); Mean Platelet Vol. 10.1 fl (6.2-12.0); Monocyte# 0.88 X10^3/uL; Monocyte% 11.7 % (0-10); NRBC Flagged by Analyzer 0 % (0-5); Neutrophil % 68.8 % (47-70); Platelet Count 283 K/mm3 (150-450); RBC Distribution Width SD 54.7 fl (35.1-43.9); Red Blood Count 4.55 M/mm3 (4.2-5.4); White Blood Count 7.6 K/mm3 (4.4-11.0)
[2019-11-24 18:03] LABS: ALB/GLOB Ratio 0.8 RATIO (0.9-2.4); AST(SGOT) 15 U/L (15-37); Alanine Aminotransfer ALT/SGPT 16 U/L (13-56); Albumin, Serum 3.7 g/dL (3.2-5.0); Alkaline Phosphatase 90 U/L (45-117); Anion Gap 6 (5-15); BUN 23 mg/dL (7-18); BUN/Creat Ratio 29.8 RATIO (10-20); Calcium,Total 9.2 mg/dL (8.5-10.1); Chloride 106 mmol/L (98-107); Creatinine, Serum 0.77 mg/dL (0.55-1.02); EST Glomerular Filtration Rate 79 mL/min (>60); Est Glom Filt Rate - Afr Amer 96 mL/min (>60); Estimated Creatinine Clearance 48.45 ml/min; Globulin 4.5 g/dL (2.2-4.2); Glucose 117 mg/dL (74-106); Potassium 3.9 mmol/L (3.5-5.1); Protein, Total 8.2 g/dL (6.4-8.2); Sodium Level 139 mmol/L (136-145)
[2019-11-24 18:55] LABS: Bacteria 0 SEEN /hpf (None Seen); Mucous, Urine 0 SEEN /hpf (<or=2+)
[2019-11-24 18:58] LABS: Color, Urine Yellow (Yellow); Glucose, Dipstick Normal (Normal); Ketone-Dipstick Negative (Negative); Leukocyte Esterase-Dipstick Negative /ul (Negative); Nitrite-Dipstick Negative (Negative); Occult Blood-Urine Negative /ul (Negative); Protein-Dipstick 15 mg/dl (Negative); Specific Gravity, Urine 1.015 (1.002-1.030); Urine Bilirubin Dipstick Negative (Negative); Urine Clarity Clear (Clear); Urine Urobilinogen Normal (Normal)
[2019-11-24 19:04] LABS: Squamous Epithelial Cells - UA 0-5 SEEN /hpf (5-10)
[2019-11-24 19:06] LABS: Amorphous Sediment 1+; Red Blood Cells-Urine 0-5 SEEN /hpf (0-5); White Blood Cells 0-5 SEEN /hpf (0-5)
[2019-11-24 19:07] LABS: Renal Epithelial Cells 0-5 SEEN /hpf (0-5)
--- NOTE | 2019-11-24 19:37 | ED.RN ---
daughter updated at this time of patient status. waiting for DR. Vazquez to discuss tests results with family
[2019-11-24 19:38] VITALS: BP 102/76; PULSE 78; RESP 15; O2SAT 98
[2019-11-24 19:58] VITALS: BP 153/78; PULSE 82; RESP 16; O2SAT 100
== END 2019-11-24 20:04 | disposition home or self-care (01) ==
PROVIDERS: Emergency Provider Emergency Medicine; PCP Family Medicine
DX: R41.0 Disorientation, unspecified (principal); G20 Parkinson's disease; E03.9 Hypothyroidism, unspecified; G25.81 Restless legs syndrome; Z79.82 Long term (current) use of aspirin; Z79.899 Other long term (current) drug therapy; Z87.440 Personal history of urinary (tract) infections; Z86.73 Personal history of transient ischemic attack (TIA), and cerebral infarction without residual deficits
CPT/HCPCS: 70450; 80053; 81001; 85025; 99284; A4216

== ENCOUNTER 2023-08-31 18:11 | Inpatient (IN) | payer MEDICARE, OTHER, SELFPAY ==
[2023-08-31 18:12] VITALS: BP 160/80; PULSE 80; RESP 16; TEMP 36.9; O2SAT 99; BMI 27.4
--- NOTE | 2023-08-31 18:48 | CT_ITS ---
STUDY: CT BRAIN WITHOUT CONTRAST REASON FOR EXAM: Female, 73 years old. altered LOC RADIATION DOSAGE (If Supplied By Facility): CTDIvol = ( 44.99 ) mGy, DLP = ( 779.24 ) mGycm TECHNIQUE: Transaxial CT imaging of the brain was performed without administration of intravenous contrast material. Individualized dose optimization techniques were used for this CT. COMPARISON: 11/24/2019 FINDINGS: Normal soft tissue structures. Normal calvarium. There is mild cerebral atrophy with widening of the extra-axial spaces and ventricular dilatation. There are areas of decreased attenuation within the white matter tracts of the supratentorial brain, consistent with microvascular disease changes. Chronic lacunar infarct of the left putamen. Normal brainstem. Normal cerebellum. There is no intracranial hemorrhage. No change in encephalomalacia within the posterior left parietal lobe consistent with chronic infarct Air-fluid level in the right maxillary sinus consistent with acute sinusitis. CT/Brain/Head without Contrast IMPRESSION: Chronic involutional changes of the brain. Electronically Signed: Mauro Gonzalez MD at 20:27 EST ,
--- NOTE | 2023-08-31 18:49 | EX.ED.DYSGE1 ---
HPI History of Present Illness Chief Complaint: Weakness Informant: patient and family (mult) Narrative Narrative: 73-year-old female with history of Parkinson disease lives at home with her , started having cough, runny nose, congestion yesterday, no fevers, chills, dyspnea. Today she has been increasingly more confused, hallucinating, definitely a major change for her, and so weak that she cannot stand. Usually she gets around the house despite her Parkinson's on her own without assistance. She does on occasion have some confusion in the mornings but it is usually short-lived and never during the day all day like this. The patient denies having any pain anywhere including a headache, chest discomfort, abdominal discomfort. She has had no nausea or vomiting. She admits that she feels very tired and weak but denies any other focal complaints right now. [facility] Medical History Hemochromatosis HTN (hypertension) Intraparenchymal hematoma of brain Parkinson disease Rectocele Restless leg syndrome Spinal stenosis Stroke Home Medications levothyroxine 25 mcg tablet 25 mcg PO DAILY@0600 Check with primary doctor 05/11/19 [History Last Taken Unknown] acetaminophen 500 mg tablet 1,000 mg (2 x 500 mg) PO Q8 05/29/19 [Rx Last Taken Unknown] aspirin 81 mg tablet,delayed release 81 mg PO DAILY@0800 05/29/19 [Rx Last Taken Unknown] folic acid 1 mg tablet 1 mg PO DAILY 05/29/19 [Rx Last Taken Unknown] levothyroxine 25 mcg tablet 25 mcg PO DAILY@0600 #30 tabs 05/29/19 [Rx Last Taken Unknown] lisinopril 5 mg tablet 5 mg PO DAILY #30 tabs 05/29/19 [Rx Last Taken Unknown] pramipexole 1 mg tablet 1 mg PO BID@0600,1400 #120 tabs 05/29/19 [Rx Last Taken Unknown] quetiapine 25 mg tablet 12.5 mg (1/2 x 25 mg) PO DAILY@2000 #15 tabs 05/29/19 [Rx Last Taken Unknown] saliva substitute combo no.9 15 ml MM 5X/DAY PRN Dry Mouth 05/29/19 [Rx Last Taken Unknown] sennosides 8.6 mg-docusate sodium 50 mg tablet 2 tab PO BID 05/29/19 [Rx Last Taken Unknown] carbidopa 25 mg-levodopa 100 mg tablet 1.5 tab PO TIDAC 08/31/23 [History Last Taken Unknown] gabapentin 300 mg capsule 600 mg PO BIDCM neuropathy 08/31/23 [History Last Taken Unknown] levothyroxine 50 mcg tablet 50 mcg PO DAILY 08/31/23 [History Last Taken Unknown] pramipexole 1 mg tablet 2 mg PO QHS 08/31/23 [History Last Taken Unknown] Allergy/AdvReac Type Severity Reaction Status Date / Time Penicillins Allergy Unknown Verified 08/31/23 18:58 Sulfa (Sulfonamide Allergy Unknown Verified 08/31/23 18:58 Antibiotics) levothyroxine AdvReac Diarrhea Verified 08/31/23 18:58 Surgical History H/O blepharoplasty H/O tubal ligation Hx of tonsillectomy S/P lumbar spinal fusion Social History Smoking Status: Never smoker ROS ROS ED Constitutional Constitutional ED: Reports fatigue, malaise, poor appetite and weakness; Denies chills or fever(s) Eyes Eyes: Denies change in vision or diplopia ENT ENT ED: Reports nasal congestion and rhinorrhea; Denies ear pain or sore throat Cardiovascular Cardiovascular: Denies chest pain or palpitations Respiratory/Chest Respiratory/Chest: Reports cough; Denies dyspnea Gastrointestinal Gastrointestinal: Denies abdominal pain, diarrhea, nausea or vomiting Genitourinary Genitourinary ED: Denies dysuria or hematuria Musculoskeletal Musculoskeletal: Denies back pain or neck pain Integumentary Denies abscess or rash Neurologic Neurologic: Denies headache(s), paresthesias or weakness Psychiatric Psychiatric: Reports hallucinations; Denies suicidal ideation or suicidal thoughts EXAM Physical Exam Const Vital Signs: 08/31/23 18:12 08/31/23 18:30 08/31/23 18:48 Temperature 98.4 F Temperature Source Temporal Pulse Rate 80 Respiratory Rate 16 Respiratory Effort Normal Respiratory Pattern Normal Blood Pressure 160/80 H Blood Pressure Mean 106 Pulse Ox 99 Oxygen Delivery Method Room Air Room Air Positive well nourished and well developed Constitutional Narrative: Very lethargic. Alerts to voice. Able to follow commands. General Appearance ED: well developed and NAD HEENT Reports moist mucous membranes normocephalic and atraumatic Eyes PERRL and EOMs intact bilaterally Neck full ROM, no lymphadenopathy, supple and no JVD Chest Wall inspection of chest normal and palpation of chest normal Resp normal respiratory effort and clear to auscultation bilaterally Cardio regular rate, regular rhythm and no murmurs Rate: Negative for tachycardic GI non-tender and non-distended Auscultation: normoactive bowel sounds Palpation: soft Back/Spine no CVA tenderness General Back: other FROM Extremity normal to inspection General Extremety ED: Negative for edema, pulses abnormal or tenderness General Extremity: Negative for edema or pulses abnormal Neuro CN's II-XII intact bilaterally and no sensory deficits noted Neuro Narrative: Symmetrically generally weak. Not able to perform finger-nose or cegy-de-fflw. GCS 13 due to eyes open to voice and confused. Sensorium / Orientation: awake, alert and orientation impaired Motor Exam: general weakness Skin no rashes or lesions noted and no wounds MDM MDM MDM Narrative Medical decision making narrative: Patient appears ill but nontoxic and vital signs are reassuring. Still did a septic workup, looking for infectious etiologies in addition to a CT of the head given her encephalopathy/hallucinations, 1 view chest x-ray which my interpretation is normal showing no pneumonia, and EKG and troponin. EKG shows no acute injury pattern and her troponin is normal. Her labs are unremarkable, except her urine appears to be infected and she has a positive COVID swab, negative for flu/RSV. Head CT on my interpretation shows no acute hemorrhage, radiology in agreement I agree with the report. She is extremely weak but stable clinically and hemodynamically, plan is for admission. Since we are admitting her, she is not a candidate for Paxlovid at this time. I am giving her Rocephin for UTI after we cultured her blood and urine though. Lab Data Attestation: I reviewed the patient's lab results. Labs: Laboratory Results - last 24 hr 08/31/23 08/31/23 18:25 19:30 WBC 6.8 RBC 4.64 Hgb 12.1 Hct 39.6 MCV 85.3 MCH 26.1 L MCHC 30.6 L RDW Std Deviation 51.5 H RDW Coeff of Pedro 16.7 H Plt Count 173 MPV 12.1 H Immature Gran % (Auto) 0.600 Neut % (Auto) 88.2 H Lymph % (Auto) 4.8 L [place] % (Auto) 5.3 Eos % (Auto) 0.4 Baso % (Auto) 0.7 Absolute Neuts (auto) 6.0 Absolute Lymphs (auto) 0.33 L Nucleated RBC % 0 PT 13.5 INR 1.0 APTT 35.0 Sodium 140 Potassium 3.8 Chloride 110 H Carbon Dioxide 26.0 Anion Gap 4 L BUN 24 H Creatinine 0.91 Estim Creat Clear Calc 54.56 Est GFR (MDRD) Af Amer 78 Est GFR (MDRD) Non-Af 64 BUN/Creatinine Ratio 26.3 H Glucose 97 Lactic Acid 1.1 Calcium 9.5 Total Bilirubin 0.50 AST 19 ALT 10 L Alkaline Phosphatase 60 Troponin I High Sens 5 Total Protein 7.8 Albumin 3.7 Globulin 4.1 Albumin/Globulin Ratio 0.9 Urine Color Yellow Urine Clarity Sl. Cloudy Urine pH 5.0 Ur Specific [place] 1.025 Urine Protein 100 H Urine Glucose (UA) Normal Urine Ketones 15 H Urine Occult Blood 10 H Urine Nitrite Negative Urine Bilirubin Negative Urine Urobilinogen Normal Ur Leukocyte Esterase 500 H Urine RBC 0-5 SEEN Urine WBC 50-100 SEEN Ur Squamous Epith Cells 0 SEEN Urine Bacteria 1+ Urine Mucus 0 SEEN Rhythm Strip Rhythm Strip: Sinus Rhythm Rate: 80 Ectopy: None EKG Initial EKG: Attestation: I personally reviewed and interpreted this EKG as follows: Interpretation: Sinus Rhythm and No Acute Injury Pattern Management Discussion w/another healthcare provider: Hospitalist Discharge Plan Dx/Rx/DC Orders Clinical Impression: Acute encephalopathy, Debility, COVID-19, Acute UTI, Unable to stand up Disposition Disposition: [facility]
[2023-08-31 18:55] LABS: Absolute Lymphocyte Count 0.33 X10^3/uL (0.83-4.51); Basophil# 0.05 X10^3/uL; Basophil% 0.7 % (0-1); Eosinophil# 0.03 X10^3/uL; Eosinophils% 0.4 % (0-5); Hematocrit 39.6 % (37-47); Hemoglobin 12.1 g/dL (12.0-15.0); Lymphocyte # 0.33 X10^3/ul (0.83-4.51); Lymphocyte % 4.8 % (19-41); Mean Corp Hgb Conc 30.6 g/dL (32-36); Mean Corpuscular Hgb 26.1 pg (27.0-32.0); Mean Corpuscular Volume 85.3 fL (81-99); Mean Platelet Vol. 12.1 fl (6.2-12.0); Monocyte# 0.36 X10^3/uL; Monocyte% 5.3 % (0-10); NRBC Flagged by Analyzer 0 % (0-5); Neutrophil # 6.01 X10^3/uL (2.7-7.7); Neutrophil % 88.2 % (47-70); POSITIVE DIFFERENTIAL YES; Platelet Count 173 K/mm3 (150-450); RBC Distribution Width CV 16.7 % (11.6-14.6); RBC Distribution Width SD 51.5 fl (35.1-43.9); Red Blood Count 4.64 M/mm3 (4.2-5.4); White Blood Count 6.8 K/mm3 (4.4-11.0)
[2023-08-31 19:07] LABS: Prothrombin Time (Protime)PT. 13.5 SECONDS (11.7-14.9)
[2023-08-31] MEDS: 0.9% Normal Saline (1000mL) 1,000 ML 999 ML IV (19:09)
[2023-08-31 19:16] LABS: ALB/GLOB Ratio 0.9 RATIO (0.9-2.4); AST(SGOT) 19 U/L (15-37); Alanine Aminotransfer ALT/SGPT 10 U/L (13-56); Albumin, Serum 3.7 g/dL (3.2-5.0); Alkaline Phosphatase 60 U/L (45-117); Anion Gap 4 (5-15); BUN 24 mg/dL (7-18); BUN/Creat Ratio 26.3 RATIO (10-20); Calcium,Total 9.5 mg/dL (8.5-10.1); Chloride 110 mmol/L (98-107); Creatinine, Serum 0.91 mg/dL (0.55-1.02); EST Glomerular Filtration Rate 64 mL/min (>60); Est Glom Filt Rate - Afr Amer 78 mL/min (>60); Estimated Creatinine Clearance 54.56 ml/min; Globulin 4.1 g/dL (2.2-4.2); Glucose 97 mg/dL (74-106); Potassium 3.8 mmol/L (3.5-5.1); Protein, Total 7.8 g/dL (6.4-8.2); Sodium Level 140 mmol/L (136-145); Troponin-I HS 5 pg/mL (3.0-54.0)
[2023-08-31 19:22] LABS: Lactic Acid 1.1 mmol/L (0.4-1.9)
[2023-08-31 19:36] LABS: Mucous, Urine 0 SEEN /hpf (<or=2+); Squamous Epithelial Cells - UA 0 SEEN /hpf (5-10)
--- NOTE | 2023-08-31 19:45 | RAD_ITS ---
STUDY: X-RAY CHEST REASON FOR EXAM: Female, 73 years old. cough, confused TECHNIQUE: Single AP portable view of the chest. COMPARISON: None. FINDINGS: Poor inspiration with some bibasilar atelectasis. There is no demonstrated pleural abnormality. Normal size heart. Normal mediastinum and alicia. Normal visualized pulmonary arteries. There is atherosclerotic tortuosity of the aortic arch and descending thoracic aorta. Normal visualized thoracic spine. Normal visualized ribs, clavicles, and shoulders. There is no demonstrated abnormality of the visualized soft tissue structures of the upper abdomen. RAD/Chest 1 View (Portable) IMPRESSION: Poor inspiration with some bibasilar atelectasis. Electronically Signed: Mauro Gonzalez MD at 20:28 EST ,
[2023-08-31 19:53] LABS: Color, Urine Yellow (Yellow); Glucose, Dipstick Normal (Normal); Ketone-Dipstick 15 mg/dl (Negative); Leukocyte Esterase-Dipstick 500 /ul (Negative); Nitrite-Dipstick Negative (Negative); Occult Blood-Urine 10 /ul (Negative); Protein-Dipstick 100 mg/dl (Negative); Specific Gravity, Urine 1.025 (1.002-1.030); Urine Bilirubin Dipstick Negative (Negative); Urine Clarity Sl. Cloudy (Clear); Urine Urobilinogen Normal (Normal)
[2023-08-31 19:59] LABS: White Blood Cells 50-100 SEEN /hpf (0-5)
[2023-08-31 20:00] LABS: Bacteria 1+ /hpf (None Seen); Red Blood Cells-Urine 0-5 SEEN /hpf (0-5)
--- NOTE | 2023-08-31 20:13 | HP.PCM.HOS_ITS ---
[facility] - General General Date of Admission: 08/31/23 Date of Service: 08/31/23 Chief Complaint: Confused and Weak. HPI Narrative SÁNCHEZ EL, is a 73 F with a past medical history of essential hypertension, hypothyroidism, history of CVA, history of intraparenchymal hematoma of the brain, Parkinson's disease, RLS, history of hemochromatosis, history of spinal stenosis; s/p lumbar fusion, history of rectocele and OA who presents to [facility] ER complaining of being confused and weak. Mrs. El is not a reliable historian at this time so information was gathered from chart, medical staff and computer. According to the records her symptoms began one day prior to admission when she began to have a runny nose, cough and congestion. Then earlier today she became increasingly confused with hallucinations along with her becoming so weak she was unable to stand which was new and concerning so her brought her in for further evaluation and treatment. Her informed the ER staff that she is occasionally confused in the mornings - but this is typically short-lived and has never previously lasted all day. There was no report of fever, chills, nausea, vomiting, abdominal pain, headache or chest pain but she does admit to feeling tired and weak generally. She has been able to mobilize around her house in spite of her Parkinson's and she denies other complaints at this time. In the ER she was noted to have a positive COVID-19 assay along with a UA positive for Acute Cystitis; with microscopic he maturia complicated by clinical evidence of metabolic encephalopathy and generalized weakness with ambulatory dysfunction and she was then admitted to the PCU for ongoing care for a stay that is expected to be greater than 48 hours. [facility] Medical History Hemochromatosis HTN (hypertension) Intraparenchymal hematoma of brain Parkinson disease Rectocele Restless leg syndrome Spinal stenosis Stroke Home Medications levothyroxine 25 mcg tablet 25 mcg PO DAILY@0600 Check with primary doctor 05/11/19 [History Last Taken Unknown] acetaminophen 500 mg tablet 1,000 mg (2 x 500 mg) PO Q8 05/29/19 [Rx Last Taken Unknown] aspirin 81 mg tablet,delayed release 81 mg PO DAILY@0800 05/29/19 [Rx Last Taken Unknown] folic acid 1 mg tablet 1 mg PO DAILY 05/29/19 [Rx Last Taken Unknown] levothyroxine 25 mcg tablet 25 mcg PO DAILY@0600 #30 tabs 05/29/19 [Rx Last Taken Unknown] lisinopril 5 mg tablet 5 mg PO DAILY #30 tabs 05/29/19 [Rx Last Taken Unknown] pramipexole 1 mg tablet 1 mg PO BID@0600,1400 #120 tabs 05/29/19 [Rx Last Taken Unknown] quetiapine 25 mg tablet 12.5 mg (1/2 x 25 mg) PO DAILY@2000 #15 tabs 05/29/19 [Rx Last Taken Unknown] saliva substitute combo no.9 15 ml MM 5X/DAY PRN Dry Mouth 05/29/19 [Rx Last Taken Unknown] sennosides 8.6 mg-docusate sodium 50 mg tablet 2 tab PO BID 05/29/19 [Rx Last Taken Unknown] carbidopa 25 mg-levodopa 100 mg tablet 1.5 tab PO TIDAC 08/31/23 [History Last Taken Unknown] gabapentin 300 mg capsule 600 mg PO BIDCM neuropathy 08/31/23 [History Last Taken Unknown] levothyroxine 50 mcg tablet 50 mcg PO DAILY 08/31/23 [History Last Taken Unknown] pramipexole 1 mg tablet 2 mg PO QHS 08/31/23 [History Last Taken Unknown] Allergy/AdvReac Type Severity Reaction Status Date / Time Penicillins Allergy Unknown Verified 08/31/23 18:58 Sulfa (Sulfonamide Allergy Unknown Verified 08/31/23 18:58 Antibiotics) levothyroxine AdvReac Diarrhea Verified 08/31/23 18:58 Surgical History H/O blepharoplasty H/O tubal ligation Hx of tonsillectomy S/P lumbar spinal fusion Social History Smoking Status: Never smoker ROS ROS Narrative Review of systems was not possible due to patient confusion. Review of Systems ROS Unobtainable: due to encephalopathy Vital Signs Vital Signs Vital Signs: 08/31/23 18:12 08/31/23 18:30 08/31/23 18:48 Temperature 98.4 F Temperature Source Temporal Pulse Rate 80 Respiratory Rate 16 Respiratory Effort Normal Respiratory Pattern Normal Blood Pressure 160/80 H Blood Pressure Mean 106 Pulse Ox 99 Oxygen Delivery Method Room Air Room Air Weight Weight: 160 lb Body Mass Index (BMI) 27.4 Physical Exam Const alert, no apparent distress and average body habitus General Appearance: cooperative Orientation / Consciousness: confused HEENT normocephalic, head/scalp atraumatic, hearing grossly normal bilaterally and moist oral mucous membranes Eyes PERRL and EOMs intact bilaterally Neck no lymphadenopathy and supple Resp normal respiratory effort, no retractions, no use of accessory muscles and clear to auscultation bilaterally Cardio regular rate and regular rhythm GI normal to inspection, nondistended, normoactive bowel sounds, soft to palpation, non-tender and non-distended Extremity normal to inspection and full ROM Skin Skin Narrative: Patient has no evidence of rash at this time. Neuro CN's II-XII intact bilaterally, moves all extremities and no focal motor deficits Sensorium / Orientation: awake, alert, oriented to person and oriented to place Speech: speech normal Motor Exam: strength 5/5 throughout Psych affect normal Results Medical Records Data Attestation: I reviewed the patient's medical records Lab / Micro Data Attestation: I reviewed the patient's lab results. 08/31/23 18:25 08/31/23 18:25 Labs: Laboratory Results - last 24 hr 08/31/23 18:25: WBC 6.8, RBC 4.64, Hgb 12.1, Hct 39.6, MCV 85.3, MCH 26.1 L, MCHC 30.6 L, RDW Std Deviation 51.5 H, RDW Coeff of Pedro 16.7 H, Plt Count 173, MPV 12.1 H, Immature Gran % (Auto) 0.600, Neut % (Auto) 88.2 H, Lymph % (Auto) 4.8 L, [place] % (Auto) 5.3, Eos % (Auto) 0.4, Baso % (Auto) 0.7, Absolute Neuts (auto) 6.0, Absolute Lymphs (auto) 0.33 L, Nucleated RBC % 0, PT 13.5, INR 1.0, APTT 35.0, Sodium 140, Potassium 3.8, Chloride 110 H, Carbon Dioxide 26.0, Anion Gap 4 L, BUN 24 H, Creatinine 0.91, Estim Creat Clear Calc 54.56, Est GFR (MDRD) Af Amer 78, Est GFR (MDRD) Non-Af 64, BUN/Creatinine Ratio 26.3 H, Glucose 97, Lactic Acid 1.1, Calcium 9.5, Total Bilirubin 0.50, AST 19, ALT 10 L, Alkaline Phosphatase 60, Troponin I High Sens 5, Total Protein 7.8, Albumin 3.7, Globulin 4.1, Albumin/Globulin Ratio 0.9 08/31/23 19:30: Urine Color Yellow, Urine Clarity Sl. Cloudy, Urine pH 5.0, Ur Specific [place] 1.025, Urine Protein 100 H, Urine Glucose (UA) Normal, Urine Ketones 15 H, Urine Occult Blood 10 H, Urine Nitrite Negative, Urine Bilirubin Negative, Urine Urobilinogen Normal, Ur Leukocyte Esterase 500 H, Urine RBC 0-5 SEEN, Urine WBC 50-100 SEEN, Ur Squamous Epith Cells 0 SEEN, Urine Bacteria 1+, Urine Mucus 0 SEEN Micro: Microbiology 08/31/23 16:30 Mucosa - Nose SARS-CoV-2, Influenza & RSV (PCR) - Final SARS-CoV-2 (COVID 19) Imaging [facility] [place] Imaging Services [address] [place] [id number] Chest 1 View (Portable) MR#: [id number] Acct: [id number] Name: SÁNCHEZ EL Rep #: [id number] : 1950 F 73 From: Mauro Gonzalez MD PCP: Dr. Román Rosado MD Status: [facility] ER Study: Chest 1 View (Portable) Date of Exam: 08/31/23 Exam# [id number] Ordering Dr: Gamaliel Gannon MD STUDY: X-RAY CHEST REASON FOR EXAM: Female, 73 years old. cough, confused TECHNIQUE: Single AP portable view of the chest. COMPARISON: None. FINDINGS: Poor inspiration with some bibasilar atelectasis. There is no demonstrated pleural abnormality. Normal size heart. Normal mediastinum and alicia. Normal visualized pulmonary arteries. There is atherosclerotic tortuosity of the aortic arch and descending thoracic aorta. Normal visualized thoracic spine. Normal visualized ribs, clavicles, and shoulders. There is no demonstrated abnormality of the visualized soft tissue structures of the upper abdomen. RAD/Chest 1 View (Portable) IMPRESSION: Poor inspiration with some bibasilar atelectasis. Electronically Signed: Mauro Gonzalez MD at 20:28 EST , CC: Dr. Gamaliel Gannon MD; Dr. Román Rosado MD ~ Pattern Clerk: Signed [facility] [place] Imaging Services [facility] [place] [address] Brain/Head without Contrast MR#: [id number] Acct: [id number] Name: SÁNCHEZ EL Rep #: [id number] : 1950 F 73 From: Mauro Gonzalez MD PCP: Dr. Román Rosado MD Status: [facility] ER Study: Brain/Head without Contrast Date of Exam: 08/31/23 Exam# [id number] Ordering Dr: Gamaliel Gannon MD STUDY: CT BRAIN WITHOUT CONTRAST REASON FOR EXAM: Female, 73 years old. altered LOC RADIATION DOSAGE (If Supplied By Facility): CTDIvol = ( 44.99 ) mGy, DLP = ( 779.24 ) mGycm TECHNIQUE: Transaxial CT imaging of the brain was performed without administration of intravenous contrast material. Individualized dose optimization techniques were used for this CT. COMPARISON: 11/24/2019 FINDINGS: Normal soft tissue structures. Normal calvarium. There is mild cerebral atrophy with widening of the extra-axial spaces and ventricular dilatation. There are areas of decreased attenuation within the white matter tracts of the supratentorial brain, consistent with microvascular disease changes. Chronic lacunar infarct of the left putamen. Normal brainstem. Normal cerebellum. There is no intracranial hemorrhage. No change in encephalomalacia within the posterior left parietal lobe consistent with chronic infarct Air-fluid level in the right maxillary sinus consistent with acute sinusitis. CT/Brain/Head without Contrast IMPRESSION: Chronic involutional changes of the brain. Electronically Signed: Mauro Gonzalez MD at 20:27 EST , CC: Dr. Gamaliel Gannon MD; Dr. Román Rosado MD ~ Pattern Clerk: Signed Assessment & Plan Assessment/Plan (1) COVID-19: (2) Acute UTI: (3) Sinusitis: QUALIFIERS: Sinusitis location: maxillary Chronicity: acute Recurrence: not specified as recurrent Qualified Code(s): J01.00 - Acute maxillary sinusitis, unspecified (4) Acute encephalopathy: (5) Generalized weakness: (6) Ambulatory dysfunction: PLAN: Plan 1. COVID-19 + with CT head positive for Acute Right Maxillary Sinusitis - Admit to PCU under contact and droplet precautions. Give Azithromycin in addition to Decadron BID. We will give vitamin D3, vitamin C and zinc to optimize her immune response and hopefully speed her recovery. Give Tylenol prn pain or fever. 2. UA positive for Acute Cystitis; with microscopic hematuria complicating #1 - Give IV Rocephin and await culture and sensitivity data. 3. Metabolic encephalopathy arising from #1 & #2 - Continue supportive care and monitor for improvement. Minimize SHEET [employer]ULATOR-active medications to allow clearing of sensorium. 4. Generalized weakness with ambulatory dysfunction due to #1 - #3 - PT/OT and Case Management to consult and treat on-rounds in the AM for further recommendations with help appreciated in advance. 5. Parkinson's disease - Resume Carbidopa/Levodopa and Pramipexole as previous. 6. Essential Hypertension - Continue home regimen plus give prn IV hydralazine for systolic blood pressure > 160 mm Hg. 7. Hypothyroidism - Resume Synthroid and check TSH. 8. History of CVA - Noted. Non-acute CT head this admission noted above. 9. History of intraparenchymal hematoma of the brain - Noted. 10. RLS - Continue home regimen. 11. History of hemochromatosis - Stable with hemoglobin of 12.1 g/dL present on admission. 12. History of spinal stenosis; s/p lumbar fusion - Noted. 13. History of rectocele - Noted. 14. OA - Stable. Give Tylenol prn. 15. DVT prophylaxis - Lovenox 40 mg sq daily. Total time: Approximately 55 minutes. Charges/Coding Visit Charges Inpatient E&M: 03404 Init Hosp L2
[2023-08-31] MEDS: Ceftriaxone 1 GM/50 ML BAG IV (20:19)
[2023-08-31 20:21] VITALS: BP 113/77; PULSE 86; RESP 24; TEMP 37.6; O2SAT 96
[2023-08-31 20:57] LABS: Base Excess -3 mmol/L (-2 to +2); Bicarbonate 21.4 mmol/L (22-26); Blood Gas Specimen Type ART; Mode Not entered; O2 Delivery Device Room Air; PO2 67 mmHG (75-100); SITE R Brach; SO2 94 % (95-99); Total Carbon Dioxide 22 mmol/L; pCO2 30.3 mmHg (35-45); pH 7.46 (7.35-7.45)
[2023-08-31 21:16] VITALS: BMI 27.7
[2023-08-31] MEDS: Azithromycin 500 MG in Dextrose 5%-Water (250mL Bag) 250 ML 250 MG IV (21:57)
[2023-08-31] MEDS: Senna/Docusate Sodium 1 Tablet 2 TABLET PO (22:00)
[2023-08-31] MEDS: dexAMETHasone 10 MG/ML Vial 6 MG IV (22:00)
[2023-08-31] MEDS: Pramipexole Di-HCl 1 MG Tablet 2 MG PO (22:01)
[2023-08-31] MEDS: Famotidine 20 MG Tablet PO (22:01)
[2023-08-31] MEDS: 0.9% Normal Saline (1000mL) 1,000 ML 75 ML IV (22:01)
[2023-08-31] MEDS: Acetaminophen 325 MG Tablet 650 MG PO (22:14)
[2023-08-31 22:15] VITALS: BP 119/101; PULSE 70; RESP 16; TEMP 38.5; O2SAT 97
[2023-08-31] MEDS: MELATONIN 3 MG TABLET PO (22:15)
[2023-08-31 23:56] VITALS: BP 119/101; PULSE 70; RESP 16; TEMP 38.5; O2SAT 97
[2023-09-01] VITALS (7 sets, daily range): BP systolic 112–154; BP diastolic 63–78; PULSE 59–64; RESP 16–18; TEMP 35.8–36.9; O2SAT 94–99; BMI 27.7
[2023-09-01] MEDS: Carbidopa/Levodopa 25/100 Tablet PO ×3 (05:58→15:59)
[2023-09-01] MEDS: Levothyroxine 50 MCG Tablet PO (05:58)
[2023-09-01] MEDS: Pramipexole Di-HCl 1 MG Tablet PO ×2 (06:03→12:01)
[2023-09-01 06:45] LABS: Absolute Lymphocyte Count 0.38 X10^3/uL (0.83-4.51); Basophil# 0.04 X10^3/uL; Basophil% 0.7 % (0-1); Eosinophil# 0.15 X10^3/uL; Eosinophils% 2.6 % (0-5); Hematocrit 34.4 % (37-47); Hemoglobin 10.7 g/dL (12.0-15.0); Lymphocyte # 0.38 X10^3/ul (0.83-4.51); Lymphocyte % 6.5 % (19-41); Mean Corp Hgb Conc 31.1 g/dL (32-36); Mean Corpuscular Hgb 26.2 pg (27.0-32.0); Mean Corpuscular Volume 84.3 fL (81-99); Mean Platelet Vol. 11.9 fl (6.2-12.0); Monocyte# 0.17 X10^3/uL; Monocyte% 2.9 % (0-10); NRBC Flagged by Analyzer 0 % (0-5); Neutrophil # 5.03 X10^3/uL (2.7-7.7); Neutrophil % 86.1 % (47-70); POSITIVE DIFFERENTIAL YES; Platelet Count 167 K/mm3 (150-450); RBC Distribution Width CV 16.7 % (11.6-14.6); RBC Distribution Width SD 51.8 fl (35.1-43.9); Red Blood Count 4.08 M/mm3 (4.2-5.4); White Blood Count 5.8 K/mm3 (4.4-11.0)
--- NOTE | 2023-09-01 07:12 | PN.HOSP_ITS ---
Subjective Subjective Feeling ok. Objective Data Objective Data Vital Signs: Vital Signs Temp Pulse Resp BP Pulse Ox O2 Del Method 36.1 C L 59 L 16 112/63 97 Room Air 09/01/23 06:00 09/01/23 06:00 09/01/23 06:00 09/01/23 06:00 09/01/23 06:00 09/01/23 06:00 Oxygen Delivery Method Room Air Weight: 73.3 kg Body Mass Index (BMI) 27.7 Intake & Output: Intake and Output for Last 24 Hours 08/30/23 08/31/23 09/01/23 23:59 23:59 23:59 Intake Total 1305 / 1305 Output Total 140 / 140 1100 / 1100 Balance 1165 / 1165 -1100 / -1100 Lab / Micro Data 09/01/23 06:00 09/01/23 06:00 Labs: Laboratory Results - last 24 hr 08/31/23 18:25: WBC 6.8, RBC 4.64, Hgb 12.1, Hct 39.6, MCV 85.3, MCH 26.1 L, MCHC 30.6 L, RDW Std Deviation 51.5 H, RDW Coeff of Pedro 16.7 H, Plt Count 173, MPV 12.1 H, Immature Gran % (Auto) 0.600, Neut % (Auto) 88.2 H, Lymph % (Auto) 4.8 L, [place] % (Auto) 5.3, Eos % (Auto) 0.4, Baso % (Auto) 0.7, Absolute Neuts (auto) 6.0, Absolute Lymphs (auto) 0.33 L, Nucleated RBC % 0, PT 13.5, INR 1.0, APTT 35.0, Sodium 140, Potassium 3.8, Chloride 110 H, Carbon Dioxide 26.0, Anion Gap 4 L, BUN 24 H, Creatinine 0.91, Estim Creat Clear Calc 54.56, Est GFR (MDRD) Af Amer 78, Est GFR (MDRD) Non-Af 64, BUN/Creatinine Ratio 26.3 H, Glucose 97, Lactic Acid 1.1, Calcium 9.5, Total Bilirubin 0.50, AST 19, ALT 10 L, Alkaline Phosphatase 60, Troponin I High Sens 5, Total Protein 7.8, Albumin 3.7, Globulin 4.1, Albumin/Globulin Ratio 0.9 08/31/23 19:30: Urine Color Yellow, Urine Clarity Sl. Cloudy, Urine pH 5.0, Ur Specific [place] 1.025, Urine Protein 100 H, Urine Glucose (UA) Normal, Urine Ketones 15 H, Urine Occult Blood 10 H, Urine Nitrite Negative, Urine Bilirubin Negative, Urine Urobilinogen Normal, Ur Leukocyte Esterase 500 H, Urine RBC 0-5 SEEN, Urine WBC 50-100 SEEN, Ur Squamous Epith Cells 0 SEEN, Urine Bacteria 1+, Urine Mucus 0 SEEN 09/01/23 06:00: WBC 5.8, RBC 4.08 L, Hgb 10.7 L, Hct 34.4 L, MCV 84.3, MCH 26.2 L, MCHC 31.1 L, RDW Std Deviation 51.8 H, RDW Coeff of Pedro 16.7 H, Plt Count 167, MPV 11.9, Immature Gran % (Auto) 1.200 H, Neut % (Auto) 86.1 H, Lymph % (Auto) 6.5 L, [place] % (Auto) 2.9, Eos % (Auto) 2.6, Baso % (Auto) 0.7, Absolute Neuts (auto) 5.0, Absolute Lymphs (auto) 0.38 L, Nucleated RBC % 0 Micro: Microbiology 08/31/23 16:30 Mucosa - Nose SARS-CoV-2, Influenza & RSV (PCR) - Final SARS-CoV-2 (COVID 19) ABG Data ABG results: ABG 08/31/23 20:53 Specimen Type ART Sample Site R Brach pH 7.46 H Bicarbonate Actual 21.4 L Total CO2 22 Base Excess -3 L O2 Saturation 94 L ABG pCO2 30.3 L ABG pO2 67 L O2 Delivery Device Room Air Vent Mode Not entered Radiography Diagnostic Testing: Radiology Impression Brain CT 08/31/23 18:48 IMPRESSION: Chronic involutional changes of the brain. Electronically Signed: Mauro Gonzalez MD at 20:27 EST , Chest X-Ray 08/31/23 19:45 IMPRESSION: Poor inspiration with some bibasilar atelectasis. Electronically Signed: Mauro Gonzalez MD at 20:28 EST , Rhythm Strip Rhythm Strip: Sinus Rhythm Rate: 80 Ectopy: None Physical Exam Const alert and no apparent distress HEENT head/scalp atraumatic and moist oral mucous membranes Resp normal respiratory effort, no retractions, no use of accessory muscles and clear to auscultation bilaterally Cardio regular rate, regular rhythm, S1 normal heart sound and S2 normal heart sound GI normal to inspection, nondistended, normoactive bowel sounds, soft to palpation, non-tender and non-distended Extremity normal to inspection Assessment & Plan Assessment/Plan (1) COVID-19: (2) Acute UTI: (3) Acute encephalopathy: (4) Generalized weakness: (5) Ambulatory dysfunction: PLAN: Plan Acute COVID-19 * Onset likely 2/. Quarantine through 09/04, then wear a mask when out from the to * I would qualify this as mild disease (lowest pulse ox on room air was 96%) * Hold remdesevir. DC dexamethasone. * No xray evidence of pneumonitis. UTI * on CTX * follow up UCx, thus far showing possible enterococcus sp. Metabolic encephalopathy * resolved * 2/2 COVID and UTI in patient with Parkinsons dz. * Avoid potentiating medications Debility * 2/2 above * PT OT eval and treat Chronic conditions: * Parkinson's disease - Resume Carbidopa/Levodopa and Pramipexole * Essential Hypertension - Continue home regimen plus give prn IV hydralazine for systolic blood pressure > 160 mm Hg. * Hypothyroidism - Resume Synthroid and check TSH. * History of CVA - Noted. Non-acute CT head this admission noted above. * History of intraparenchymal hematoma of the brain * RLS - Continue home regimen. * History of hemochromatosis - Stable with hemoglobin of 12.1 g/dL present on admission. * History of spinal stenosis; s/p lumbar fusion * History of rectocele - follow up with specialists per routine. * OA - Stable. Give Tylenol prn. DVT prophylaxis - Lovenox 40 mg sq daily. Charges/Coding Visit Charges Inpatient E&M: 49718 Subs Hosp L2
[2023-09-01 07:57] LABS: ALB/GLOB Ratio 0.8 RATIO (0.9-2.4); AST(SGOT) 18 U/L (15-37); Alanine Aminotransfer ALT/SGPT 12 U/L (13-56); Albumin, Serum 2.9 g/dL (3.2-5.0); Alkaline Phosphatase 51 U/L (45-117); Anion Gap 4 (5-15); BUN 16 mg/dL (7-18); BUN/Creat Ratio 23.1 RATIO (10-20); Chloride 114 mmol/L (98-107); Creatinine, Serum 0.69 mg/dL (0.55-1.02); EST Glomerular Filtration Rate 88 mL/min (>60); Est Glom Filt Rate - Afr Amer 107 mL/min (>60); Estimated Creatinine Clearance 62.36 ml/min; Globulin 3.8 g/dL (2.2-4.2); Glucose 141 mg/dL (74-106); Magnesium 2.1 mg/dL (1.6-2.6); Phosphorus 2.7 mg/dL (2.5-4.9); Potassium 3.4 mmol/L (3.5-5.1); Protein, Total 6.7 g/dL (6.4-8.2); Sodium Level 140 mmol/L (136-145); Thyroid Stim Hormone (TSH) 0.57 uIU/mL (0.358-3.74)
[2023-09-01] MEDS: Gabapentin 600 MG Tablet PO ×2 (08:50→15:59)
[2023-09-01] MEDS: Enoxaparin 40 MG/0.4 ML Syringe SC (08:50)
[2023-09-01] MEDS: Folic Acid 1 MG Tablet PO (08:50)
[2023-09-01] MEDS: Cholecalciferol (Vit D3) 125 MCG CAPSULE (5,000 UNITS) PO (08:50)
[2023-09-01] MEDS: Ascorbic Acid 500 MG Tablet 1000 MG PO ×2 (08:50→15:59)
[2023-09-01] MEDS: Aspirin E.C. 81 MG Tablet PO (08:51)
[2023-09-01] MEDS: Senna/Docusate Sodium 1 Tablet 2 TABLET PO ×2 (08:51→21:58)
[2023-09-01] MEDS: 0.9% Normal Saline (1000mL) 1,000 ML 75 ML IV (08:51)
[2023-09-01] MEDS: Lisinopril 5 MG Tablet PO (08:51)
[2023-09-01] MEDS: Zinc Sulfate 50 mg zinc (220 mg) ORAL capsule PO (08:51)
[2023-09-01] MEDS: Famotidine 20 MG Tablet PO ×2 (08:51→21:58)
[2023-09-01] MEDS: QUEtiapine 25 MG Tablet 12.5 MG PO (21:57)
[2023-09-01] MEDS: Pramipexole Di-HCl 1 MG Tablet 2 MG PO (21:58)
[2023-09-01] MEDS: Ceftriaxone 1 GM/50 ML BAG IV (21:59)
[2023-09-02] MEDS: 0.9% Normal Saline (1000mL) 1,000 ML 75 ML IV (01:38)
[2023-09-02 04:00] VITALS: BP 147/79; PULSE 61; RESP 18; TEMP 36.8; O2SAT 94
[2023-09-02 04:38] VITALS: BMI 28.3
[2023-09-02 04:47] VITALS: O2SAT 94
[2023-09-02] MEDS: Levothyroxine 50 MCG Tablet PO (06:33)
[2023-09-02] MEDS: Pramipexole Di-HCl 1 MG Tablet PO ×2 (06:34→14:54)
[2023-09-02] MEDS: Carbidopa/Levodopa 25/100 Tablet PO ×2 (06:34→10:54)
[2023-09-02 07:31] VITALS: O2SAT 95
[2023-09-02 09:00] VITALS: BP 159/88; PULSE 64; RESP 18; TEMP 36.6; O2SAT 92
[2023-09-02] MEDS: Cholecalciferol (Vit D3) 125 MCG CAPSULE (5,000 UNITS) PO (09:00)
[2023-09-02] MEDS: Lisinopril 5 MG Tablet PO (09:01)
[2023-09-02] MEDS: Enoxaparin 40 MG/0.4 ML Syringe SC (09:01)
[2023-09-02] MEDS: Ascorbic Acid 500 MG Tablet 1000 MG PO (09:01)
[2023-09-02] MEDS: Senna/Docusate Sodium 1 Tablet 2 TABLET PO (09:01)
[2023-09-02] MEDS: Folic Acid 1 MG Tablet PO (09:02)
[2023-09-02] MEDS: Zinc Sulfate 50 mg zinc (220 mg) ORAL capsule PO (09:02)
[2023-09-02] MEDS: Aspirin E.C. 81 MG Tablet PO (09:02)
[2023-09-02] MEDS: Famotidine 20 MG Tablet PO (09:02)
[2023-09-02] MEDS: Gabapentin 600 MG Tablet PO (09:02)
--- NOTE | 2023-09-02 09:53 | CASEMGMT ---
JOSH PRINCE Assessment Face to Face with patient for initial transition planning/care coordination assessment. JOSH PRINCE introduced self and role at [facility], pt voices understanding. Pt is A&Ox4 and is resting comfortably in chair and is calm. Care providers, pharmacy, and demographics verified. Admitting dx: COVID, UTI, Encephalopathy LACE Strata:2 PCP: [facility] Specialists: Pt states she sees a Neurologist for her Parkinson disease but could not recall the name. Preferred Pharmacy: [facility] Insurance: [employer] Prescription Benefit: Yes LNOK: Drew Sergey (H), Saskia Fallon (PAYTON) Living Arrangements: Pt lives with her in a 2 story home with a basement with a flat entrance. Pt states there are HR to the upstairs but no HR to the basement and that the pt does not use the basement. ADLs/IADLs: Pt states she is I with ADLs but her helps with IADLs Transportation: Pt does not drive, pt drives. DME: Pt states walker and cane at home but does not use. Walk in shower with GB and seat. Lift chair. HHC/SNF: Denies Pt?s goal: DC home with Plan: Pt states that she was active with outpt PT for Parkinson Disease a few months ago in [place] but could not recall the name of the facility. Pt states that she does not need HHC or SNF at this time and may resume outpt therapy through this facility. Will follow for additional needs. Luz Maria Lopez RN, CM
--- NOTE | 2023-09-02 09:59 | PCM.PN.HOSP ---
Reason for Visit Reason for Visit: Diagnoses Encephalopathy, unspecified (08/31/23) Acute maxillary sinusitis, unspecified (08/31/23) Urinary tract infection, site not specified (08/31/23) Difficulty in walking, not elsewhere classified (08/31/23) Weakness (08/31/23) COVID-19 (08/31/23) Objective Data Objective Data Vital Signs: Vital Signs Temp Pulse Resp BP Pulse Ox O2 Del Method 97.9 F 64 18 159/88 H 92 Room Air 09/02/23 09:00 09/02/23 09:00 09/02/23 09:00 09/02/23 09:00 09/02/23 09:00 09/02/23 09:00 Oxygen Delivery Method Room Air Weight: 165 lb 4 oz Body Mass Index (BMI) 28.3 Intake & Output: Intake and Output for Last 24 Hours 08/31/23 09/01/23 09/02/23 23:59 23:59 23:59 Intake Total 1305 / 1305 1882.5 / 1882.5 1120 / 1120 Output Total 140 / 140 2250 / 2250 550 / 550 Balance 1165 / 1165 -367.5 / -367.5 570 / 570 Lab / Micro Data 09/02/23 10:27 09/02/23 10:27 Micro: Microbiology 08/31/23 19:30 Urine, Catheterized Urine Culture - Final Enterococcus faecalis 08/31/23 16:30 Mucosa - Nose SARS-CoV-2, Influenza & RSV (PCR) - Final SARS-CoV-2 (COVID 19) Rhythm Strip Rhythm Strip: Sinus Rhythm Rate: 80 Ectopy: None Assessment & Plan Assessment/Plan (1) COVID-19: (2) Acute UTI: PLAN: Plan The patient is a 73 y/o F w/ PMHx: HTN, HLD, Hx CVA/Hx intraparenchymal hematoma, Parkinson's disease, RLS, Hx chronic back pain w/ spinal stenosis status post lumbar fusion, Hx hemochromatosis who presents to the [facility] ED on 08/31/23 with history of increased confusion, fatigue malaise prompting eventual ED evaluation. #1. Acute Viral Syndrome, COVID-19: Onset likely 08/30/2023, quarantine through 09/04, mask 8- plan given history, consistent with mild disease, maintained on room air however patient did de-escalate down to less than 94% thus initiated on initially Decadron therapy however this was discontinued mid 90s oxygenation, remdesivir held given no need for oxygen therapy, chest x-ray with no evidence of pneumonitis, continue conservative care, PT/OT/case management for discharge planning. Admission try was obtained and patient did not require any oxygen supplementation for discharge planning. #2. Acute Enterococcal Urinary Tract Infection versus Chronic Colonization: UA upon ED evaluation remarkable, urine culture 08/31/2023 with enterococcal faecalis sensitive to all agents except tetracycline, given presentation antibiotic therapy continued, blood culture x 2 pending, currently maintained on IV Rocephin but given susceptibilities will transition to Levaquin given patient allergies listed 750 mg po daily for total duration of treatment 7 days with stop date 09/06/2023. Taylor placed in ED, will d/c, assure urinating. #3. Metabolic encephalopathy: Secondary to acute presentation as noted #1, #2, avoid any sedating medications, maintain on fall and aspiration precautions, PT/OT/case management consultations for discharge planning. #4. Adult failure to thrive, debility: Secondary to #1, #2, #3, complicated by underlying history as noted, therapies consulted for discharge planning as noted. #5. Hypokalemia: 09/01/2023 K+ 3.4, supplementation given, magnesium level 2.1. 09/02/2023 K 3.4, additional oral regimen administered. #6. Hypothyroidism: We will continue patient on levothyroxine regimen. #7. Hypertension: Continue home regimen including lisinopril, PRN hydralazine. #8. Hyperlipidemia: Per current list on a regimen, defer to outpatient. #9. Parkinson's disease: Complicates presentation, will continue patient home Sinemet regimen as well as low-dose quetiapine home regimen. PT/OT/case management consulted, maintain on fall precautions. #10. Chronic lumbar back pain with spinal stenosis: Patient status post lumbar fusion, will continue patient home chronic gabapentin regimen, maintain on fall precautions, PT/OT/case management consulted for discharge planning. #11. History hemochromatosis: Admission CBC with WC 6.8, hemoglobin 12.1, platelet 173, repeat 09/01/2023 CBC with WBC 5.8, hemoglobin 10.7, MCV 84.3, platelet 167 with increased immature granulocytes-->09/02/23 CBC with Hgb 10.7, stable. #12. History CVA/history intraparenchymal hematoma: Presentation CT head with no acute findings, we will continue patient home aspirin, hypertensive regimen, per current list not on statin therapy, defer to outpatient. #13. Restless leg syndrome: Continue patient home pramipexole regimen. #14. GERD: We will continue patient on famotidine. #15. DVT prophylaxis: Lovenox. #16. CODE STATUS: Full Code.
[2023-09-02 10:53] LABS: Absolute Lymphocyte Count 1.34 X10^3/uL (0.83-4.51); Absolute Neutrophil Count 4.6 X10^3/uL (2.0-7.7); Basophil# 0.04 X10^3/uL; Basophil% 0.6 % (0-1); Eosinophil# 0.14 X10^3/uL; Eosinophils% 2.1 % (0-5); Hematocrit 34.4 % (37-47); Hemoglobin 10.7 g/dL (12.0-15.0); Lymphocyte # 1.34 X10^3/ul (0.83-4.51); Lymphocyte % 19.9 % (19-41); Mean Corp Hgb Conc 31.1 g/dL (32-36); Mean Corpuscular Hgb 26.6 pg (27.0-32.0); Mean Corpuscular Volume 85.6 fL (81-99); Mean Platelet Vol. 11.1 fl (6.2-12.0); Monocyte# 0.56 X10^3/uL; Monocyte% 8.3 % (0-10); NRBC Flagged by Analyzer 0 % (0-5); Neutrophil # 4.64 X10^3/uL (2.7-7.7); Neutrophil % 68.8 % (47-70); Platelet Count 163 K/mm3 (150-450); RBC Distribution Width SD 53.1 fl (35.1-43.9); Red Blood Count 4.02 M/mm3 (4.2-5.4); White Blood Count 6.7 K/mm3 (4.4-11.0)
[2023-09-02] MEDS: levoFLOXacin 750 MG Tablet PO (10:54)
[2023-09-02 11:18] LABS: ALB/GLOB Ratio 0.8 RATIO (0.9-2.4); AST(SGOT) 16 U/L (15-37); Alanine Aminotransfer ALT/SGPT < 6 U/L (13-56); Albumin, Serum 2.8 g/dL (3.2-5.0); Alkaline Phosphatase 46 U/L (45-117); Anion Gap 4 (5-15); BUN 15 mg/dL (7-18); BUN/Creat Ratio 20.1 RATIO (10-20); Calcium,Total 8.8 mg/dL (8.5-10.1); Chloride 112 mmol/L (98-107); Creatinine, Serum 0.75 mg/dL (0.55-1.02); EST Glomerular Filtration Rate 81 mL/min (>60); Est Glom Filt Rate - Afr Amer 98 mL/min (>60); Estimated Creatinine Clearance 63.02 ml/min; Globulin 3.6 g/dL (2.2-4.2); Glucose 102 mg/dL (74-106); Potassium 3.4 mmol/L (3.5-5.1); Protein, Total 6.4 g/dL (6.4-8.2); Sodium Level 141 mmol/L (136-145)
[2023-09-02 12:35] VITALS: O2SAT 91; O2SAT 96
--- NOTE | 2023-09-02 12:57 | CASEMGMT ---
Rx (signed by Dr. Peterson) for outpt therapy PT and OT given to the pt at this time. Pt educated to bring to the outpt facility of their choice.
[2023-09-02 13:27] LABS: Magnesium 1.9 mg/dL (1.6-2.6)
--- NOTE | 2023-09-02 14:44 | PCM.DC ---
Discharge Instructions Diet Discharge Diet: Low fat / Low cholesterol Activity Discharge Activity: Return to Normal Activity (Continue usage of assist devices.) May resume sexual activity in: 10-14 days Weight Bearing Status: Weight bearing as tolerated Dressing / Incision Call your doctor if you observe: Fever of 101 or Higher, Numbness or Tingling, Inability to urinate, Shortness of breath, Dizziness, Chest pain, Calf discomfort and Uncontrolled pain Follow Up Care Test Results: Test results from this visit will be discussed in further detail at your follow-up appointment, if applicable. Discharge Plan Admission Admit Date/Time: 08/31/23 20:39 Primary Reason for Your Visit: COVID, Enterococcal UTI, Adult FTT Attending Provider: Monae Peterson Primary Care Provider: Román Rosado Consulting Providers: Luis York; Sarmad Donald Instructions Patient Instructions: ED UTIs Women Additional Instructions / Restrictions: When can positive or suspected COVID-19 patients be discharged, what are the requirements and what needs to be in place for discharge? ?They can be discharged when they are clinically stable. ?They do not need to meet criteria for transmission-based precautions to be discharged as these may be continued at home. ?Patient needs to be able to call for assistance if worsens. ?Household members must have access to PPE and willing to adhere to precaution measures at home. ?The patient needs preferentially to have access to a separate bedroom and bathroom. ?Members in the household must not be at increased risk of COVID-19. ?Must be able to be transported by private vehicle and truck driver salesperson abide personal PPE. Home going instructions: ?Patient to continue similar isolation as in hospital and those also in the home to continue precautions until isolation complete. Transmission-based Precaution Timeline: ?Patient's symptom presentation quarantine recommended through 09/04/2023 and masking 03-09. ? Patient does not warrant any repeat COVID testing to assure negative as the test may be positive for some time but she would not necessarily be infectious. Follow-up Care: ?The primary care should be informed of a COVID-19 positive test if resulted while in the hospital and virtual versus in person follow-up should be arranged. Encourage continued routine activity in the home. Out of bed with all meals and routine wlks around your home. Continue using your incentive spirometer 10x/hr from 7 am to 7 pm. Discharge Orders/Prescriptions Prescriptions: New levofloxacin 750 mg Tablet 750 mg PO DAILY@0600 4 Days Qty: 4 0RF acidophilus-pectin, citrus 25 million cell -100 mg Tablet 2 tab PO BID 14 Days Qty: 56 0RF Continued quetiapine 25 MG tablet 12.5 mg PO DAILY@2000 Qty: 15 0RF pramipexole 1 MG tablet 1 mg PO BID@0600,1400 Qty: 120 1RF sennosides-docusate sodium 1 TABLET tablet 2 tab PO BID 0RF aspirin 81 MG tablet 81 mg PO DAILY@0800 0RF acetaminophen 500 MG tablet 1,000 mg PO Q8 0RF folic acid 1 MG tablet 1 mg PO DAILY 0RF lisinopril 5 MG tablet 5 mg PO DAILY Qty: 30 1RF saliva substitute combo no.9 237 ML bottle 15 ml MM 5X/DAY PRN (Reason: Dry Mouth) 0RF pramipexole 1 mg tablet 2 mg PO QHS levothyroxine 50 mcg tablet 50 mcg PO DAILY Patient Comments: TAKE 1 TABLET BY MOUTH ONCE DAILY gabapentin 300 MG capsule 600 mg PO BIDCM carbidopa-levodopa 1 TABLET tablet 1.5 tab PO TIDAC Discontinued levothyroxine 25 MCG tablet 25 mcg PO DAILY@0600 levothyroxine 25 MCG tablet 25 mcg PO DAILY@0600 Qty: 30 1RF Referrals / Follow Up: Román Rosado MD [Primary Care Provider] - (Folloiw-up within 3-5 days to review admission.) Disposition Disposition (needs filled in before D/C Order can be placed): Home Health Service
[2023-09-02] MEDS: Potassium Chloride Oral Tablet 20 MEQ 40 MEQ PO (14:55)
--- NOTE | 2023-09-02 15:07 | NURSING ---
Taylor d/c at this time, pt tolerated well.
[2023-09-02 15:08] VITALS: BP 159/88; PULSE 64; RESP 18; TEMP 36.6; O2SAT 95
--- NOTE | 2023-09-02 15:13 | PCM.DC.SUM ---
Providers Date of Admission: 08/31/23 Date of Discharge: 09/02/23 Primary Care Physician: Dr. Román Rosado MD Reason For Visit: COVID-19+,UTI,METABOLIC ENCEPHALOPTHY Diagnosis Discharge Diagnosis (1) COVID-19: Status: Acute Code(s): U07.1 - COVID-19 (2) Acute UTI: Status: Acute Code(s): N39.0 - Urinary tract infection, site not specified Plan: Discharge Diagnoses: #1. Acute Viral Syndrome, COVID-19 #2. Acute Enterococcal Urinary Tract Infection versus Chronic Colonization #3. Metabolic encephalopathy, Secondary to acute presentation as noted #1, #2 #4. Adult failure to thrive, debility, Secondary to #1, #2, #3, complicated by underlying history as noted #5. Hypokalemia #6. Hypothyroidism #7. Hypertension #8. Hyperlipidemia #9. Parkinson's disease #10. Chronic lumbar back pain with spinal stenosis #11. History hemochromatosis #12. History CVA/history intraparenchymal hematoma #13. Restless leg syndrome #14. GERD #15. CODE STATUS: Full Code. Medications at Discharge Home Medications acetaminophen 500 mg tablet 1,000 mg (2 x 500 mg) PO Q8 pain 05/29/19 aspirin 81 mg tablet,delayed release 81 mg PO DAILY@0800 heart health 05/29/19 folic acid 1 mg tablet 1 mg PO DAILY supplement 05/29/19 lisinopril 5 mg tablet 5 mg PO DAILY blood pressure #30 tabs 05/29/19 pramipexole 1 mg tablet 1 mg PO BID@0600,1400 restless legs #120 tabs 05/29/19 quetiapine 25 mg tablet 12.5 mg (1/2 x 25 mg) PO DAILY@2000 sleep #15 tabs 05/29/19 saliva substitute combo no.9 15 ml MM 5X/DAY PRN Dry Mouth 05/29/19 sennosides 8.6 mg-docusate sodium 50 mg tablet 2 tab PO BID laxative 05/29/19 carbidopa 25 mg-levodopa 100 mg tablet 1.5 tab PO TIDAC parkinsons 08/31/23 gabapentin 300 mg capsule 600 mg PO BIDCM neuropathy 08/31/23 levothyroxine 50 mcg tablet 50 mcg PO DAILY thyroid 08/31/23 pramipexole 1 mg tablet 2 mg PO QHS restless legs 08/31/23 acidophilus 25 million cell-pectin, citrus 100 mg tablet 2 tab PO BID 14 days #56 tabs 09/02/23 levofloxacin 750 mg tablet 750 mg PO DAILY@0600 4 days #4 tabs 09/02/23 Hospital Course Operations None Procedures EKG Summary of Care Provided Minutes Spent on Discharge: 35 Hospital Course: The patient is a 73 y/o F w/ PMHx: HTN, HLD, Hx CVA/Hx intraparenchymal hematoma, Parkinson's disease, RLS, Hx chronic back pain w/ spinal stenosis status post lumbar fusion, Hx hemochromatosis who presented to the [facility] ED on 08/31/23 with history of increased confusion, fatigue malaise prompting eventual ED evaluation. Admitted with COVID, suspected onset likely 08/30/2023, quarantine planned through 09/04, mask 8- plan given history, consistent with mild disease, maintained on room air however patient did de-escalate down to less than 94% thus initiated on initially Decadron therapy however this was discontinued mid 90s oxygenation, remdesivir held given no need for oxygen therapy, chest x-ray with no evidence of pneumonitis, continued conservative care, PT/OT/case management for discharge planning with outpatient/home therapies planned. O2 walking assessment performed and maintained appropriate saturations. UA upon ED evaluation remarkable, urine culture 08/31/2023 with enterococcal faecalis sensitive to all agents except tetracycline, given presentation antibiotic therapy continued, blood culture x 2 pending, currently maintained on IV Rocephin but given susceptibilities, transitioned to Levaquin given patient allergies 750 mg po daily for total duration of treatment 7 days with stop date 09/06/2023. Taylor placed in ED with dc prior to discharge. Patient clinically improved therefore discharged to home with recommended continued treatment UTI, aggressive IS, ongoing therapies with early PCP follow-up. DAY OF DISCHARGE PROGRESS NOTE: Subjective: Patient without acute event overnight per self and nursing report. Patient denies fever, chills, nausea, emesis, abdominal pain, chest pain or dyspnea. Patient agreeable to discharge home with outpatient therapies. Patient will be discharged with follow-up with primary care physician within 3-5 days. Objective: T97.9, heart rate 64, BP 159/88, respiratory rate 18, 95% on room air. Physical Examination: General: awake, alert, oriented x 3, remains cooperative, seated upright in bedside chair, no acute distress. Skin: normal color, turgor, no icterus, cyanosis except occasional staged ecchymoses. HEENT: AT/NC, EOMI, PERRLA, MMM. Lungs: CTA bilaterally, moderate effort, mild decrease BL bases, no rales, ronchi or wheezing; Heart: Regular rate and rhythm; no gallop, rub audible. Abdomen: soft, NTTP, ND, normal BS. Extremities: no cyanosis, clubbing, or edema. Neurological: patient awake, alert, oriented as noted, cognitive function appears intact upon questioning, pupils equally reactive to light and accomodation; cranial nerves grossly normal, moving all 4 extremities, strength improved, moderately globally decreased, complicated by underlying Parkinson's disease. Psychiatric: affect appears mildly fatigued otherwise normal, no acute evidence of depressive or anxiety feelings. Assessment and Plan: Please see hospital summary above. Weight / BMI Weight Weight: 165 lb 4 oz Body Mass Index (BMI) 28.3 ABG / Lab / Microbiology Data 09/02/23 10:27 09/02/23 10:27 Laboratory: Laboratory Results - last 24 hr 09/02/23 10:27: WBC 6.7, RBC 4.02 L, Hgb 10.7 L, Hct 34.4 L, MCV 85.6, MCH 26.6 L, MCHC 31.1 L, RDW Std Deviation 53.1 H, RDW Coeff of Pedro 17.0 H, Plt Count 163, MPV 11.1, Immature Gran % (Auto) 0.300, Neut % (Auto) 68.8, Lymph % (Auto) 19.9, [place] % (Auto) 8.3, Eos % (Auto) 2.1, Baso % (Auto) 0.6, Absolute Neuts (auto) 4.6, Absolute Lymphs (auto) 1.34, Nucleated RBC % 0, Sodium 141, Potassium 3.4 L, Chloride 112 H, Carbon Dioxide 25.0, Anion Gap 4 L, BUN 15, Creatinine 0.75, Estim Creat Clear Calc 63.02, Est GFR (MDRD) Af Amer 98, Est GFR (MDRD) Non-Af 81, BUN/Creatinine Ratio 20.1 H, Glucose 102, Calcium 8.8, Magnesium 1.9, Total Bilirubin 0.30, AST 16, ALT < 6 L, Alkaline Phosphatase 46, Total Protein 6.4, Albumin 2.8 L, Globulin 3.6, Albumin/Globulin Ratio 0.8 L Microbiology: Microbiology 08/31/23 19:30 Urine, Catheterized Urine Culture - Final Enterococcus faecalis 08/31/23 16:30 Mucosa - Nose SARS-CoV-2, Influenza & RSV (PCR) - Final SARS-CoV-2 (COVID 19) D/C Instructions Discharge Diet: Low fat / Low cholesterol May resume sexual activity in: 10-14 days Weight Bearing Status: Weight bearing as tolerated Call your doctor if you observe: Fever of 101 or Higher, Numbness or Tingling, Inability to urinate, Shortness of breath, Dizziness, Chest pain, Calf discomfort and Uncontrolled pain Meaningful Use Info Meaningful Use Diagnoses (Choose all that apply): None applicable Discharge Plan Admission Admit Date/Time: 08/31/23 20:39 Primary Reason for Your Visit: COVID, Enterococcal UTI, Adult FTT Attending Provider: Monae Peterson Primary Care Provider: Román Rosado Consulting Providers: Luis York; Sarmad Donald Instructions Patient Instructions: ED UTIs Women Additional Instructions / Restrictions: When can positive or suspected COVID-19 patients be discharged, what are the requirements and what needs to be in place for discharge? ?They can be discharged when they are clinically stable. ?They do not need to meet criteria for transmission-based precautions to be discharged as these may be continued at home. ?Patient needs to be able to call for assistance if worsens. ?Household members must have access to PPE and willing to adhere to precaution measures at home. ?The patient needs preferentially to have access to a separate bedroom and bathroom. ?Members in the household must not be at increased risk of COVID-19. ?Must be able to be transported by private vehicle and pick up driver abide personal PPE. Home going instructions: ?Patient to continue similar isolation as in hospital and those also in the home to continue precautions until isolation complete. Transmission-based Precaution Timeline: ?Patient's symptom presentation quarantine recommended through 09/04/2023 and masking 03-09. ? Patient does not warrant any repeat COVID testing to assure negative as the test may be positive for some time but she would not necessarily be infectious. Follow-up Care: ?The primary care should be informed of a COVID-19 positive test if resulted while in the hospital and virtual versus in person follow-up should be arranged. Encourage continued routine activity in the home. Out of bed with all meals and routine wlks around your home. Continue using your incentive spirometer 10x/hr from 7 am to 7 pm. Discharge Orders/Prescriptions Prescriptions: New levofloxacin 750 mg Tablet 750 mg PO DAILY@0600 4 Days Qty: 4 0RF acidophilus-pectin, citrus 25 million cell -100 mg Tablet 2 tab PO BID 14 Days Qty: 56 0RF Continued quetiapine 25 MG tablet 12.5 mg PO DAILY@1999 Qty: 15 0RF pramipexole 1 MG tablet 1 mg PO BID@0600,1400 Qty: 120 1RF sennosides-docusate sodium 1 TABLET tablet 2 tab PO BID 0RF aspirin 81 MG tablet 81 mg PO DAILY@0800 0RF acetaminophen 500 MG tablet 1,000 mg PO Q8 0RF folic acid 1 MG tablet 1 mg PO DAILY 0RF lisinopril 5 MG tablet 5 mg PO DAILY Qty: 30 1RF saliva substitute combo no.9 237 ML bottle 15 ml MM 5X/DAY PRN (Reason: Dry Mouth) 0RF pramipexole 1 mg tablet 2 mg PO QHS levothyroxine 50 mcg tablet 50 mcg PO DAILY Patient Comments: TAKE 1 TABLET BY MOUTH ONCE DAILY gabapentin 300 MG capsule 600 mg PO BIDCM carbidopa-levodopa 1 TABLET tablet 1.5 tab PO TIDAC Discontinued levothyroxine 25 MCG tablet 25 mcg PO DAILY@0600 levothyroxine 25 MCG tablet 25 mcg PO DAILY@0600 Qty: 30 1RF Referrals / Follow Up: Román Rosado MD [Primary Care Provider] - (Folloiw-up within 3-5 days to review admission.) Disposition Disposition (needs filled in before D/C Order can be placed): Home Health Service Charges/Coding Visit Charges Inpatient E&M: 03493 Disch Hosp >30min
--- NOTE | 2023-09-02 15:31 | PHA.DC.MR.R ---
Pharmacy [place] Med Reconciliation Pharmacy Service has performed discharge medication reconciliation for this patient. The patient's discharge medication list was reviewed for discrepancies and discrepancies were resolved. Medications at Discharge Home Medications acetaminophen 500 mg tablet 1,000 mg (2 x 500 mg) PO Q8 pain 05/29/19 aspirin 81 mg tablet,delayed release 81 mg PO DAILY@0800 heart health 05/29/19 folic acid 1 mg tablet 1 mg PO DAILY supplement 05/29/19 lisinopril 5 mg tablet 5 mg PO DAILY blood pressure #30 tabs 05/29/19 pramipexole 1 mg tablet 1 mg PO BID@0600,1400 restless legs #120 tabs 05/29/19 quetiapine 25 mg tablet 12.5 mg (1/2 x 25 mg) PO DAILY@2000 sleep #15 tabs 05/29/19 saliva substitute combo no.9 15 ml MM 5X/DAY PRN Dry Mouth 05/29/19 sennosides 8.6 mg-docusate sodium 50 mg tablet 2 tab PO BID laxative 05/29/19 carbidopa 25 mg-levodopa 100 mg tablet 1.5 tab PO TIDAC parkinsons 08/31/23 gabapentin 300 mg capsule 600 mg PO BIDCM neuropathy 08/31/23 levothyroxine 50 mcg tablet 50 mcg PO DAILY thyroid 08/31/23 pramipexole 1 mg tablet 2 mg PO QHS restless legs 08/31/23 acidophilus 25 million cell-pectin, citrus 100 mg tablet 2 tab PO BID 14 days #56 tabs 09/02/23 levofloxacin 750 mg tablet 750 mg PO DAILY@0600 4 days #4 tabs 09/02/23
== END 2023-09-02 16:11 | disposition home or self-care (01) | DRG 177 ==
LOC: ED 20:09 → PCU 20:36
PROVIDERS: Admitting Provider Internal Medicine; Emergency Provider Emergency Medicine; PCP Family Medicine; Visit Provider Family Medicine
DX: U07.1 COVID-19 (principal); G93.41 Metabolic encephalopathy; N30.01 Acute cystitis with hematuria; R62.7 Adult failure to thrive; I10 Essential (primary) hypertension; E03.9 Hypothyroidism, unspecified; G25.81 Restless legs syndrome; M19.90 Unspecified osteoarthritis, unspecified site; E87.6 Hypokalemia; K21.9 Gastro-esophageal reflux disease without esophagitis; M48.00 Spinal stenosis, site unspecified; E78.5 Hyperlipidemia, unspecified; J01.00 Acute maxillary sinusitis, unspecified; G20.A1 Parkinson's disease without dyskinesia, without mention of fluctuations; B95.2 Enterococcus as the cause of diseases classified elsewhere; R53.81 Other malaise; R53.1 Weakness; Z79.82 Long term (current) use of aspirin; Z79.890 Hormone replacement therapy; Z79.899 Other long term (current) drug therapy; Z98.1 Arthrodesis status; Z86.73 Personal history of transient ischemic attack (TIA), and cerebral infarction without residual deficits
CPT/HCPCS: 36415; 36600; 51702; 70450; 71045; 80053; 81001; 82803; 83605; 83735; 84100; 84443; 84484; 85025; 85610; 85730; 87040; 87077; 87086; 87088; 87186; 87631; 93005; 94668; 97110; 97162; 97166; 97530; 99285; J7030; J7050; A4216

== ENCOUNTER 2024-08-24 10:33 | Observation (INO) | payer MEDICARE, OTHER, SELFPAY ==
[2024-08-24] VITALS (11 sets, daily range): BP systolic 99–173; BP diastolic 55–77; PULSE 57–69; RESP 16–18; TEMP 36.5–36.8; O2SAT 94–99; BMI 27.3; BMI 26.5
--- NOTE | 2024-08-24 11:02 | EKG12_ITS ---
Test Reason : WEAKNESS Blood Pressure : */* mmHG Vent. Rate : 61 BPM Atrial Rate : 61 BPM P-R Int : 142 ms QRS Dur : 78 ms QT Int : 442 ms P-R-T Axes : 43 -6 8 degrees QTcB Int : 444 ms Normal sinus rhythm Normal ECG Confirmed by WILLI CLAROS, CHANCE ([id number]), supervising editor news reel QUINCY ALICEA ([id number]) on 08/26/2024 6:21:42 AM Referred By: Confirmed By: CHANCE MÁRQUEZ MD
--- NOTE | 2024-08-24 11:03 | EDS_ITS ---
HPI History of Present Illness Chief Complaint: Weakness Informant: patient and spouse/S.O. Narrative Narrative: 74-year-old female generalized weakness of the last couple days, and the only other new symptoms she has noted is left shoulder pain that hurts more to move. No known injury or fall. No fevers or chills. She has Parkinson's, as well as some memory issues with Parkinson's, so helps significantly with the history. [facility] Medical History Stroke Intraparenchymal hematoma of brain Rectocele Spinal stenosis Parkinson disease Restless leg syndrome Hemochromatosis HTN (hypertension) Home Medications ?Medication ?Instructions ?Recorded ?Last Taken ?Type aspirin 81 mg tablet,delayed 81 mg PO DAILY@0800 heart health 05/29/19 08/24/24 Rx release folic acid 1 mg tablet 1 mg PO DAILY supplement 05/29/19 08/24/24 Rx lisinopril 5 mg tablet 5 mg PO DAILY blood pressure #30 05/29/19 08/24/24 Rx tabs pramipexole 1 mg tablet 1 mg PO BID@0600,1400 restless 05/29/19 08/24/24 Rx legs #120 tabs carbidopa 25 mg-levodopa 100 mg 1.5 tab PO TIDAC parkinsons 08/31/23 08/24/24 History tablet levothyroxine 50 mcg tablet 50 mcg PO DAILY thyroid 08/31/23 08/24/24 History pramipexole 1 mg tablet 2 mg PO QHS restless legs 08/31/23 08/24/24 History acetaminophen 500 mg tablet 1,000 mg PO Q8H PRN pain 08/24/24 08/23/24 History cholecalciferol (vitamin D3) 50 50 mcg PO DAILY 08/24/24 08/24/24 History mcg (2,000 unit) capsule gabapentin 600 mg tablet 300 mg PO DAILY 08/24/24 08/24/24 History gabapentin 600 mg tablet 600 mg PO BID 08/24/24 08/24/24 History Allergy/AdvReac Type Severity Reaction Status Date / Time Penicillins Allergy Unknown Verified 08/31/23 18:58 Sulfa (Sulfonamide Allergy Unknown Verified 08/31/23 18:58 Antibiotics) Surgical History S/P lumbar spinal fusion H/O blepharoplasty H/O tubal ligation Hx of tonsillectomy Social History Smoking Status: Never smoker ROS ROS ED Constitutional Constitutional ED: Reports anorexia and weakness; Denies chills or fever(s) Eyes Eyes: Denies change in vision or diplopia ENT ENT ED: Denies rhinorrhea or sore throat Cardiovascular Cardiovascular: Denies chest pain, orthopnea or palpitations Respiratory/Chest Respiratory/Chest: Reports cough; Denies dyspnea, orthopnea or sputum Gastrointestinal Gastrointestinal: Denies abdominal pain, diarrhea, nausea or vomiting Genitourinary Genitourinary ED: Denies dysuria or hematuria Musculoskeletal Musculoskeletal: Reports other Details: Left shoulder pain no other extremity pain ; Denies back pain or neck pain Integumentary Denies abscess or rash Neurologic Neurologic: Denies headache(s), paresthesias or weakness EXAM Physical Exam Const Vital Signs: 08/24/24 10:35 08/24/24 11:37 08/24/24 12:00 Temperature 97.8 F 98.1 F 98.2 F Temperature Source Temporal Oral Oral Pulse Rate 68 67 62 Respiratory Rate 16 18 18 Blood Pressure 147/70 H 142/55 H 150/61 H Blood Pressure Mean 95 84 90 Pulse Ox 99 98 98 Oxygen Delivery Method Room Air Room Air Room Air 08/24/24 13:00 08/24/24 14:00 08/24/24 14:08 Temperature 98.2 F Temperature Source Pulse Rate 61 67 69 Respiratory Rate 18 18 17 Blood Pressure 152/55 H 173/58 H 158/77 H Blood Pressure Mean 87 96 104 Pulse Ox 95 95 95 Oxygen Delivery Method Room Air Positive well nourished and well developed General Appearance ED: well developed and NAD HEENT Reports moist mucous membranes normocephalic and atraumatic Eyes PERRL and EOMs intact bilaterally Neck full ROM and supple Resp normal respiratory effort and clear to auscultation bilaterally Cardio regular rate, regular rhythm and no murmurs GI non-tender and non-distended Auscultation: normoactive bowel sounds Palpation: soft Back/Spine no CVA tenderness General Back: other FROM Extremity normal to inspection Extremity Narrative: No tenderness in the left shoulder, she does have pain with Yergason test and Speed test. She can abduct without pain. There is no subacromial tenderness, there is no acromioclavicular tenderness and her anterior shoulder is nontender without removing it. There is no deformity, internal and external rotation while abducted is without pain. General Extremety ED: Negative for edema, pulses abnormal or tenderness General Extremity: Negative for edema or pulses abnormal Neuro CN's II-XII intact bilaterally and no sensory deficits noted Neuro Narrative: At baseline mental status per . Slow speech, 1-2 word sentences but no respiratory distress. Nonfocal peripheral neurologic exam. Intention tremor. Sensorium / Orientation: awake and alert Motor Exam: general weakness Skin no rashes or lesions noted and no wounds MDM MDM MDM Narrative Medical decision making narrative: Considering HI/angina with her left shoulder pain although I think this is less likely since I can reproduce it with evaluating her biceps origin, pneumonia, urinary infection, metabolic derangement, workup was obtained. 1 view chest x- ray on my interpretation shows no pneumonia radiology in agreement. Her urine appears to be not infected. Her blood counts are good she has no leukocytosis, her lactic acid is well within normal limits, and she has no metabolic derangement, although she is a little dehydrated/prerenal so we did give her some IV fluids. The EKG is normal and her troponin is normal. I discussed at length with patient and family members x 2. She is unable to get up today and feeling very weak. Family is apprehensive about taking her home. So that we could admit her for observation and further evaluation and treatment, she eventually is amenable to that. Discussed with hospitalist. Lab Data Attestation: I reviewed the patient's lab results. Labs: Laboratory Results - last 24 hr 08/24/24 08/24/24 08/24/24 10:56 11:12 11:54 WBC 8.3 RBC 4.48 Hgb 12.8 Hct 40.0 MCV 89.3 MCH 28.6 MCHC 32.0 RDW Std Deviation 45.6 H RDW Coeff of Pedro 14.2 Plt Count 191 MPV 11.9 Immature Gran % (Auto) 0.400 Neut % (Auto) 69.2 Lymph % (Auto) 15.2 L [place] % (Auto) 12.7 H Eos % (Auto) 1.9 Baso % (Auto) 0.6 Absolute Neuts (auto) 5.7 Absolute Lymphs (auto) 1.25 Nucleated RBC % 0 Sodium 141 Potassium 3.5 Chloride 110 H Carbon Dioxide 25.0 Anion Gap 6 BUN 25 H Creatinine 0.77 Est GFR (MDRD) Af Amer 94 Est GFR (MDRD) Non-Af 78 BUN/Creatinine Ratio 32.3 H Glucose 100 Lactic Acid 1.1 Calcium 9.0 Total Bilirubin 0.70 AST 14 L ALT 8 L Alkaline Phosphatase 71 Troponin I High Sens 8 Total Protein 7.3 Albumin 3.3 Globulin 4.0 Albumin/Globulin Ratio 0.8 L Urine Color Yellow Urine Clarity Clear Urine pH 7.0 Ur Specific [place] 1.015 Urine Protein 30 H Urine Glucose (UA) Normal Urine Ketones 5 H Urine Occult Blood Negative Urine Nitrite Negative Urine Bilirubin Negative Urine Urobilinogen 8 H Ur Leukocyte Esterase Negative Urine RBC 10-25 SEEN Urine WBC 0 SEEN Ur Squamous Epith Cells 0 SEEN Urine Bacteria 0 SEEN Urine Mucus 0 SEEN Radiography Diagnostic Testing: Clinical Impression(s) from Imaging Studies Chest X-Ray 08/24/24 11:51 IMPRESSION: Stable chest with no acute or active cardiopulmonary disease. Electronically Signed: Luis Eduardo Langston MD at 12:05 EST Reading Location ID and State: [address] [place] [address] , Service support , Rhythm Strip Rhythm Strip: Sinus Rhythm Rate: 60 Ectopy: None EKG Initial EKG: Attestation: I personally reviewed and interpreted this EKG as follows: Interpretation: Sinus Rhythm and No Acute Injury Pattern Comments: Nml axis & intervals; nml EKG Management Discussion w/another healthcare provider: Hospitalist Discharge Plan Dx/Rx/DC Orders Clinical Impression: Mild dehydration, Parkinson's disease, Debility Disposition Disposition: [facility]
[2024-08-24 11:19] LABS: Absolute Lymphocyte Count 1.25 X10^3/uL (0.83-4.51); Absolute Neutrophil Count 5.7 X10^3/uL (2.0-7.7); Basophil# 0.05 X10^3/uL; Basophil% 0.6 % (0-1); Eosinophil# 0.16 X10^3/uL; Eosinophils% 1.9 % (0-5); Hemoglobin 12.8 g/dL (12.0-15.0); Lymphocyte # 1.25 X10^3/ul (0.83-4.51); Lymphocyte % 15.2 % (19-41); Mean Corpuscular Hgb 28.6 pg (27.0-32.0); Mean Corpuscular Volume 89.3 fL (81-99); Mean Platelet Vol. 11.9 fl (6.2-12.0); Monocyte# 1.05 X10^3/uL; Monocyte% 12.7 % (0-10); NRBC Flagged by Analyzer 0 % (0-5); Neutrophil # 5.71 X10^3/uL (2.7-7.7); Neutrophil % 69.2 % (47-70); Platelet Count 191 K/mm3 (150-450); RBC Distribution Width CV 14.2 % (11.6-14.6); RBC Distribution Width SD 45.6 fl (35.1-43.9); Red Blood Count 4.48 M/mm3 (4.2-5.4); White Blood Count 8.3 K/mm3 (4.4-11.0)
[2024-08-24 11:34] LABS: ALB/GLOB Ratio 0.8 RATIO (0.9-2.4); AST(SGOT) 14 U/L (15-37); Alanine Aminotransfer ALT/SGPT 8 U/L (13-56); Albumin, Serum 3.3 g/dL (3.2-5.0); Alkaline Phosphatase 71 U/L (45-117); Anion Gap 6 (5-15); BUN 25 mg/dL (7-18); BUN/Creat Ratio 32.3 RATIO (10-20); Chloride 110 mmol/L (98-107); Creatinine, Serum 0.77 mg/dL (0.55-1.02); EST Glomerular Filtration Rate 78 mL/min (>60); Est Glom Filt Rate - Afr Amer 94 mL/min (>60); Glucose 100 mg/dL (74-106); Potassium 3.5 mmol/L (3.5-5.1); Protein, Total 7.3 g/dL (6.4-8.2); Sodium Level 141 mmol/L (136-145); Troponin-I HS 8 pg/mL (3.0-54.0)
[2024-08-24 11:51] LABS: Lactic Acid 1.1 mmol/L (0.4-1.9)
--- NOTE | 2024-08-24 11:51 | RAD_ITS ---
STUDY: X-RAY CHEST REASON FOR EXAM: Female, 74 years old. Cough and weakness. TECHNIQUE: Single frontal view of the chest. COMPARISON: August 31, 2023 FINDINGS: Stable low volume inspiration. There is no demonstrated pleural abnormality. Cardiomegaly unchanged. Normal mediastinum and alicia. Normal visualized pulmonary arteries. Aortic tortuosity with calcification. Normal visualized thoracic spine. Normal visualized ribs, clavicles, and shoulders. There is no demonstrated abnormality of the visualized soft tissue structures of the upper abdomen. RAD/Chest 1 View (Portable) IMPRESSION: Stable chest with no acute or active cardiopulmonary disease. Electronically Signed: Luis Eduardo Langston MD at 12:05 EST ,
[2024-08-24 12:06] LABS: Bacteria 0 SEEN /hpf (None Seen); Mucous, Urine 0 SEEN /hpf (<or=2+); Squamous Epithelial Cells - UA 0 SEEN /hpf (5-10); White Blood Cells 0 SEEN /hpf (0-5)
[2024-08-24 12:13] LABS: Color, Urine Yellow (Yellow); Glucose, Dipstick Normal (Normal); Ketone-Dipstick 5 mg/dl (Negative); Leukocyte Esterase-Dipstick Negative /ul (Negative); Nitrite-Dipstick Negative (Negative); Occult Blood-Urine Negative /ul (Negative); Protein-Dipstick 30 mg/dl (Negative); Specific Gravity, Urine 1.015 (1.002-1.030); Urine Bilirubin Dipstick Negative (Negative); Urine Clarity Clear (Clear); Urine Urobilinogen 8 mg/dl (Normal)
[2024-08-24] MEDS: 0.9% Normal Saline (500mL Bag) 500 ML 1000 ML IV (12:18)
[2024-08-24 12:31] LABS: Red Blood Cells-Urine 10-25 SEEN /hpf (0-5)
--- NOTE | 2024-08-24 14:37 | HP.PCM.HOS_ITS ---
HPI - General General Date of Admission: 08/24/24 Date of Service: 08/24/24 Chief Complaint: Generalized weakness and difficulty with ambulation HPI Narrative SÁNCHEZ EL, is a 74 F who presented to [facility] ED on 08/24/2024 with worsening generalized weakness and difficulty with ambulation. Patient lives at home with her . Daughter works at the hospital here. Patient has history of Parkinson's disease, was diagnosed about 8 years ago. She uses a walker for ambulation about 50% of the time. She had note that over the past 3 to 4 days she has had more difficulty with ambulating even with the walker and today she was not able to even stand up without assistance. notes that as recently as a week ago she was helping him clean out the kitchen. Patient follows with neurology and had her Sinemet dose increased in June for increased episodes of freezing. However patient had diarrhea with this so dose was reduced back to her previous dose. She has been note that she had been doing fine at this dose until the past 3 to 4 days. Patient denies any fevers or chills. Denies any recent infectious symptoms. Denies any pain in the low back or in the legs. She does have some pain in her left shoulder that has hurt more to move over the past few days. In the ED she was mildly hypertensive but otherwise afebrile hemodynamically stable on room air. CBC and BMP were unremarkable. UA was unremarkable. Chest x-ray was unremarkable, including no concerning findings of the left shoulder. ED physician discussed with family who asked that patient be admitted under observation status to work with therapy and see if her weakness improves. They notably would be amenable to home health care but have minimal interest in SNF placement. Hospitalist was then contacted for admission. I saw the patient at bedside in the ED, and daughter were present. Patient had a flat affect and was mildly fatigued appearing but was otherwise sitting back comfortably in bed and in no acute distress. She did answer questions with short appropriate responses for me and was alert and oriented. She denied any acute pain or discomfort currently. She stated her left shoulder felt less painful now than earlier today. On exam for me patient had good strength in her upper and lower extremities bilaterally. 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 No other acute concerns at this time. PFSH Medical History Stroke Intraparenchymal hematoma of brain Rectocele Spinal stenosis Parkinson disease Restless leg syndrome Hemochromatosis HTN (hypertension) Home Medications ?Medication ?Instructions ?Recorded ?Last Taken ?Type aspirin 81 mg tablet,delayed 81 mg PO DAILY@0800 heart health 05/29/19 08/24/24 Rx release folic acid 1 mg tablet 1 mg PO DAILY supplement 05/29/19 08/24/24 Rx lisinopril 5 mg tablet 5 mg PO DAILY blood pressure #30 05/29/19 08/24/24 Rx tabs pramipexole 1 mg tablet 1 mg PO BID@0600,1400 restless 05/29/19 08/24/24 Rx legs #120 tabs carbidopa 25 mg-levodopa 100 mg 1.5 tab PO TIDAC parkinsons 08/31/23 08/24/24 History tablet levothyroxine 50 mcg tablet 50 mcg PO DAILY thyroid 08/31/23 08/24/24 History pramipexole 1 mg tablet 2 mg PO QHS restless legs 08/31/23 08/24/24 History acetaminophen 500 mg tablet 1,000 mg PO Q8H PRN pain 08/24/24 08/23/24 History cholecalciferol (vitamin D3) 50 50 mcg PO DAILY 08/24/24 08/24/24 History mcg (2,000 unit) capsule gabapentin 600 mg tablet 300 mg PO DAILY 08/24/24 08/24/24 History gabapentin 600 mg tablet 600 mg PO BID 08/24/24 08/24/24 History Allergy/AdvReac Type Severity Reaction Status Date / Time Penicillins Allergy Unknown Verified 08/31/23 18:58 Sulfa (Sulfonamide Allergy Unknown Verified 08/31/23 18:58 Antibiotics) Surgical History S/P lumbar spinal fusion H/O blepharoplasty H/O tubal ligation Hx of tonsillectomy Social History Smoking Status: Never smoker ROS Constitutional Constitutional: Reports fatigue and weakness; Denies chills or fever(s) Eyes Eyes: Denies change in vision Cardiovascular Cardiovascular: Denies chest pain Respiratory/Chest Respiratory/Chest: Denies shortness of breath at rest Gastrointestinal Gastrointestinal: Denies abdominal pain, constipation or diarrhea Genitourinary Genitourinary: Denies dysuria Musculoskeletal Musculoskeletal: Denies arthralgias, back pain or myalgias Neurologic Neurologic: Reports abnormal gait; Denies confusion, disequilibrium, dizziness, headache(s), numbness or paresthesias Vital Signs Vital Signs Vital Signs: 08/24/24 10:35 08/24/24 11:37 08/24/24 12:00 Temperature 97.8 F 98.1 F 98.2 F Temperature Source Temporal Oral Oral Pulse Rate 68 67 62 Respiratory Rate 16 18 18 Blood Pressure 147/70 H 142/55 H 150/61 H Blood Pressure Mean 95 84 90 Pulse Ox 99 98 98 Oxygen Delivery Method Room Air Room Air Room Air 08/24/24 13:00 08/24/24 14:00 08/24/24 14:08 Temperature 98.2 F Temperature Source Pulse Rate 61 67 69 Respiratory Rate 18 18 17 Blood Pressure 152/55 H 173/58 H 158/77 H Blood Pressure Mean 87 96 104 Pulse Ox 95 95 95 Oxygen Delivery Method Room Air Weight Weight: 74.5 kg Body Mass Index (BMI) 27.3 Physical Exam Const alert, oriented x3, no apparent distress and average body habitus Constitutional Narrative: Elderly female, mildly fatigued appearing and flat affect noted but otherwise sitting back comfortably in bed, answering questions with short appropriate responses, in no acute distress. General Appearance: cooperative and comfortable HEENT normocephalic, head/scalp atraumatic, hearing grossly normal bilaterally, nasal mucous membranes and turbinates normal and moist oral mucous membranes Eyes PERRL, EOMs intact bilaterally and conjunctivae normal Neck full ROM Chest inspection of chest normal Resp normal respiratory effort, normal air movement, no use of accessory muscles and clear to auscultation bilaterally Cardio regular rate, regular rhythm, no murmurs and peripheral pulses 2+ throughout GI normal to inspection, nondistended, normoactive bowel sounds, soft to palpation, non-tender and non-distended Back/Spine normal ROM Extremity normal to inspection, full ROM and no pedal edema Skin no rashes or lesions noted Neuro moves all extremities and no focal motor deficits Neuro Narrative: Small parkinsonian tremor noted. Motor Exam: strength 5/5 throughout Psych mental status grossly normal Psych Narrative: Flat affect. Results Lab / Micro Data 08/24/24 10:56 08/24/24 10:56 Labs: Laboratory Results - last 24 hr 08/24/24 10:56: WBC 8.3, RBC 4.48, Hgb 12.8, Hct 40.0, MCV 89.3, MCH 28.6, MCHC 32.0, RDW Std Deviation 45.6 H, RDW Coeff of Pedro 14.2, Plt Count 191, MPV 11.9, Immature Gran % (Auto) 0.400, Neut % (Auto) 69.2, Lymph % (Auto) 15.2 L, Carter % (Auto) 12.7 H, Eos % (Auto) 1.9, Baso % (Auto) 0.6, Absolute Neuts (auto) 5.7, Absolute Lymphs (auto) 1.25, Nucleated RBC % 0, Sodium 141, Potassium 3.5, C hloride 110 H, Carbon Dioxide 25.0, Anion Gap 6, BUN 25 H, Creatinine 0.77, Est GFR (MDRD) Af Amer 94, Est GFR (MDRD) Non-Af 78, BUN/Creatinine Ratio 32.3 H, Glucose 100, Calcium 9.0, Total Bilirubin 0.70, AST 14 L, ALT 8 L, Alkaline Phosphatase 71, Troponin I High Sens 8, Total Protein 7.3, Albumin 3.3, Globulin 4.0, Albumin/Globulin Ratio 0.8 L 08/24/24 11:12: Lactic Acid 1.1 08/24/24 11:54: Urine Color Yellow, Urine Clarity Clear, Urine pH 7.0, Ur Specific Harmony 1.015, Urine Protein 30 H, Urine Glucose (UA) Normal, Urine Ketones 5 H, Urine Occult Blood Negative, Urine Nitrite Negative, Urine Bilirubin Negative, Urine Urobilinogen 8 H, Ur Leukocyte Esterase Negative, Urine RBC 10-25 SEEN, Urine WBC 0 SEEN, Ur Squamous Epith Cells 0 SEEN, Urine Bacteria 0 SEEN, Urine Mucus 0 SEEN Micro: Microbiology 08/24/24 11:31 Mucosa - Nose SARS-CoV-2, Influenza & RSV (PCR) - Final Rhythm Strip Rhythm Strip: Sinus Rhythm Rate: 60 Ectopy: None Imaging Radiology Impression Chest X-Ray 08/24/24 11:51 IMPRESSION: Stable chest with no acute or active cardiopulmonary disease. Electronically Signed: Luis Eduardo Langston MD at 12:05 EST Reading Location ID and State: [address] [place] [address] , Service support , Assessment & Plan Assessment/Plan (1) Debility: (2) Parkinson's disease: PLAN: Plan Patient is a 74-year-old female who presented [facility] ED on 08/24/2024 with worsening generalized weakness and difficulty with ambulation. 1. Acute on chronic debility in setting of Parkinson disease ? Admit under observation status to [facility]. PT/OT/case management consulted. Unclear etiology for worsening debility and difficulty with ambulation. Patient hemodynamically stable, afebrile and noninfectious appearing. Labs unremarkable. Has history of spinal stenosis with lumbar fusion as noted below but good lower extremity strength on exam here. Could be waxing and waning of parkinsonian symptoms. Follows regularly with outpatient neurology; will hold on neurology consult here and recommend close outpatient follow-up after discharge. Patient may need home health care on discharge but she and prefer no SNF placement at this point; appreciate therapy recs. Continue home Sinemet, gabapentin and pramipexole. Chronic medical conditions: ? Hypothyroidism: TSH ordered. Continue home Synthroid. ? Hypertension: Mildly hypertensive on admit. Continue on lisinopril. ? History of CVA, history of intraparenchymal hematoma of the brain: No permanent deficits noted. ? History of VTE: Completed anticoagulant therapy with no recurrence. ? History of spinal stenosis s/p lumbar fusion in 2019 ? Reported history of hemochromatosis: Hemoglobin stable at baseline around 12 on admit. DVT prophylaxis: Lovenox CODE STATUS: Full code, verified Expected disposition: Home, 1 to 2 days Total clinical time spent by myself addressing the patient's medical issues, reviewing all the data, and collaborating with patient's care team: 55 minutes. Charges/Coding Visit Charges Inpatient E&M: 79636 Init Hosp L2
[2024-08-24] MEDS: Carbidopa/Levodopa 25/100 Tablet PO (17:08)
--- NOTE | 2024-08-24 17:22 | CM.ED ---
Social Work Patient and told SW that patient had been declining since , that patient had been walking and able to care for herself prior to her decline. Over the weekend, patients had to assist patient with all ADLs including standing, toileting, and dressing. stated she even had trouble holding a fork to eat. Patient and stated they were interested in assistance in the home. Questions answered regarding home health care and private duty aides. Resources given to . Kathy Cordon, COFFEE SHOP AIDE, REFINERY OPERATOR HELPER CRACKING UNIT
[2024-08-24] MEDS: Pramipexole Di-HCl 1 MG Tablet 2 MG PO (21:01)
[2024-08-24] MEDS: Gabapentin 600 MG Tablet PO (21:01)
[2024-08-25 01:47] VITALS: BP 139/77; PULSE 63; RESP 16; TEMP 36.7; O2SAT 92
[2024-08-25 06:16] VITALS: BP 160/76; PULSE 65; RESP 16; TEMP 36.4; O2SAT 94
[2024-08-25] MEDS: Levothyroxine 50 MCG Tablet PO (06:23)
[2024-08-25] MEDS: Pramipexole Di-HCl 1 MG Tablet PO ×2 (06:23→14:37)
[2024-08-25] MEDS: Carbidopa/Levodopa 25/100 Tablet PO ×2 (06:23→11:40)
[2024-08-25 07:34] VITALS: O2SAT 93
[2024-08-25 08:02] LABS: Absolute Neutrophil Count 3.4 X10^3/uL (2.0-7.7); Basophil# 0.05 X10^3/uL; Basophil% 0.9 % (0-1); Eosinophil# 0.29 X10^3/uL; Eosinophils% 5.3 % (0-5); Hematocrit 40.4 % (37-47); Hemoglobin 12.4 g/dL (12.0-15.0); Lymphocyte % 21.7 % (19-41); Mean Corp Hgb Conc 30.7 g/dL (32-36); Mean Corpuscular Hgb 27.8 pg (27.0-32.0); Mean Corpuscular Volume 90.6 fL (81-99); Mean Platelet Vol. 12.3 fl (6.2-12.0); Monocyte# 0.58 X10^3/uL; Monocyte% 10.5 % (0-10); NRBC Flagged by Analyzer 0 % (0-5); Neutrophil # 3.39 X10^3/uL (2.7-7.7); Neutrophil % 61.4 % (47-70); Platelet Count 168 K/mm3 (150-450); RBC Distribution Width SD 46.7 fl (35.1-43.9); Red Blood Count 4.46 M/mm3 (4.2-5.4); White Blood Count 5.5 K/mm3 (4.4-11.0)
[2024-08-25 08:57] LABS: Anion Gap 7 (5-15); BUN 21 mg/dL (7-18); BUN/Creat Ratio 30.7 RATIO (10-20); Calcium,Total 9.6 mg/dL (8.5-10.1); Chloride 113 mmol/L (98-107); Creatinine, Serum 0.68 mg/dL (0.55-1.02); EST Glomerular Filtration Rate 89 mL/min (>60); Est Glom Filt Rate - Afr Amer 108 mL/min (>60); Estimated Creatinine Clearance 62.45 ml/min; Glucose 81 mg/dL (74-106); Potassium 3.6 mmol/L (3.5-5.1); Sodium Level 142 mmol/L (136-145)
[2024-08-25 09:09] VITALS: BP 124/67; PULSE 56; RESP 18; TEMP 36.2; O2SAT 92
[2024-08-25] MEDS: Aspirin 81 MG TAB.CHEW PO (09:23)
[2024-08-25] MEDS: Folic Acid 1 MG Tablet PO (09:24)
[2024-08-25] MEDS: Lisinopril 5 MG Tablet PO (09:24)
[2024-08-25] MEDS: Gabapentin 300 MG Capsule PO (09:24)
[2024-08-25] MEDS: Enoxaparin 40 MG/0.4 ML Syringe SC (09:24)
--- NOTE | 2024-08-25 13:04 | CHAPLAIN ---
Type of Pastoral Visit _x__ Initial Visit ___ Follow-up Visit ___ On-call Visit ___ General Patient Visit ___ Spiritual Assessment ___ Family Conference ___ Bereavement ___ Rapid Response ___ Code Blue ___ Other (describe below) Pastoral Care Referral From ___ Patient _x__ Family ___ Nurse ___ Physician ___ Restaurant Service Manager ___ Hog Handler ___ Other (describe below) Sacrament/Intervention _x__ Active listening ___ Anointing ___ Adventism ___ Bereavement ___ Communion ___ Gabriela exploration ___ ___ Life review _x__ Prayer ___ Reconciliation ___ Sacrament of Sick _x__ Supportive presence ___ Wedding ___ Other (describe below) Pastoral Comments patient has spouse and daughter in the room; pt states that she is fine and does not address any cause for why she is in the hospital; pt is given open ended questions to see about any concerns or needs and she does not articulate anything; family members just look at each other when the patient responds; pt is pleasant; pt does agree that a prayer would be fine to offer; offer of support to the family as they desire too
--- NOTE | 2024-08-25 13:50 | CASEMGMT ---
Addendum entered by Cookie Acosta 08/25/24 14:55: [facility] has accepted pt for services on . JOSH PRINCE into pt room, pt and aware. Placed on dc plan. Addendum entered by Cookie Acosta 08/25/24 14:25: JOSH PRINCE into pt room, pt and have chosen 1. [facility] 2. [facility] 3. [facility]. TC to [facility], left vm with referral. Will await returned call. Original Note: JOSH PRINCE spoke with therapy who states pt and are interested in [facility] therapy. JOSH PRINCE into pt room, pt sitting up in chair with at her side. Pt states pt has FFSU at home. She has grab bars, rollator, shower chair, FWW. States pt has one step to get into the house from the garage with a grab bar. Pt states he received private duty information already but is interested in skilled therapy at home. Patient and was provided a list of [facility] providers including quality and resource use data and consistent with the patient?s preferred geographic region, medical needs, and insurance network were provided from the [employer] Guide. Pt to review and RN SURESH to check back for choices. Pt denies needs for SN for at home.
[2024-08-25 14:34] VITALS: BP 126/72; PULSE 59; RESP 16; TEMP 37; O2SAT 95
[2024-08-25] MEDS: Gabapentin 600 MG Tablet PO (14:37)
--- NOTE | 2024-08-25 14:45 | CASEMGMT ---
Met with patient and her to complete POPE form. POPE form explained to both who voiced understanding and signed form. Original form placed in pt?s chart and copy provided to patient. Xenia Horton, Discharge Planning Asst
--- NOTE | 2024-08-25 15:00 | PCM.DC.SUM ---
Providers Date of Admission: 08/24/24 Date of Discharge: 08/25/24 Primary Care Physician: Dr. Román Rosado MD Reason For Visit: GENERALIZED WEAKNESS, DIFFICULTY W/AMBULATION Diagnosis Discharge Diagnosis (1) Debility: Status: Acute Code(s): R53.81 - Other malaise (2) Parkinson's disease: Status: Acute Code(s): G20.A1 - Parkinson's disease without dyskinesia, without mention of fluctuations Medications at Discharge Home Medications aspirin 81 mg tablet,delayed release 81 mg PO DAILY@0800 heart health 05/29/19 folic acid 1 mg tablet 1 mg PO DAILY supplement 05/29/19 lisinopril 5 mg tablet 5 mg PO DAILY blood pressure #30 tabs 05/29/19 pramipexole 1 mg tablet 1 mg PO BID@0600,1400 restless legs #120 tabs 05/29/19 carbidopa 25 mg-levodopa 100 mg tablet 1.5 tab PO TIDAC parkinsons 08/31/23 levothyroxine 50 mcg tablet 50 mcg PO DAILY thyroid 08/31/23 pramipexole 1 mg tablet 2 mg PO QHS restless legs 08/31/23 acetaminophen 500 mg tablet 1,000 mg PO Q8H PRN pain 08/24/24 cholecalciferol (vitamin D3) 50 mcg (2,000 unit) capsule 50 mcg PO DAILY 08/24/24 gabapentin 600 mg tablet 300 mg PO DAILY 08/24/24 gabapentin 600 mg tablet 600 mg PO BID 08/24/24 Hospital Course Operations None Procedures - (Chest x-ray) Summary of Care Provided Minutes Spent on Discharge: 25 Hospital Course: Mrs. Rincon is a 74-year-old white female who has a history of Parkinson's disease diagnosed 7 years ago who presented to the emergency department [facility] 08/24/2024 due to generalized weakness and difficulty with ambulation. It was reported on presentation that she uses a walker for ambulation about 50% of the time and her had noted over the past 3 to 4 days prior to presentation she was having more difficulty with ambulating even with a walker. On the day of presentation she was not able to even stand up without assistance. The patient follows with neurology and had tried to increase her Sinemet dose in June for her increased episodes of freezing however the patient had diarrhea with this increased dose so her dose was reduced back to her baseline. Patient indicated she had been doing fairly well on the reduced dose until about the 3 to 4 days prior to presentation. She denies any other symptoms. She denies pain. Vital signs on presentation showed temperature of 97.8, heart rate of 60, respiratory rate 16, blood pressure was 147/70 and pulse ox was 99% room air. CBC was unremarkable other than a slight monocytosis which does not appear to be chronic. Chemistry panel was overtly unremarkable. Lactic acid was normal at 1.1. Liver functions normal. Troponin was 8. TSH was within normal limits. Her UA was not consistent with infection. Chest x-ray is unremarkable without any acute findings. Given her decreased ability to function, and increasing problems at home she was admitted for observation status to be assessed by physical and Occupational Therapy to see if she could get some assistance with home health. Patient family were not interested in skilled facility at this time. With her monocytosis I do question whether she has a mild viral infection that could be precipitating her weakness over the last 3 to 4 days. She was negative for COVID/influenza/RSV and has no other significant symptoms. She was evaluated by physical and Occupational Therapy and they felt she would benefit from home health services which were set up by case management prior to discharge. Patient was able to be discharged home in stable condition on 08/25/2024 with home health care. Discharge diagnoses: Acute on chronic debility secondary to Parkinson's disease Monocytosis-possible viral etiology Gait dysfunction Parkinson's disease Hypothyroidism Hypertension History of stroke History of VTE History of spinal stenosis status post lumbar fusion History of hemochromatosis Neuropathy Restless leg syndrome Physical Exam Const alert, oriented x3, no apparent distress, average body habitus and well nourished Constitutional Narrative: Very pleasant, elderly, white female, sitting up in bed, daughter at bedside, patient does appear a bit older than stated age and has bradykinesia and masked facies General Appearance: cooperative, comfortable, well kempt and well developed Exam Limitations: no limitations HEENT normocephalic, head/scalp atraumatic and hearing grossly normal bilaterally HEENT Narrative: Mallampati 2, no thrush Resp normal respiratory effort, no retractions, no use of accessory muscles and clear to auscultation bilaterally Auscultation: Negative for rales, rhonchi or wheezes Cardio regular rate, regular rhythm, S1 normal heart sound, S2 normal heart sound, no murmurs, no rub, no gallops and no clicks GI normal to inspection, nondistended, normoactive bowel sounds, soft to palpation and non-tender Extremity no clubbing, cyanosis or edema Extremity Narrative: Pedal and radial pulses are 2+ Neuro oriented x3, moves all extremities and no focal motor deficits Neuro Narrative: Bradykinesia, speech is clear and intact but response times are slow, masked facies Psych Psych Narrative: Affect is flat, patient interacts appropriately Weight / BMI Weight Weight: 72.4 kg Body Mass Index (BMI) 26.5 ABG / Lab / Microbiology Data 08/25/24 06:47 08/25/24 06:47 Laboratory: Laboratory Results - last 24 hr 08/24/24 10:56: TSH 0.990 08/25/24 06:47: WBC 5.5, RBC 4.46, Hgb 12.4, Hct 40.4, MCV 90.6, MCH 27.8, MCHC 30.7 L, RDW Std Deviation 46.7 H, RDW Coeff of Pedro 14.0, Plt Count 168, MPV 12.3 H, Immature Gran % (Auto) 0.200, Neut % (Auto) 61.4, Lymph % (Auto) 21.7, Floyd % (Auto) 10.5 H, Eos % (Auto) 5.3 H, Baso % (Auto) 0.9, Absolute Neuts (auto) 3.4, Absolute Lymphs (auto) 1.20, Nucleated RBC % 0, Sodium 142, Potassium 3.6, Chloride 113 H, Carbon Dioxide 22.0, Anion Gap 7, BUN 21 H, Creatinine 0.68, Estim Creat Clear Calc 62.45, Est GFR (MDRD) Af Amer 108, Est GFR (MDRD) Non-Af 89, BUN/Creatinine Ratio 30.7 H, Glucose 81, Calcium 9.6 Microbiology: Microbiology 08/24/24 11:31 Mucosa - Nose SARS-CoV-2, Influenza & RSV (PCR) - Final D/C Instructions Discharge Diet: No restrictions DC O2, CPAP, BIPAP Needs Home O2 Discharge instructions: No Meaningful Use Info Meaningful Use Meaningful Use Diagnoses (Choose all that apply): None applicable Ischemic Stroke Statin Dosing Therapy Reference: STATIN DOSE THERAPY REFERENCE: * Patients > 75 years receive moderate or high dose statin therapy. * Patients 75 years or YOUNGER should receive HIGH intensity statin dose unless contraindicated. You will be required to document reason for non-treatment if statin daily dose does not meet guidelines. HIGH DOSE STATIN THERAPY DAILY Atorvastatin > than or = to 40 mg Rosuvastatin > than or = to 20 mg Amlodipine + Atorvastatin > than or = to 2.5/40 mg Ezetimibe + Simvastatin 10/80 mg Simvastatin 80mg Discharge Plan Admission Admit Date/Time: 08/24/24 14:37 Primary Reason for Your Visit: Acute on chronic debility/weakness Attending Provider: Guillermina Varghese Primary Care Provider: Román Rosado Consulting Providers: Jay Guevara Discharge Orders/Prescriptions Prescriptions: Continued pramipexole 1 MG tablet 1 mg PO BID@0600,1400 Qty: 120 1RF aspirin 81 MG tablet 81 mg PO DAILY@0800 0RF folic acid 1 MG tablet 1 mg PO DAILY 0RF lisinopril 5 MG tablet 5 mg PO DAILY Qty: 30 1RF pramipexole 1 mg tablet 2 mg PO QHS levothyroxine 50 mcg tablet 50 mcg PO DAILY carbidopa-levodopa 1 TABLET tablet 1.5 tab PO TIDAC Patient Comments: TAKES AT 0700, 1130, 1730 gabapentin 600 mg tablet 300 mg PO DAILY Patient Comments: TAKE 1/2 TABLET BY MOUTH AT 7 AM, 1 TABLET AT 2 PM AND 1 TABLET AT 9 PM. gabapentin 600 mg tablet 600 mg PO BID Rx Instructions: TAKE 1/2 TABLET BY MOUTH AT 7 AM, 1 TABLET AT 2 PM AND 1 TABLET AT 9 PM. cholecalciferol (vitamin D3) 50 mcg (2,000 unit) capsule 50 mcg PO DAILY acetaminophen 500 MG tablet 1,000 mg PO Q8H PRN (Reason: pain) Referrals / Follow Up: Román Rosado MD [Primary Care Provider] - Within 2 Weeks Disposition Disposition (needs filled in before D/C Order can be placed): Home Health Service Charges/Coding Visit Charges Inpatient E&M: 29822 Disch Hosp
--- NOTE | 2024-08-25 15:49 | PHA.DC.MR.R ---
Pharmacy [place] Med Reconciliation Pharmacy Service has performed discharge medication reconciliation for this patient. The patient's discharge medication list was reviewed for discrepancies and discrepancies were resolved. Medications at Discharge Home Medications aspirin 81 mg tablet,delayed release 81 mg PO DAILY@0800 heart health 05/29/19 folic acid 1 mg tablet 1 mg PO DAILY supplement 05/29/19 lisinopril 5 mg tablet 5 mg PO DAILY blood pressure #30 tabs 05/29/19 pramipexole 1 mg tablet 1 mg PO BID@0600,1400 restless legs #120 tabs 05/29/19 carbidopa 25 mg-levodopa 100 mg tablet 1.5 tab PO TIDAC parkinsons 08/31/23 levothyroxine 50 mcg tablet 50 mcg PO DAILY thyroid 08/31/23 pramipexole 1 mg tablet 2 mg PO QHS restless legs 08/31/23 acetaminophen 500 mg tablet 1,000 mg PO Q8H PRN pain 08/24/24 cholecalciferol (vitamin D3) 50 mcg (2,000 unit) capsule 50 mcg PO DAILY 08/24/24 gabapentin 600 mg tablet 300 mg PO DAILY 08/24/24 gabapentin 600 mg tablet 600 mg PO BID 08/24/24
== END 2024-08-25 16:30 | disposition home health service (06) ==
LOC: ED 14:54 → MS3 15:57
PROVIDERS: Admitting Provider Hospitalist; Emergency Provider Emergency Medicine; PCP Family Medicine; Visit Provider Internal Medicine
DX: R53.1 Weakness (principal); G20.A1 Parkinson's disease without dyskinesia, without mention of fluctuations; R53.81 Other malaise; E86.0 Dehydration; G62.9 Polyneuropathy, unspecified; M25.512 Pain in left shoulder; Z86.73 Personal history of transient ischemic attack (TIA), and cerebral infarction without residual deficits; E03.9 Hypothyroidism, unspecified; R19.7 Diarrhea, unspecified; G25.81 Restless legs syndrome; Z79.890 Hormone replacement therapy; D72.821 Monocytosis (symptomatic); I10 Essential (primary) hypertension; Z79.82 Long term (current) use of aspirin; Z79.899 Other long term (current) drug therapy
CPT/HCPCS: 36415; 71045; 80048; 80053; 81001; 83605; 84443; 84484; 85025; 87631; 93005; 94668; 96360; 96361; 96372; 97162; 97166; 99221; 99285; A4216; G0378